=== PATIENT | male | born 1970 | race Caucasian/White ===

== ENCOUNTER 2019-02-13 09:30 | Outpatient (CLI) | payer BC ==
[~2019-02-13] VITALS: Ht 180.3 cm; Wt 115.7 kg
[~2019-02-13 09:30] MED LIST: BENZ200C25 PO; FLT05NA16 NSEACH; LOSA1TAB20 PO; METO100T5 PO; METR500T PO; ONDA-42 SL; OSLT75CRX PO
[2019-02-13] MEDS ORDERED: FENO134C PO (09:42)
[2019-02-13] MEDS ORDERED: LOSA100T57 PO (09:42)
[2019-02-13] MEDS ORDERED: OMEP40CA36 PO (09:42)
[2019-02-13] MEDS ORDERED: METO-395 PO (09:42)
== END 2019-02-13 09:43 | disposition home or self-care (01) ==
LOC: PREOP 09:30
PROVIDERS: ATTEND Surgery
DX: Z01.818 Encounter for other preprocedural examination (principal)

== ENCOUNTER 2019-02-17 09:09 | Day surgery (SDC) | payer BC ==
[~2019-02-17] VITALS: Ht 180.3 cm; Wt 115.7 kg
[~2019-02-17 09:09] MED LIST changes: +FENO134C PO; +LOSA100T57 PO; +METO-395 PO; +OMEP40CA36 PO
[2019-02-17 09:10] VITALS: BP 131/87
[2019-02-17] MEDS ORDERED: LACTATED RINGERS 1,000 ML IV PRN (09:30)
[2019-02-17] MEDS ORDERED: HURRICAINE EXT TUBE (BENZOCAINE) XX PRN (09:30)
[2019-02-17] MEDS ORDERED: PROPOFOL INJECTION 50 ML IV ONE (09:48)
[2019-02-17] MEDS ORDERED: MIDAZOLAM 2 MG/2 ML (VERSED) VIAL ONE (09:48)
[2019-02-17] MEDS ORDERED: LACTATED RINGERS 1,000 ML IV ONE (09:51)
[2019-02-17] MEDS ORDERED: HURRICAINE EXT TUBE (BENZOCAINE) ONE (09:59)
--- NOTE | 2019-02-17 10:07 | Progress Note-Pre Operative ---
Pre-Operative Progress Note H&P Reviewed The H&P was reviewed, patient examined and no changes noted. Date Seen by Provider: Feb 17, 2019 Time Seen by Provider: 10:06 Date H&P Reviewed: Feb 17, 2019 Time H&P Reviewed: 10:07 Pre-Operative Diagnosis: gerd, dysphagia, screening colonoscopy IRAJ BURCH DO Feb 17, 2019 10:07
[2019-02-17] MEDS ORDERED: SUCR1TAB36 PO (10:59)
[2019-02-17] MEDS ORDERED: PANT40TA2 PO (10:59)
[2019-02-17 11:00] VITALS: BP 114/74
--- NOTE | 2019-02-17 11:01 | Discharge Inst-Simple/Standard ---
Discharge Inst-Standard Discharge Medications New, Converted or Re-Newed RX: Transmitted to Pharmacy Patient Instructions/Follow Up Plan of Care/Instructions/FU: 2 weeks Carolynn Activity as Tolerated: Yes Discharge Diet: Regular Diet IRAJ BURCH DO Feb 17, 2019 11:01
[2019-02-17 11:35] VITALS: BP 123/86
[2019-02-17 11:45] VITALS: BP 123/86
--- NOTE | 2019-02-17 15:12 | Anesthesia-General Post-Op ---
MAC Patient Condition Mental Status/LOC: Same as Preop Cardiovascular: Satisfactory Nausea/Vomiting: Absent Respiratory: Satisfactory Pain: Controlled Complications: Absent Post Op Complications Complications None Follow Up Care/Instructions Patient Instructions None needed. Anesthesiology Discharge Order Discharge Order Patient is doing well, no complaints, stable vital signs, no apparent adverse anesthesia problems. No complications reported per nursing. LORENE BURGESS CRNA Feb 17, 2019 15:12
--- NOTE | 2019-02-17 15:35 | OPERATIVE REPORT ---
DATE OF SERVICE: 02/17/2019 PREOPERATIVE DIAGNOSES: Dysphagia, gastroesophageal reflux disease and screening colonoscopy. POSTOPERATIVE DIAGNOSES: Hiatal hernia, slight gastritis, sigmoid colon polyp. PROCEDURE: EGD with biopsies, colonoscopy with hot biopsy polypectomy. SURGEON: Iraj Pradhan DO ANESTHESIA: Per MDA. ESTIMATED BLOOD LOSS: None. COMPLICATIONS: None. INDICATIONS: The patient is a 48-year-old male with some dysphagia and reflux. He also had screening colonoscopy. He understands risks and benefits of procedure and wished to proceed with procedure. Consent was signed on the chart. DESCRIPTION OF PROCEDURE: The patient was taken to the endoscopy suite, placed in left lateral recumbent position. Timeout was performed. Scope was inserted into mouth, down the esophagus, stomach and the duodenum without difficulty. There were no polyps, masses or ulcerations within the duodenum. Scope was then slowly retracted back into the stomach, where it was further insufflated. Erythematous changes present consistent with slight gastritis. Biopsies were obtained of the antrum and body. Scope was retroflexed noting a hiatal hernia. No other pathology noted. Scope was returned to its normal position, slowly withdrawn until the distal esophagus. Biopsy of the GE junction was obtained. Scope was then slowly retracted back until completely removed. Digital rectal exam was performed. There were no palpable polyps, masses or ulcerations. Scope was inserted into the rectum and advanced all the way to the cecum with minimal difficulty. Prep was adequate. Scope was then slowly retracted back. There were no polyps, masses or ulcerations within the cecum, ascending, transverse and descending colon. Within the sigmoid colon, a small polyp was present to which hot biopsy polypectomy was performed. Scope was then slowly retracted back to the rectum, where it was also retroflexed noting no other pathology. Scope was returned to its normal position, slowly withdrawn until completely removed. The patient tolerated procedure well without any complications. He was taken to the recovery room in stable condition. RECOMMENDATIONS: The patient will be started on Protonix and Carafate. We will follow up in 2 weeks. We will need repeat colonoscopy in 5 years. Any issues before that be seen at that time. Job ID: [id number] DocumentID: [id number] Dictated Date: 02/17/2019 11:04:51 [employer] Research Scientist Date: 02/17/2019 15:35:11 Dictated By: IRAJ PRADHAN DO
== END 2019-02-17 11:45 | disposition home or self-care (01) ==
LOC: ENDO 09:09
PROVIDERS: ATTEND Surgery
DX: Z12.11 Encounter for screening for malignant neoplasm of colon (principal); D12.5 Benign neoplasm of sigmoid colon; K21.0 Gastro-esophageal reflux disease with esophagitis; K44.9 Diaphragmatic hernia without obstruction or gangrene; K29.50 Unspecified chronic gastritis without bleeding; B96.81 Helicobacter pylori [H. pylori] as the cause of diseases classified elsewhere; I10 Essential (primary) hypertension; Z79.899 Other long term (current) drug therapy
CPT/HCPCS: 88305; 88342

== ENCOUNTER 2021-02-12 05:57 | Inpatient (IN) | payer BC ==
[2021-02-12] VITALS (12 sets, daily range): BP systolic 124–169; BP diastolic 68–94
[~2021-02-12] VITALS: Ht 180.3 cm; Wt 115.7 kg
[~2021-02-12 05:57] MED LIST changes: -METO-395 PO; +MTP100TCR PO; +OMEP40CA27 PO; -OMEP40CA36 PO; +PANT40TA2 PO; +SUCR1TAB36 PO
[2021-02-12] MEDS ORDERED: NS IV 1000 ML 1,000 ML IV SCH (06:30)
[2021-02-12] MEDS ORDERED: ONDANSETRON 4 MG/2 ML (SDV) Z0FRAN IVP ONE (06:30)
--- NOTE | 2021-02-12 06:31 | ED Abdominal Pain ---
General Chief Complaint: Abdominal/GI Problems Stated Complaint: ABD PAIN;VOMITING Nursing Triage Note: TO ED VIA POV AND AMBULATORY TO ROOM 6 WITH C/O ABD PAIN AND CRAMPING SINCE SATURDAY NIGHT. PT STARTED VOMITING SATURDAY NIGHT THRU SATURDAY MORNING. THE PAIN ORIGINATED IN UPPER ABD WHEN STARTED ON SATURDAY AND NOT IS LOWER ABD. DENIES DIARRHEA, FEVER, CHILLS, COUGH, SOA. TOOK TYLENOL WITH NO RELIEF. Sepsis Screen: No Definite Risk Source of Information: Patient Exam Limitations: No Limitations History of Present Illness Date Seen by Provider: Feb 12, 2021 Time Seen by Provider: 06:15 Initial Comments Patient is a 50-year-old male who presents to the emergency department tonight with a chief complaint of abdominal cramping and pain onset 48 hours ago. Patient has had multiple episodes of vomiting since the onset of his pain. He denies diarrhea, black or bloody stools. He denies black or bloody vomitus as well. Patient states that the pain started in the epigastrium and has slowly migrated down to the inferior abdominal area. He has had contact with a sick granddaughter who had similar symptoms about a week ago that lives with him. He is taken Tylenol and Pepto-Bismol without any relief of symptoms. He presented this evening because he is not been able to sleep secondary to the cramping d iscomfort. He denies any problems with urinary output. No other recent illnesses such as fevers, chills cough or congestion. He has had no history of abdominal surgeries. All other review of systems reviewed and negative except as stated. Timing/Duration: 2-3 Days Severity/Quality: Cramping Location: Generalized Abdomen Radiation: Other (lower abdomen) Activities at Onset: None Associated Symptoms: Nausea/Vomiting (15+ times) Allergies and Home Medications Allergies Coded Allergies: No Known Drug Allergies (Verified , 02/17/19) Home Medications Dicyclomine HCl 20 Mg Tablet, 20 MG PO Q6H PRN for abdominal cramping Prescribed by: ROSY JOHN on 02/12/21 0713 Fenofibrate,Micronized 134 Mg Capsule, 134 MG PO DAILY, (Reported) Losartan Potassium Unknown Strength Tablet, 1 TAB PO DAILY, (Reported) Metoprolol Succinate Unknown Strength Tab.er.24h, 1 TAB PO DAILY, (Reported) Ondansetron 4 Mg Tab.rapdis, 4 MG PO Q8H PRN for nausea Prescribed by: ROSY JOHN on 02/12/21 0713 Pantoprazole Sodium 40 Mg Tablet.dr, 40 MG PO DAILY Prescribed by: IRAJ BURCH on 02/17/19 1059 Sucralfate 1 Gm Tablet, 1 GM PO QID Prescribed by: IRAJ BURCH on 02/17/19 1059 Patient Home Medication List Home Medication List Reviewed: Yes Review of Systems Review of Systems Constitutional: see HPI EENTM: No Symptoms Reported Respiratory: No Symptoms Reported Cardiovascular: No Symptoms Reported Gastrointestinal: Abdominal Pain, Nausea, Vomiting Genitourinary: No Symptoms Reported Musculoskeletal: no symptoms reported Skin: no symptoms reported All Other Systems Reviewed Negative Unless Noted: Yes Past Acsbclj-Vekpxc-Xggfgq Hx Patient Social History Alcohol Use: Denies Use Smoking Status: Never a Smoker 2nd Hand Smoke Exposure: No Recent Infectious Disease Expo: No Immunizations Up To Date Date of Influenza Vaccine: Aug 18, 2018 Seasonal Allergies Seasonal Allergies: No Past Medical History Surgeries: Yes (leg fx ) Orthopedic Respiratory: No Cardiac: Yes High Cholesterol, Hypertension Neurological: No Genitourinary: No Gastrointestinal: Yes Gastroesophageal Reflux Musculoskeletal: No Endocrine: No HEENT: No Cancer: No Psychosocial: No Integumentary: No Blood Disorders: No Physical Exam Vital Signs Vital Signs - First Documented 02/12/21 06:06 Temp 36.7 Pulse 72 Resp 16 B/P (MAP) 144/72 (96) O2 Delivery Room Air Capillary Refill : Less Than 3 Seconds Height/Weight/BMI Height: 5'11.00" Weight: 255lbs. 0.0oz. [id number]; 33.00 BMI Method:Stated General Appearance: WD/WN, no apparent distress HEENT: normal ENT inspection (dry oral mucosa) Respiratory: lungs clear, normal breath sounds, no respiratory distress, no accessory muscle use Cardiovascular: regular rate, rhythm Gastrointestinal: normal bowel sounds, soft, tenderness (mild diffuse tenderness, no rebound or guarding) Extremities: normal inspection, no pedal edema Neurologic/Psychiatric: alert, normal mood/affect, oriented x 3 Skin: normal color, warm/dry Progress/Results/Core Measures Results/Orders Lab Results Laboratory Tests Test 02/12/21 06:10 Range/Units White Blood Count 17.7 H 4.3-11.0 10^3/uL Red Blood Count 5.76 H 4.30-5.52 10^6/uL Hemoglobin 17.5 13.3-17.7 g/dL Hematocrit 51 40-54 % Mean Corpuscular Volume 89 80-99 fL Mean Corpuscular Hemoglobin 30 25-34 pg Mean Corpuscular Hemoglobin Concent 34 32-36 g/dL Red Cell Distribution Width 13.1 10.0-14.5 % Platelet Count 330 130-400 10^3/uL Mean Platelet Volume 10.8 9.0-12.2 fL Immature Granulocyte % (Auto) 0 % Neutrophils (%) (Auto) 78 H 42-75 % Lymphocytes (%) (Auto) 12 12-44 % Monocytes (%) (Auto) 9 0-12 % Eosinophils (%) (Auto) 0 0-10 % Basophils (%) (Auto) 0 0-10 % Neutrophils # (Auto) 13.8 H 1.8-7.8 10^3/uL Lymphocytes # (Auto) 2.1 1.0-4.0 10^3/uL Monocytes # (Auto) 1.6 H 0.0-1.0 10^3/uL Eosinophils # (Auto) 0.1 0.0-0.3 10^3/uL Basophils # (Auto) 0.1 0.0-0.1 10^3/uL Immature Granulocyte # (Auto) 0.1 0.0-0.1 10^3/uL Neutrophils % (Manual) 82 % Lymphocytes % (Manual) 7 % Monocytes % (Manual) 10 % Band Neutrophils 1 % Blood Morphology Comment NORMAL Sodium Level 135 135-145 MMOL/L Potassium Level 3.9 3.6-5.0 MMOL/L Chloride Level 101 98-107 MMOL/L Carbon Dioxide Level 22 21-32 MMOL/L Anion Gap 12 5-14 MMOL/L Blood Urea Nitrogen 20 H 7-18 MG/DL Creatinine 1.53 H 0.60-1.30 MG/DL Estimat Glomerular Filtration Rate 48 BUN/Creatinine Ratio 13 Glucose Level 131 H 70-105 MG/DL Calcium Level 9.6 8.5-10.1 MG/DL Total Bilirubin 1.3 H 0.1-1.0 MG/DL Direct Bilirubin 0.5 H 0.0-0.3 MG/DL Indirect Bilirubin 0.8 MG/DL Aspartate Amino Transf (AST/SGOT) 24 5-34 U/L Alanine Aminotransferase (ALT/SGPT) 40 0-55 U/L Alkaline Phosphatase 82 40-136 U/L Total Protein 8.4 H 6.4-8.2 GM/DL Albumin 4.4 3.2-4.5 GM/DL Lipase 22 8-78 U/L My Orders Orders - ROSY JOHN MD Ondansetron Injection (Zofran Injectio (02/12/21 06:30) Ns Iv 1000 Ml (Sodium Chloride 0.9%) (02/12/21 06:30) Cbc With Automated Diff (02/12/21 06:27) Basic Metabolic Panel (02/12/21 06:27) Manual Differential (02/12/21 06:10) Dicyclomine Injection (Bentyl Injection) (02/12/21 07:11) Ct Abdomen/Pelvis Wo (02/12/21 07:34) Liver Panel (02/12/21 08:27) Lipase (02/12/21 08:27) Ketorolac Injection (Toradol Injection) (02/12/21 08:45) Piperacillin/Tazobactam (Bulk) (Zosyn In (02/12/21 09:00) Medications Given in ED Vital Signs/I&O 02/12/21 06:06 Temp 36.7 Pulse 72 Resp 16 B/P (MAP) 144/72 (96) O2 Delivery Room Air Blood Pressure Mean: 96 Progress Progress Note : Time: 06:55 Progress Note Patient seen and evaluated in the emergency department, 50-year-old with abdominal cramping and nausea. Evaluation today includes a physical exam, CBC and BMP. Patient is noted to have a significant leukocytosis of 17,000. He also has mild increase in his serum BUN and creatinine. Patient is treated in the emergency department with 8 mg of Zofran IV and a liter of normal saline. He stated that he achieved significant relief with the Zofran. Patient is strongly encouraged to drink plenty of fluids to stay well-hydrated in order to resolve the elevated BUN and creatinine. We will have the patient follow-up in 1 week with his primary care doctor with repeat labs in order to recheck the creatinine. Patient is sent home with a prescription for Zofran. He is advised to again follow-up next week with his primary care. He verbalized understanding. All questions are sought and answered. Patient will be stable for discharge. Diagnostic Imaging Diagonstic Imaging: CT Plain Films/CT/US/NM/MRI: abdomen, pelvis Comments [facility]. [place], [place] NAME: LEI JUSTICE JR [facility] REC#: [id number] PT STATUS: REG ER : 1970 PHYSICIAN: ROSY JOHN MD ADMIT DATE: 02/12/21/ER Draft Date of Exam:02/12/21 CT ABDOMEN/PELVIS WO PROCEDURE: CT abdomen and pelvis without contrast. TECHNIQUE: Multiple contiguous axial images were obtained through the abdomen and pelvis without the use of intravenous contrast. Auto Exposure Controls were utilized during the CT exam to meet ALARA standards for radiation dose reduction. INDICATION: Diffuse abdominal pain with elevated white cell count. FINDINGS: Examination demonstrates gallbladder wall thickening with air in the gallbladder extending into the cystic duct and a little bit within the central intrahepatic ducts. Inflammation is also seen around the descending duodenum. No ascites or fluid collections are present. The pancreas appears normal. The lung bases are clear. The spleen and adrenal glands and kidneys appear normal. Urinary bladder and prostate gland are normal. There is no evidence of appendicitis. Some bowel loops in the upper abdomen are mildly distended with few air-fluid levels consistent with an associated ileus. Distal bowel loops are decompressed. A early bowel obstruction cannot be excluded. IMPRESSION: 1. 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 2. Proximal small bowel is distended with air-fluid levels. No definite transition level is identified. This is probably associated enteritis. Early small bowel obstruction cannot be excluded. Dictated on workstation # [id number] Dict: 02/12/21 0809 Trans: 02/12/21 08 [facility] [id number] Interpreted by: KALI HAQUE MD Electronically signed by: Departure Communication (Admissions) Time/Spoke to Admitting Phy: 08:[address] King Impression Primary Impression: Abdominal pain Qualified Codes: R10.84 - Generalized abdominal pain Additional Impressions: Acute kidney injury Dehydration Cholecystitis Disposition: ADMITTED INPATIENT Condition: Stable Admissions Decision to Admit Reason: Admit from ER (General) Decision to Admit/Date: Feb 12, 2021 Time/Decision to Admit Time: 08:46 Departure-Patient Inst. Decision time for Depature: 06:56 Referrals: JOANNE ALVAREZ DO (PCP/Family) Primary Care Physician Patient Instructions: Gastritis (DC) Add. Discharge Instructions: Please follow a clear liquid diet for the next 24 hours. You can slowly advance your diet as tolerated after this. Use the oral Zofran tablets every 6-8 hours as needed for nausea and vomiting. If you develop a fever over 100.4, worsening abdominal pain, persistent vomiting or any other emergent concerns please come back to the ER for reevaluation. Please follow-up with your primary care doctor next week for repeat laboratory studies to follow-up on your kidney function panel. Scripts Ondansetron (Ondansetron Odt) 4 Mg Tab.rapdis 4 MG PO Q8H PRN for nausea, #20 TAB Prov: ROSY JOHN MD 02/12/21 Dicyclomine HCl (Dicyclomine HCl) 20 Mg Tablet 20 MG PO Q6H PRN for abdominal cramping, #30 TAB Prov: ROSY JOHN MD 02/12/21 Copy Copies To 1: JOANNE ALVAREZ KATHRYN M MD Feb 12, 2021 06:31
[2021-02-12 06:35] LABS: POTASSIUM 3.9 MMOL/L (3.6-5.0)
[2021-02-12 06:36] LABS: CALCIUM 9.6 MG/DL (8.5-10.1)
[2021-02-12 06:40] LABS: BASOPHILS # (AUTO) 0.1 10^3/uL (0.0-0.1); BASOPHILS % (AUTO) 0 % (0-10); CREATININE SERUM 1.53 MG/DL (0.60-1.30); EOSINOPHILS # (AUTO) 0.1 10^3/uL (0.0-0.3); EOSINOPHILS % (AUTO) 0 % (0-10); HEMATOCRIT 51 % (40-54); HEMOGLOBIN 17.5 g/dL (13.3-17.7); LYMPHOCYTES # (AUTO) 2.1 10^3/uL (1.0-4.0); LYMPHOCYTES % (AUTO) 12 % (12-44); MEAN CORPUSCULAR HEMOGLOBIN 30 pg (25-34); MEAN CORPUSCULAR HGB CONC 34 g/dL (32-36); MEAN CORPUSCULAR VOLUME 89 fL (80-99); MEAN PLATELET VOLUME 10.8 fL (9.0-12.2); MONOCYTES # (AUTO) 1.6 10^3/uL (0.0-1.0); MONOCYTES % (AUTO) 9 % (0-12); NEUTROPHILS # (AUTO) 13.8 10^3/uL (1.8-7.8); NEUTROPHILS % (AUTO) 78 % (42-75); PLATELET COUNT 330 10^3/uL (130-400); WHITE BLOOD COUNT 17.7 10^3/uL (4.3-11.0)
[2021-02-12] MEDS ORDERED: DICYCLOMINE 10 MG/ML (BENTYL) 2 ML AMP IM STA (07:11)
[2021-02-12] MEDS ORDERED: DICY20TA10 PO (07:13)
[2021-02-12] MEDS ORDERED: ONDA4TAB11 PO (07:13)
[2021-02-12 07:15] LABS: BAND NEUTROPHILS 1 %; LYMPHOCYTES % (MANUAL) 7 %; MONOCYTES % (MANUAL) 10 %; NEUTROPHILS % (MANUAL) 82 %
[2021-02-12 07:16] LABS: RBC MORPH NORMAL
--- NOTE | 2021-02-12 08:23 | Diagnostic Imaging Report ---
PROCEDURE: CT abdomen and pelvis without contrast. TECHNIQUE: Multiple contiguous axial images were obtained through the abdomen and pelvis without the use of intravenous contrast. Auto Exposure Controls were utilized during the CT exam to meet ALARA standards for radiation dose reduction. INDICATION: Diffuse abdominal pain with elevated white cell count. FINDINGS: Examination demonstrates gallbladder wall thickening with air in the gallbladder extending into the cystic duct and a little bit within the central intrahepatic ducts. Inflammation is also seen around the descending duodenum. No ascites or fluid collections are present. The pancreas appears normal. The lung bases are clear. The spleen and adrenal glands and kidneys appear normal. Urinary bladder and prostate gland are normal. There is no evidence of appendicitis. Some bowel loops in the upper abdomen are mildly distended with few air-fluid levels consistent with an associated ileus. Distal bowel loops are decompressed. A early bowel obstruction cannot be excluded. IMPRESSION: 1. 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 2. Proximal small bowel is distended with air-fluid levels. No definite transition level is identified. This is probably associated enteritis. Early small bowel obstruction cannot be excluded. Dictated by: Dictated on workstation # [id number]
[2021-02-12 08:43] LABS: ALBUMIN 4.4 GM/DL (3.2-4.5)
[2021-02-12] MEDS ORDERED: KETOROLAC 30 MG/ML VIAL IVP ONE (08:45)
[2021-02-12 08:46] LABS: TOTAL PROTEIN 8.4 GM/DL (6.4-8.2)
[2021-02-12 08:47] LABS: BILIRUBIN,TOTAL 1.3 MG/DL (0.1-1.0)
[2021-02-12 08:51] LABS: BILIRUBIN,DIRECT 0.5 MG/DL (0.0-0.3); BILIRUBIN,INDIRECT 0.8 MG/DL
[2021-02-12] MEDS ORDERED: PIPERACILLIN/TAZOBACTAM (BULK) 4.5 GM in NS (IVPB) 100 ML IV ONE (09:00)
[2021-02-12] MEDS ORDERED: NS IV 1000 ML 1,000 ML ONE (09:48)
[2021-02-12] MEDS ORDERED: fentaNYL INJ 100 MCG/2 ML AMP IVP PRN (10:00)
[2021-02-12] MEDS: NS IV 1000 ML 1,000 ML IV SCH ×2 (10:03→18:03)
--- NOTE | 2021-02-12 13:42 | History & Physical-Surgical ---
DARIUS JOSEPH MED STUDENT 02/12/21 1342: History of Present Illness History of Present Illness Reason for visit/HPI Per ED "Patient is a 50-year-old male who presents to the emergency department tonight with a chief complaint of abdominal cramping and pain onset 48 hours ago. Patient has had multiple episodes of vomiting since the onset of his pain. He denies diarrhea, black or bloody stools. He denies black or bloody vomitus as well. Patient states that the pain started in the epigastrium and has slowly migrated down to the inferior abdominal area. He has had contact with a sick granddaughter who had similar symptoms about a week ago that lives with him. He is taken Tylenol and Pepto-Bismol without any relief of symptoms. He presented this evening because he is not been able to sleep secondary to the cramping discomfort. He denies any problems with urinary output. No other recent illnesses such as fevers, chills cough or congestion. He has had no history of abdominal surgeries." Patient is awake and laying in bed. Seems to only be in mild distress. States that saturday morning he began to notice a crampy feeling in his RUQ that began to get worse over the course of the day. States he threw up about 15 times since then. States last night the pain moved down into the midline lower abdomen area. He has had no relief or comfort since and that is why he decided to come to the ER. States nothing really makes the pain better, did receive pain meds in ER and states not the pain is like a 1. Feels like crampy or stomach on fire, radiates throughout the abdomen. States he has not had an episode like this before. Last meal was at about 7 last night. LBM was around the same time. States he had no blood or diarrhea. States he will need a work note and wants to know how long he will be in the hospital Date of Admission Feb 12, 2021 at 08:54 Date Seen by a Provider: Feb 12, 2021 Time Seen by a Provider: 09:30 I consulted on this patient on 02/12/21 13:37 Attending Physician Amy Serna DO Admitting Physician Malu Hernandez DO Consult Allergies and Home Medications Allergies Coded Allergies: No Known Drug Allergies (Verified , 02/17/19) Home Medications Dicyclomine HCl 20 Mg Tablet, 20 MG PO Q6H PRN for abdominal cramping Prescribed by: ROSY JOHN on 02/12/21712 Fenofibrate,Micronized 134 Mg Capsule, 134 MG PO DAILY, (Reported) Losartan Potassium Unknown Strength Tablet, 1 TAB PO DAILY, (Reported) Metoprolol Succinate Unknown Strength Tab.er.24h, 1 TAB PO DAILY, (Reported) Ondansetron 4 Mg Tab.rapdis, 4 MG PO Q8H PRN for nausea Prescribed by: ROSY JOHN on 02/12/21712 Pantoprazole Sodium 40 Mg Tablet.dr, 40 MG PO DAILY Prescribed by: IRAJ BURCH on 02/17/19 105 Sucralfate 1 Gm Tablet, 1 GM PO QID Prescribed by: IRAJ BURCH on 02/17/19 105 Patient Home Medication List Home Medication List Reviewed: Yes Past Rqotiue-Opdcox-Vdzmpf Hx Patient Social History Smoking Status: Never a Smoker 2nd Hand Smoke Exposure: No Alcohol Use?: No Have you traveled recently?: No Immunizations Up To Date Date of Influenza Vaccine: Sep 13, 2020 Seasonal Allergies Seasonal Allergies: No Surgeries History of Surgeries: Yes (leg fx ) Surgeries: Orthopedic (R Knee) Respiratory History of Respiratory Disorde: No Cardiovascular History of Cardiac Disorders: Yes Cardiac Disorders: High Cholesterol, Hypertension Neurological History of Neurological Disord: No Genitourinary History of Genitourinary Disor: No Gastrointestinal History of Gastrointestinal Di: Yes Gastrointestinal Disorders: Gastroesophageal Reflux Musculoskeletal History of Musculoskeletal Dis: No Endocrine History of Endocrine Disorders: No HEENT History of HEENT Disorders: No Cancer History of Cancer: No Psychosocial History of Psychiatric Problem: No Integumentary History of Skin or Integumenta: No Blood Transfusions History of Blood Disorders: No Family Medical History Significant Family History: Heart Disease (Father), Cancer (Has aunt with liver cancer, denies any other relatives), Diabetes (Mother) Review of Systems Constitutional: No chills EENTM: No blurred vision Respiratory: No cough, No short of breath Cardiovascular: No chest pain, No edema, No palpitations Gastrointestinal: abdominal pain (Midline lower Abdominal pain) Genitourinary: No dysuria, No hematuria Musculoskeletal: No joint pain Skin: No rash Psychiatric/Neurological: Denies Headache Physical Exam Vital Signs Vital Signs - First Documented 02/12/21 02/12/21 02/12/21 06:06 09:36 10:46 Temp 36.7 Pulse 72 Resp 16 B/P (MAP) 144/72 (96) Pulse Ox 97 O2 Delivery Room Air FiO2 21 Capillary Refill : Less Than 3 Seconds Height, Weight, BMI Height: 5'11.00" Weight: 255lbs. 0.0oz. 115.824660mi; 34.37 BMI Method:Stated General Appearance: No Apparent Distress Respiratory: Chest Non Tender, Lungs Clear, Normal Breath Sounds, No Accessory Muscle Use, No Respiratory Distress Cardiovascular: Regular Rate, Rhythm, No Edema, No Murmur Gastrointestinal: Normal Bowel Sounds, Soft; No Guarding; Tenderness (Very mild, Midline lower abdomen), Other (Nagative andrews's sign) Rectal: Deferred Extremity: No Calf Tenderness, No Pedal Edema Neurologic/Psychiatric: Alert, Oriented x3, Normal Mood/Affect Skin: Normal Color, Warm/Dry Data Review Labs Laboratory Tests 02/12/21 06:10: White Blood Count 17.7H, Red Blood Count 5.76H, Hemoglobin 17.5, Hematocrit 51, Mean Corpuscular Volume 89, Mean Corpuscular Hemoglobin 30, Mean Corpuscular Hemoglobin Concent 34, Red Cell Distribution Width 13.1, Platelet Count 330, Mean Platelet Volume 10.8, Immature Granulocyte % (Auto) 0, Neutrophils (%) (Auto) 78H, Lymphocytes (%) (Auto) 12, Monocytes (%) (Auto) 9, Eosinophils (%) (Auto) 0, Basophils (%) (Auto) 0, Neutrophils # (Auto) 13.8H, Lymphocytes # (Auto) 2.1, Monocytes # (Auto) 1.6H, Eosinophils # (Auto) 0.1, Basophils # (Auto) 0.1, Immature Granulocyte # (Auto) 0.1, Neutrophils % (Manual) 82, Lymphocytes % (Manual) 7, Monocytes % (Manual) 10, Band Neutrophils 1, Blood Morphology Comment NORMAL, Sodium Level 135, Potassium Level 3.9, Chloride Level 101, Carbon Dioxide Level 22, Anion Gap 12, Blood Urea Nitrogen 20H, Creatinine 1.53H, Estimat Glomerular Filtration Rate 48, BUN/Creatinine Ratio 13, Glucose Level 131H, Calcium Level 9.6, Total Bilirubin 1.3H, Direct Bilirubin 0.5H, Indirect Bilirubin 0.8, Aspartate Amino Transf (AST/SGOT) 24, Alanine Aminotransferase (ALT/SGPT) 40, Alkaline Phosphatase 82, Total Protein 8.4H, Albumin 4.4, Lipase [address] ABDOMEN/PELVIS WO PROCEDURE: CT abdomen and pelvis without contrast. TECHNIQUE: Multiple contiguous axial images were obtained through the abdomen and pelvis without the use of intravenous contrast. Auto Exposure Controls were utilized during the CT exam to meet ALARA standards for radiation dose reduction. INDICATION: Diffuse abdominal pain with elevated white cell count. FINDINGS: Examination demonstrates gallbladder wall thickening with air in the gallbladder extending into the cystic duct and a little bit within the central intrahepatic ducts. Inflammation is also seen around the descending duodenum. No ascites or fluid collections are present. The pancreas appears normal. The lung bases are clear. The spleen and adrenal glands and kidneys appear normal. Urinary bladder and prostate gland are normal. There is no evidence of appendicitis. Some bowel loops in the upper abdomen are mildly distended with few air-fluid levels consistent with an associated ileus. Distal bowel loops are decompressed. A early bowel obstruction cannot be excluded. IMPRESSION: 1. 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 2. Proximal small bowel is distended with air-fluid levels. No definite transition level is identified. This is probably associated enteritis. Early small bowel obstruction cannot be excluded. Assessment/Plan Assessment/Plan Admission Diagonsis Emphysematous Cholecystitis Admission Status: Inpatient Order (span 2 midnights) Reason for Inpatient Admission: Cholecystectomy Assessment/Plan Emphysematous Cholecystitis -Patient currently stable and waiting to go to surgery -Will discuss risks and benefits of surgery with pt and give informed consent, answer any questions -Continue Pain medication, pain controlled at this point -May need to stay overnight for observation -NPO until after surgery -Followup in 1 Week Leukocytosis -Likely due to cholecystitis -No need for abx at this time -Expect to go down tomorrow morning with CBC NANETTEAVIVAAMY Alejo DO 02/12/21 1064: History of Present Illness History of Present Illness Reason for visit/HPI Pt seen on the floor, this note is late entry because I could not log on. Pt states he has never had pain like this before and doesn't think he has had "gallbladder pain before". Pt's said she tried to get him to come to hospital last night. Time Seen by a Provider: 15:32 Allergies and Home Medications Allergies Coded Allergies: No Known Drug Allergies (Verified , 02/17/19) Home Medications Dicyclomine HCl 20 Mg Tablet, 20 MG PO Q6H PRN for abdominal cramping Prescribed by: ROSY JOHN on 02/12/21712 Fenofibrate,Micronized 134 Mg Capsule, 134 MG PO DAILY, (Reported) Losartan Potassium Unknown Strength Tablet, 1 TAB PO DAILY, (Reported) Metoprolol Succinate Unknown Strength Tab.er.24h, 1 TAB PO DAILY, (Reported) Ondansetron 4 Mg Tab.rapdis, 4 MG PO Q8H PRN for nausea Prescribed by: ROSY JOHN on 02/12/21712 Pantoprazole Sodium 40 Mg Tablet.dr, 40 MG PO DAILY Prescribed by: IRAJ BURCH on 02/17/19 105 Sucralfate 1 Gm Tablet, 1 GM PO QID Prescribed by: IRAJ BURCH on 02/17/19 1059 Patient Home Medication List Home Medication List Reviewed: Yes Past Qmjmpan-Wtwaop-Sdqeet Hx Patient Social History Smoking Status: Never a Smoker 2nd Hand Smoke Exposure: No Alcohol Use?: Yes Surgeries History of Surgeries: Yes Respiratory History of Respiratory Disorde: No Cardiovascular History of Cardiac Disorders: Yes Cardiac Disorders: High Cholesterol, Hypertension Neurological History of Neurological Disord: No Reproductive System Hx Reproductive Disorders: No Genitourinary History of Genitourinary Disor: No Gastrointestinal History of Gastrointestinal Di: Yes Gastrointestinal Disorders: Gastroesophageal Reflux Musculoskeletal History of Musculoskeletal Dis: No Endocrine History of Endocrine Disorders: No HEENT History of HEENT Disorders: No Loss of Vision: Denies Hearing Impairment: Denies Cancer History of Cancer: No Psychosocial History of Psychiatric Problem: No Integumentary History of Skin or Integumenta: No Family Medical History Significant Family History: Heart Disease (Father), Cancer (Has aunt with liver cancer, denies any other relatives), Diabetes (Mother) Review of Systems Constitutional: No chills, No diaphoresis, No weakness EENTM: No blurred vision, No mouth pain, No mouth swelling, No epistaxis, No throat swelling Respiratory: No cough, No dyspnea on exertion, No short of breath Cardiovascular: No chest pain, No edema, No palpitations Gastrointestinal: abdominal pain (Midline lower Abdominal pain); No nausea, No vomiting Genitourinary: No dysuria, No hematuria Musculoskeletal: No joint pain, No joint swelling, No muscle stiffness Skin: No change in color, No change in hair/nails Psychiatric/Neurological: Denies Anxiety, Denies Depressed, Denies Headache, Denies Tremors Pt denies any hx of abnormal bleeding or bruising Physical Exam General Appearance: No Apparent Distress, WD/WN Eyes: Bilateral Eye PERRL, Bilateral Eye EOMI HEENT: Moist Mucous Membranes; No Pale Conjunctivae (L), No Pale Conjunctivae (R), No Scleral Icterus (L), No Scleral Icterus (R) Neck: Full Range of Motion, Non Tender, Supple Respiratory: Chest Non Tender, Lungs Clear, Normal Breath Sounds, No Accessory Muscle Use, No Respiratory Distress Cardiovascular: Regular Rate, Rhythm, No Edema, No Murmur Gastrointestinal: Normal Bowel Sounds, Soft; No Guarding; Hernia (small umbilical), Tenderness (Very mild, Midline lower abdomen), Other (Nagative andrews's sign) Rectal: Deferred Extremity: No Calf Tenderness, No Pedal Edema Neurologic/Psychiatric: Alert, Oriented x3, No Motor/Sensory Deficits, Normal Mood/Affect, 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 TECHNIQUE: Multiple contiguous axial images were obtained through the abdomen and pelvis without the use of intravenous contrast. Auto Exposure Controls were utilized during the CT exam to meet ALARA standards for radiation dose reduction. INDICATION: Diffuse abdominal pain with elevated white cell count. FINDINGS: Examination demonstrates gallbladder wall thickening with air in the gallbladder extending into the cystic duct and a little bit within the central intrahepatic ducts. Inflammation is also seen around the descending duodenum. No ascites or fluid collections are present. The pancreas appears normal. The lung bases are clear. The spleen and adrenal glands and kidneys appear normal. Urinary bladder and prostate gland are normal. There is no evidence of appendicitis. Some bowel loops in the upper abdomen are mildly distended with few air-fluid levels consistent with an associated ileus. Distal bowel loops are decompressed. A early bowel obstruction cannot be excluded. IMPRESSION: 1. 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 2. Proximal small bowel is distended with air-fluid levels. No definite transition level is identified. This is probably associated enteritis. Early small bowel obstruction cannot be excluded. Dictated by: Dictated on workstation # [id number] Dict: 02/12/21 0809 Trans: 02/12/21 08 [facility] [id number] Interpreted by: KALI HAQUE MD Electronically signed by: KALI HAQUE MD 02/12/21832 Assessment/Plan Assessment/Plan Admission Diagonsis Emphysematous Cholecystitis Admission Status: Inpatient Order (span 2 midnights) Reason for Inpatient Admission: Pt had major open surgery and had hole in duodenum, will need NPO for 5 days. Assessment/Plan Emphysematous Cholecystitis -Patient currently stable and waiting to go to surgery -Will discuss risks and benefits of surgery with pt and give informed consent, answer any questions -Continue Pain medication, pain controlled at this point -May need to stay overnight for observation -NPO until after surgery -Followup in 1 Week Leukocytosis -Likely due to cholecystitis -No need for abx at this time -Expect to go down tomorrow morning with CBC Supervisory-Addendum Brief Verification & Attestation Participated in pt care: history, MDM, physical Personally performed: exam, history, MDM Care discussed with: Medical Student Procedures: n/a Verification and Attestation of Medical Student E/M Service A medical student performed and documented this service. I then reviewed and verified all information documented by the medical student and made modifications to such information, when appropriate. I personally performed a physical exam, medical decision making and then discussed any differences between the notes and made revisions as necessary to create one note. Amy Serna , 02/12/21 , 21:56 DARIUS JOSEPH MED STUDENT Feb 12, 2021 13:42 AMY SERNA DO Feb 12, 2021 21:54
[2021-02-12] MEDS ORDERED: SEVOFLURANE (ULTANE) 15 ML INHAL SOLN ONE (14:30)
[2021-02-12] MEDS ORDERED: fentaNYL INJ 100 MCG/2 ML AMP ONE ×2 (14:30→18:57)
[2021-02-12] MEDS ORDERED: ONDANSETRON 4 MG/2 ML (SDV) Z0FRAN IVP PRN (14:30)
[2021-02-12] MEDS ORDERED: ROCURONIUM 10 MG/ML 5 ML SYRINGE IV ONE (14:30)
[2021-02-12] MEDS ORDERED: ONDANSETRON 4 MG/2 ML (SDV) Z0FRAN ONE (14:30)
[2021-02-12] MEDS ORDERED: MIDAZOLAM 2 MG/2 ML (VERSED) VIAL ONE (14:30)
[2021-02-12] MEDS ORDERED: LIDOCAINE PF 2% 5 ML (XYLOCAINE) VIAL ONE (14:30)
[2021-02-12] MEDS ORDERED: proPOfol 200 MG/20 ML (DIPRIVAN) VIAL IV ONE (14:30)
[2021-02-12] MEDS ORDERED: GLYCOPYRROLATE 0.2 MG/ML (ROBINUL) 2 ML VIAL ONE (14:33)
[2021-02-12] MEDS ORDERED: NEOSTIGMINE 3 MG/3 ML VIAL ONE (14:33)
[2021-02-12] MEDS ORDERED: LIDOCAINE/EPI 1%-1:100,000 (XYLOCAINE) 20ML ONE (15:31)
[2021-02-12] MEDS ORDERED: IOPAMIDOL 61% 30 ML (ISOVUE 300) VIAL ONE (15:31)
[2021-02-12] MEDS: LACTATED RINGERS 1,000 ML IV PRN ×3 (15:51→18:00)
[2021-02-12] MEDS ORDERED: meTOprolol 5 MG/5 ML (LOPRESSOR) VIAL ONE (16:01)
[2021-02-12] MEDS ORDERED: HYDROmorphone 2 MG/ML VIAL (DILAUDID) ONE ×2 (16:07→18:01)
--- NOTE | 2021-02-12 17:52 | Diagnostic Imaging Report ---
EXAM: Fluoroscopic guidance. EXAM DATE: 02/12/2021. COMPARISON: None. HISTORY: Fluoroscopic guidance for cholecystectomy. TECHNIQUE: Digital subtraction fluoroscopy was utilized for intraoperative cholangiogram. FINDINGS: 13 seconds of fluoroscopy was utilized. Digital subtraction was utilized. The common bile duct is opacified. IMPRESSION: Intraoperative fluoroscopic guidance for cholecystectomy. Please see operative report for details. Dictated by: Dictated on workstation # [id number]
[2021-02-12] MEDS ORDERED: morphine INJ 10 MG/ML 1ML (SYR OR VIAL) ONE (18:01)
[2021-02-12] MEDS ORDERED: PIPERACILLIN/TAZOBACTAM (BULK) 4.5 GM in NS (IVPB) 100 ML IV SCH (19:00)
--- NOTE | 2021-02-12 19:00 | Progress Note-Post Operative ---
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
[2021-02-12] MEDS ORDERED: HYDROmorphone 2 MG/ML VIAL (DILAUDID) IV ONE (20:00)
[2021-02-12] MEDS ORDERED: NS (IVPB) 200 ML ONE (20:35)
[2021-02-12] MEDS ORDERED: PIPERACILLIN/TAZO 4.5 GM VIAL (ZOSYN) IV ONE (20:36)
[2021-02-12] MEDS ORDERED: metroNIDAZOLE 500MG/100ML IVPB 100 ML ONE (20:37)
[2021-02-12] MEDS: LACTATED RINGERS 1,000 ML IV SCH (20:51)
[2021-02-12] MEDS: metroNIDAZOLE 500MG/100ML IVPB 100 ML IV SCH (20:51)
[2021-02-12] MEDS ORDERED: PIPERACILLIN/TAZO 4.5 GM/NS 100 ML IV NR ×2 (21:00)
[2021-02-12] MEDS: FLUCONAZOLE 200 MG/100 ML 100 ML IV SCH (22:08)
[2021-02-12] MEDS: morphine INJ 4 MG/ML 1 ML (VIAL/SYRINGE) IVP PRN (22:12)
[2021-02-13] VITALS (7 sets, daily range): BP systolic 115–155; BP diastolic 69–90
--- NOTE | 2021-02-13 00:20 | OPERATIVE REPORT ---
DATE OF SERVICE: PREOPERATIVE DIAGNOSES: Emphysematous gallbladder and acute cholecystitis. 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 PROCEDURES: 1. Laparoscopic cholecystectomy, intraoperative cholangiogram. 2. Open repair of duodenal fistula with modified Alejo patch. SURGEON: Ish King DO MANAGER SALES TRAINING: Cristopher Pradhan DO. ANESTHESIA: General endotracheal tube. SPECIMEN: Gallbladder and contents. BLOOD LOSS: Approximately 500 mL. FLUIDS: Per anesthesia. INDICATION FOR PROCEDURE: The patient is a 50-year-old male, who came in with abdominal pain and elevated white count. CAT scan showed emphysematous gallbladder with thickening of the gallbladder needed a cholecystectomy for acute cholecystitis and emphysematous gallbladder. FINDINGS: The patient had, which turned out to be a Tila - duodenal fistula. He had a hole fistula between the mid portion of the gallbladder and the duodenum. Gallbladder was very thickened and firm. PROCEDURE NOTE: After informed consent was obtained, the patient was brought to the operating room, placed on the operating table in supine position. He was sterilely prepped and draped in normal fashion. Local lidocaine was used to infiltrate the skin above the umbilicus. I made an incision with 11 blade, carried down through the skin into subcutaneous tissue, deepened down to subcutaneous tissue with Bovie electrocautery down to the fascia. Fascia was incised with Bovie electrocautery, bluntly entered the abdomen, swept a finger around, placed 0 Vicryl [id number]-js-ikaup suture and placed limited trocar port under direct visualization. Created pneumoperitoneum and then placed 3 more ports in normal fashion using local lidocaine, 11 blade for stab incision and VersaStep system, all done under direct visualization, one subxiphoid and 2 in the right upper quadrant. The patient placed in reverse Trendelenburg and rotated left, had adhesions above the gallbladder. These were carefully moved away with blunt dissection as well as Bovie electrocautery. Once the omentum was moved out of the way, we were able to then grasp the gallbladder, it was very firm and hard to grasp. Started lifting this up. Continued taking down the omentum, got to about senior living down and encountered what looked like a little bit of a bump, this did not appear to be normal, carefully started looking around and traced the stomach and duodenum and the duodenum went right up to this area, so it looked like this was duodenum attached to the gallbladder. At this point then slowly and carefully started trying to push these to apart using hydrodissection as well as blunt dissection with the suction shank threader as well as using Kittners to try and carefully pushed this away as we continued to kind of separate these two. We were able to push away, then noted a hole in the gallbladder. Once this occurred, we realized this is most likely a fistula between the gallbladder and the duodenum. Continued to carefully take this down with blunt dissection, the hydrodissection and Kittners finally encountered a hole in the duodenum, continued taking this down, able to finally get the duodenum free from the gallbladder and then grasped down Mary's pouch and start pulling the inferolateral direction, started dissecting out cystic duct, able to get around the cystic duct, placed a clip proximally. Cut the cystic duct, unable to do a cholangiogram and saw dye go down the cystic duct into the common bile duct and down in small intestine as well as up into common hepatic duct. At this point, then removed the cholangiogram catheter. The duct was just too large too much inflammation, so elected to cut the duct and then got an Endoloop across the cystic duct, tightened this down. It was in good position cut this and then started dissecting back, found a small branch of the cystic artery cut this and then as we were dissecting the gallbladder off the bed of liver with L-hook cautery. Encountered the larger or possibly just the posterior cystic artery, got a lot of bleeding, able to finally control this with some clips and then continued taking the gallbladder from the bed of liver with L-hook cautery. It was very firm and hard to take off this gallbladder. Finally, able to get this completely off, placed a bag in the abdomen, placed the gallbladder in the bag and then removed this through the supraumbilical incision. At this point, we had suctioned and irrigated with approximately 3 liters of warm normal saline and at this point, we then elected to open the abdomen to close this hole in the duodenum, we used #10 blade, carried down through the skin and subcutaneous tissues from subxiphoid to just below the supraumbilical incision, carried down through the skin into subcutaneous tissue, deepened down to subcutaneous tissue with Bovie electrocautery down to the fascia. Fascia was incised with Bovie electrocautery, bluntly entered the abdomen, used my finger to protect the bowel and then opened superiorly and inferiorly. I then using a Scarlett, opened the abdomen and then started packing and suctioning out used a sweetheart retractor to lift the liver. There was no bleeding in the bed of liver. We had stopped this. Then, able to visualize the duodenum grasped the stomach with some Babcocks also used a malleable to kind of push things out of the way. Placed some sponges in the abdomen and then able to visualize this hole in the duodenum, elected to close this with 3-0 Vicryl sutures, used six 3-0 Vicryl sutures to close this hole simple sutures. This actually closed nicely, then used Bovie electrocautery to cut a tongue of the omentum and placed the omentum over this area and down into the bed of the liver and then tied the omentum down with the six 3-0 Vicryl sutures, thereby creating a modified Alejo patch on this duodenal fistula the hole that we had closed. At this point, suctioned everything out, placed two 19-Bengali Rio drain through the right upper quadrant ports were using for the gallbladder. These were sutured in place with 2-0 nylon, closed the midline incision with #1 double stranded PDS suture running from superior portion to inferior portion recreated pneumoperitoneum to look around and the drains looked like there was good position, the closure looked good and no leaking from the pneumoperitoneum and at this point, the patient had been reverse Trendelenburg and rotated left. He was placed supine, removed the 11 mm trocar port and allowed the pneumoperitoneum to escape, closed the supraumbilical incision with 0 Vicryl suture previously placed. Copiously irrigated all incisions with normal saline and then closed the midline incision in the supraumbilical incision with flaco as well as the small 5 mm subxiphoid, the other two 5 mm incisions were closed because it drains, closed with 2-0 nylon. Area was cleaned and dried, dressings placed. The patient tolerated the procedure. The sponge, instrument and needle count were correct at the end of the case. Dr. Pradhan assisted in this case helping to make incisions, close incisions, identify anatomy and hold anatomy out of the way. Job ID: [id number] DocumentID: [id number] Dictated Date: 02/12/2021 22:07:54 [place] Date: 02/13/2021 00:20:13 Dictated By: DO WALDO DELATORRE
[2021-02-13] MEDS: morphine INJ 4 MG/ML 1 ML (VIAL/SYRINGE) IVP PRN ×5 (00:22→18:26)
[2021-02-13] MEDS: PIPERACILLIN/TAZO 4.5 GM/NS 100 ML IV SCH ×6 (04:13→18:22)
[2021-02-13] MEDS: LACTATED RINGERS 1,000 ML IV SCH ×3 (04:14→18:26)
[2021-02-13] MEDS: metroNIDAZOLE 500MG/100ML IVPB 100 ML IV SCH ×2 (08:26→20:23)
[2021-02-13] MEDS: PANTOPRAZOLE 40 MG (PROTONIX) VIAL IVP SCH (08:27)
[2021-02-13 10:15] LABS: BASOPHILS % (AUTO) 0 % (0-10); EOSINOPHILS % (AUTO) 0 % (0-10); HEMATOCRIT 46 % (40-54); HEMOGLOBIN 15.2 g/dL (13.3-17.7); LYMPHOCYTES # (AUTO) 0.8 10^3/uL (1.0-4.0); LYMPHOCYTES % (AUTO) 5 % (12-44); MEAN CORPUSCULAR HEMOGLOBIN 31 pg (25-34); MEAN CORPUSCULAR HGB CONC 33 g/dL (32-36); MEAN CORPUSCULAR VOLUME 93 fL (80-99); MEAN PLATELET VOLUME 10.9 fL (9.0-12.2); MONOCYTES # (AUTO) 1.5 10^3/uL (0.0-1.0); MONOCYTES % (AUTO) 9 % (0-12); NEUTROPHILS # (AUTO) 13.6 10^3/uL (1.8-7.8); NEUTROPHILS % (AUTO) 85 % (42-75); PLATELET COUNT 241 10^3/uL (130-400)
[2021-02-13] MEDS ORDERED: FAMO40TA6 PO (10:23)
[2021-02-13] MEDS ORDERED: LORA10TA76 PO (10:23)
[2021-02-13] MEDS ORDERED: LOSA50TA63 PO (10:23)
[2021-02-13] MEDS ORDERED: HYDR12.56 PO (10:23)
[2021-02-13] MEDS ORDERED: MTP100TCR PO (10:23)
[2021-02-13] MEDS ORDERED: FENO134C PO (10:23)
[2021-02-13 10:34] LABS: BUN/CREATININE RATIO 13; CALCIUM 8.4 MG/DL (8.5-10.1); CARBON DIOXIDE 20 MMOL/L (21-32); CHLORIDE 105 MMOL/L (98-107); CREATININE SERUM 1.21 MG/DL (0.60-1.30); GFR ESTIMATED > 60; GLUCOSE 175 MG/DL (70-105); POTASSIUM 3.7 MMOL/L (3.6-5.0); SODIUM 135 MMOL/L (135-145)
--- NOTE | 2021-02-13 10:59 | Anesthesia-General Post-Op ---
General Patient Condition Mental Status/LOC: Same as Preop Cardiovascular: Satisfactory Nausea/Vomiting: Absent Respiratory: Satisfactory Pain: Controlled Complications: Absent Post Op Complications Complications None Follow Up Care/Instructions Patient Instructions None needed. Anesthesia/Patient Condition Patient Condition Patient is doing well, sitting up in chair with C/O abd pain (which is expected and currently controlled), stable vital signs, no apparent adverse anesthesia problems. RENATE GILBERT DO Feb 13, 2021 10:59
[2021-02-13] MEDS ORDERED: meTOprolol SUCCINATE 100 MG (TOPROL XL) TAB PO NR (13:15)
--- NOTE | 2021-02-13 14:57 | Progress Note - Surgery ---
Subjective Time Seen by a Provider: 14:12 Subjective/Events-last exam Pt seen and examined, states pain is well controlled. His main complaint is he is thirsty; "I could drink a gallon of water". Review of Systems Pulmonary: No Dyspnea, No Cough Cardiovascular: No: Chest Pain, Palpitations Gastrointestinal: Abdominal Pain (mild); No: Nausea, Vomiting Objective Exam Vital Signs Date Time Temp Pulse Resp B/P (MAP) Pulse Ox O2 Delivery O2 Flow Rate FiO2 02/13/21 14:43 92 Nasal Cannula 4.00 02/13/21 12:00 36.0 111 16 121/83 (96) 92 Room Air 02/13/21 10:17 91 Nasal Cannula 4.00 02/13/21 08:00 Nasal Cannula 4.00 02/13/21 08:00 36.0 113 16 119/77 (91) 90 Room Air 02/13/21 06:59 91 Nasal Cannula 4.00 02/13/21 04:00 36.4 110 22 155/76 (102) 92 Room Air 02/13/21 02:11 96 Nasal Cannula 5.00 02/13/21 01:00 36.6 111 20 139/90 (106) 97 Room Air 02/12/21 20:36 94 Nasal Cannula 5.00 02/12/21 20:24 36.8 62 20 124/79 (94) 96 Room Air 02/12/21 20:20 Nasal Cannula 5 02/12/21 20:20 36.1 20 160/91 (114) 98 Nasal Cannula 5 02/12/21 20:15 94 Nasal Cannula 5.00 02/12/21 20:10 21 151/91 (111) 98 Nasal Cannula 5 02/12/21 20:05 Nasal Cannula 5 02/12/21 20:00 24 159/92 (114) 99 Nasal Cannula 5 02/12/21 19:50 18 151/89 (109) 99 Nasal Cannula 5 02/12/21 19:50 Nasal Cannula 5 02/12/21 19:40 16 161/91 (114) 100 OxyMask 6 02/12/21 19:35 OxyMask 10 02/12/21 19:30 22 169/94 (119) 96 OxyMask 10 02/12/21 19:23 OxyMask 10 02/12/21 19:21 OxyMask 10 02/12/21 19:21 36.1 16 144/94 (111) 94 T Piece 10 02/12/21 15:30 37.0 62 18 129/71 (90) 94 Room Air I & O 02/13/21 07:00 Intake Total 4560 ml Output Total 1115 ml Balance 3445 ml Capillary Refill : Less Than 3 SecondsLess Than 3 Seconds General Appearance: No Apparent Distress, WD/WN HEENT: Moist Mucous Membranes, Other (NGT in place) Respiratory: Lungs Clear, Normal Breath Sounds, No Accessory Muscle Use, No Respiratory Distress Cardiovascular: Regular Rate, Rhythm, No Murmur Gastrointestinal: soft, tenderness (midline at incision) Extremity: No Calf Tenderness, No Pedal Edema Results Lab Laboratory Tests 02/13/21 10:05: White Blood Count 16.0H, Red Blood Count 4.93, Hemoglobin 15.2, Hematocrit 46, Mean Corpuscular Volume 93, Mean Corpuscular Hemoglobin 31, Mean Corpuscular Hemoglobin Concent 33, Red Cell Distribution Width 13.3, Platelet Count 241, Mean Platelet Volume 10.9, Immature Granulocyte % (Auto) 0, Neutrophils (%) (Auto) 85H, Lymphocytes (%) (Auto) 5L, Monocytes (%) (Auto) 9, Eosinophils (%) (Auto) 0, Basophils (%) (Auto) 0, Neutrophils # (Auto) 13.6H, Lymphocytes # (Auto) 0.8L, Monocytes # (Auto) 1.5H, Eosinophils # (Auto) 0.0, Basophils # (Auto) 0.0, Immature Granulocyte # (Auto) 0.1, Sodium Level 135, Potassium Level 3.7, Chloride Level 105, Carbon Dioxide Level 20L, Anion Gap 10, Blood Urea Nitrogen 16, Creatinine 1.21, Estimat Glomerular Filtration Rate > 60, BUN/Creatinine Ratio 13, Glucose Level 175H, Calcium Level 8.4L Assessment/Plan Assessment/Plan Assessment/Plan S/P Lap adia and Open repair of Adia-Duodenal fisutula Pt needs to be strict NPO for at least 4 days and then will do UGI to test repair of hole in duodenum, NGT to LIWS, Pt encouraged to ambulate and use IS. Will call Dr. Hernandez to let her know her pt is here. HTN - will restart home meds, but will call pharmacy to switch to IV equivalent AMY SERNA DO Feb 13, 2021 14:57
[2021-02-13] MEDS: ENOXAPARIN 40 MG/0.4 ML (LOVENOX) SYR SC SCH (18:22)
--- NOTE | 2021-02-13 19:58 | Consultation ---
History of Present Illness History of Present Illness Patient Consulted On(pedro luis/time) 02/13/21 19:49 Date Seen by Provider: Feb 13, 2021 Time Seen by Provider: 19:49 History of Present Illness This is 50 year old male who presented to the emergency room with sudden onset of abdominal pain with severe nausea and vomiting. He was found to have emphysematous cholecystitis and taken to OR for lap tila which was converted to open due to a tila-duodenal fistula. Patient is post-op with NG tube and drain in place and NPO. I am asked to consult for medical management. Allergies and Home Medications Allergies Coded Allergies: No Known Drug Allergies (Verified , 02/17/19) Home Medications Famotidine 40 Mg Tablet, 40 MG PO DAILY, (Reported) Fenofibrate,Micronized 134 Mg Capsule, 134 MG PO DAILY, (Reported) Hydrochlorothiazide 12.5 Mg Tablet, 12.5 MG PO DAILY, (Reported) Loratadine 10 Mg Tablet, 10 MG PO HS, (Reported) Losartan Potassium 50 Mg Tablet, 50 MG PO DAILY, (Reported) Metoprolol Succinate 100 Mg Tab.er.24h, 100 MG PO DAILY, (Reported) Patient Home Medication List Home Medication List Reviewed: Yes Past Ochmsiz-Pewhrp-Fkqcrf Hx Past Med/Social Hx: Reviewed Nursing Past Med/Soc Hx Patient Social History Alcohol Use: Denies Use Smoking Status: Never a Smoker 2nd Hand Smoke Exposure: No Recent Infectious Disease Expo: No Have you traveled recently?: No Alcohol Use?: Yes Immunizations Up To Date Date of Influenza Vaccine: Sep 13, 2020 Seasonal Allergies Seasonal Allergies: No Past Medical History Surgeries: Yes Orthopedic (R Knee) Respiratory: No Cardiac: Yes High Cholesterol, Hypertension Neurological: No Reproductive Disorders: No Genitourinary: No Gastrointestinal: Yes Gastroesophageal Reflux Musculoskeletal: No Endocrine: No HEENT: No Loss of Vision: Denies Hearing Impairment: Denies Cancer: No Psychosocial: No Integumentary: No Blood Disorders: No Family Medical History Heart Disease (Father), Cancer (Has aunt with liver cancer, denies any other relatives), Diabetes (Mother) Review of Systems Review of Systems General: Fatigue HEENT: No Head Aches, No Visual Changes, No Eye Pain, No Ear Pain, No Dysphasia, No Sinus Congestion, No Post Nasal Drip, No Sore Throat, No Other Pulmonary: No Dyspnea, No Cough Cardiovascular: No: Chest Pain, Palpitations Gastrointestinal: Abdominal Pain (mild); No: Nausea, Vomiting Genitourinary: No Dysuria, No Frequency, No Incontinence, No Hematuria, No Retention, No Other Musculoskeletal: No: other, neck pain, shoulder pain, arm pain, back pain, hand pain, leg pain, foot pain Neurological: No: Weakness, Numbness, Incoordination, Change in speech, Confusion, Seizures, Other All Other Systems Reviewed All Other Systems Reviewed: Yes Physical Exam Vital Signs Vital Signs - First Documented 02/12/21 02/12/21 02/12/21 02/12/21 06:06 09:36 10:46 19:21 Temp 36.7 Pulse 72 Resp 16 B/P (MAP) 144/72 (96) Pulse Ox 97 O2 Delivery Room Air O2 Flow Rate 10 FiO2 21 Capillary Refill : Less Than 3 SecondsLess Than 3 Seconds Height, Weight, BMI Height: 5'11.00" Weight: 255lbs. 0.0oz. 115.614924fn; 34.37 BMI Method:Stated General Appearance: No Apparent Distress HEENT: Other (NG tube in place) Neck: Supple Respiratory: Lungs Clear Cardiovascular: Regular Rate, Rhythm Gastrointestinal: Soft, Abnormal Bowel Sounds, Other (dry dressing in place with serosanguinous drainage in FELISHA drain) Rectal: Deferred Extremity: Non Tender, No Calf Tenderness, No Pedal Edema Neurologic/Psychiatric: Alert, Oriented x3 Skin: Warm/Dry Comments Laboratory Tests 02/13/21 10:05: White Blood Count 16.0H, Red Blood Count 4.93, Hemoglobin 15.2, Hematocrit 46, M norma Corpuscular Volume 93, Mean Corpuscular Hemoglobin 31, Mean Corpuscular Hemoglobin Concent 33, Red Cell Distribution Width 13.3, Platelet Count 241, Mean Platelet Volume 10.9, Immature Granulocyte % (Auto) 0, Neutrophils (%) (Auto) 85H, Lymphocytes (%) (Auto) 5L, Monocytes (%) (Auto) 9, Eosinophils (%) (Auto) 0, Basophils (%) (Auto) 0, Neutrophils # (Auto) 13.6H, Lymphocytes # (Auto) 0.8L, Monocytes # (Auto) 1.5H, Eosinophils # (Auto) 0.0, Basophils # (Auto) 0.0, Immature Granulocyte # (Auto) 0.1, Sodium Level 135, Potassium Level 3.7, Chloride Level 105, Carbon Dioxide Level 20L, Anion Gap 10, Blood Urea Nitrogen 16, Creatinine 1.21, Estimat Glomerular Filtration Rate > 60, BUN/Creatinine Ratio 13, Glucose Level 175H, Calcium Level 8.4L Assessment/Plan Assessment/Plan Admission Dx 1. Acute Emphysematous Cholecystitis with Tila-duodenal fistula--S/P Lap Tila with open repair of Tila-duodenal fistula--NG tube in place, NPO, IV a ntibiotics, pain control, lovenox for DVT prophylaxis 2. Hypertension--metoprolol IV began JOANNE ALVAREZ DO Feb 13, 2021 19:58
[2021-02-13] MEDS: FLUCONAZOLE 200 MG/100 ML 100 ML IV SCH (21:33)
[2021-02-14 04:20] VITALS: BP 124/76
[2021-02-14] MEDS: morphine INJ 4 MG/ML 1 ML (VIAL/SYRINGE) IVP PRN ×2 (05:56→22:02)
[2021-02-14 06:02] LABS: HEMOGLOBIN 13.6 g/dL (13.3-17.7); MEAN PLATELET VOLUME 11.2 fL (9.0-12.2); WHITE BLOOD COUNT 15.5 10^3/uL (4.3-11.0)
[2021-02-14 06:09] LABS: ALBUMIN 3.3 GM/DL (3.2-4.5); CHLORIDE 102 MMOL/L (98-107); POTASSIUM 3.6 MMOL/L (3.6-5.0); SODIUM 134 MMOL/L (135-145)
[2021-02-14 06:10] LABS: CALCIUM 8.8 MG/DL (8.5-10.1)
[2021-02-14 06:11] LABS: GLUCOSE 133 MG/DL (70-105); TOTAL PROTEIN 6.6 GM/DL (6.4-8.2)
[2021-02-14 06:12] LABS: CARBON DIOXIDE 22 MMOL/L (21-32)
[2021-02-14 06:13] LABS: BILIRUBIN,TOTAL 1.7 MG/DL (0.1-1.0)
[2021-02-14 06:15] LABS: ALKALINE PHOSPHATASE 65 U/L (40-136); CREATININE SERUM 1.16 MG/DL (0.60-1.30); GFR ESTIMATED > 60
[2021-02-14 06:16] LABS: BUN/CREATININE RATIO 14
[2021-02-14 06:18] LABS: ALANINE AMINOTRANSFERASE 54 U/L (0-55)
[2021-02-14] MEDS: PIPERACILLIN/TAZO 4.5 GM/NS 100 ML IV SCH ×6 (06:47→23:45)
[2021-02-14 08:00] VITALS: BP 116/69
--- NOTE | 2021-02-14 08:40 | Diagnostic Imaging Report ---
INDICATION: Increased shortness of breath, increased oxygen need. COMPARISON: 01/20/2014 TECHNIQUE: Single frontal radiograph of the chest dated 02/14/2021. FINDINGS: The cardiac silhouette is enlarged, appearing more prominent than the prior examination. Prominence of the central pulmonary vasculature. Severely low lung volumes with perihilar and bibasilar interstitial opacities. No large-volume pleural effusion. No pneumothorax. Vertically oriented linear density is seen overlying the midline neck and chest, though this is not well seen overlying the abdomen. No acute osseous abnormality. IMPRESSION: Severely low lung volumes with associated perihilar and bibasilar atelectasis and/or edema. Prominence of the cardiac silhouette and pulmonary vasculature, likely accentuated by the severely low lung volumes. Vertically oriented hyperdensity overlying the chest and neck likely relates to an enteric catheter. The distal tip is not well seen. Dictated by: Dictated on workstation # [id number]
--- NOTE | 2021-02-14 08:58 | Progress Note - Hospitalist ---
CARMELA ELLIOTT MED STUDENT 02/14/21 0858: Subjective HPI/CC On Admission Date Seen by Provider: Feb 14, 2021 Time Seen by Provider: 08:10 Fwup Acute Emphysematous Cholecystitis with Tila-duodenal fistula--S/P Lap Tila with open repair of Tila-duodenal fistula Subjective/Events-last exam Pt resting comfortably in bed and denies N/V, BM and flatus. Surgical pain well- controlled. Pt reports mild cough and chest pain with breathing. He was put on vapotherm and given breathing treatment; CXR showed severely low lung volumes. IV Metoprolol started and controlling bp well at 124/76. Two surgical drains in place with moderate serosanguinous fluid and NGT in place. Objective Exam Vital Signs Vital Signs Date Time Temp Pulse Resp B/P (MAP) Pulse Ox O2 Delivery O2 Flow Rate FiO2 02/14/21 07:32 93 Nasal Cannula 25.00 80 02/14/21 04:20 37.1 92 24 124/76 (92) Capillary Refill : Less Than 3 SecondsLess Than 3 Seconds General Appearance: No Apparent Distress, WD/WN Respiratory: Chest Non Tender, No Accessory Muscle Use, Decreased Breath Sounds Cardiovascular: No Edema, No JVD, No Murmur, Normal Peripheral Pulses, Tachycardia Gastrointestinal: Non Tender, Soft, Abnormal Bowel Sounds (hyperactive throughout), Other (NGT in place. [address] with serosanguinous drainage.) Extremity: Normal Capillary Refill, Non Tender, No Calf Tenderness, No Pedal Edema Neurologic/Psychiatric: Alert, Oriented x3, Normal Mood/Affect Results/Procedures Lab Laboratory Tests 02/13/21 10:05 02/14/21 05:29 Patient resulted labs reviewed. Assessment/Plan Assessment and Plan Assess & Plan/Chief Complaint 1. Acute Emphysematous Cholecystitis with Tila-duodenal fistula--S/P Lap Tila with open repair of Tila-duodenal fistula--NGT in place, NPO at least 4 days, IV antibiotics continued, pain control as needed, lovenox for DVT prophylaxis 2. Hypertension--Continue Metoprolol IV 3. Severely low lung volume -- Encouraged hourly use of I/S along with ambulation and sitting at bedside as much as tolerated, breathing treatments given, on Vapotherm JOANNE ALVAREZ DO 02/14/213: Supervisory-Addendum Brief Verification & Attestation Participated in pt care: history, physical Personally performed: exam, history, supervision of care Care discussed with: Medical Student Procedures: n/a Results interpretation: Verified all documentation Patient seen and evaluated. Agree with assessment and plan. CARMELA ELLIOTT MED STUDENT Feb 14, 2021 08:58 JOANNE ALVAREZ DO Feb 14, 2021 19:23
[2021-02-14] MEDS ORDERED: meTOprolol SUCCINATE 100 MG (TOPROL XL) TAB PO SCH (09:00)
[2021-02-14] MEDS: metroNIDAZOLE 500MG/100ML IVPB 100 ML IV SCH ×2 (09:19→20:52)
[2021-02-14] MEDS: meTOprolol 5 MG/5 ML (LOPRESSOR) VIAL IV SCH ×3 (09:22→20:52)
[2021-02-14] MEDS: PANTOPRAZOLE 40 MG (PROTONIX) VIAL IVP SCH (09:22)
[2021-02-14] MEDS: LACTATED RINGERS 1,000 ML IV SCH ×3 (09:22→18:10)
[2021-02-14] MEDS: RT-ALBUTEROL/IPRATROPIUM 3 ML (DUONEB) VIAL INH SCH ×4 (10:41→21:24)
[2021-02-14 12:00] VITALS: BP 131/80
--- NOTE | 2021-02-14 14:51 | Diagnostic Imaging Report ---
Clinical indication: Post gallbladder surgery on Saturday. Exam: Chest x-ray PA and lateral views. Comparisons: Chest x-ray dated 02/14/2021. Findings: There is low lung volumes noted bilaterally. There is curvilinear airspace opacities involving both lung bases suspected to represent atelectasis. There is consolidation left inferior perihilar region again seen with air bronchograms. There is no pleural effusion or pneumothorax. Pulmonary vasculature and cardiac silhouette is within normal limits. There is blunting of the costophrenic angles posteriorly which may be related to pleural effusion or lung consolidation. There is excessive kyphosis of the thoracic spine posture. There are degenerative spurs involving the thoracic spine. There are drains overlying the right upper and mid abdominal regions. Feeding tube seen tip overlying the expected region of the gastric antrum. IMPRESSION: 1: There is progression of bibasilar airspace opacities which may be related to atelectasis, but superimposed infiltrate cannot be completely excluded. 2: There is also consolidation in the left inferior perihilar region and posterior costophrenic angle regions. This may be related to infiltrate or atelectasis. Pleural effusions also cannot be completely excluded. Dictated by: Dictated on workstation # [id number]
--- NOTE | 2021-02-14 15:07 | Diagnostic Imaging Report ---
INDICATION: Post cholecystectomy. FINDINGS: Surgical clips vertically oriented are present. There is an OG catheter in the stomach. There is no suspicious retained opaque foreign body. Some clips project along the right flank as well as gallbladder fossa. There is medial consolidative changes in the left lung base. IMPRESSION: The OG catheter is in the stomach. No suspicious retained opaque postop foreign body with an unremarkable bowel gas pattern. Dictated by: Dictated on workstation # [id number]
[2021-02-14 16:00] VITALS: BP 118/74
--- NOTE | 2021-02-14 17:03 | Progress Note - Surgery ---
Subjective Time Seen by a Provider: 11:50 Subjective/Events-last exam Pt seen this afternoon and again just after 4pm. Pt denied N/V and had minimal abdominal pain, main complaint was thirsty and wanted NGT out. Review of Systems General: Fatigue, Malaise Pulmonary: Dyspnea (minimal, but on Vapotherm); No Cough Cardiovascular: No: Chest Pain, Palpitations Gastrointestinal: Abdominal Pain; No: Nausea, Vomiting Genitourinary: No Dysuria, No Frequency Objective Exam Vital Signs Date Time Temp Pulse Resp B/P (MAP) Pulse Ox O2 Delivery O2 Flow Rate FiO2 02/14/21 16:00 37.1 97 18 118/74 (89) 95 Vapotherm 25.00 75.00 02/14/21 14:16 95 Nasal Cannula 25.00 75 02/14/21 12:00 37.3 91 28 131/80 (97) 95 Vapotherm 25.00 75.00 02/14/21 10:41 95 Nasal Cannula 25.00 75 02/14/21 08:00 High Flow N/C 7.00 02/14/21 08:00 36.8 100 22 116/69 (85) 90 High Flow N/C 7.00 02/14/21 07:32 93 Nasal Cannula 25.00 80 02/14/21 04:20 37.1 92 24 124/76 (92) 93 Nasal Cannula 5.00 02/14/21 03:08 90 Nasal Cannula 5.00 02/13/21 23:54 37.2 109 24 115/69 (84) 91 Nasal Cannula 5.00 02/13/21 22:00 91 Nasal Cannula 4.00 02/13/21 20:20 Nasal Cannula 4.00 02/13/21 19:40 36.0 114 17 132/70 (90) 92 Nasal Cannula 4.00 02/13/21 18:26 107 95 Nasal Cannula 4.00 02/13/21 18:20 92 Nasal Cannula 4.00 I & O 02/14/21 06:59 Intake Total 1340 ml Output Total 1595 ml Balance -255 ml Capillary Refill : Less Than 3 SecondsLess Than 3 Seconds General Appearance: No Apparent Distress (When I saw pt around noon he didn't look great, a little clammy and lethargic. When I saw him around 4pm he looked much better, good color and didn't seem to be in any distress), WD/WN HEENT: Other (NG tube in place) Neck: Supple Respiratory: Chest Non Tender, No Accessory Muscle Use, Decreased Breath Sounds Cardiovascular: Regular Rate, Rhythm, No Murmur Gastrointestinal: soft, tenderness (midline at incision) Extremity: No Pedal Edema Results Lab Laboratory Tests 02/14/21 05:29: White Blood Count 15.5H, Red Blood Count 4.56, Hemoglobin 13.6, Hematocrit 41, Mean Corpuscular Volume 91, Mean Corpuscular Hemoglobin 30, Mean Corpuscular Hemoglobin Concent 33, Red Cell Distribution Width 13.2, Platelet Count 231, Mean Platelet Volume 11.2, Sodium Level 134L, Potassium Level 3.6, Chloride Level 102, Carbon Dioxide Level 22, Anion Gap 10, Blood Urea Nitrogen 16, Creatinine 1.16, Estimat Glomerular Filtration Rate > 60, BUN/Creatinine Ratio 14, Glucose Level 133H, Calcium Level 8.8, Corrected Calcium 9.4, Total Bilirubin 1.7H, Aspartate Amino Transf (AST/SGOT) 30, Alanine Aminotransferase (ALT/SGPT) 54, Alkaline Phosphatase 65, Total Protein 6.6, Albumin 3.3 Assessment/Plan Assessment/Plan Assessment/Plan S/P Lap adia and Open repair of Adia-Duodenal fisutula Pt needs to be strict NPO for at least 4 days and then will do UGI to test repair of hole in duodenum, NGT to LIWS, Pt encouraged to ambulate and use IS. HTN - will restart home meds, but will call pharmacy to switch to IV equivalent CXR indicates possible atelectasis vs pleural effusion, doubt pneumonia will fol low with PE and CXR AMY SERNA DO Feb 14, 2021 17:03
[2021-02-14] MEDS: ENOXAPARIN 40 MG/0.4 ML (LOVENOX) SYR SC SCH (18:10)
[2021-02-14 20:00] VITALS: BP 133/77
[2021-02-14] MEDS: FLUCONAZOLE 200 MG/100 ML 100 ML IV SCH (22:02)
[2021-02-14 23:42] VITALS: BP 123/80
[2021-02-15] VITALS (11 sets, daily range): BP systolic 131–166; BP diastolic 79–118
[2021-02-15] MEDS: RT-ALBUTEROL/IPRATROPIUM 3 ML (DUONEB) VIAL INH SCH ×6 (02:00→21:23)
[2021-02-15] MEDS: LACTATED RINGERS 1,000 ML IV SCH ×3 (03:00→18:16)
[2021-02-15] MEDS: meTOprolol 5 MG/5 ML (LOPRESSOR) VIAL IV SCH ×4 (03:34→21:34)
--- NOTE | 2021-02-15 05:51 | Pulmonary Consultation ---
History of Present Illness History of Present Illness Date Seen by Provider: Feb 15, 2021 Time Seen by Provider: 05:45 Date of Admission History of Present Illness 50yo presented to ED on 02/12 secondary to acute severe abdominal grimaldo, nausea, and vomiting. He was found to have emphysematous cholecystitis and taken to OR for lap adia which was converted to open due to a adia-duodenal fistula. Patient is post-op with NG tube and drain in place and NPO. Pt has progressive hypoxemia and is currently requiring 70% Vapotherm. CXR shows bilateral infiltrates and atelectasis. Allergies and Home Medications Allergies Coded Allergies: No Known Drug Allergies (Verified , 02/17/19) Home Medications Famotidine 40 Mg Tablet, 40 MG PO DAILY, (Reported) Fenofibrate,Micronized 134 Mg Capsule, 134 MG PO DAILY, (Reported) Hydrochlorothiazide 12.5 Mg Tablet, 12.5 MG PO DAILY, (Reported) Loratadine 10 Mg Tablet, 10 MG PO HS, (Reported) Losartan Potassium 50 Mg Tablet, 50 MG PO DAILY, (Reported) Metoprolol Succinate 100 Mg Tab.er.24h, 100 MG PO DAILY, (Reported) Past Opsdizq-Gzwuyi-Vvkyst Hx Past Med/Social Hx: Reviewed Nursing Past Med/Soc Hx Patient Social History Alcohol Use: Denies Use Smoking Status: Never a Smoker 2nd Hand Smoke Exposure: No Recent Infectious Disease Expo: No Have you traveled recently?: No Alcohol Use?: Yes Immunizations Up To Date Date of Influenza Vaccine: Sep 13, 2020 Seasonal Allergies Seasonal Allergies: No Past Medical History Surgeries: Yes Orthopedic (R Knee) Respiratory: No Cardiac: Yes High Cholesterol, Hypertension Neurological: No Reproductive Disorders: No Genitourinary: No Gastrointestinal: Yes Gastroesophageal Reflux Musculoskeletal: No Endocrine: No HEENT: No Loss of Vision: Denies Hearing Impairment: Denies Cancer: No Psychosocial: No Integumentary: No Blood Disorders: No Family Medical History Heart Disease (Father), Cancer (Has aunt with liver cancer, denies any other relatives), Diabetes (Mother) Review of Systems Time Seen by Provider: 05:49 Sepsis Event Evaluation Height, Weight, BMI Height: 5'11.00" Weight: 255lbs. 0.0oz. 115.920450zw; 34.37 BMI Method:Stated Exam Exam Vital Signs Date Time Temp Pulse Resp B/P (MAP) Pulse Ox O2 Delivery O2 Flow Rate FiO2 02/15/21 03:36 36.4 110 26 137/79 (98) 92 Vapotherm 25.00 70.00 02/15/21 02:01 93 Vapotherm 25.00 70 02/15/21 01:00 108 02/14/21 23:42 36.4 99 24 123/80 (94) 92 Vapotherm 25.00 75.00 02/14/21 21:24 94 Vapotherm 25.00 75 02/14/21 20:56 108 02/14/21 20:50 Vapotherm 25.00 75 02/14/21 20:00 36.9 107 18 133/77 (95) 93 Vapotherm 25.00 75.00 02/14/21 18:49 92 Vapotherm 25.00 75 02/14/21 16:00 37.1 97 18 118/74 (89) 95 Vapotherm 25.00 75.00 02/14/21 14:16 95 Nasal Cannula 25.00 75 02/14/21 12:00 37.3 91 28 131/80 (97) 95 Vapotherm 25.00 75.00 02/14/21 10:41 95 Nasal Cannula 25.00 75 02/14/21 08:00 High Flow N/C 7.00 02/14/21 08:00 36.8 100 22 116/69 (85) 90 High Flow N/C 7.00 02/14/21 07:32 93 Nasal Cannula 25.00 80 I & O 02/15/21 07:00 Intake Total 320 ml Output Total 1365 ml Balance -1045 ml Height & Weight Height: 5'11.00" Weight: 255lbs. 0.0oz. 115.655570pp; 34.37 BMI Method:Stated General Appearance: No Apparent Distress (When I saw pt around noon he didn't look great, a little clammy and lethargic. When I saw him around 4pm he looked much better, good color and didn't seem to be in any distress), WD/WN HEENT: Other (NG tube in place) Neck: Supple Respiratory: Chest Non Tender, No Accessory Muscle Use, Decreased Breath Sounds Cardiovascular: Regular Rate, Rhythm, No Murmur Capillary Refill: Less Than 3 Seconds Gastrointestinal: soft, tenderness (midline at incision) Extremity: No Pedal Edema Results Lab Laboratory Tests 02/13/21 10:05 02/14/21 05:29 Assessment/Plan Assessment/Plan Acute hypoxic respiratory failure - -Pt is currently on 70% Vapotherm -Sp02 88% when I entered room. Pt is on cont pulse OX. -Increase Vapotherm to 80% and 30 liters -DuoNeb Q4 -IS -Check ABG -repeat CXR - No significant change. Check CTA of chest r/o PE secondary to worsening hypoxia. -Repeat cbc, cmp, -check mg, phos, PCT and BNP -Transfer to step down for close monitoring leukocytosis- with probable post op PNA -IVF currently at 125 -Check BNP and PCT -Continue Zosyn -Check grimaldo cultures S/P Lap adia and Open repair of Adia-Duodenal fisutula 02/12 -Pt is strict NPO per surgery HTN -Monitor VAL MELO DO Feb 15, 2021 05:51
[2021-02-15 05:58] LABS: BASOPHILS % (AUTO) 0 % (0-10); EOSINOPHILS # (AUTO) 0.1 10^3/uL (0.0-0.3); EOSINOPHILS % (AUTO) 0 % (0-10); HEMATOCRIT 39 % (40-54); HEMOGLOBIN 12.5 g/dL (13.3-17.7); LYMPHOCYTES # (AUTO) 0.9 10^3/uL (1.0-4.0); LYMPHOCYTES % (AUTO) 6 % (12-44); MEAN CORPUSCULAR HEMOGLOBIN 30 pg (25-34); MEAN CORPUSCULAR HGB CONC 33 g/dL (32-36); MEAN CORPUSCULAR VOLUME 94 fL (80-99); MEAN PLATELET VOLUME 11.4 fL (9.0-12.2); MONOCYTES # (AUTO) 1.2 10^3/uL (0.0-1.0); MONOCYTES % (AUTO) 9 % (0-12); NEUTROPHILS # (AUTO) 11.9 10^3/uL (1.8-7.8); NEUTROPHILS % (AUTO) 84 % (42-75); PLATELET COUNT 225 10^3/uL (130-400); WHITE BLOOD COUNT 14.2 10^3/uL (4.3-11.0)
--- NOTE | 2021-02-15 06:28 | Diagnostic Imaging Report ---
INDICATION: Persistent shortness of breath. Comparison with 02/14/2021. FINDINGS: NG tube remains in good position with decompression of stomach. There is persistent bibasilar atelectasis with possible infiltrate noted especially in the right lower lung. The upper lungs are clear. The heart is not enlarged. IMPRESSION: Persistent atelectasis with probable right basilar infiltrate. Overall appearance has changed very little since previous exam. Dictated by: Dictated on workstation # [id number]
[2021-02-15 06:33] LABS: ALANINE AMINOTRANSFERASE 39 U/L (0-55); ALKALINE PHOSPHATASE 54 U/L (40-136); BILIRUBIN,TOTAL 1.1 MG/DL (0.1-1.0); BUN/CREATININE RATIO 15; CALCIUM 8.4 MG/DL (8.5-10.1); CARBON DIOXIDE 18 MMOL/L (21-32); CHLORIDE 105 MMOL/L (98-107); CREATININE SERUM 1.02 MG/DL (0.60-1.30); GFR ESTIMATED > 60; GLUCOSE 144 MG/DL (70-105); POTASSIUM 3.5 MMOL/L (3.6-5.0); SODIUM 136 MMOL/L (135-145); TOTAL PROTEIN 6.4 GM/DL (6.4-8.2)
[2021-02-15 07:00] LABS: MAGNESIUM 2.1 MG/DL (1.6-2.4); PHOSPHORUS 1.6 MG/DL (2.3-4.7)
[2021-02-15] MEDS: PIPERACILLIN/TAZO 4.5 GM/NS 100 ML IV SCH ×6 (07:05→23:00)
[2021-02-15] MEDS ORDERED: NS 100 ML (IVPB) BAG IV ONE (07:30)
[2021-02-15] MEDS ORDERED: CATHETER FLUSH 10 ML SYR IV PRN (07:30)
[2021-02-15] MEDS ORDERED: IOHEXOL 350 MG/ML 100 ML (OMNIPAQUE 350) VIAL IV ONE (07:30)
[2021-02-15] MEDS ORDERED: HOLD METFORMIN - RECEIVED CONTRAST 20 ML VIAL IV SCH (07:30)
--- NOTE | 2021-02-15 08:20 | Progress Note - Hospitalist ---
CARMELA ELLIOTT MED STUDENT 02/15/21 0820: Subjective HPI/CC On Admission Date Seen by Provider: Feb 15, 2021 Time Seen by Provider: 08:00 Fwup Acute Emphysematous Cholecystitis with Tila-duodenal fistula--S/P Lap Tila with open repair of Tila-duodenal fistula Subjective/Events-last exam Pt has moved up to cardiac stepdown for closer monitoring due to progressive hypoxemia and CXR showing bilateral infiltrates. Pulmonology consulted - suspected post-surgical PNA. Pt is resting comfortably in bed and denies shortness of breath but notes some chest pain with deep inspiration. Surgical pain well-controlled, denies BM, flatus, N/V. Focused Exam Lactate Level 02/15/21 06:32: Lactic Acid Level 1.38 Lactic Acid Level Laboratory Tests Test 02/15/21 06:32 Lactic Acid Level 1.38 MMOL/L (0.50-2.00) Objective Exam Vital Signs Vital Signs Date Time Temp Pulse Resp B/P (MAP) Pulse Ox O2 Delivery O2 Flow Rate FiO2 02/15/21 07:34 36.6 107 28 131/87 (102) 92 Vapotherm 30.00 80.00 02/15/21 02:01 70 Capillary Refill : Less Than 3 SecondsLess Than 3 Seconds General Appearance: No Apparent Distress, WD/WN Neck: Normal Inspection, Non Tender Respiratory: No Accessory Muscle Use, Crackles, Decreased Breath Sounds Cardiovascular: No Edema, No Gallop, Normal Peripheral Pulses, Tachycardia Gastrointestinal: Non Tender, Soft, Abnormal Bowel Sounds (decreased throughout), Other (NGT in place; currently clamped. Two drains placed in surgical sites with minimal serosanguinous drainage.) Extremity: Normal Capillary Refill, Non Tender, No Calf Tenderness, No Pedal Edema Neurologic/Psychiatric: Alert, Oriented x3, Normal Mood/Affect Results/Procedures Lab Laboratory Tests 02/15/21 05:15 Patient resulted labs reviewed. Assessment/Plan Assessment and Plan Assess & Plan/Chief Complaint 1. Acute Emphysematous Cholecystitis with Tila-duodenal fistula--S/P Lap Tila with open repair of Tila-duodenal fistula--NGT in place, NPO at least 4 days, IV antibiotics continued, pain control as needed, lovenox for DVT prophylaxis 2. Hypertension--Continue Metoprolol IV 3. Hypoxemia -- Increased Vapotherm 80% 30L and moved to cardiac stepdown for closer monitoring. Pulmonology consulted - check ABG, repeat CXR, continue JOANNE Aguirre DO 02/15/21 0852: Supervisory-Addendum Brief Verification & Attestation Participated in pt care: history, physical Personally performed: exam, history, supervision of care Care discussed with: Medical Student Procedures: n/a Results interpretation: Verified all documentation Patient seen and evaluated. Had CTA and shows bilataral volume loss in bases. His aeration in bases are better today but bowel sounds less today. Discussed importance of IS and up to chair today. CARMELA ELLIOTT MED STUDENT Feb 15, 2021 08:20 JOANNE ALVAREZ DO Feb 15, 2021 08:52
--- NOTE | 2021-02-15 08:30 | Diagnostic Imaging Report ---
PROCEDURE: CT angiography of the chest with contrast. TECHNIQUE: Multiple contiguous axial images were obtained through the chest after uneventful bolus administration of intravenous contrast. 3D reconstructed CTA MIP acquisitions were also performed. Auto Exposure Controls were utilized during the CT exam to meet ALARA standards for radiation dose reduction. INDICATION: Shortness of breath, postop hypoxia. COMPARISON: None. FINDINGS: The heart is slightly enlarged with trace atherosclerotic coronary artery disease. There is no pericardial effusion. The pulmonary arteries and aorta grossly unremarkable. There is no embolism. There is a significant pulmonary volume loss with consolidation and atelectasis in both bases. No obvious mucous plugging is identified. There are trace bilateral pleural effusions. There is no pneumothorax. There is no pericardial effusion. Postoperative changes are seen in the right upper quadrant compatible with cholecystectomy. There is fatty infiltration liver. There is trace ascites posterior to the spleen. No obvious abscess formation is seen. Osseous structures are age-appropriate. IMPRESSION: 1. Significant pulmonary volume loss with consolidation and atelectasis in both lung bases. 2. No pulmonary embolism identified. 3. Trace bilateral pleural effusions. 4. Trace abdominal ascites left upper upper quadrant. 5. Status post cholecystectomy without obvious abscess. Dictated by: Dictated on workstation # [id number]
[2021-02-15] MEDS ORDERED: SALIVA STIMULANT MOUTH SPRAY (BIOTENE) 1.5 OZ MM PRN (09:00)
[2021-02-15] MEDS: metroNIDAZOLE 500MG/100ML IVPB 100 ML IV SCH ×2 (09:08→21:35)
[2021-02-15] MEDS: PANTOPRAZOLE 40 MG (PROTONIX) VIAL IVP SCH (09:08)
[2021-02-15] MEDS ORDERED: POTASSIUM PHOSPHATE INJ 30 MM in NS (IVPB) 250 ML IV ONE (09:30)
[2021-02-15] MEDS: morphine INJ 4 MG/ML 1 ML (VIAL/SYRINGE) IVP PRN ×2 (10:26→19:15)
--- NOTE | 2021-02-15 14:04 | Progress Note - Surgery ---
Subjective Time Seen by a Provider: 13:58 Subjective/Events-last exam Pt seen and examined, got moved upstairs for increasing O2 requirements. Denies increased abd pain. Nurse states they are already going down on O2. Review of Systems General: Fatigue, Malaise Pulmonary: Dyspnea; No Cough Cardiovascular: No: Chest Pain, Palpitations Gastrointestinal: Abdominal Pain; No: Nausea, Vomiting Focused Exam Lactate Level 02/15/21 06:32: Lactic Acid Level 1.38 Objective Exam Vital Signs Date Time Temp Pulse Resp B/P (MAP) Pulse Ox O2 Delivery O2 Flow Rate FiO2 02/15/21 12:54 94 02/15/21 12:00 36.7 103 38 166/100 (118) 97 Vapotherm 15.00 30.00 02/15/21 11:30 109 43 164/118 (138) 93 Vapotherm 15.00 30.00 02/15/21 11:00 100 28 155/99 (114) 95 Vapotherm 15.00 30.00 02/15/21 10:51 95 Vapotherm 15.00 25 02/15/21 10:30 96 36 143/88 (105) 97 Vapotherm 20.00 30.00 02/15/21 10:00 92 31 146/92 (109) 97 Vapotherm 20.00 30.00 02/15/21 09:00 101 33 158/90 (112) 95 Vapotherm 20.00 50.00 02/15/21 08:30 101 28 156/91 (109) 95 Vapotherm 20.00 50.00 02/15/21 08:17 95 Vapotherm 20.00 50 02/15/21 08:00 Vapotherm 20.00 50 02/15/21 07:34 36.6 107 28 131/87 (102) 92 Vapotherm 30.00 80.00 02/15/21 06:43 104 02/15/21 03:36 36.4 110 26 137/79 (98) 92 Vapotherm 25.00 70.00 02/15/21 02:01 93 Vapotherm 25.00 70 02/15/21 01:00 108 02/14/21 23:42 36.4 99 24 123/80 (94) 92 Vapotherm 25.00 75.00 02/14/21 21:24 94 Vapotherm 25.00 75 02/14/21 20:56 108 02/14/21 20:50 Vapotherm 25.00 75 02/14/21 20:00 36.9 107 18 133/77 (95) 93 Vapotherm 25.00 75.00 02/14/21 18:49 92 Vapotherm 25.00 75 02/14/21 16:00 37.1 97 18 118/74 (89) 95 Vapotherm 25.00 75.00 02/14/21 14:16 95 Nasal Cannula 25.00 75 I & O 02/15/21 07:00 Intake Total 320 ml Output Total 1625 ml Balance -1305 ml Capillary Refill : Less Than 3 SecondsLess Than 3 Seconds General Appearance: No Apparent Distress, WD/WN HEENT: Other (NG tube in place) Respiratory: No Accessory Muscle Use, Crackles, Decreased Breath Sounds Cardiovascular: No Murmur, Tachycardia Gastrointestinal: soft, tenderness (midline at incision), other (incision is c/d/i, FELISHA with serosanguinous fluid) Neurologic/Psychiatric: Alert, Oriented x3, Normal Mood/Affect Results Lab Laboratory Tests 02/15/21 05:15: White Blood Count 14.2H, Red Blood Count 4.11L, Hemoglobin 12.5L, Hematocrit 39L , Mean Corpuscular Volume 94, Mean Corpuscular Hemoglobin 30, Mean Corpuscular Hemoglobin Concent 33, Red Cell Distribution Width 13.4, Platelet Count 225, Mean Platelet Volume 11.4, Immature Granulocyte % (Auto) 1, Neutrophils (%) (Auto) 84H, Lymphocytes (%) (Auto) 6L, Monocytes (%) (Auto) 9, Eosinophils (%) (Auto) 0, Basophils (%) (Auto) 0, Neutrophils # (Auto) 11.9H, Lymphocytes # (Auto) 0.9L, Monocytes # (Auto) 1.2H, Eosinophils # (Auto) 0.1, Basophils # (Auto) 0.0, Immature Granulocyte # (Auto) 0.1, Sodium Level 136, Potassium Level 3.5L, Chloride Level 105, Carbon Dioxide Level 18L, Anion Gap 13, Blood Urea Nitrogen 15, Creatinine 1.02, Estimat Glomerular Filtration Rate > 60, BUN/Creatinine Ratio 15, Glucose Level 144H, Calcium Level 8.4L, Corrected Calcium 9.2, Phosphorus Level 1.6L, Magnesium Level 2.1, Total Bilirubin 1.1H, Aspartate Amino Transf (AST/SGOT) 22, Alanine Aminotransferase (ALT/SGPT) 39, Alkaline Phosphatase 54, B-Type Natriuretic Peptide 19.0, Total Protein 6.4, Albumin 3.0L, Procalcitonin 2.51H 02/15/21 06:32: Lactic Acid Level 1.38 Assessment/Plan Assessment/Plan Assessment/Plan S/P Lap adia and Open repair of Adia-Duodenal fisutula Pt needs to be strict NPO for at least 4 days and then will do UGI to test repair of hole in duodenum, NGT to LIWS, Pt encouraged to ambulate and use IS. HTN - will restart home meds, but will call pharmacy to switch to IV equivalent CXR indicates possible atelectasis vs pleural effusion, doubt pneumonia will follow with PE and CXR Plan to do UGI and check for leak in am. AMY SERNA DO Feb 15, 2021 14:04
[2021-02-15] MEDS: ENOXAPARIN 40 MG/0.4 ML (LOVENOX) SYR SC SCH (18:16)
[2021-02-15] MEDS: FLUCONAZOLE 200 MG/100 ML 100 ML IV SCH (21:34)
[2021-02-16] VITALS (10 sets, daily range): BP systolic 123–162; BP diastolic 77–96
[2021-02-16] MEDS: RT-ALBUTEROL/IPRATROPIUM 3 ML (DUONEB) VIAL INH SCH ×6 (01:23→21:30)
[2021-02-16 01:51] LABS: BILIRUBIN,URINE NEGATIVE (NEGATIVE); CLARITY,URINE CLEAR; COLOR,URINE YELLOW; GLUCOSE, URINE (UA) NEGATIVE (NEGATIVE); KETONES,URINE TRACE (NEGATIVE); LEUKOCYTE ESTERASE ,URINE NEGATIVE (NEGATIVE); NITRITE,URINE NEGATIVE (NEGATIVE); PROTEIN,URINE 1+ (NEGATIVE)
[2021-02-16 02:00] LABS: BACTERIA,URINE NEGATIVE /HPF; RBC,URINE RARE /HPF; WBC,URINE RARE /HPF
[2021-02-16 02:01] LABS: HYALINE CASTS, URINE RARE /LPF
[2021-02-16] MEDS: meTOprolol 5 MG/5 ML (LOPRESSOR) VIAL IV SCH ×4 (03:00→19:57)
[2021-02-16] MEDS: LACTATED RINGERS 1,000 ML IV SCH ×3 (03:00→17:10)
[2021-02-16 05:14] LABS: BUN/CREATININE RATIO 16; CALCIUM 8.4 MG/DL (8.5-10.1); CARBON DIOXIDE 20 MMOL/L (21-32); CHLORIDE 107 MMOL/L (98-107); CREATININE SERUM 0.91 MG/DL (0.60-1.30); GFR ESTIMATED > 60; GLUCOSE 123 MG/DL (70-105); MAGNESIUM 2.1 MG/DL (1.6-2.4); PHOSPHORUS 2.4 MG/DL (2.3-4.7); POTASSIUM 3.9 MMOL/L (3.6-5.0); SODIUM 138 MMOL/L (135-145)
--- NOTE | 2021-02-16 05:15 | Pulmonary Progress Note ---
Subjective Time Seen by a Provider: 05:10 Subjective/Events-last exam Pt is doing better. Sepsis Event Evaluation Height, Weight, BMI Height: 5'11.00" Weight: 255lbs. 0.0oz. 115.028990kc; 34.37 BMI Method:Stated Focused Exam Lactate Level 02/15/21 06:32: Lactic Acid Level 1.38 Exam Exam Vital Signs Date Time Temp Pulse Resp B/P (MAP) Pulse Ox O2 Delivery O2 Flow Rate FiO2 02/16/21 01:24 94 High Flow N/C 3.00 02/16/21 01:00 90 02/16/21 00:00 36.9 99 20 144/84 (104) 94 High Flow N/C 2.00 02/15/21 21:24 94 High Flow N/C 3.00 02/15/21 20:00 95 High Flow N/C 4.00 02/15/21 19:56 36.9 106 38 143/89 (107) 92 Vapotherm 20.00 02/15/21 19:00 110 02/15/21 18:09 98 Vapotherm 15.00 30 02/15/21 16:13 36.6 105 26 137/86 (103) 95 Vapotherm 20.00 02/15/21 14:31 92 Vapotherm 20.00 30 02/15/21 12:54 94 02/15/21 12:00 36.7 103 38 166/100 (118) 97 Vapotherm 15.00 30.00 02/15/21 11:30 109 43 164/118 (138) 93 Vapotherm 15.00 30.00 02/15/21 11:00 100 28 155/99 (114) 95 Vapotherm 15.00 30.00 02/15/21 10:51 95 Vapotherm 15.00 25 02/15/21 10:30 96 36 143/88 (105) 97 Vapotherm 20.00 30.00 02/15/21 10:00 92 31 146/92 (109) 97 Vapotherm 20.00 30.00 02/15/21 09:00 101 33 158/90 (112) 95 Vapotherm 20.00 50.00 02/15/21 08:30 101 28 156/91 (109) 95 Vapotherm 20.00 50.00 02/15/21 08:17 95 Vapotherm 20.00 50 02/15/21 08:00 Vapotherm 20.00 50 02/15/21 07:34 36.6 107 28 131/87 (102) 92 Vapotherm 30.00 80.00 02/15/21 06:43 104 I & O 02/16/21 07:00 Output Total 935 ml Balance -935 ml Height & Weight Height: 5'11.00" Weight: 255lbs. 0.0oz. 115.547082md; 34.37 BMI Method:Stated General Appearance: No Apparent Distress, WD/WN HEENT: Other (NG tube in place) Respiratory: No Accessory Muscle Use, Crackles, Decreased Breath Sounds Cardiovascular: No Murmur, Tachycardia Capillary Refill: Less Than 3 Seconds Gastrointestinal: soft, tenderness (midline at incision), other (incision is c/d/i, FELISHA with serosanguinous fluid) Neurologic/Psychiatric: Alert, Oriented x3, Normal Mood/Affect Results Lab Laboratory Tests 02/14/21 05:29 02/15/21 05:15 Assessment/Plan Assessment/Plan Acute hypoxic respiratory failure - -Pt is currently on 70% Vapotherm -Sp02 88% when I entered room. Pt is on cont pulse OX. -Pt is now on NC at 4liters. Pt was requiring 80% via Vapotherm yesterday. RN changed sat prob and oxygenation was better. -DuoNeb Q4 -IS -Pt is doing much better will transfer back to 4th floor. PNA -PCT is 2.51 -CT scan shows atelectasis and infiltration -IVF currently at 125 -Check BNP and PCT -Continue Zosyn -Check grimaldo cultures S/P Lap adia and Open repair of Adia-Duodenal fisutula 02/12 -Pt is strict NPO per surgery HTN -Monitor VAL MELO DO Feb 16, 2021 05:15
[2021-02-16] MEDS: PANTOPRAZOLE 40 MG (PROTONIX) VIAL IVP SCH (08:54)
[2021-02-16] MEDS: metroNIDAZOLE 500MG/100ML IVPB 100 ML IV SCH ×2 (08:54→21:42)
[2021-02-16] MEDS: PIPERACILLIN/TAZO 4.5 GM/NS 100 ML IV SCH ×6 (08:54→23:41)
[2021-02-16] MEDS ORDERED: DIATRIZOATE MEGLUM/SODIUM 37% 120 ML (GASTROGRAFIN) PO ONE (09:45)
--- NOTE | 2021-02-16 11:27 | Progress Note - Surgery ---
Subjective Time Seen by a Provider: 11:20 Subjective/Events-last exam Pt seen and examined, no changes and just got back from UGI. Wants some liquids. Review of Systems General: No Chills; Fatigue Pulmonary: Dyspnea; No Cough Cardiovascular: No: Chest Pain, Palpitations Gastrointestinal: Abdominal Pain (minimal at incision); No: Nausea, Vomiting Focused Exam Lactate Level 02/15/21 06:32: Lactic Acid Level 1.38 Objective Exam Vital Signs Date Time Temp Pulse Resp B/P (MAP) Pulse Ox O2 Delivery O2 Flow Rate FiO2 02/16/21 08:45 90 24 02/16/21 08:30 88 24 151/85 (107) 02/16/21 08:15 88 23 02/16/21 08:00 36.7 91 24 154/92 (111) 02/16/21 08:00 94 High Flow N/C 4.00 02/16/21 07:45 89 24 02/16/21 07:30 88 25 146/94 (112) 02/16/21 07:15 100 17 02/16/21 07:00 102 33 146/82 (104) 02/16/21 06:36 91 High Flow N/C 5.00 02/16/21 06:30 92 02/16/21 04:00 100 21 130/90 (103) 97 High Flow N/C 2.00 02/16/21 01:24 94 High Flow N/C 3.00 02/16/21 01:00 90 02/16/21 00:00 36.9 99 20 144/84 (104) 94 High Flow N/C 2.00 02/15/21 21:24 94 High Flow N/C 3.00 02/15/21 20:00 95 High Flow N/C 4.00 02/15/21 19:56 36.9 106 38 143/89 (107) 92 Vapotherm 20.00 02/15/21 19:00 110 02/15/21 18:09 98 Vapotherm 15.00 30 02/15/21 16:13 36.6 105 26 137/86 (103) 95 Vapotherm 20.00 02/15/21 14:31 92 Vapotherm 20.00 30 02/15/21 12:54 94 02/15/21 12:00 36.7 103 38 166/100 (118) 97 Vapotherm 15.00 30.00 02/15/21 11:30 109 43 164/118 (138) 93 Vapotherm 15.00 30.00 I & O 02/16/21 06:59 Output Total 1330 ml Balance -1330 ml Capillary Refill : Less Than 3 SecondsLess Than 3 Seconds General Appearance: No Apparent Distress, WD/WN Respiratory: No Accessory Muscle Use, Crackles, Decreased Breath Sounds Cardiovascular: Regular Rate, Rhythm, No Murmur Gastrointestinal: soft, tenderness (midline at incision), other (incision is c/d/i, FELISHA with serosanguinous fluid) Results Lab Laboratory Tests 02/16/21 00:23: Urine Color YELLOW, Urine Clarity CLEAR, Urine pH 7.0, Urine Specific [place] 1.020, Urine Protein 1+H, Urine Glucose (UA) NEGATIVE, Urine Ketones TRACEH, Urine Nitrite NEGATIVE, Urine Bilirubin NEGATIVE, Urine Urobilinogen 1.0, Urine Leukocyte Esterase NEGATIVE, Urine RBC (Auto) NEGATIVE, Urine RBC RARE, Urine WBC RARE, Urine Squamous Epithelial Cells NONE, Urine Crystals NONE, Urine Bacteria NEGATIVE, Urine Casts PRESENT, Urine Hyaline Casts RARE, Urine Mucus NEGATIVE, Urine Culture Indicated NO 02/16/21 04:23: Sodium Level 138, Potassium Level 3.9, Chloride Level 107, Carbon Dioxide Level 20L, Anion Gap 11, Blood Urea Nitrogen 15, Creatinine 0.91, Estimat Glomerular Filtration Rate > 60, BUN/Creatinine Ratio 16, Glucose Level 123H, Calcium Level 8.4L, Phosphorus Level 2.4, Magnesium Level 2.1 Assessment/Plan Assessment/Plan Assessment/Plan S/P Lap adia and Open repair of Adia-Duodenal fisutula UGI today shows no leak, will D/C NGT and start clears HTN - will start PO home meds CXR indicates possible atelectasis vs pleural effusion - pt must get up and walk around, use IS 10 X Q1hour AMY SERNA DO Feb 16, 2021 11:27
--- NOTE | 2021-02-16 12:49 | Progress Note ---
Subjective Date Seen by a Provider: Feb 16, 2021 Time Seen by a Provider: 12:45 Subjective/Events-last exam Fwup Acute Emphysematous Cholecystitis with Tila-duodenal fistula--S/P Lap Tila with open repair of Tila-duodenal fistula, HTN, atelectesis with respiratory distress. Back down to medical floor. Back to nasal cannula. NG tube out and on clears. No flatus or BM. Focused Exam Lactate Level 02/15/21 06:32: Lactic Acid Level 1.38 Objective Exam Vital Signs Date Time Temp Pulse Resp B/P (MAP) Pulse Ox O2 Delivery O2 Flow Rate FiO2 02/16/21 08:45 90 24 02/16/21 08:30 88 24 151/85 (107) 02/16/21 08:15 88 23 02/16/21 08:00 36.7 91 24 154/92 (111) 02/16/21 08:00 94 High Flow N/C 4.00 02/16/21 07:45 89 24 02/16/21 07:30 88 25 146/94 (112) 02/16/21 07:15 100 17 02/16/21 07:00 102 33 146/82 (104) 02/16/21 06:36 91 High Flow N/C 5.00 02/16/21 06:30 92 02/16/21 04:00 100 21 130/90 (103) 97 High Flow N/C 2.00 02/16/21 01:24 94 High Flow N/C 3.00 02/16/21 01:00 90 02/16/21 00:00 36.9 99 20 144/84 (104) 94 High Flow N/C 2.00 02/15/21 21:24 94 High Flow N/C 3.00 02/15/21 20:00 95 High Flow N/C 4.00 02/15/21 19:56 36.9 106 38 143/89 (107) 92 Vapotherm 20.00 02/15/21 19:00 110 02/15/21 18:09 98 Vapotherm 15.00 30 02/15/21 16:13 36.6 105 26 137/86 (103) 95 Vapotherm 20.00 02/15/21 14:31 92 Vapotherm 20.00 30 02/15/21 12:54 94 I & O 02/16/21 07:00 Output Total 1330 ml Balance -1330 ml Capillary Refill : Less Than 3 SecondsLess Than 3 Seconds General Appearance: No Apparent Distress Neck: Supple Respiratory: Decreased Breath Sounds Cardiovascular: Regular Rate, Rhythm Gastrointestinal: non tender, soft, abnormal bowel sounds, other (FELISHA drains with minimal serosanguinous drainage) Extremity: Non Tender, No Calf Tenderness, No Pedal Edema Neurologic/Psychiatric: Alert, Oriented x3 Skin: Warm/Dry Results Lab Laboratory Tests 02/16/21 00:23: Urine Color YELLOW, Urine Clarity CLEAR, Urine pH 7.0, Urine Specific [place] 1.020, Urine Protein 1+H, Urine Glucose (UA) NEGATIVE, Urine Ketones TRACEH, Urine Nitrite NEGATIVE, Urine Bilirubin NEGATIVE, Urine Urobilinogen 1.0, Urine Leukocyte Esterase NEGATIVE, Urine RBC (Auto) NEGATIVE, Urine RBC RARE, Urine WBC RARE, Urine Squamous Epithelial Cells NONE, Urine Crystals NONE, Urine Bacteria NEGATIVE, Urine Casts PRESENT, Urine Hyaline Casts RARE, Urine Mucus NEGATIVE, Urine Culture Indicated NO 02/16/21 04:23: Sodium Level 138, Potassium Level 3.9, Chloride Level 107, Carbon Dioxide Level 20L, Anion Gap 11, Blood Urea Nitrogen 15, Creatinine 0.91, Estimat Glomerular Filtration Rate > 60, BUN/Creatinine Ratio 16, Glucose Level 123H, Calcium Level 8.4L, Phosphorus Level 2.4, Magnesium Level 2.1 Assessment/Plan Assessment/Plan Assess & Plan/Chief Complaint 1. Acute Emphysematous Cholecystitis with Tila-duodenal fistula--S/P Lap Tila with open repair of Tila-duodenal fistula--NGT out, on clear liquids, IV antibiotics continued, pain control as needed, lovenox for DVT prophylaxis 2. Hypertension--Increase Metoprolol IV 3. Hypoxemia with Atelectesis and Acute Respiratory Failure--down to NV, continue IS, repeat CXR in AM Clinical Quality Measures Admission Status Admission Dx 1. Acute Emphysematous Cholecystitis with Tila-duodenal fistula--S/P Lap Tila with open repair of Tila-duodenal fistula--NG tube in place, NPO, IV antibiotics, pain control, lovenox for DVT prophylaxis 2. Hypertension--metoprolol IV began JOANNE ALVAREZ DO Feb 16, 2021 12:49
--- NOTE | 2021-02-16 15:41 | Diagnostic Imaging Report ---
INDICATION: Choleduodenal fistula, status post surgery. The study is performed evaluate for duodenal leak. Patient brought to fluoroscopy suite placed on table in supine position. 180 mL of Gastrografin contrast was injected through the patient's indwelling NG tube. Spot films of the abdomen were then obtained. There is contrast within the stomach. There is prompt emptying of contrast from the stomach into the proximal small bowel. Contrast moves freely through the proximal small bowel loops. There appear to be postsurgical changes in the 1st portion of the duodenum. No extravasation of contrast is seen to suggest leak. Midline skin flaco are noted. IMPRESSION: No evidence of duodenal leak. Dictated by: Dictated on workstation # [id number]
[2021-02-16] MEDS: ENOXAPARIN 40 MG/0.4 ML (LOVENOX) SYR SC SCH (19:57)
[2021-02-16] MEDS: FLUCONAZOLE 200 MG/100 ML 100 ML IV SCH (20:06)
[2021-02-17] MEDS: RT-ALBUTEROL/IPRATROPIUM 3 ML (DUONEB) VIAL INH SCH ×6 (02:10→22:11)
[2021-02-17] MEDS: meTOprolol 5 MG/5 ML (LOPRESSOR) VIAL IV SCH ×2 (02:55→09:12)
[2021-02-17] MEDS: LACTATED RINGERS 1,000 ML IV SCH ×3 (03:03→19:08)
[2021-02-17 03:08] VITALS: BP 147/94
[2021-02-17 05:42] LABS: MEAN PLATELET VOLUME 11.1 fL (9.0-12.2); WHITE BLOOD COUNT 12.6 10^3/uL (4.3-11.0)
[2021-02-17 05:56] LABS: ALBUMIN 2.9 GM/DL (3.2-4.5)
[2021-02-17 05:57] LABS: CHLORIDE 104 MMOL/L (98-107); POTASSIUM 3.8 MMOL/L (3.6-5.0); SODIUM 134 MMOL/L (135-145)
[2021-02-17 05:58] LABS: CALCIUM 8.5 MG/DL (8.5-10.1)
[2021-02-17 05:59] LABS: GLUCOSE 106 MG/DL (70-105); TOTAL PROTEIN 6.3 GM/DL (6.4-8.2)
[2021-02-17 06:00] LABS: CARBON DIOXIDE 18 MMOL/L (21-32)
[2021-02-17 06:01] LABS: BILIRUBIN,TOTAL 0.9 MG/DL (0.1-1.0)
[2021-02-17 06:02] LABS: ALKALINE PHOSPHATASE 64 U/L (40-136)
[2021-02-17 06:03] LABS: CREATININE SERUM 0.87 MG/DL (0.60-1.30); GFR ESTIMATED > 60
[2021-02-17] MEDS: PIPERACILLIN/TAZO 4.5 GM/NS 100 ML IV SCH ×6 (06:03→22:55)
[2021-02-17 06:04] LABS: BUN/CREATININE RATIO 17
[2021-02-17 06:05] LABS: MAGNESIUM 2.2 MG/DL (1.6-2.4)
[2021-02-17 06:06] LABS: ALANINE AMINOTRANSFERASE 33 U/L (0-55)
[2021-02-17 08:00] VITALS: BP 157/96
[2021-02-17] MEDS: metroNIDAZOLE 500MG/100ML IVPB 100 ML IV SCH (09:11)
[2021-02-17] MEDS: PANTOPRAZOLE 40 MG (PROTONIX) VIAL IVP SCH (09:12)
--- NOTE | 2021-02-17 09:18 | Progress Note ---
Subjective Date Seen by a Provider: Feb 17, 2021 Time Seen by a Provider: 09:13 Subjective/Events-last exam Fwup Acute Emphysematous Cholecystitis with Tila-duodenal fistula--S/P Lap Tila with open repair of Tila-duodenal fistula, HTN, atelectesis with respiratory distress. Is passing stools--2 last night-- but still diminished aeration in bases and on oxygen. Focused Exam Lactate Level 02/15/21 06:32: Lactic Acid Level 1.38 Objective Exam Vital Signs Date Time Temp Pulse Resp B/P (MAP) Pulse Ox O2 Delivery O2 Flow Rate FiO2 02/17/21 08:00 High Flow N/C 4.00 02/17/21 07:00 79 02/17/21 06:45 91 High Flow N/C 4.00 02/17/21 03:08 36.8 87 16 147/94 (111) 93 High Flow N/C 3.50 02/17/21 02:10 90 High Flow N/C 4.00 02/17/21 01:00 80 02/16/21 23:39 37.0 85 18 124/85 (98) 92 High Flow N/C 3.00 02/16/21 21:31 90 High Flow N/C 4.00 02/16/21 20:00 94 High Flow N/C 3.50 02/16/21 19:50 37.0 99 18 144/85 (104) 91 Nasal Cannula 3.50 02/16/21 19:00 94 02/16/21 18:57 91 High Flow N/C 4.00 02/16/21 16:15 36.6 88 24 162/96 (118) 91 Nasal Cannula 3.50 02/16/21 14:30 91 High Flow N/C 4.00 02/16/21 11:23 36.6 88 24 123/77 (92) 91 Nasal Cannula 3.50 I & O 02/17/21 07:00 Intake Total 1800 ml Output Total 1705 ml Balance 95 ml Capillary Refill : Less Than 3 SecondsLess Than 3 Seconds General Appearance: No Apparent Distress Respiratory: Crackles (faint in bases), Decreased Breath Sounds (bases) Cardiovascular: Regular Rate, Rhythm Gastrointestinal: non tender, soft, abnormal bowel sounds, other (dressing dry with FELISHA drains in place with minimal output--drain 1 serous and drain 2 serosanguinous) Extremity: Non Tender, No Calf Tenderness, No Pedal Edema Neurologic/Psychiatric: Alert, Oriented x3 Results Lab Laboratory Tests 02/17/21 05:25: White Blood Count 12.6H, Red Blood Count 4.02L, Hemoglobin 12.0L, Hematocrit 36L , Mean Corpuscular Volume 91, Mean Corpuscular Hemoglobin 30, Mean Corpuscular Hemoglobin Concent 33, Red Cell Distribution Width 13.3, Platelet Count 268, Mean Platelet Volume 11.1, Sodium Level 134L, Potassium Level 3.8, Chloride Level 104, Carbon Dioxide Level 18L, Anion Gap 12, Blood Urea Nitrogen 15, Cre atinine 0.87, Estimat Glomerular Filtration Rate > 60, BUN/Creatinine Ratio 17, Glucose Level 106H, Calcium Level 8.5, Corrected Calcium 9.4, Magnesium Level 2.2, Total Bilirubin 0.9, Aspartate Amino Transf (AST/SGOT) 30, Alanine Amino transferase (ALT/SGPT) 33, Alkaline Phosphatase 64, Total Protein 6.3L, Albumin 2.9L Microbiology 02/15/21 Blood Culture - Preliminary, Resulted No growth Assessment/Plan Assessment/Plan Assess & Plan/Chief Complaint 1. Acute Emphysematous Cholecystitis with Tila-duodenal fistula--S/P Lap Tila with open repair of Tila-duodenal fistula--NGT out, passing flatus and stools, on clear liquids, IV antibiotics continued, pain control as needed, lovenox for DVT prophylaxis 2. Hypertension--change to oral metoprolol 3. Hypoxemia with Atelectesis and Acute Respiratory Failure--down to NC, continue IS, repeat CXR just done but still with poor aeration in bases Clinical Quality Measures Admission Status Admission Dx 1. Acute Emphysematous Cholecystitis with Tila-duodenal fistula--S/P Lap Tila with open repair of Tila-duodenal fistula--NG tube in place, NPO, IV antibiotics, pain control, lovenox for DVT prophylaxis 2. Hypertension--metoprolol IV began JOANNE ALVAREZ DO Feb 17, 2021 09:18
--- NOTE | 2021-02-17 09:19 | Progress Note - Surgery ---
JORGE EDWARD MED STUDENT 02/17/21 0919: Subjective Date Seen by a Provider: Feb 17, 2021 Time Seen by a Provider: 08:30 Subjective/Events-last exam The patient states his breathing is about the same as yesterday. Reports he has tolerated clears so far, no nausea, but he does not have a great appetite. States he has been using IS, has not walked much. Had 2 bowel movements at 5pm and 9pm yesterday, first was "diarrhea-like" after his UGI study, second was a smaller more solid bm. The patient denies abominal pain, fevers. Focused Exam Lactate Level 02/15/21 06:32: Lactic Acid Level 1.38 Objective Exam Vital Signs Date Time Temp Pulse Resp B/P (MAP) Pulse Ox O2 Delivery O2 Flow Rate FiO2 02/17/21 08:00 High Flow N/C 4.00 02/17/21 07:00 79 02/17/21 06:45 91 High Flow N/C 4.00 02/17/21 03:08 36.8 87 16 147/94 (111) 93 High Flow N/C 3.50 02/17/21 02:10 90 High Flow N/C 4.00 02/17/21 01:00 80 02/16/21 23:39 37.0 85 18 124/85 (98) 92 High Flow N/C 3.00 02/16/21 21:31 90 High Flow N/C 4.00 02/16/21 20:00 94 High Flow N/C 3.50 02/16/21 19:50 37.0 99 18 144/85 (104) 91 Nasal Cannula 3.50 02/16/21 19:00 94 02/16/21 18:57 91 High Flow N/C 4.00 02/16/21 16:15 36.6 88 24 162/96 (118) 91 Nasal Cannula 3.50 02/16/21 14:30 91 High Flow N/C 4.00 02/16/21 11:23 36.6 88 24 123/77 (92) 91 Nasal Cannula 3.50 I & O 02/17/21 07:00 Intake Total 1800 ml Output Total 1705 ml Balance 95 ml Capillary Refill : Less Than 3 SecondsLess Than 3 Seconds General Appearance: No Apparent Distress Neck: Supple Respiratory: No Respiratory Distress, Decreased Breath Sounds (very diminished in bilateral lower lobes. Breath sounds clear in upper lobes bilaterally.), Other (tachypneic, mildly shallow breathing) Cardiovascular: Regular Rate, Rhythm, No Edema Gastrointestinal: non tender (except mild tenderness when palpating near surgical incisions), soft, abnormal bowel sounds, other (FELISHA drain #1 with minimal serosanguinous drainage. Drain #2 with 80ml serosanguinous fluid, more sanguine colored. Bandages covering drains and vertical incision intact, trace dried serosanguinous fluid apparent on vertical incision dressing. all dressings dry to touch.) Extremity: Non Tender, No Calf Tenderness, No Pedal Edema Neurologic/Psychiatric: Alert, Oriented x3 Skin: Warm/Dry; No Diaphoresis, No Pallor Results Lab Laboratory Tests 02/17/21 05:25: White Blood Count 12.6H, Red Blood Count 4.02L, Hemoglobin 12.0L, Hematocrit 36L , Mean Corpuscular Volume 91, Mean Corpuscular Hemoglobin 30, Mean Corpuscular Hemoglobin Concent 33, Red Cell Distribution Width 13.3, Platelet Count 268, Mean Platelet Volume 11.1, Sodium Level 134L, Potassium Level 3.8, Chloride Level 104, Carbon Dioxide Level 18L, Anion Gap 12, Blood Urea Nitrogen 15, Creatinine 0.87, Estimat Glomerular Filtration Rate > 60, BUN/Creatinine Ratio 17, Glucose Level 106H, Calcium Level 8.5, Corrected Calcium 9.4, Magnesium Level 2.2, Total Bilirubin 0.9, Aspartate Amino Transf (AST/SGOT) 30, Alanine Am inotransferase (ALT/SGPT) 33, Alkaline Phosphatase 64, Total Protein 6.3L, Albumin 2.9L Microbiology 02/15/21 Blood Culture - Preliminary, Resulted No growth Assessment/Plan Assessment/Plan Assessment/Plan 1. Acute Emphysematous Cholecystitis with Tila-duodenal fistula--S/P Lap Tila with open repair of Tila-duodenal fistula--NGT out, on clear liquids, encourage ambulation as tolerated by respiratory status. pain control as needed, lovenox for DVT prophylaxis. 2. Hypoxemia with Acute Respiratory Failure--down to NC, continue IS. CXR this morning does not appear improved compared to 02/15, radiology read is pending. I do not see atalectasis, see bibasilar pleural effusion vs infiltrate Saturations 91% at 4L NC. Pending radiology read, may need thoracentesis 3. Hypertension-- managed by PCP AMY Brewster DO 02/17/21 1118: Subjective Time Seen by a Provider: 10:44 Subjective/Events-last exam Pt seen and examined, no changes in breathing. Had 2 BM's yesterday and denied abd pain. Review of Systems General: Fatigue Pulmonary: Dyspnea; No Cough Cardiovascular: No: Chest Pain, Palpitations Gastrointestinal: No: Nausea, Vomiting, Abdominal Pain Objective Exam General Appearance: No Apparent Distress Respiratory: No Accessory Muscle Use, No Respiratory Distress, Decreased Breath Sounds (very diminished in bilateral lower lobes. Breath sounds clear in upper lobes bilaterally.), Other (tachypneic, mildly shallow breathing) Cardiovascular: Regular Rate, Rhythm, No Murmur Gastrointestinal: non tender (except mild tenderness when palpating near surgical incisions), soft, abnormal bowel sounds, other (FELISHA drain #1 with m inimal serosanguinous drainage. Drain #2 with 80ml serosanguinous fluid, more sanguine colored. Bandages covering drains and vertical incision intact, trace dried serosanguinous fluid apparent on vertical incision dressing. all dressings dry to touch.) Assessment/Plan Assessment/Plan Assessment/Plan 1. Acute Emphysematous Cholecystitis with Tila-duodenal fistula--S/P Lap Tila with open repair of Tila-duodenal fistula--NGT out, on clear liquids, encourage ambulation and increase IS use, lovenox for DVT prophylaxis. 2. Hypoxemia with Acute Respiratory Failure--down to NC, spoke with RT will add EZ pap and some Lasix CXR this morning does not appear improved compared to 02/15, radiology read shows atelectasis and some pleural effusions. I think comparatively his lung volumes are half of what would be expected for a normal adult, looking back...they may even have already been less than normal adult; but probably more than they are now. Saturations 91% at 4L NC. 3. Hypertension--on Metoprolol and mostly controlled Supervisory-Addendum Brief Verification & Attestation Participated in pt care: history, MDM, physical Personally performed: exam, history, MDM Care discussed with: Medical Student Procedures: n/a Verification and Attestation of Medical Student E/M Service A medical student performed and documented this service. I then reviewed and verified all information documented by the medical student and made modifications to such information, when appropriate. I personally performed a physical exam, medical decision making and then discussed any differences between the notes and made revisions as necessary to create one note. Amy King , 02/17/21 , 11:18 JORGE EDWARD MED STUDENT Feb 17, 2021 09:19 AMY KING DO Feb 17, 2021 11:18
[2021-02-17] MEDS ORDERED: meTOprolol SUCCINATE 100 MG (TOPROL XL) TAB PO NR (09:25)
--- NOTE | 2021-02-17 09:31 | Diagnostic Imaging Report ---
INDICATION: Respiratory failure. COMPARISON: 02/15/2021 FINDINGS: Single frontal radiographic view of the chest was obtained and demonstrates interval removal of gastric tube. Multiple distended loops of small bowel are noted within the left upper abdominal quadrant. Multiple air-fluid levels are also present. Lung aguiar show low inspiratory volumes with bibasilar effusions and bibasilar consolidative airspace disease. Overall, appearance is stable compared to prior exam. There is no pneumothorax. Cardiac silhouette and pulmonary vasculature are within normal limits. IMPRESSION: 1. Low lung volumes with bibasilar effusions and associated bibasilar atelectasis and/or infiltrate. 2. Several loops of mildly distended bowel in the left upper abdominal quadrant with multiple air-fluid levels. Correlation for obstruction or ileus is advised. Dictated by: Dictated on workstation # [id number]
[2021-02-17] MEDS ORDERED: FUROSEMIDE 40 MG/4 ML INJ (LASIX) IVP ONE (11:15)
[2021-02-17 12:00] VITALS: BP 148/67
[2021-02-17] MEDS: morphine INJ 4 MG/ML 1 ML (VIAL/SYRINGE) IVP PRN ×2 (15:55→22:33)
[2021-02-17 16:00] VITALS: BP 144/79
[2021-02-17] MEDS: ONDANSETRON 4 MG/2 ML (SDV) Z0FRAN IVP PRN (19:29)
[2021-02-17] MEDS: ENOXAPARIN 40 MG/0.4 ML (LOVENOX) SYR SC SCH (19:32)
[2021-02-17 20:03] VITALS: BP 139/89
[2021-02-17 23:35] VITALS: BP 133/87
[2021-02-18] MEDS: morphine INJ 4 MG/ML 1 ML (VIAL/SYRINGE) IVP PRN ×4 (00:56→21:13)
[2021-02-18] MEDS: LACTATED RINGERS 1,000 ML IV SCH ×3 (02:04→19:28)
[2021-02-18] MEDS: RT-ALBUTEROL/IPRATROPIUM 3 ML (DUONEB) VIAL INH SCH ×6 (02:05→22:25)
[2021-02-18 03:03] VITALS: BP 143/89
[2021-02-18] MEDS: ONDANSETRON 4 MG/2 ML (SDV) Z0FRAN IVP PRN ×2 (03:08→13:51)
[2021-02-18 05:46] LABS: HEMOGLOBIN 13.6 g/dL (13.3-17.7); MEAN PLATELET VOLUME 10.8 fL (9.0-12.2); WHITE BLOOD COUNT 15.9 10^3/uL (4.3-11.0)
[2021-02-18] MEDS: PIPERACILLIN/TAZO 4.5 GM/NS 100 ML IV SCH ×6 (05:59→22:34)
[2021-02-18 08:00] VITALS: BP 136/86
[2021-02-18] MEDS: PANTOPRAZOLE 40 MG (PROTONIX) VIAL IVP SCH (08:44)
[2021-02-18] MEDS: meTOprolol SUCCINATE 100 MG (TOPROL XL) TAB PO SCH (08:44)
--- NOTE | 2021-02-18 10:18 | Progress Note ---
Subjective Subjective Date Seen by Provider: Feb 18, 2021 Time Seen by Provider: 10:30 50 yo M Afebrile. WBCs elevated today. Na down to 134 from 138. Looking at the trend this did this a few days ago- will recheck bmp in AM. -patient feels like he is doing a little better compared to yesterday. He is going to try and get and walk more. Review of Systems General: Fatigue HEENT: No Head Aches, No Visual Changes, No Eye Pain, No Ear Pain, No Dysphasia, No Sinus Congestion, No Post Nasal Drip, No Sore Throat, No Other Pulmonary: Dyspnea; No Cough Cardiovascular: No: Chest Pain, Palpitations Gastrointestinal: No: Nausea, Vomiting, Abdominal Pain Genitourinary: No Dysuria, No Frequency Musculoskeletal: No: other, neck pain, shoulder pain, arm pain, back pain, hand pain, leg pain, foot pain Neurological: No: Weakness, Numbness, Incoordination, Change in speech, Con fusion, Seizures, Other All Other Systems Reviewed All Other Systems Reviewed: Yes Objective Exam Vital Signs Vital Signs Date Time Temp Pulse Resp B/P (MAP) Pulse Ox O2 Delivery O2 Flow Rate FiO2 02/18/21 08:00 High Flow N/C 4.00 02/18/21 08:00 36.1 83 20 136/86 (103) 92 Nasal Cannula 3.50 02/18/21 07:00 80 02/18/21 06:44 91 4.00 02/18/21 03:03 36.6 83 18 143/89 (107) 92 Nasal Cannula 3.50 02/18/21 02:06 92 4.00 02/18/21 01:00 93 02/17/21 23:35 36.9 88 17 133/87 (102) 91 Nasal Cannula 3.50 02/17/21 22:12 92 4.00 02/17/21 20:03 36.7 95 17 139/89 (106) 93 Nasal Cannula 3.50 02/17/21 19:30 High Flow N/C 4.00 02/17/21 19:00 84 02/17/21 18:34 94 4.00 02/17/21 16:00 37.0 73 24 144/79 (100) 92 Nasal Cannula 3.50 02/17/21 14:40 91 4.00 02/17/21 12:44 78 4/2/21 12:00 36.3 80 18 148/67 (94) 93 Nasal Cannula 3.50 I & O 02/18/21 07:00 Intake Total 2240 ml Output Total 3390 ml Balance -1150 ml General Appearance: No Apparent Distress Eyes: Bilateral Eye PERRL, Bilateral Eye EOMI Neck: Supple Respiratory: No Accessory Muscle Use, No Respiratory Distress, Decreased Breath Sounds (very diminished in bilateral lower lobes. Breath sounds clear in upper lobes bilaterally.); No Other Cardiovascular: Regular Rate, Rhythm, No Murmur Gastrointestinal: Non Tender, Soft, Abnormal Bowel Sounds (decreased throughout), Other Rectal: Deferred Extremity: Non Tender, No Calf Tenderness, No Pedal Edema Neurologic/Psychiatric: Alert, Oriented x3 Skin: Warm/Dry; No Diaphoresis, No Pallor Results Lab Laboratory Tests 02/18/21 05:37: White Blood Count 15.9H, Red Blood Count 4.53, Hemoglobin 13.6, Hematocrit 41, Mean Corpuscular Volume 91, Mean Corpuscular Hemoglobin 30, Mean Corpuscular Hemoglobin Concent 33, Red Cell Distribution Width 13.5, Platelet Count 311, Mean Platelet Volume 10.8 Microbiology 02/15/21 Blood Culture - Preliminary, Resulted No growth Assessment/Plan Assessment/Plan Assessment and Plan 02/18/21- Afebrile. WBCs elevated today. Na down to 134 from 138. Looking at the trend this did this a few days ago- will recheck bmp in AM. Continue respiratory support. Monitor oxygen requirements. General surgery is still on the case. DVT ppx: lovenox Dispo: slowly improving. Problems: (1) Hyponatremia (2) Acute emphysematous cholecystitis Assessment & Plan: with fistula. s/p surgery 02/12/21 (3) HTN (hypertension) Qualifiers: Qualified Codes: I10 - Essential (primary) hypertension (4) Acute respiratory failure with hypoxia SRIKANTH OCONNOR MD Feb 18, 2021 10:18
[2021-02-18] MEDS ORDERED: LACTATED RINGERS 1,000 ML BAG IV SCH (10:45)
[2021-02-18] MEDS: metroNIDAZOLE 500MG/100ML IVPB 100 ML IV SCH ×2 (11:21→19:27)
--- NOTE | 2021-02-18 11:52 | Progress Note - Surgery ---
Subjective Date Seen by a Provider: Feb 18, 2021 Time Seen by a Provider: 11:52 Subjective/Events-last exam Sitting up in chair. Feeling little bit better. Breathing a little bit easier he states. Drains are serous drainage no evidence of bile. Patient states cannot stand to be drinking as much. Abdomen feels a bit more distended. Chest x-ray shows some slightly dilated loops of small bowel in the left upper quadrant with air-fluid levels. White blood cell count went up today. No flatus or bowel movement but bowel movement yesterday. Objective Exam Vital Signs Date Time Temp Pulse Resp B/P (MAP) Pulse Ox O2 Delivery O2 Flow Rate FiO2 02/18/21 10:38 90 4.00 02/18/21 08:00 High Flow N/C 4.00 02/18/21 08:00 36.1 83 20 136/86 (103) 92 Nasal Cannula 3.50 02/18/21 07:00 80 02/18/21 06:44 91 4.00 02/18/21 03:03 36.6 83 18 143/89 (107) 92 Nasal Cannula 3.50 02/18/21 02:06 92 4.00 02/18/21 01:00 93 02/17/21 23:35 36.9 88 17 133/87 (102) 91 Nasal Cannula 3.50 02/17/21 22:12 92 4.00 02/17/21 20:03 36.7 95 17 139/89 (106) 93 Nasal Cannula 3.50 02/17/21 19:30 High Flow N/C 4.00 02/17/21 19:00 84 02/17/21 18:34 94 4.00 02/17/21 16:00 37.0 73 24 144/79 (100) 92 Nasal Cannula 3.50 02/17/21 14:40 91 4.00 02/17/21 12:44 78 02/17/21 12:00 36.3 80 18 148/67 (94) 93 Nasal Cannula 3.50 I & O 02/18/21 07:00 Intake Total 2340 ml Output Total 3390 ml Balance -1050 ml Capillary Refill : Less Than 3 SecondsLess Than 3 Seconds General Appearance: No Apparent Distress, WD/WN HEENT: PERRL/EOMI, Normal ENT Inspection Neck: Normal Inspection, Supple Respiratory: Chest Non Tender, No Accessory Muscle Use, No Respiratory Distress Cardiovascular: Regular Rate, Rhythm, No JVD Gastrointestinal: non tender (except mild tenderness when palpating near surgical incisions), soft, abnormal bowel sounds, other (FELISHA drain serous fluid, trace dried serosanguinous fluid apparent on vertical incision dressing. all dressings dry to touch.) Extremity: Non Tender, No Calf Tenderness, No Pedal Edema Neurologic/Psychiatric: Alert, Oriented x3 Skin: Normal Color, Warm/Dry; No Diaphoresis, No Pallor Lymphatic: No Adenopathy Results Lab Laboratory Tests 02/18/21 05:37: White Blood Count 15.9H, Red Blood Count 4.53, Hemoglobin 13.6, Hematocrit 41, Mean Corpuscular Volume 91, Mean Corpuscular Hemoglobin 30, Mean Corpuscular Hemoglobin Concent 33, Red Cell Distribution Width 13.5, Platelet Count 311, Mean Platelet Volume 10.8 Microbiology 02/15/21 Blood Culture - Preliminary, Resulted No growth Assessment/Plan Assessment/Plan Assessment/Plan Status post laparoscopic cholecystectomy with intraoperative cholangiogram repair of duodenum for choleduodenal fistula start fluids restart flagyl repeat labs in am small bowel follow through no leak from other day no evidence of bile leak in drains discussed need for IS and increase ambulation. IRAJ BURCH DO Feb 18, 2021 11:52
[2021-02-18 12:00] VITALS: BP 136/88
[2021-02-18 16:34] VITALS: BP 119/76
[2021-02-18] MEDS: ENOXAPARIN 40 MG/0.4 ML (LOVENOX) SYR SC SCH (19:27)
[2021-02-18 19:47] VITALS: BP 130/86
[2021-02-19] VITALS (7 sets, daily range): BP systolic 126–147; BP diastolic 78–89
[2021-02-19] MEDS: morphine INJ 4 MG/ML 1 ML (VIAL/SYRINGE) IVP PRN ×5 (00:13→23:27)
[2021-02-19] MEDS: RT-ALBUTEROL/IPRATROPIUM 3 ML (DUONEB) VIAL INH SCH ×5 (02:53→21:24)
[2021-02-19] MEDS: metroNIDAZOLE 500MG/100ML IVPB 100 ML IV SCH ×3 (03:05→19:34)
[2021-02-19] MEDS: LACTATED RINGERS 1,000 ML IV SCH ×3 (03:05→19:15)
[2021-02-19 04:50] LABS: BASOPHILS # (AUTO) 0.1 10^3/uL (0.0-0.1); BASOPHILS % (AUTO) 0 % (0-10); EOSINOPHILS # (AUTO) 0.2 10^3/uL (0.0-0.3); EOSINOPHILS % (AUTO) 1 % (0-10); HEMATOCRIT 41 % (40-54); HEMOGLOBIN 13.4 g/dL (13.3-17.7); LYMPHOCYTES # (AUTO) 1.1 10^3/uL (1.0-4.0); LYMPHOCYTES % (AUTO) 7 % (12-44); MEAN CORPUSCULAR HEMOGLOBIN 30 pg (25-34); MEAN CORPUSCULAR HGB CONC 33 g/dL (32-36); MEAN CORPUSCULAR VOLUME 92 fL (80-99); MEAN PLATELET VOLUME 11.3 fL (9.0-12.2); MONOCYTES # (AUTO) 1.5 10^3/uL (0.0-1.0); MONOCYTES % (AUTO) 9 % (0-12); NEUTROPHILS # (AUTO) 12.9 10^3/uL (1.8-7.8); NEUTROPHILS % (AUTO) 81 % (42-75); PLATELET COUNT 429 10^3/uL (130-400); WHITE BLOOD COUNT 15.9 10^3/uL (4.3-11.0)
[2021-02-19 05:01] LABS: BUN/CREATININE RATIO 20; CALCIUM 8.4 MG/DL (8.5-10.1); CARBON DIOXIDE 20 MMOL/L (21-32); CHLORIDE 101 MMOL/L (98-107); CREATININE SERUM 0.86 MG/DL (0.60-1.30); GFR ESTIMATED > 60; GLUCOSE 116 MG/DL (70-105); POTASSIUM 4.2 MMOL/L (3.6-5.0); SODIUM 135 MMOL/L (135-145)
[2021-02-19] MEDS: PANTOPRAZOLE 40 MG (PROTONIX) VIAL IVP SCH (08:28)
[2021-02-19] MEDS: meTOprolol SUCCINATE 100 MG (TOPROL XL) TAB PO SCH (08:28)
--- NOTE | 2021-02-19 09:48 | Progress Note ---
Subjective Subjective Date Seen by Provider: Feb 19, 2021 Time Seen by Provider: 09:50 50 yo M reports he is a smidge better but not by much. He walked 4x yesterday. Patient has not had a bowel movement or passed gas since 02/17/21. He is belching a little more. He does feel like his abdomen is distended. Review of Systems General: Fatigue HEENT: No Head Aches, No Visual Changes, No Eye Pain, No Ear Pain, No Dysphasia, No Sinus Congestion, No Post Nasal Drip, No Sore Throat, No Other Pulmonary: Dyspnea; No Cough Cardiovascular: No: Chest Pain, Palpitations Gastrointestinal: No: Nausea, Vomiting, Abdominal Pain Genitourinary: No Dysuria, No Frequency Musculoskeletal: No: other, neck pain, shoulder pain, arm pain, back pain, hand pain, leg pain, foot pain Neurological: No: Weakness, Numbness, Incoordination, Change in speech, Confusion, Seizures, Other All Other Systems Reviewed All Other Systems Reviewed: Yes Objective Exam Vital Signs Vital Signs Date Time Temp Pulse Resp B/P (MAP) Pulse Ox O2 Delivery O2 Flow Rate FiO2 02/19/21 08:00 36.2 86 20 136/86 (103) 90 Nasal Cannula 4.00 02/19/21 08:00 High Flow N/C 4.00 02/19/21 07:10 89 4.00 02/19/21 07:00 88 02/19/21 03:24 36.3 88 18 140/78 (98) 90 Nasal Cannula 3.00 02/19/21 02:53 90 4.00 02/19/21 01:00 84 02/19/21 00:42 36.7 87 18 133/89 (104) 91 Nasal Cannula 3.00 02/18/21 22:25 91 4.00 02/18/21 19:47 36.6 89 20 130/86 (101) 91 Nasal Cannula 3.00 02/18/21 19:39 High Flow N/C 4.00 02/18/21 19:00 94 02/18/21 18:45 90 4.00 02/18/21 16:34 36.4 85 18 119/76 (90) 93 Nasal Cannula 3.00 02/18/21 14:57 90 4.00 02/18/21 12:38 76 02/18/21 12:00 35.7 84 20 136/88 (104) 94 Nasal Cannula 3.50 02/18/21 10:38 90 4.00 I & O0 02/19/21 07:00 Intake Total 1440 ml Output Total 880 ml Balance 560 ml General Appearance: No Apparent Distress, WD/WN Eyes: Bilateral Eye PERRL, Bilateral Eye EOMI HEENT: PERRL/EOMI, Normal ENT Inspection Neck: Normal Inspection, Supple Respiratory: Chest Non Tender, No Accessory Muscle Use, No Respiratory Distress Cardiovascular: Regular Rate, Rhythm, No JVD Gastrointestinal: Non Tender, Soft, Abnormal Bowel Sounds (decreased throughout) Rectal: Deferred Extremity: Non Tender, No Calf Tenderness, Pedal Edema (trace legs) Neurologic/Psychiatric: Alert, Oriented x3 Skin: Normal Color, Warm/Dry; No Diaphoresis, No Pallor Lymphatic: No Adenopathy Results Lab Laboratory Tests 02/19/21 04:00: White Blood Count 15.9H, Red Blood Count 4.43, Hemoglobin 13.4, Hematocrit 41, Mean Corpuscular Volume 92, Mean Corpuscular Hemoglobin 30, Mean Corpuscular Hemoglobin Concent 33, Red Cell Distribution Width 13.4, Platelet Count 429H, Mean Platelet Volume 11.3, Immature Granulocyte % (Auto) 2, Neutrophils (%) (Auto) 81H, Lymphocytes (%) (Auto) 7L, Monocytes (%) (Auto) 9, Eosinophils (%) (Auto) 1, Basophils (%) (Auto) 0, Neutrophils # (Auto) 12.9H, Lymphocytes # (Auto) 1.1, Monocytes # (Auto) 1.5H, Eosinophils # (Auto) 0.2, Basophils # ( Auto) 0.1, Immature Granulocyte # (Auto) 0.3H, Sodium Level 135, Potassium Level 4.2, Chloride Level 101, Carbon Dioxide Level 20L, Anion Gap 14, Blood Urea Nitrogen 17, Creatinine 0.86, Estimat Glomerular Filtration Rate > 60, BUN/Creatinine Ratio 20, Glucose Level 116H, Calcium Level 8.4L Microbiology 02/15/21 Blood Culture - Preliminary, Resulted No growth Assessment/Plan Assessment/Plan Assessment and Plan 02/18/21- Afebrile. WBCs elevated today. Na down to 134 from 138. Looking at the trend this did this a few days ago- will recheck bmp in AM. Continue respiratory support. Monitor oxygen requirements. General surgery is still on the case. 02/19/21- continue IVF. Gave patient some gum to chew. Continue getting up and walking the halls to help his bowels wake up and help with his breathing. Na improved back to 135. DVT ppx: lovenox Dispo: slowly improving. Problems: (1) Hyponatremia (2) Acute emphysematous cholecystitis Assessment & Plan: with fistula. s/p surgery 02/12/21 (3) HTN (hypertension) Qualifiers: Qualified Codes: I10 - Essential (primary) hypertension (4) Acute respiratory failure with hypoxia SRIKANTH OCONNOR MD Feb 19, 2021 09:48
[2021-02-19] MEDS ORDERED: HYDROcodone/APAP 5 MG/325 MG (LORTAB) TAB PO PRN (12:30)
[2021-02-19] MEDS ORDERED: PIPERACILLIN/TAZOBACTAM (BULK) 4.5 GM in NS (IVPB) 100 ML IV NR (13:00)
--- NOTE | 2021-02-19 13:33 | Progress Note - Surgery ---
Subjective Date Seen by a Provider: Feb 19, 2021 Time Seen by a Provider: 13:29 Subjective/Events-last exam Patient feeling maybe a little better today. No flatus or bm. Not wanting to take much oral intake. Walked 4 times yesterday. Using incentive spirometer better. Having some belching and abdomen slightly distended. Denies n/v fever sweats chills shortness of breath or chest pain. Objective Exam Vital Signs Date Time Temp Pulse Resp B/P (MAP) Pulse Ox O2 Delivery O2 Flow Rate FiO2 02/19/21 13:00 84 02/19/21 12:00 36.3 82 20 136/84 (101) 92 Nasal Cannula 3.50 02/19/21 10:53 92 4.00 02/19/21 08:00 36.2 86 20 136/86 (103) 90 Nasal Cannula 4.00 02/19/21 08:00 High Flow N/C 4.00 02/19/21 07:10 89 4.00 02/19/21 07:00 88 02/19/21 03:24 36.3 88 18 140/78 (98) 90 Nasal Cannula 3.00 02/19/21 02:53 90 4.00 02/19/21 01:00 84 02/19/21 00:42 36.7 87 18 133/89 (104) 91 Nasal Cannula 3.00 02/18/21 22:25 91 4.00 02/18/21 19:47 36.6 89 20 130/86 (101) 91 Nasal Cannula 3.00 02/18/21 19:39 High Flow N/C 4.00 02/18/21 19:00 94 02/18/21 18:45 90 4.00 02/18/21 16:34 36.4 85 18 119/76 (90) 93 Nasal Cannula 3.00 02/18/21 14:57 90 4.00 I & O 02/19/21 07:00 Intake Total 1440 ml Output Total 880 ml Balance 560 ml Capillary Refill : Less Than 3 SecondsLess Than 3 Seconds General Appearance: No Apparent Distress, WD/WN HEENT: PERRL/EOMI, Normal ENT Inspection Neck: Normal Inspection, Supple Respiratory: Chest Non Tender, No Accessory Muscle Use, No Respiratory Distress Cardiovascular: Regular Rate, Rhythm, No JVD Gastrointestinal: non tender (except mild tenderness when palpating near surgical incisions), soft, distended, other (FELISHA drains serous fluid, very small amount of serous fluid from midline.) Extremity: Non Tender, No Calf Tenderness, Pedal Edema (trace legs) Neurologic/Psychiatric: Alert, Oriented x3 Skin: Normal Color, Warm/Dry; No Diaphoresis, No Pallor Lymphatic: No Adenopathy Results Lab Laboratory Tests 02/19/21 04:00: White Blood Count 15.9H, Red Blood Count 4.43, Hemoglobin 13.4, Hematocrit 41, Mean Corpuscular Volume 92, Mean Corpuscular Hemoglobin 30, Mean Corpuscular Hemoglobin Concent 33, Red Cell Distribution Width 13.4, Platelet Count 429H, Mean Platelet Volume 11.3, Immature Granulocyte % (Auto) 2, Neutrophils (%) (Aut o) 81H, Lymphocytes (%) (Auto) 7L, Monocytes (%) (Auto) 9, Eosinophils (%) (Auto) 1, Basophils (%) (Auto) 0, Neutrophils # (Auto) 12.9H, Lymphocytes # (Auto) 1.1, Monocytes # (Auto) 1.5H, Eosinophils # (Auto) 0.2, Basophils # (Auto) 0.1, Immature Granulocyte # (Auto) 0.3H, Sodium Level 135, Potassium Level 4.2, Chloride Level 101, Carbon Dioxide Level 20L, Anion Gap 14, Blood Urea Nitrogen 17, Creatinine 0.86, Estimat Glomerular Filtration Rate > 60, BUN/Creatinine Ratio 20, Glucose Level 116H, Calcium Level 8.4L Microbiology 02/15/21 Blood Culture - Preliminary, Resulted No growth Assessment/Plan Assessment/Plan Assessment/Plan Status post laparoscopic cholecystectomy with intraoperative cholangiogram repair of duodenum for choleduodenal fistula postoperative ileus start fluids flagyl/zosyn repeat labs in am small bowel follow through no leak clear liquids no evidence of bile leak in drains discussed need for IS and increase ambulation again. at bedside discussed with her for 45 minutes as well everything going on a nd answered her questions. IRAJ BURCH DO Feb 19, 2021 13:33
[2021-02-19] MEDS: ONDANSETRON 4 MG/2 ML (SDV) Z0FRAN IVP PRN (19:03)
[2021-02-19] MEDS: ENOXAPARIN 40 MG/0.4 ML (LOVENOX) SYR SC SCH (19:34)
[2021-02-19] MEDS: PIPERACILLIN/TAZOBACTAM (BULK) 4.5 GM in NS (IVPB) 100 ML IV SCH (20:39)
[2021-02-19] MEDS ORDERED: SIMETHICONE 80 MG (MYLICON) CHEW ONE (21:44)
[2021-02-19] MEDS: SIMETHICONE 80 MG (MYLICON) CHEW PO PRN (21:52)
[2021-02-20] MEDS: RT-ALBUTEROL/IPRATROPIUM 3 ML (DUONEB) VIAL INH SCH ×5 (02:44→20:13)
[2021-02-20] MEDS: metroNIDAZOLE 500MG/100ML IVPB 100 ML IV SCH ×3 (03:04→19:28)
[2021-02-20] MEDS: SIMETHICONE 80 MG (MYLICON) CHEW PO PRN (03:05)
[2021-02-20] MEDS: LACTATED RINGERS 1,000 ML IV SCH ×3 (03:05→19:28)
[2021-02-20 03:29] VITALS: BP 134/84
[2021-02-20] MEDS: PIPERACILLIN/TAZOBACTAM (BULK) 4.5 GM in NS (IVPB) 100 ML IV SCH ×3 (05:09→20:52)
--- NOTE | 2021-02-20 07:07 | Progress Note - Surgery ---
JORGE EDWARD MED STUDENT 02/20/21 0707: Subjective Date Seen by a Provider: Feb 20, 2021 Time Seen by a Provider: 06:30 Subjective/Events-last exam Amaury complains of intermittent nausea with 6 episodes of green bilious vomiting since taking Lortab at 5 pm yesterday, most recent at 5 am today. RN states was oily dark green. The patient states he is having episodes of cramping abdominal pain lasting about 10 seconds every few minutes, severity 5/10. He also reports recurrent hiccups since yesterday. The patient received Simethicone at 9pm last night and 3am today. The patient states he has not passed gas or bowels since his BMs Saturday. He reports abdominal bloating. States he is not nauseous aside from immediately preceding emesis. Has been walking 3-4 times a day, 3 laps each time. RN notes dressing was changed twice overnight, lower part of dressing more saturated. Patient denies increased SOB, denies cough. Notes occasional tingling sensation in right hand, states he has not had this before. Review of Systems General: No Chills, No Night Sweats HEENT: No Head Aches, No Visual Changes Pulmonary: No Dyspnea (not increased), No Cough Cardiovascular: No: Chest Pain, Edema Gastrointestinal: Nausea (intermittent, none currently), Vomiting (intermittent), Abdominal Pain (intermittent ), Other (abdominal bloating, intermittent hiccups) Genitourinary: No Dysuria, No Frequency Musculoskeletal: No: arm pain, leg pain Neurological: Numbness (intermittent right hand); No: Weakness, Confusion Objective Exam Vital Signs Date Time Temp Pulse Resp B/P (MAP) Pulse Ox O2 Delivery O2 Flow Rate FiO2 02/20/21 03:29 36.2 79 18 134/84 (101) 93 High Flow N/C 3.50 02/20/21 01:00 88 02/19/21 23:31 36.2 81 18 147/88 (107) 93 High Flow N/C 3.50 02/19/21 21:19 91 High Flow N/C 4.00 02/19/21 20:00 High Flow N/C 4.00 02/19/21 19:18 36.7 86 18 126/78 (94) 93 High Flow N/C 4.00 02/19/21 19:00 95 02/19/21 16:00 36.4 80 20 132/88 (103) 92 Nasal Cannula 4.00 02/19/21 15:36 92 4.00 02/19/21 13:00 84 02/19/21 12:00 36.3 82 20 136/84 (101) 92 Nasal Cannula 3.50 02/19/21 10:53 92 4.00 02/19/21 08:00 36.2 86 20 136/86 (103) 90 Nasal Cannula 4.00 02/19/21 08:00 High Flow N/C 4.00 02/19/21 07:10 89 4.00 I & O 02/20/21 07:00 Intake Total 1120 ml Output Total 1385 ml Balance -265 ml Capillary Refill : Less Than 3 SecondsLess Than 3 Seconds General Appearance: No Apparent Distress, WD/WN HEENT: PERRL/EOMI, Normal ENT Inspection Neck: Normal Inspection, Supple Respiratory: Chest Non Tender, No Accessory Muscle Use, No Respiratory Distress Cardiovascular: Regular Rate, Rhythm, No JVD Gastrointestinal: non tender (except mild tenderness when palpating near surgical incisions), soft, distended, other (FELISHA drains with minimal serosanguinous fluid. Surgical dressings are clean, dry, and intact.) Extremity: Non Tender, No Calf Tenderness, No Pedal Edema, Other (reports intermittent right hand tingling. 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 -currently on flagyl/zosyn small bowel follow through no leak -on clear liquid diet WBC elevated over weekend -repeat labs: CBC, CMP Bilious vomiting -suspect ileus, possible obstruction -place NG tube to decompress -abdominal Xray -encouraged ambulation -discourage opiate use -stop Simethicone RN states increase wound seepage through lower part of midline surgical incision -dressing changed 2x overnight, currently clean/dry/intact -monitor incision site for signs of infection dyspnea -patient appears improved compared to saturday -continue IS and work with AMY CHACON DO 02/20/21 1324: Subjective Time Seen by a Provider: 13:11 Subjective/Events-last exam Pt seen and examined, states pain is usually 3 out of 10 but "gets to a 5 when the cramps hit". Pt has not vomited since appx 5am, still mildly nauseous. No BM or flatus. Review of Systems General: No Chills, No Night Sweats HEENT: No Head Aches, No Visual Changes Pulmonary: No Dyspnea (not increased), No Cough Cardiovascular: No: Chest Pain Gastrointestinal: Nausea (intermittent, none currently), Vomiting (intermittent), Abdominal Pain (intermittent ), Other (abdominal bloating, intermittent hiccups) Genitourinary: No Dysuria, No Frequency Objective Exam General Appearance: No Apparent Distress, Obese HEENT: PERRL/EOMI Respiratory: Chest Non Tender, No Accessory Muscle Use, No Respiratory Distress, Decreased Breath Sounds (at bases) Cardiovascular: Regular Rate, Rhythm, No Murmur Gastrointestinal: non tender (except mild tenderness when palpating near surgical incisions), soft, distended, other (FELISHA drains with minimal serosanguinous fluid. Midline incision is clean, dry, and intact; scant drainage on dressing) Extremity: Non Tender, No Calf Tenderness, Other (reports intermittent right hand tingling. Negative Phalen test, negative tinel test at the elbow.) Neurologic/Psychiatric: Alert, Oriented x3 Assessment/Plan Assessment/Plan Assessment/Plan Ileus vs. PSBO -encourage ambulation and IS use, will try to switch to non-narcotics for pain. I went over CT with Radiologist, first reading thought there could be a gallstone ileus; this is a possibility, but not definite. He does appear to have a transition point and very distended stomach and upper small bowel. In addtion, there is now some air bubbles near duodenal repair. Plan to place NGT and make NPO, will give it a few days and then will probably have to redo UGI to check repair and possible SBFT. However, there is contrast in the colon from UGI last , so definitely not a complete obstruction. Atelectasis -RT to continue working with Supervisory-Addendum Brief Verification & Attestation Participated in pt care: history, MDM, physical Personally performed: exam, history, MDM Care discussed with: Medical Student Procedures: n/a Verification and Attestation of Medical Student E/M Service A medical student performed and documented this service. I then reviewed and verified all information documented by the medical student and made modifications to such information, when appropriate. I personally performed a physical exam, medical decision making and then discussed any differences between the notes and made revisions as necessary to create one note. Amy King , 02/20/21 , 13:24 JORGE EDWARD MED STUDENT Feb 20, 2021 07:07 AMY KING DO Feb 20, 2021 13:24
[2021-02-20 07:21] VITALS: BP 156/93
[2021-02-20] MEDS: PANTOPRAZOLE 40 MG (PROTONIX) VIAL IVP SCH (08:41)
[2021-02-20] MEDS: ONDANSETRON 4 MG/2 ML (SDV) Z0FRAN IVP PRN (08:41)
[2021-02-20] MEDS: meTOprolol SUCCINATE 100 MG (TOPROL XL) TAB PO SCH (08:41)
[2021-02-20] MEDS ORDERED: IOHEXOL 350 MG/ML 100 ML (OMNIPAQUE 350) VIAL IV ONE (10:15)
[2021-02-20] MEDS ORDERED: NS 100 ML (IVPB) BAG IV ONE (10:15)
[2021-02-20] MEDS ORDERED: HOLD METFORMIN - RECEIVED CONTRAST 20 ML VIAL IV SCH (10:15)
[2021-02-20] MEDS ORDERED: CATHETER FLUSH 10 ML SYR IV PRN (10:15)
--- NOTE | 2021-02-20 11:35 | Diagnostic Imaging Report ---
PROCEDURE: CT abdomen and pelvis with contrast. TECHNIQUE: Multiple contiguous axial images were obtained through the abdomen and pelvis after administration of intravenous contrast. Auto Exposure Controls were utilized during the CT exam to meet ALARA standards for radiation dose reduction. All CT scans use one or more of the following dose optimizing techniques: automated exposure control, MA and/or KvP adjustment based on patient size and exam type or iterative reconstruction. INDICATION: Abdominal pain, distention and emesis. There is continued atelectasis in the lower lobes bilaterally with mild bilateral pleural fluid. Below the diaphragm, there is continued extensive hepatic steatosis. There is fluid and gas adjacent to surgical clips in the gallbladder fossa. Possibility of bile leak or developing abscess at the site is not excluded. In addition, there is mild mural thickening involving the right colon and hepatic flexure. Surgical drains are in place in the right abdomen. There is significant distention of the stomach with gas and fluid. There is extensive dilation of small bowel to the level of transition point in the mid to lower abdomen to the right of midline underlying site of surgical site and drains. There is a rounded region of increased density within the lumen of the ileum adjacent to the transition point measuring 2.5 cm in diameter. Differential considerations include focal hematoma or gallstone. Possibility of intestinal mass is not fully excluded. There is a small amount of gas within the omentum which may be postoperative. There is mild pelvic free fluid. Partially opacified urinary bladder is unremarkable without evidence of perivesicular contrast extravasation. IMPRESSION: Findings are compatible with distal small bowel obstruction. This could be related to adhesions and possible 2.5 cm gallstone ileus/obstruction. In addition there is increasing fluid and gas in the gallbladder fossa with extension along the right colon. This may represent persistent bile leak or possible developing abscess. Basilar atelectasis and mild bilateral pleural fluid are also noted. Dictated by: Dictated on workstation # [id number]
[2021-02-20 12:06] VITALS: BP 148/80
--- NOTE | 2021-02-20 12:10 | Progress Note ---
Subjective Date Seen by a Provider: Feb 20, 2021 Time Seen by a Provider: 08:30 Subjective/Events-last exam Fwup Acute Emphysematous Cholecystitis with Tila-duodenal fistula--S/P Lap Tila with open repair of Tila-duodenal fistula, HTN, atelectesis with respiratory distress. More abdominal distention through the weekend with bilious vomiting several times since last night. No BM since Saturday after the Upper GI. Objective Exam Vital Signs Date Time Temp Pulse Resp B/P (MAP) Pulse Ox O2 Delivery O2 Flow Rate FiO2 02/20/21 08:00 High Flow N/C 4.00 02/20/21 07:21 36.0 79 20 156/93 (114) 93 Nasal Cannula 3.50 02/20/21 07:03 91 High Flow N/C 4.00 02/20/21 06:31 81 02/20/21 03:29 36.2 79 18 134/84 (101) 93 High Flow N/C 3.50 02/20/21 01:00 88 02/19/21 23:31 36.2 81 18 147/88 (107) 93 High Flow N/C 3.50 02/19/21 21:19 91 High Flow N/C 4.00 02/19/21 20:00 High Flow N/C 4.00 02/19/21 19:18 36.7 86 18 126/78 (94) 93 High Flow N/C 4.00 02/19/21 19:00 95 02/19/21 16:00 36.4 80 20 132/88 (103) 92 Nasal Cannula 4.00 02/19/21 15:36 92 4.00 02/19/21 13:00 84 I & O 02/20/21 07:00 Intake Total 1780 ml Output Total 1385 ml Balance 395 ml Capillary Refill : Less Than 3 SecondsLess Than 3 Seconds General Appearance: Mild Distress Respiratory: Lungs Clear, Decreased Breath Sounds Cardiovascular: Tachycardia Gastrointestinal: non tender, abnormal bowel sounds, distended, other (dressing dry and FELISHA drains with minimal serous drainage) Extremity: Non Tender, No Calf Tenderness, No Pedal Edema Neurologic/Psychiatric: Alert Results Lab Microbiology 02/15/21 Blood Culture - Final, Complete No growth Assessment/Plan Assessment/Plan Assess & Plan/Chief Complaint 1. Acute Emphysematous Cholecystitis with Tila-duodenal fistula--S/P Lap Tila with open repair of Tila-duodenal fistula--NGT out, more distended with bilious vomiting so will discussed with surgery and will assess CT scan of abdomen/pelvis with IV and oral contrast, on clear liquids, IV antibiotics continued, pain control as needed, lovenox for DVT prophylaxis 2. Hypertension--on oral metoprolol 3. Hypoxemia with Atelectesis and Acute Respiratory Failure--down to [facility], continue IS Clinical Quality Measures Admission Status Admission Dx 1. Acute Emphysematous Cholecystitis with Tila-duodenal fistula--S/P Lap Tila with open repair of Tila-duodenal fistula--NG tube in place, NPO, IV antibiotics, pain control, lovenox for DVT prophylaxis 2. Hypertension--metoprolol IV began JOANNE ALVAREZ DO Feb 20, 2021 12:10
[2021-02-20] MEDS: ACETAMINOPHEN 500 MG TAB (TYLENOL) PO SCH ×3 (13:42→20:54)
[2021-02-20 16:00] VITALS: BP 134/77
[2021-02-20] MEDS: KETOROLAC 30 MG/ML VIAL IVP SCH ×2 (16:12→19:29)
[2021-02-20] MEDS: ENOXAPARIN 40 MG/0.4 ML (LOVENOX) SYR SC SCH (19:28)
[2021-02-20 19:55] VITALS: BP 117/70
[2021-02-20 23:19] VITALS: BP 123/69
[2021-02-21] MEDS: RT-ALBUTEROL/IPRATROPIUM 3 ML (DUONEB) VIAL INH SCH ×7 (00:10→22:20)
[2021-02-21] MEDS: KETOROLAC 30 MG/ML VIAL IVP SCH ×4 (01:59→20:20)
[2021-02-21] MEDS: metroNIDAZOLE 500MG/100ML IVPB 100 ML IV SCH ×3 (03:15→20:20)
[2021-02-21] MEDS: LACTATED RINGERS 1,000 ML IV SCH ×4 (03:15→18:46)
[2021-02-21 03:18] VITALS: BP 130/78
[2021-02-21] MEDS: PIPERACILLIN/TAZOBACTAM (BULK) 4.5 GM in NS (IVPB) 100 ML IV SCH ×3 (04:20→21:39)
[2021-02-21] MEDS: ACETAMINOPHEN 500 MG TAB (TYLENOL) PO SCH ×3 (04:20→20:21)
[2021-02-21 06:16] LABS: BASOPHILS # (AUTO) 0.1 10^3/uL (0.0-0.1); BASOPHILS % (AUTO) 0 % (0-10); EOSINOPHILS # (AUTO) 0.3 10^3/uL (0.0-0.3); EOSINOPHILS % (AUTO) 3 % (0-10); HEMATOCRIT 38 % (40-54); HEMOGLOBIN 12.4 g/dL (13.3-17.7); LYMPHOCYTES # (AUTO) 1.3 10^3/uL (1.0-4.0); LYMPHOCYTES % (AUTO) 11 % (12-44); MEAN CORPUSCULAR HEMOGLOBIN 30 pg (25-34); MEAN CORPUSCULAR HGB CONC 32 g/dL (32-36); MEAN CORPUSCULAR VOLUME 93 fL (80-99); MEAN PLATELET VOLUME 10.8 fL (9.0-12.2); MONOCYTES # (AUTO) 1.1 10^3/uL (0.0-1.0); MONOCYTES % (AUTO) 9 % (0-12); NEUTROPHILS % (AUTO) 76 % (42-75); PLATELET COUNT 351 10^3/uL (130-400); WHITE BLOOD COUNT 11.9 10^3/uL (4.3-11.0)
[2021-02-21 06:31] LABS: ALBUMIN 2.7 GM/DL (3.2-4.5); CHLORIDE 103 MMOL/L (98-107); POTASSIUM 3.6 MMOL/L (3.6-5.0); SODIUM 138 MMOL/L (135-145)
[2021-02-21 06:34] LABS: GLUCOSE 98 MG/DL (70-105)
[2021-02-21 06:35] LABS: CARBON DIOXIDE 22 MMOL/L (21-32)
[2021-02-21 06:36] LABS: BILIRUBIN,TOTAL 0.6 MG/DL (0.1-1.0)
[2021-02-21 06:37] LABS: ALKALINE PHOSPHATASE 57 U/L (40-136); GFR ESTIMATED > 60
[2021-02-21 06:39] LABS: BUN/CREATININE RATIO 20
[2021-02-21 06:40] LABS: ALANINE AMINOTRANSFERASE 33 U/L (0-55)
--- NOTE | 2021-02-21 06:58 | Progress Note - Surgery ---
JORGE EDWARD MED STUDENT 02/21/21 0658: Subjective Date Seen by a Provider: Feb 21, 2021 Time Seen by a Provider: 06:40 Subjective/Events-last exam Amaury's NG tube drained 3.7 liters yesterday after being placed per RN. Amaury states he feels much better since placement. No abdominal pain, nausea, or distention. Still has not passed a bowel movement, last BM was after his UGI on 02/16. States he did not walk much after NG tube was placed yesterday. States he feels less short of air. Review of Systems General: No Chills, No Fatigue HEENT: No Head Aches, No Visual Changes Pulmonary: Dyspnea (feels improved compared to yesterday); No Cough Cardiovascular: No: Chest Pain, Palpitations Gastrointestinal: No: Nausea, Abdominal Pain Musculoskeletal: No: arm pain, leg pain Neurological: No: Numbness, Confusion Objective Exam Vital Signs Date Time Temp Pulse Resp B/P (MAP) Pulse Ox O2 Delivery O2 Flow Rate FiO2 02/21/21 06:25 94 High Flow N/C 4.00 02/21/21 04:03 94 High Flow N/C 4.00 02/21/21 03:18 36.4 73 20 130/78 (95) 93 High Flow N/C 3.00 02/21/21 01:00 66 02/20/21 23:19 36.2 69 20 123/69 (87) 92 High Flow N/C 3.00 02/20/21 20:00 High Flow N/C 3.00 02/20/21 19:55 35.9 66 22 117/70 (86) 91 High Flow N/C 3.00 02/20/21 19:00 61 02/20/21 16:00 36.5 68 16 134/77 (96) 92 Nasal Cannula 3.50 02/20/21 15:28 93 High Flow N/C 4.00 02/20/21 12:19 86 02/20/21 12:06 35.9 80 24 148/80 (102) 93 Nasal Cannula 3.50 02/20/21 08:00 High Flow N/C 4.00 02/20/21 07:21 36.0 79 20 156/93 (114) 93 Nasal Cannula 3.50 02/20/21 07:03 91 High Flow N/C 4.00 l I & O 02/21/21 07:00 Intake Total 1620 ml Output Total 3395 ml Balance -1775 ml Capillary Refill : Less Than 3 SecondsLess Than 3 Seconds General Appearance: No Apparent Distress, Obese HEENT: PERRL/EOMI Neck: Normal Inspection Respiratory: Chest Non Tender, No Accessory Muscle Use, No Respiratory Distress, Decreased Breath Sounds (at bases) Cardiovascular: Regular Rate, Rhythm, No Murmur Gastrointestinal: non tender (minimal tenderness when palpating near midline surgical incision), soft; No distended, No guarding, No rebound; other (FELISHA drains with minimal serosanguinous fluid. Midline incision well approximated, all flaco in place, appears to be healing well, no signs of surrounding skin infection. Midline dressing has moderate serosanguinous drainage, has not seeped through to exterior tape. ) Extremity: Non Tender, No Calf Tenderness, No Pedal Edema Neurologic/Psychiatric: Alert, Oriented x3 Skin: Normal Color, Warm/Dry; No Diaphoresis, No Pallor Lymphatic: No Adenopathy Results Lab Laboratory Tests 02/21/21 06:07: White Blood Count 11.9H, Red Blood Count 4.13L, Hemoglobin 12.4L, Hematocrit 38L , Mean Corpuscular Volume 93, Mean Corpuscular Hemoglobin 30, Mean Corpuscular Hemoglobin Concent 32, Red Cell Distribution Width 13.2, Platelet Count 351, Mean Platelet Volume 10.8, Immature Granulocyte % (Auto) 1, Neutrophils (%) (Auto) 76H, Lymphocytes (%) (Auto) 11L, Monocytes (%) (Auto) 9, Eosinophils (%) (Auto) 3, Basophils (%) (Auto) 0, Neutrophils # (Auto) 9.0H, Lymphocytes # (Auto) 1.3, Monocytes # (Auto) 1.1H, Eosinophils # (Auto) 0.3, Basophils # (Auto) 0.1, Immature Granulocyte # (Auto) 0.2H, Sodium Level 138, Potassium Level 3.6, Chloride Level 103, Carbon Dioxide Level 22, Anion Gap 13, Blood Urea Nitrogen 18, Creatinine 0.90, Estimat Glomerular Filtration Rate > 60, BUN/Creatinine Ratio 20, Glucose Level 98, Calcium Level 8.0L, Corrected Calcium 9.0, Total Bilirubin 0.6, Aspartate Amino Transf (AST/SGOT) 22, Alanine Aminotransferase (ALT/SGPT) 33, Alkaline Phosphatase 57, Total Protein 6.0L, Al bumin 2.7L Microbiology 02/15/21 Blood Culture - Final, Complete No growth Assessment/Plan Assessment/Plan Assessment/Plan Ileus vs. PSBO -emphasized importance of ambulation -radiologist read possible GS ileus yesterday. Reviewed image and discussed with in-house radiologist Dr. Chilel. We think CT yesterday did not confirm or exclude this, but functional ileus is more likely. -plan to do UGI study with small bowel follow through -contrast from prior UGI study on 02/16 did extend into colon, visible on last CT. Air bubbles near duodenal repair -continue to monitor patient for signs of deterioration. -patient's vitals and WBC trend today are reassuring. -grossly nontender abdomen -patient is currently on both Flagyl and Zosyn -continue acetaminophen q8H -change toradol to q6H PRN; patient is not having any pain Atelectasis -RT to continue working with incision site: moderate serosanguinous drainage -dressing last changed 5p yesterday per RN -incision appears to be healing well AMY SERNA DO 02/21/21 1144: Subjective Time Seen by a Provider: 11:32 Subjective/Events-last exam Pt seen and examined, states his abdomen is less distended, no pain and breathing better. Nurse states they got "5 canisters" of drainage from NGT. Pt states still no BM or flatus. Review of Systems General: No Chills; Fatigue HEENT: No Head Aches, No Visual Changes Pulmonary: Dyspnea (feels improved compared to yesterday); No Cough Cardiovascular: No: Chest Pain, Palpitations Gastrointestinal: No: Nausea, Vomiting, Abdominal Pain Musculoskeletal: No: leg pain Objective Exam General Appearance: No Apparent Distress, Obese HEENT: PERRL/EOMI Respiratory: Chest Non Tender, No Accessory Muscle Use, No Respiratory Distress, Decreased Breath Sounds (at bases) Cardiovascular: Regular Rate, Rhythm, No Murmur Gastrointestinal: non tender (minimal tenderness when palpating near midline surgical incision), soft; No distended (looks much better than yesterday, "back to normal"), No guarding, No rebound; other (FELISHA drains with minimal serosanguinous fluid. Midline incision well approximated, all flaco in place, appears to be healing well, no signs of surrounding skin infection. Midline dressing has moderate serosanguinous drainage, has not seeped through to exterior tape. ) Extremity: Non Tender, No Calf Tenderness Assessment/Plan Assessment/Plan Assessment/Plan Ileus vs. PSBO -emphasized importance of ambulation, I told him he has to walk every hour. Will try some Dulcolax suppositories. WBC now almost normal and other labs WNL -radiologist read possible GS ileus yesterday. Reviewed image and discussed with in-house radiologist Dr. Chilel. We think CT yesterday did not confirm or exclude this, but functional ileus is more likely. -probable plan to do UGI study with small bowel follow through -contrast from prior UGI study on 02/16 did extend into colon, visible on last CT. Air bubbles near duodenal repair -continue to monitor patient for signs of deterioration. -patient's vitals and WBC trend today are reassuring. -grossly nontender abdomen -patient is currently on both Flagyl and Zosyn -continue acetaminophen q8H -change toradol to q6H PRN; patient is not having any pain Atelectasis -RT to continue working with Supervisory-Addendum Brief Verification & Attestation Participated in pt care: history, MDM, physical Personally performed: exam, history, MDM Care discussed with: Medical Student Procedures: n/a Verification and Attestation of Medical Student E/M Service A medical student performed and documented this service. I then reviewed and verified all information documented by the medical student and made modifications to such information, when appropriate. I personally performed a physical exam, medical decision making and then discussed any differences between the notes and made revisions as necessary to create one note. Amy Serna , 02/21/21 , 11:44 JORGE EDWARD MED STUDENT Feb 21, 2021 06:58 AMY SERNA DO Feb 21, 2021 11:44
[2021-02-21 07:45] VITALS: BP 124/68
[2021-02-21] MEDS: meTOprolol SUCCINATE 100 MG (TOPROL XL) TAB PO SCH (08:22)
[2021-02-21] MEDS: PANTOPRAZOLE 40 MG (PROTONIX) VIAL IVP SCH (08:22)
[2021-02-21 11:00] VITALS: BP 135/74
[2021-02-21] MEDS ORDERED: BISACODYL 10 MG SUPP (DULCOLAX) PR ONE (11:45)
--- NOTE | 2021-02-21 13:10 | Progress Note ---
Subjective Date Seen by a Provider: Feb 21, 2021 Time Seen by a Provider: 08:30 Subjective/Events-last exam Fwup Acute Emphysematous Cholecystitis with Tila-duodenal fistula--S/P Lap Tila with open repair of Tila-duodenal fistula, HTN, atelectesis with respiratory distress. Feeling better. NG tube back in place. Hears bowels gurgling but no flatus or BM. Objective Exam Vital Signs Date Time Temp Pulse Resp B/P (MAP) Pulse Ox O2 Delivery O2 Flow Rate FiO2 02/21/21 12:21 68 02/21/21 11:00 35.6 68 17 135/74 (94) 96 High Flow N/C 3.00 02/21/21 10:29 94 High Flow N/C 3.00 02/21/21 08:00 High Flow N/C 3.00 02/21/21 07:45 35.6 73 16 124/68 (86) 96 High Flow N/C 3.00 02/21/21 06:28 78 02/21/21 06:25 94 High Flow N/C 4.00 02/21/21 04:03 94 High Flow N/C 4.00 02/21/21 03:18 36.4 73 20 130/78 (95) 93 High Flow N/C 3.00 02/21/21 01:00 66 02/20/21 23:19 36.2 69 20 123/69 (87) 92 High Flow N/C 3.00 02/20/21 20:00 High Flow N/C 3.00 02/20/21 19:55 35.9 66 22 117/70 (86) 91 High Flow N/C 3.00 02/20/21 19:00 61 02/20/21 16:00 36.5 68 16 134/77 (96) 92 Nasal Cannula 3.50 02/20/21 15:28 93 High Flow N/C 4.00 I & O 02/21/21 07:00 Intake Total 1620 ml Output Total 3395 ml Balance -1775 ml Capillary Refill : Less Than 3 SecondsLess Than 3 Seconds General Appearance: No Apparent Distress Neck: Supple Respiratory: Lungs Clear Cardiovascular: Regular Rate, Rhythm Gastrointestinal: non tender, soft, abnormal bowel sounds (hypoactive), other (dressings dry and minimal serous drainage in drains) Extremity: Non Tender, No Calf Tenderness, No Pedal Edema Neurologic/Psychiatric: Alert, Oriented x3 Skin: Warm/Dry Results Lab Laboratory Tests 02/21/21 06:07: White Blood Count 11.9H, Red Blood Count 4.13L, Hemoglobin 12.4L, Hematocrit 38L , Mean Corpuscular Volume 93, Mean Corpuscular Hemoglobin 30, Mean Corpuscular Hemoglobin Concent 32, Red Cell Distribution Width 13.2, Platelet Count 351, Mean Platelet Volume 10.8, Immature Granulocyte % (Auto) 1, Neutrophils (%) (Auto) 76H, Lymphocytes (%) (Auto) 11L, Monocytes (%) (Auto) 9, Eosinophils (%) (Auto) 3, Basophils (%) (Auto) 0, Neutrophils # (Auto) 9.0H, Lymphocytes # (Auto) 1.3, Monocytes # (Auto) 1.1H, Eosinophils # (Auto) 0.3, Basophils # (Aut o) 0.1, Immature Granulocyte # (Auto) 0.2H, Sodium Level 138, Potassium Level 3.6, Chloride Level 103, Carbon Dioxide Level 22, Anion Gap 13, Blood Urea Nitrogen 18, Creatinine 0.90, Estimat Glomerular Filtration Rate > 60, BUN/Creatinine Ratio 20, Glucose Level 98, Calcium Level 8.0L, Corrected Calcium 9.0, Total Bilirubin 0.6, Aspartate Amino Transf (AST/SGOT) 22, Alanine Aminotransferase (ALT/SGPT) 33, Alkaline Phosphatase 57, Total Protein 6.0L, Albumin 2.7L Microbiology 02/15/21 Blood Culture - Final, Complete No growth Assessment/Plan Assessment/Plan Assess & Plan/Chief Complaint 1. Acute Emphysematous Cholecystitis with Tila-duodenal fistula--S/P Lap Tila with open repair of Tila-duodenal fistula--NGT out, now Ileus so NG tube back in place, IV antibiotics continued, pain control as needed, lovenox for DVT prophylaxis 2. Hypertension--on oral metoprolol 3. Hypoxemia with Atelectesis and Acute Respiratory Failure--down to [place], continue IS Clinical Quality Measures Admission Status Admission Dx 1. Acute Emphysematous Cholecystitis with Tila-duodenal fistula--S/P Lap Tila with open repair of Tila-duodenal fistula--NG tube in place, NPO, IV antibiotics, pain control, lovenox for DVT prophylaxis 2. Hypertension--metoprolol IV began JOANNE ALVAREZ DO Feb 21, 2021 13:10
[2021-02-21 16:01] VITALS: BP 134/69
[2021-02-21 19:47] VITALS: BP 141/71
[2021-02-21] MEDS: ENOXAPARIN 40 MG/0.4 ML (LOVENOX) SYR SC SCH (20:22)
[2021-02-21 23:37] VITALS: BP 139/79
[2021-02-22] MEDS: RT-ALBUTEROL/IPRATROPIUM 3 ML (DUONEB) VIAL INH SCH ×6 (02:09→21:09)
[2021-02-22] MEDS: metroNIDAZOLE 500MG/100ML IVPB 100 ML IV SCH ×3 (02:21→18:43)
[2021-02-22] MEDS: KETOROLAC 30 MG/ML VIAL IVP SCH ×4 (02:21→18:43)
[2021-02-22 04:00] VITALS: BP 138/79
[2021-02-22] MEDS: PIPERACILLIN/TAZOBACTAM (BULK) 4.5 GM in NS (IVPB) 100 ML IV SCH ×3 (05:05→19:59)
[2021-02-22] MEDS: ACETAMINOPHEN 500 MG TAB (TYLENOL) PO SCH ×3 (05:05→21:16)
[2021-02-22 05:24] LABS: HEMOGLOBIN 12.2 g/dL (13.3-17.7); MEAN PLATELET VOLUME 10.9 fL (9.0-12.2); WHITE BLOOD COUNT 11.1 10^3/uL (4.3-11.0)
--- NOTE | 2021-02-22 07:28 | Progress Note - Surgery ---
JORGE EDWARD MED STUDENT 02/22/21 0728: Subjective Date Seen by a Provider: Feb 22, 2021 Time Seen by a Provider: 07:05 Subjective/Events-last exam Amaury had a bm at about 5pm yesterday. States it was moderately sized, soft but not liquid. Feels less short of breath. States he is walking frequently. Denies pain, nausea, fever, chills. NG tube suctioned multiple liters yesterday. Review of Systems General: No Chills, No Night Sweats HEENT: No Head Aches, No Eye Pain Pulmonary: Dyspnea ("feels much better now"); No Cough Cardiovascular: No: Chest Pain, Palpitations Gastrointestinal: Other (NG tube in place); No: Abdominal Pain Genitourinary: No Dysuria Musculoskeletal: No: arm pain, leg pain Neurological: No: Weakness, Numbness Objective Exam Vital Signs Date Time Temp Pulse Resp B/P (MAP) Pulse Ox O2 Delivery O2 Flow Rate FiO2 02/22/21 04:00 37.2 76 20 138/79 (98) 93 High Flow N/C 1.00 02/22/21 01:00 32 02/21/21 23:37 36.7 73 20 139/79 (99) 94 High Flow N/C 3.00 02/21/21 22:20 97 High Flow N/C 2.00 02/21/21 20:20 High Flow N/C 3.00 02/21/21 19:47 36.7 72 20 141/71 (94) 95 High Flow N/C 3.00 02/21/21 19:00 68 02/21/21 18:25 96 High Flow N/C 3.00 02/21/21 16:01 36.7 64 17 134/69 (90) 94 High Flow N/C 3.00 02/21/21 14:54 93 High Flow N/C 3.00 02/21/21 12:21 68 02/21/21 11:00 35.6 68 17 135/74 (94) 96 High Flow N/C 3.00 02/21/21 10:29 94 High Flow N/C 3.00 02/21/21 08:00 High Flow N/C 3.00 02/21/21 07:45 35.6 73 16 124/68 (86) 96 High Flow N/C 3.00 I & O 02/22/21 07:00 Intake Total 100 ml Output Total 3610 ml Balance -3510 ml Capillary Refill : Less Than 3 SecondsLess Than 3 Seconds General Appearance: No Apparent Distress, Obese HEENT: PERRL/EOMI Neck: Normal Inspection Respiratory: Lungs Clear, Decreased Breath Sounds (below 7th ICS mid-axilla on L and 5th ICS mid-axilla on right. This is increased lung volume on the left compared to previous exams) Cardiovascular: Regular Rate, Rhythm, No Murmur Gastrointestinal: normal bowel sounds, non tender, soft, other (midline surgical incision clean/dry/intact. some serosanguinous fluid on dressing. minimal serous drainage in drains) Extremity: Non Tender, No Calf Tenderness, No Pedal Edema Neurologic/Psychiatric: Alert, Oriented x3 Skin: Warm/Dry Lymphatic: No Adenopathy Results Lab Laboratory Tests 02/22/21 04:55: White Blood Count 11.1H, Red Blood Count 4.16L, Hemoglobin 12.2L, Hematocrit 38L , Mean Corpuscular Volume 92, Mean Corpuscular Hemoglobin 29, Mean Corpuscular Hemoglobin Concent 32, Red Cell Distribution Width 13.2, Platelet Count 353, Mean Platelet Volume 10.9 Microbiology 02/15/21 Blood Culture - Final, Complete No growth Assessment/Plan Assessment/Plan Assessment/Plan 1. Acute Emphysematous Cholecystitis with Tila-duodenal fistula--S/P Lap Tila with open repair of Tila-duodenal fistula -NG tube back in place after ileus -passed bowel movement yesterday after his suppository. Would like patient to have another bm to exclude possibility that this stool moved to the colon preceding formation of an anatomic ileus as his CT on 02/20 did have gastrografin in the colon from UGI 02/16. However anatomic ileus seems less likely than functional ileus. -encouraged ambulation. May give another suppository today -IV antibiotics continued, pain control as needed, -lovenox for DVT prophylaxis -Hypertension--on oral metoprolol Hypoxemia with Atelectesis and Acute Respiratory Failure -down to 93% on 1L NC, previously on 3.5 to 4L NC -continue to work with RT -exam reassuring; atelectasis may be improved on left based on physical exam -encouraged ambulation for both lungs and colon AMY KING DO 02/22/21 1041: Subjective Time Seen by a Provider: 10:28 Subjective/Events-last exam Pt seen and examined, states he feels ok. Had BM yesterday and is breathing better; but no flatus today. Review of Systems General: No Chills, No Night Sweats HEENT: No Head Aches Pulmonary: Dyspnea ("feels much better now"); No Cough Cardiovascular: No: Chest Pain, Palpitations Gastrointestinal: No: Abdominal Pain Objective Exam General Appearance: No Apparent Distress, Obese Respiratory: No Accessory Muscle Use, No Respiratory Distress, Decreased Breath Sounds (below 7th ICS mid-axilla on L and 5th ICS mid-axilla on right. This is increased lung volume on the left compared to previous exams) Cardiovascular: No Edema Gastrointestinal: non tender, soft, distended (??mildly compared to yesterday), other (midline surgical incision clean/dry/intact. some serosanguinous fluid on dressing. minimal serous drainage in drains) Assessment/Plan Assessment/Plan Assessment/Plan 1. Acute Emphysematous Cholecystitis with Tila-duodenal fistula--S/P Lap Tila with open repair of Tila-duodenal fistula -NG tube back in place after ileus. Plan to do UGI and then SBFT tomorrow -passed bowel movement yesterday after his suppository. -encouraged ambulation. May give another suppository today -IV antibiotics continued, pain control as needed, -lovenox for DVT prophylaxis -Hypertension--on oral metoprolol Hypoxemia with Atelectesis and Acute Respiratory Failure -down to 93% on 1L NC, previously on 3.5 to 4L NC -continue to work with RT -exam reassuring; atelectasis may be improved on left based on physical exam -encouraged ambulation for both lungs and colon Supervisory-Addendum Brief Verification & Attestation Participated in pt care: history, MDM, physical Personally performed: exam, history, MDM Care discussed with: Medical Student Procedures: n/a Verification and Attestation of Medical Student E/M Service A medical student performed and documented this service. I then reviewed and valerie ified all information documented by the medical student and made modifications to such information, when appropriate. I personally performed a physical exam, medical decision making and then discussed any differences between the notes and made revisions as necessary to create one note. Amy King , 02/22/21 , 10:40 JORGE EDWARD MED STUDENT Feb 22, 2021 07:28 AMY KING DO Feb 22, 2021 10:41
[2021-02-22 08:00] VITALS: BP 141/75
[2021-02-22] MEDS: LACTATED RINGERS 1,000 ML IV SCH ×3 (08:41→19:59)
[2021-02-22] MEDS: meTOprolol SUCCINATE 100 MG (TOPROL XL) TAB PO SCH (08:41)
[2021-02-22] MEDS: PANTOPRAZOLE 40 MG (PROTONIX) VIAL IVP SCH (08:41)
[2021-02-22 12:14] VITALS: BP 132/76
[2021-02-22 15:55] VITALS: BP 133/74
--- NOTE | 2021-02-22 17:50 | Progress Note ---
Subjective Date Seen by a Provider: Feb 22, 2021 Time Seen by a Provider: 08:30 Subjective/Events-last exam Fwup Acute Emphysematous Cholecystitis with Tila-duodenal fistula--S/P Lap Tila with open repair of Tila-duodenal fistula, HTN, atelectesis with respiratory distress. Had BM this morning. Objective Exam Vital Signs Date Time Temp Pulse Resp B/P (MAP) Pulse Ox O2 Delivery O2 Flow Rate FiO2 02/22/21 15:55 35.8 72 18 133/74 (93) 95 Room Air 02/22/21 14:35 96 Room Air 02/22/21 12:51 80 02/22/21 12:14 36.6 70 20 132/76 (94) 94 Room Air 02/22/21 09:00 High Flow N/C 0.50 02/22/21 08:50 Room Air 02/22/21 08:00 36.8 68 18 141/75 (97) 94 High Flow N/C 0.50 02/22/21 06:51 93 High Flow N/C 0.50 02/22/21 06:30 69 02/22/21 04:00 37.2 76 20 138/79 (98) 93 High Flow N/C 1.00 02/22/21 01:00 32 02/21/21 23:37 36.7 73 20 139/79 (99) 94 High Flow N/C 3.00 02/21/21 22:20 97 High Flow N/C 2.00 02/21/21 20:20 High Flow N/C 3.00 02/21/21 19:47 36.7 72 20 141/71 (94) 95 High Flow N/C 3.00 02/21/21 19:00 68 02/21/21 18:25 96 High Flow N/C 3.00 I & O0 02/22/21 07:00 Intake Total 100 ml Output Total 3610 ml Balance -3510 ml Capillary Refill : Less Than 3 SecondsLess Than 3 Seconds General Appearance: No Apparent Distress Neck: Supple Respiratory: Lungs Clear, Decreased Breath Sounds (but improving in bases) Cardiovascular: Regular Rate, Rhythm Gastrointestinal: non tender, soft, abnormal bowel sounds (more active bowel sounds today), other (dressing dry with drains with minimal serous drainage) Extremity: Non Tender, No Calf Tenderness, No Pedal Edema Neurologic/Psychiatric: Alert, Oriented x3 Results Lab Laboratory Tests 02/22/21 04:55: White Blood Count 11.1H, Red Blood Count 4.16L, Hemoglobin 12.2L, Hematocrit 38L , Mean Corpuscular Volume 92, Mean Corpuscular Hemoglobin 29, Mean Corpuscular Hemoglobin Concent 32, Red Cell Distribution Width 13.2, Platelet Count 353, Mean Platelet Volume 10.9 Microbiology 02/15/21 Blood Culture - Final, Complete No growth Assessment/Plan Assessment/Plan Assess & Plan/Chief Complaint 1. Acute Emphysematous Cholecystitis with Tila-duodenal fistula--S/P Lap Tila with open repair of Tila-duodenal fistula-now Ileus so NG tube back in place but did have BM today, IV antibiotics continued, pain control as needed, lovenox for DVT prophylaxis, plan for repeat upper GI tomorrow 2. Hypertension--on oral metoprolol 3. Hypoxemia with Atelectesis and Acute Respiratory Failure--down to TN, continue IS Clinical Quality Measures Admission Status Admission Dx 1. Acute Emphysematous Cholecystitis with Tila-duodenal fistula--S/P Lap Tila with open repair of Tila-duodenal fistula--NG tube in place, NPO, IV antibiotics, pain control, lovenox for DVT prophylaxis 2. Hypertension--metoprolol IV began JOANNE ALVAREZ DO Feb 22, 2021 17:50
[2021-02-22] MEDS: ENOXAPARIN 40 MG/0.4 ML (LOVENOX) SYR SC SCH (18:43)
[2021-02-22 19:46] VITALS: BP 140/74
[2021-02-22 23:06] VITALS: BP 136/68
[2021-02-23] VITALS (14 sets, daily range): BP systolic 117–152; BP diastolic 63–82
[2021-02-23] MEDS: KETOROLAC 30 MG/ML VIAL IVP SCH ×4 (01:01→19:38)
[2021-02-23] MEDS: RT-ALBUTEROL/IPRATROPIUM 3 ML (DUONEB) VIAL INH SCH ×6 (02:02→21:49)
[2021-02-23] MEDS: metroNIDAZOLE 500MG/100ML IVPB 100 ML IV SCH ×3 (03:53→21:04)
[2021-02-23] MEDS: LACTATED RINGERS 1,000 ML IV SCH ×3 (03:53→15:56)
[2021-02-23] MEDS: PIPERACILLIN/TAZOBACTAM (BULK) 4.5 GM in NS (IVPB) 100 ML IV SCH ×3 (04:58→22:35)
[2021-02-23] MEDS: ACETAMINOPHEN 500 MG TAB (TYLENOL) PO SCH ×3 (04:58→21:04)
--- NOTE | 2021-02-23 07:39 | Progress Note - Surgery ---
JORGE EDWARD MED STUDENT 02/23/21 0739: Subjective Date Seen by a Provider: Feb 23, 2021 Time Seen by a Provider: 06:55 Subjective/Events-last exam Amaury has not passed another bm. RN stated he did walk 6x, 6 laps each time yesterday. Patient denies abdominal pain, fever, chills, cough. States his breathing feels better. Objective Exam Vital Signs Date Time Temp Pulse Resp B/P (MAP) Pulse Ox O2 Delivery O2 Flow Rate FiO2 02/23/21 07:03 92 Room Air 02/23/21 03:58 36.2 75 20 142/69 (93) 94 Room Air 02/23/21 01:00 60 02/22/21 23:06 36.2 69 20 136/68 (90) 94 Room Air 02/22/21 21:09 92 Room Air 02/22/21 19:46 36.2 61 18 140/74 (96) 94 Room Air 02/22/21 19:30 Room Air 02/22/21 19:00 70 02/22/21 18:36 93 Room Air 02/22/21 15:55 35.8 72 18 133/74 (93) 95 Room Air 02/22/21 14:35 96 Room Air 02/22/21 12:51 80 02/22/21 12:14 36.6 70 20 132/76 (94) 94 Room Air 02/22/21 09:00 High Flow N/C 0.50 02/22/21 08:50 Room Air 02/22/21 08:00 36.8 68 18 141/75 (97) 94 High Flow N/C 0.50 I & O 02/23/21 07:00 Intake Total 2440 ml Output Total 3295 ml Balance -855 ml Capillary Refill : Less Than 3 SecondsLess Than 3 Seconds General Appearance: No Apparent Distress, Obese HEENT: PERRL/EOMI Neck: Supple Respiratory: Lungs Clear, Decreased Breath Sounds (decreased in bases. ) Cardiovascular: Regular Rate, Rhythm, No Murmur Gastrointestinal: non tender, soft, abnormal bowel sounds (more active bowel sounds today), other (dressing dry with scant serosanguinous drainage. drains with minimal serous drainage) Extremity: Non Tender, No Calf Tenderness, No Pedal Edema Neurologic/Psychiatric: Alert, Oriented x3 Skin: Warm/Dry Lymphatic: No Adenopathy Results Lab Microbiology 02/15/21 Blood Culture - Final, Complete No growth Assessment/Plan Assessment/Plan Assessment/Plan 1. Acute Emphysematous Cholecystitis with Tila-duodenal fistula--S/P Lap Tila with open repair of Tila-duodenal fistula-now Ileus so NG tube back in place had BM at about 6pm on 02/21, none since. Walking frequently per RN repeat upper GI follow through study planned today NG tube continues to have significant output. 1700 all of yesterday per chart. On Zosyn and Flagyl. 2. Hypertension--on oral metoprolol 3. Hypoxemia with Atelectesis and Acute Respiratory Failure -on room air, working with RT. AMY KING DO 02/23/21 1057: Subjective Time Seen by a Provider: 08:45 Subjective/Events-last exam Pt seen initially at 845, while he was getting UGI and then went back from 9:15 until now speaking with Radiology. We ordered CT abd/pelvis to rule out leak and check for gallstone in the small bowel. Pt has not had BM or flatus, but states he doesn't feel that bad. Review of Systems General: Fatigue, Malaise HEENT: No Head Aches, No Visual Changes Pulmonary: No Dyspnea, No Cough Cardiovascular: No: Chest Pain, Palpitations Gastrointestinal: Constipation; No: Nausea, Vomiting, Abdominal Pain Genitourinary: No Dysuria, No Frequency Objective Exam General Appearance: No Apparent Distress, Obese HEENT: PERRL/EOMI, Moist Mucous Membranes Respiratory: Lungs Clear, No Accessory Muscle Use, No Respiratory Distress, Decreased Breath Sounds (decreased in bases. ) Cardiovascular: Regular Rate, Rhythm, No Murmur Gastrointestinal: non tender, soft, abnormal bowel sounds (more active bowel sounds today, but still decreased), other (dressing dry with scant serosanguinous drainage. drains with minimal serous drainage) Neurologic/Psychiatric: Alert, Oriented x3 Assessment/Plan Assessment/Plan Assessment/Plan S/P Choleduodenal fistula repair - now has confirmed small leak Gallstone ileus - pt has very large gallstone in small nayan (appx 5.4 cm x 3cm), this will not pass on its own and even though it is not a complete obstruction it will become one once it gets to the Ileal/Cecal valve. I spoke with pt and his ; explaining the findings on the CT. I gave them a couple of options; TPN, J-tube, dobhoff or nothing. He has to go to surgery to remove the stone and at the same time we will try to reinforce the Alejo Patch repair. It has been a while since he has eaten and I am worried about his nutrition. He does not want a J-tube, I'd like to try and avoid TPN; therefore, we will try a dobhoff or just waiting another 4 days to repeat UGI. He will go to surgery now. Discussed risks and complications; not limited to pain, bleeding, infection, scar, damage to bowel and need for further procedure. All questions answered to pt and his 's satisfaction. Supervisory-Addendum Brief Verification & Attestation Participated in pt care: history, MDM, physical Personally performed: exam, history, MDM Care discussed with: Medical Student Procedures: n/a Verification and Attestation of Medical Student E/M Service A medical student performed and documented this service. I then reviewed and verified all information documented by the medical student and made modifi cations to such information, when appropriate. I personally performed a physical exam, medical decision making and then discussed any differences between the notes and made revisions as necessary to create one note. Amy Knig , 02/23/21 , 10:58 JORGE EDWARD MED STUDENT Feb 23, 2021 07:39 AMY KING DO Feb 23, 2021 10:57
[2021-02-23] MEDS ORDERED: DIATRIZOATE MEGLUM/SODIUM 37% 120 ML (GASTROGRAFIN) NG NR (08:09)
[2021-02-23] MEDS: meTOprolol SUCCINATE 100 MG (TOPROL XL) TAB PO SCH (10:50)
[2021-02-23] MEDS ORDERED: ROCURONIUM 10 MG/ML 5 ML SYRINGE IV ONE (10:55)
[2021-02-23] MEDS ORDERED: proPOfol 200 MG/20 ML (DIPRIVAN) VIAL IV ONE (10:55)
[2021-02-23] MEDS ORDERED: MIDAZOLAM 2 MG/2 ML (VERSED) VIAL ONE (10:55)
[2021-02-23] MEDS ORDERED: ONDANSETRON 4 MG/2 ML (SDV) Z0FRAN ONE (10:55)
[2021-02-23] MEDS ORDERED: LIDOCAINE PF 2% 5 ML (XYLOCAINE) VIAL ONE (10:55)
[2021-02-23] MEDS ORDERED: fentaNYL INJ 100 MCG/2 ML AMP ONE (10:56)
[2021-02-23] MEDS: PANTOPRAZOLE 40 MG (PROTONIX) VIAL IVP SCH (10:59)
[2021-02-23] MEDS ORDERED: SEVOFLURANE (ULTANE) 15 ML INHAL SOLN ONE ×3 (11:03→12:10)
[2021-02-23] MEDS ORDERED: NEOSTIGMINE 3 MG/3 ML VIAL ONE (11:03)
[2021-02-23] MEDS ORDERED: GLYCOPYRROLATE 0.2 MG/ML (ROBINUL) 2 ML VIAL ONE (11:03)
[2021-02-23] MEDS ORDERED: HYDROmorphone 2 MG/ML VIAL (DILAUDID) ONE (11:43)
[2021-02-23] MEDS ORDERED: LACTATED RINGERS 1,000 ML IV PRN (11:45)
--- NOTE | 2021-02-23 12:12 | Diagnostic Imaging Report ---
PROCEDURE: CT abdomen and pelvis without contrast. TECHNIQUE: Multiple contiguous axial images were obtained through the abdomen and pelvis without the use of intravenous contrast. Auto Exposure Controls were utilized during the CT exam to meet ALARA standards for radiation dose reduction. INDICATION: Duodenal leak, status post repair. Patient is status post upper gastrointestinal procedure. COMPARISON: Correlation is made with prior CT from 02/20/2021. FINDINGS: Lung bases demonstrate subsegmental atelectasis as well as trace right and small left pleural effusion. There is contrast within the stomach. There does appear to be some extravasation of contrast just lateral into the right of the first portion of the duodenum. A small amount of fluid and gas bubbles at this location. Contrast is also seen throughout the small bowel. Small bowel is dilated. There is a large filling defect within a small bowel loop in the right paramidline measuring 5.5 x 3.1 cm, likely a large gallstone. There is focal transition distal to this stone. Distal small bowel loops are normal caliber. Right colon is unremarkable. IMPRESSION: 1. Bilateral pleural effusions, left greater with bilateral subsegmental atelectasis. 2. Findings consistent with gallstone ileus with large gallstone within a mid small bowel loop with focal transition just beyond this point. Patient does have a persistent leak at the level of the first portion of the duodenum status post repair with small amount of extravasated contrast and gas located adjacent to the first portion of the duodenum. Results were discussed with Dr. King prior to this dictation. Dictated by: Dictated on workstation # [id number]
--- NOTE | 2021-02-23 12:14 | Diagnostic Imaging Report ---
INDICATION: Status post duodenal repair. Studies is performed to evaluate for leak of contrast. Patient brought to fluoroscopy suite placed on table in the supine position. Approximately 120 mL mixture gastric contrast and water was injected through the patient's indwelling NG tube. Spot films of the upper abdomen in multiple obliquities were obtained. Total of 1 minute 35 seconds of fluoroscopic time was utilized. 8 images were obtained. Contrast is seen within the distal esophagus as well as stomach. There is free passage of contrast into the proximal small bowel loops. There is an amorphous collection of contrast at the level of the 1st portion of the duodenum, which could represent an area of contained extravasation. No maged extravasation is identified. There are small gas bubbles adjacent to the 1st portion of the duodenum which may correlate with gas bubbles noted on recent CT. IMPRESSION: There are findings concerning for a contained leak at the level of the 1st portion of the duodenum. Further evaluation with CT is recommended. Dictated by: Dictated on workstation # [id number]
--- NOTE | 2021-02-23 12:24 | Diagnostic Imaging Report ---
INDICATION: Small bowel obstruction. 120 mL mixture of Gastrografin contrast and water was injected through patient's NG tube and serial radiographs of the abdomen were obtained. Contrast is seen within the stomach and passing into the small bowel. There is progression of contrast through the small bowel loops. There is moderate dilatation of small bowel at the mid abdomen. There does appear to be focal transition to normal caliber small bowel loops distally. Contrast is seen within the right colon. IMPRESSION: No evidence of complete small bowel obstruction. There does appear to be transition from dilated to normal caliber small bowel loops at the level of the mid small bowel. Patient is scheduled to undergo CT following this procedure. Dictated by: Dictated on workstation # [id number]
--- NOTE | 2021-02-23 12:29 | Progress Note-Post Operative ---
Post-Operative Progess Note Surgeon (s)/Sail Cutter (s) Surgeon AMY SERNA DO Sail Cutter: Carolynn Pre-Operative Diagnosis Gallstone Ileus, Small Duodenal leak Post-Operative Diagnosis same Procedure & Operative Findings Date of Procedure 02/23/21 Procedure Performed/Findings Ex Lap with enterotomy for removal of gallstone and repair of enterotomy Drainage of Abscess Placement of Nasogastric feeding tube with Dobhoff tip Anesthesia Type GET Estimated Blood Loss Estimated blood loss (mL): minimal Specimens/Packing Specimens Removed gallstone AMY SERNA DO Feb 23, 2021 12:28
[2021-02-23] MEDS ORDERED: HYDROmorphone 2 MG/ML VIAL (DILAUDID) IV ONE (13:00)
[2021-02-23] MEDS ORDERED: morphine INJ 10 MG/ML 1ML (SYR OR VIAL) IVP ONE (13:00)
[2021-02-23] MEDS ORDERED: ONDANSETRON 4 MG/2 ML (SDV) Z0FRAN IVP PRN (13:00)
--- NOTE | 2021-02-23 14:42 | Diagnostic Imaging Report ---
INDICATION: Abdominal place. Time of exam 12:12 PM There was placement of a Dobbhoff catheter which appears have the tip beyond the ligament of Treitz in the left upper quadrant. There are some surgical drains overlying the mid abdomen. IMPRESSION: Dobbhoff placement, as described utilizing 7 seconds of fluoroscopic time. Dictated by: Dictated on workstation # [id number]
[2021-02-23] MEDS: ENOXAPARIN 40 MG/0.4 ML (LOVENOX) SYR SC SCH (18:48)
--- NOTE | 2021-02-24 00:43 | OPERATIVE REPORT ---
DATE OF SERVICE: PREOPERATIVE DIAGNOSES: Small leak from the duodenal repair as well as gallstone ileus. POSTOPERATIVE DIAGNOSES: Small leak from the duodenal repair as well as gallstone ileus. PROCEDURES: 1. Exploratory laparotomy with enterotomy to remove the gallstone and primary repair. 2. Drainage of abscess. 3. Placement of Dobhoff NG feeding tube. 4. Wound VAC placement 19 x 3 x 1.5 cm. SURGEON: Ish King DO TOBACCO CUTTER: Cristopher Pradhan DO ANESTHESIA: General endotracheal tube. SPECIMEN: Gallstone. BLOOD LOSS: Minimal. FLUIDS: Per anesthesia. POSTOPERATIVE CONDITION: Stable. INDICATION FOR PROCEDURE: The patient is a 50-year-old male who has been having trouble with his return of bowel function and he had an ileus and have an NG tube replaced. Repeat CAT scan showed what may have been a gallstone in the small bowel and as well noted to have a little bit of air around the anastomosis. FINDINGS: The patient had an abscess near where the anastomosis was, but the anastomosis still looked good and we were able to find the gallstone and remove it. PROCEDURE NOTE: After informed consent was obtained, the patient was brought to the operating room, placed on the operating table in supine position, sterilely prepped and draped in normal fashion. A midline incision was opened, removing the flaco and then cutting out the previous PDS suture opening, able to then carefully remove some of the adhesions to the abdominal wall. This was just omentum, grasped into the small intestine and found this large stone. The stone measured at least 6 cm x about 3 cm, made an enterotomy in the small intestine just above the stone with Bovie electrocautery and removed the stone and then used a 3-0 Vicryl running suture to close this enterotomy. At this point, then felt up in the upper abdomen, used some Loomis retractors to hold the incision open, could feel up right around the duodenum and felt over and down and then able to get into the pus pocket, suctioned all this out and then copiously irrigated with 2 liters warm normal saline, still felt like it was intact. At this point, I palpated the NG tube in the stomach and had anesthesia place Dobbhoff tube down and then directed this down to stomach into the duodenum and then had fluoroscopy come in and watched as the Dobhoff tube continued down into the small intestine into the third and fourth portion of the duodenum. At this point, copiously irrigated again with some more warm normal saline and then elected to close the incision, the fascia was very weak from the previous surgery, closed with #1 double stranded PDS suture running from superior portion to inferior portion tying to itself and then elected to place a wound VAC to hopefully give some strength. The opening was 19 cm long x 3 cm wide x 1.5 cm deep, placed a wound VAC drain. Area was then cleaned and dried and the patient transferred to recovery room in stable condition. Sponge, instrument and needle count correct at the end of the case. Job ID: [id number] DocumentID: [id number] Dictated Date: 02/23/2021 16:47:27 Bean Snipper Date: 02/24/2021 00:43:30 Dictated By: ISH KING DO
[2021-02-24] MEDS: KETOROLAC 30 MG/ML VIAL IVP SCH ×4 (02:07→20:02)
[2021-02-24] MEDS: LACTATED RINGERS 1,000 ML IV SCH ×4 (02:07→20:05)
[2021-02-24] MEDS: RT-ALBUTEROL/IPRATROPIUM 3 ML (DUONEB) VIAL INH SCH ×6 (02:22→22:26)
[2021-02-24 04:45] VITALS: BP 126/65
[2021-02-24] MEDS: metroNIDAZOLE 500MG/100ML IVPB 100 ML IV SCH ×3 (04:45→21:12)
[2021-02-24] MEDS: ACETAMINOPHEN 500 MG TAB (TYLENOL) PO SCH ×3 (04:45→21:12)
[2021-02-24] MEDS: PIPERACILLIN/TAZOBACTAM (BULK) 4.5 GM in NS (IVPB) 100 ML IV SCH ×3 (06:21→22:44)
--- NOTE | 2021-02-24 07:37 | Progress Note - Surgery ---
JORGE EDWARD MED STUDENT 02/24/21 0737: Subjective Date Seen by a Provider: Feb 24, 2021 Time Seen by a Provider: 07:20 Subjective/Events-last exam Amaury states his postoperative abdominal pain is 3/10 when moving, 1/10 at rest. Says his SOB is increased compared to preoperatively, is exhaling to 1250 on IS now whereas he had been progressing up past the 2500 range prior to surgery yesterday. Reports passing bowel movement yesterday which per RN was primarily liquid mixed with small amount of sold fecal matter; no blood in the stool or dark tarry stool. The patient states he walked 2x last night, 4 laps of the floor total. Denies fever, chills, cough. The patient states his mouth is perpetually dry, is eager to progress to oral liquids. Objective Exam Vital Signs Date Time Temp Pulse Resp B/P (MAP) Pulse Ox O2 Delivery O2 Flow Rate FiO2 02/24/21 06:28 91 Nasal Cannula 4.50 02/24/21 04:45 36.0 103 20 126/65 (85) 93 Nasal Cannula 4.50 02/24/21 02:22 92 High Flow N/C 4.00 02/24/21 01:00 113 02/23/21 23:04 36.6 110 20 131/63 (85) 92 Nasal Cannula 4.00 02/23/21 21:50 93 High Flow N/C 4.00 02/23/21 20:11 High Flow N/C 4.00 02/23/21 19:27 37.0 108 18 130/80 (97) 92 Nasal Cannula 4.00 02/23/21 19:00 107 02/23/21 18:09 92 High Flow N/C 4.00 02/23/21 16:00 36.9 97 16 125/79 (94) 95 Nasal Cannula 6.00 02/23/21 14:30 92 OxyMask 6.00 02/23/21 14:11 35.5 92 16 134/79 (97) 90 Room Air 02/23/21 13:45 OxyMask 6 02/23/21 13:45 36.4 20 128/78 (95) 93 OxyMask 6 02/23/21 13:40 20 123/74 (90) 92 OxyMask 6 02/23/21 13:36 OxyMask 6 02/23/21 13:30 18 118/77 (91) 93 OxyMask 6 02/23/21 13:29 OxyMask 6 02/23/21 13:23 OxyMask 8 02/23/21 13:20 18 128/82 (97) 93 OxyMask 6 02/23/21 13:15 OxyMask 8 02/23/21 13:00 18 117/74 (88) 93 OxyMask 8 02/23/21 13:00 OxyMask 8 02/23/21 12:50 18 119/76 (90) 92 OxyMask 8 02/23/21 12:45 OxyMask 8 02/23/21 12:45 36.2 18 120/75 (90) 92 OxyMask 8 02/23/21 11:00 35.8 77 18 137/75 (95) 94 Room Air 02/23/21 08:00 Room Air 02/23/21 07:44 36.2 66 18 134/68 (90) 94 Room Air I & O 02/24/21 07:00 Intake Total 3560 ml Output Total 3690 ml Balance -130 ml Capillary Refill : Less Than 3 SecondsLess Than 3 Seconds General Appearance: No Apparent Distress, Obese HEENT: PERRL/EOMI, Other (Dobhoff NG feeding tube and NG suction tube both in right nare. Dry oropharynx. NC in place at 4.5 L. ) Neck: Supple Respiratory: Lungs Clear, No Accessory Muscle Use, No Respiratory Distress, Decreased Breath Sounds (decreased in bases. ) Cardiovascular: Regular Rate, Rhythm, No Murmur Gastrointestinal: soft, abnormal bowel sounds (decreased all quadrants), distended (mildly); No guarding, No rebound; tenderness (mild right abdominal tenderness, worst RUQ. No left sided abdominal tenderness. Vacuum drain overlying midline incision with some sanguinous fluid visible in drain container. No abdominal erythema.), other (FELISHA drains with minimal serosanguinous drainage. ) Extremity: Non Tender, No Calf Tenderness, No Pedal Edema Neurologic/Psychiatric: Alert, Oriented x3 Skin: Normal Color, Warm/Dry; No Pallor Lymphatic: No Adenopathy Results Lab Microbiology 02/15/21 Blood Culture - Final, Complete No growth Assessment/Plan Assessment/Plan Assessment/Plan S/P cholecystecomy with Choleduodenal fistula repair 02/12 S/P ex lap with enterotomy to remove Gallstone ileus, Dobhoff NG feeding tube placement, and drainage of abscess 02/23 had 1x bm last night but hypoactive bowel sounds this morning. mildly distended abdomen. patient is walking. Encouraged walking more frequently. Acute respiratory failure: -pt with decreased anatomic lung volumes, basilar atelectasis -had progressed to room air prior to surgery, is now on 4.5L NC again -will continue to work with RT and do IS regularly -is eager to get home, has already started walking 4 laps post-operative abdomen: -skin surrounding midline incision without signs of infection. -reports 1/ baseline pain, 3/10 pain with movement -receiving toradol and tylenol -further analgesia not required at this time AMY KING DO 02/24/21 1317: Subjective Time Seen by a Provider: 13:06 Subjective/Events-last exam Pt seen and examined, his main complaint is he wants to drink fluids; "my mouth is so dry". Pt had 2 BM's and states he is walking. Pain is controlled. Review of Systems General: No Chills, No Night Sweats; Fatigue Pulmonary: Dyspnea; No Cough Cardiovascular: No: Chest Pain, Palpitations Gastrointestinal: Nausea, Abdominal Pain; No: Vomiting Objective Exam General Appearance: No Apparent Distress, Obese Respiratory: Lungs Clear, No Accessory Muscle Use, No Respiratory Distress, Decreased Breath Sounds (decreased in bases. ) Cardiovascular: Regular Rate, Rhythm, No Murmur Gastrointestinal: abnormal bowel sounds (decreased all quadrants), distended (mildly); No guarding, No rebound; tenderness (mild right abdominal tenderness, worst RUQ. No left sided abdominal tenderness. Vacuum drain overlying midline incision with some sanguinous fluid visible in drain container. No abdominal erythema.), other (FELISHA drains with minimal serosanguinous drainage. ) Assessment/Plan Assessment/Plan Assessment/Plan S/P cholecystecomy with Choleduodenal fistula repair 02/12 S/P ex lap with enterotomy to remove Gallstone ileus, Dobhoff NG feeding tube placement, and drainage of abscess 02/23 -will start trickling Ensure down dobhoff tube for nutrition, pt encouraged to ambulate and use IS, will allow him to swish fluids around mouth; but again warned him of danger of swallowing anything Acute respiratory failure: -pt with decreased anatomic lung volumes, basilar atelectasis -had progressed to room air prior to surgery, is now on 4.5L NC again -will continue to work with RT and do IS regularly -is eager to get home, has already started walking 4 laps Supervisory-Addendum Brief Verification & Attestation Participated in pt care: history, MDM, physical Personally performed: exam, history, MDM Care discussed with: Medical Student Procedures: n/a Verification and Attestation of Medical Student E/M Service A medical student performed and documented this service. I then reviewed and verified all information documented by the medical student and made modifications to such information, when appropriate. I personally performed a physical exam, medical decision making and then discussed any differences between the notes and made revisions as necessary to create one note. Amy King , 02/24/21 , 13:17 JORGE EDWARD MED STUDENT Feb 24, 2021 07:37 AMY KING DO Feb 24, 2021 13:17
[2021-02-24 08:00] VITALS: BP 112/73
--- NOTE | 2021-02-24 08:37 | Consultation - Surgery ---
History of Present Illness History of Present Illness Patient Consulted On(pedro luis/time) 02/24/21 08:00 Date Seen by Provider: Feb 24, 2021 Time Seen by Provider: 08:20 Reason for Visit: consulted for EGD History of Present Illness Amaury Mathur is a 50 yo M who presented to hospital with chest pain. He reports mid-sternal constant sharp nonradiating chest pain beginning several hours prior to coming to the hospital with The patient has had workups Allergies and Home Medications Allergies Coded Allergies: No Known Drug Allergies (Verified , 02/17/19) Home Medications Famotidine 40 Mg Tablet, 40 MG PO DAILY, (Reported) Fenofibrate,Micronized 134 Mg Capsule, 134 MG PO DAILY, (Reported) Hydrochlorothiazide 12.5 Mg Tablet, 12.5 MG PO DAILY, (Reported) Loratadine 10 Mg Tablet, 10 MG PO HS, (Reported) Losartan Potassium 50 Mg Tablet, 50 MG PO DAILY, (Reported) Metoprolol Succinate 100 Mg Tab.er.24h, 100 MG PO DAILY, (Reported) Past Ywneusj-[id number]-Jfxusy Hx Patient Social History Smoking Status: Never a Smoker 2nd Hand Smoke Exposure: No Alcohol Use?: Yes Have you traveled recently?: No Immunizations Up To Date Date of Influenza Vaccine: Sep 13, 2020 Seasonal Allergies Seasonal Allergies: No Surgeries History of Surgeries: Yes Surgeries: Orthopedic (R Knee) Respiratory History of Respiratory Disorde: No Cardiovascular History of Cardiac Disorders: Yes Cardiac Disorders: High Cholesterol, Hypertension Neurological History of Neurological Disord: No Reproductive System Hx Reproductive Disorders: No Genitourinary History of Genitourinary Disor: No Gastrointestinal History of Gastrointestinal Di: Yes Gastrointestinal Disorders: Gastroesophageal Reflux Musculoskeletal History of Musculoskeletal Dis: No Endocrine History of Endocrine Disorders: No HEENT History of HEENT Disorders: No Loss of Vision: Denies Hearing Impairment: Denies Cancer History of Cancer: No Psychosocial History of Psychiatric Problem: No Integumentary History of Skin or Integumenta: No Blood Transfusions History of Blood Disorders: No Family Medical History Significant Family History: Heart Disease (Father), Cancer (Has aunt with liver cancer, denies any other relatives), Diabetes (Mother) Physical Exam-General Problems Physical Exam Vital Signs Vital Signs - First Documented 02/18/21 02/18/21 02/18/21 01:00 02:06 03:03 Temp 36.6 Pulse 93 Resp 18 B/P (MAP) 143/89 (107) Pulse Ox 92 O2 Delivery Nasal Cannula O2 Flow Rate 4.00 Capillary Refill : Less Than 3 SecondsLess Than 3 Seconds Data Review Labs Microbiology 02/15/21 Blood Culture - Final, Complete No growth Assessment/Plan Assessment/Plan Assessment/Plan S/P cholecystecomy with Choleduodenal fistula repair 02/12 S/P ex lap with enterotomy to remove Gallstone ileus, Dobhoff NG feeding tube placement, and drainage of abscess 02/23 had 1x bm last night but hypoactive bowel sounds this morning. mildly distended abdomen. patient is walking. Encouraged walking more frequently. Acute respiratory failure: -pt with decreased anatomic lung volumes, basilar atelectasis -had progressed to room air prior to surgery, is now on 4.5L NC again -will continue to work with RT and do IS regularly -is eager to get home, has already started walking 4 laps post-operative abdomen: -skin surrounding midline incision without signs of infection. -reports 1/10 baseline pain, 3/10 pain with movement -receiving toradol and tylenol -further analgesia not required at this time JORGE EDWARD MED STUDENT Feb 24, 2021 08:37
[2021-02-24] MEDS: PANTOPRAZOLE 40 MG (PROTONIX) VIAL IVP SCH (10:21)
[2021-02-24] MEDS: meTOprolol SUCCINATE 100 MG (TOPROL XL) TAB PO SCH (10:21)
[2021-02-24 12:00] VITALS: BP 136/88
--- NOTE | 2021-02-24 12:11 | Progress Note ---
Subjective Date Seen by a Provider: Feb 24, 2021 Time Seen by a Provider: 08:45 Subjective/Events-last exam Fwup Acute Emphysematous Cholecystitis with Adia-duodenal fistula--S/P Lap Adia with open repair of Adia-duodenal fistula, HTN, atelectesis with respiratory distress. Went back to surgery yesterday for exploratory lap with removal of gallstone due to gallstone ileus as well as repair of biliary leak and abscess drainage. Had feeding tube placed and still has NG tube in place and now has wound vac. Did have 2 BMs. Objective Exam Vital Signs Date Time Temp Pulse Resp B/P (MAP) Pulse Ox O2 Delivery O2 Flow Rate FiO2 02/24/21 10:48 91 Nasal Cannula 4.50 02/24/21 08:00 36.7 94 18 112/73 (86) 94 Nasal Cannula 4.50 02/24/21 07:00 86 02/24/21 06:28 91 Nasal Cannula 4.50 02/24/21 04:45 36.0 103 20 126/65 (85) 93 Nasal Cannula 4.50 02/24/21 02:22 92 High Flow N/C 4.00 02/24/21 01:00 113 02/23/21 23:04 36.6 110 20 131/63 (85) 92 Nasal Cannula 4.00 02/23/21 21:50 93 High Flow N/C 4.00 02/23/21 20:11 High Flow N/C 4.00 02/23/21 19:27 37.0 108 18 130/80 (97) 92 Nasal Cannula 4.00 02/23/21 19:00 107 02/23/21 18:09 92 High Flow N/C 4.00 02/23/21 16:00 36.9 97 16 125/79 (94) 95 Nasal Cannula 6.00 02/23/21 14:30 92 OxyMask 6.00 02/23/21 14:11 35.5 92 16 134/79 (97) 90 Room Air 02/23/21 13:45 OxyMask 6 02/23/21 13:45 36.4 20 128/78 (95) 93 OxyMask 6 02/23/21 13:40 20 123/74 (90) 92 OxyMask 6 02/23/21 13:36 OxyMask 6 02/23/21 13:30 18 118/77 (91) 93 OxyMask 6 02/23/21 13:29 OxyMask 6 02/23/21 13:23 OxyMask 8 02/23/21 13:20 18 128/82 (97) 93 OxyMask 6 02/23/21 13:15 OxyMask 8 02/23/21 13:00 18 117/74 (88) 93 OxyMask 8 02/23/21 13:00 OxyMask 8 02/23/21 12:50 18 119/76 (90) 92 OxyMask 8 02/23/21 12:45 OxyMask 8 02/23/21 12:45 36.2 18 120/75 (90) 92 OxyMask 8 I & O 02/24/21 07:00 Intake Total 3560 ml Output Total 3690 ml Balance -130 ml Capillary Refill : Less Than 3 SecondsLess Than 3 Seconds General Appearance: No Apparent Distress Respiratory: Lungs Clear Cardiovascular: Regular Rate, Rhythm Gastrointestinal: non tender, soft, abnormal bowel sounds, other Neurologic/Psychiatric: Alert, Oriented x3, Other (dressings dry with wound vac in place and minimal serosanguinous drainage in drains) Results Lab Microbiology 02/15/21 Blood Culture - Final, Complete No growth Assessment/Plan Assessment/Plan Assess & Plan/Chief Complaint 1. Acute Emphysematous Cholecystitis with Adia-duodenal fistula--S/P Lap Adia with open repair of Adia-duodenal fistula followed by gallstone Ileus and abscess formation--S/P repeat surgery for lap adia with gallstone removal and repair of biliary leak as well as abscess drainage, now with wound vac/NG tube and feeding tube, continue IV antibiotics, pain control as needed, lovenox for DVT prophylaxis 2. Hypertension--on oral metoprolol 3. Hypoxemia with Atelectesis and Acute Respiratory Failure--down to [place], continue IS Clinical Quality Measures Admission Status Admission Dx 1. Acute Emphysematous Cholecystitis with Adia-duodenal fistula--S/P Lap Adia with open repair of Adia-duodenal fistula--NG tube in place, NPO, IV antibiotics, pain control, lovenox for DVT prophylaxis 2. Hypertension--metoprolol IV began JOANNE ALVAREZ DO Feb 24, 2021 12:11
[2021-02-24 16:06] VITALS: BP 112/74
[2021-02-24 19:23] VITALS: BP 135/73
[2021-02-24] MEDS: ENOXAPARIN 40 MG/0.4 ML (LOVENOX) SYR SC SCH (20:01)
[2021-02-24] MEDS ORDERED: MELATONIN 3 MG TABLET PO SCH (21:00)
[2021-02-25] VITALS: BP 124/69
[2021-02-25] MEDS: LACTATED RINGERS 1,000 ML IV SCH ×4 (01:35→21:59)
[2021-02-25] MEDS: KETOROLAC 30 MG/ML VIAL IVP SCH ×2 (02:00→08:10)
[2021-02-25] MEDS: RT-ALBUTEROL/IPRATROPIUM 3 ML (DUONEB) VIAL INH SCH ×6 (02:20→22:15)
[2021-02-25 04:00] VITALS: BP 147/69
[2021-02-25] MEDS: ACETAMINOPHEN 500 MG TAB (TYLENOL) PO SCH (05:38)
[2021-02-25] MEDS: metroNIDAZOLE 500MG/100ML IVPB 100 ML IV SCH ×3 (05:38→21:59)
[2021-02-25 05:49] LABS: HEMOGLOBIN 11.6 g/dL (13.3-17.7); MEAN PLATELET VOLUME 10.8 fL (9.0-12.2); WHITE BLOOD COUNT 19.1 10^3/uL (4.3-11.0)
[2021-02-25] MEDS ORDERED: diphenhydrAMINE 50 MG/ML INJ (BENADRYL) IVP ONE (06:00)
[2021-02-25 06:12] LABS: ALANINE AMINOTRANSFERASE 23 U/L (0-55); ALBUMIN 2.4 GM/DL (3.2-4.5); ALKALINE PHOSPHATASE 58 U/L (40-136); BILIRUBIN,TOTAL 0.7 MG/DL (0.1-1.0); BUN/CREATININE RATIO 18; CALCIUM 7.8 MG/DL (8.5-10.1); CARBON DIOXIDE 20 MMOL/L (21-32); CHLORIDE 108 MMOL/L (98-107); CREATININE SERUM 0.82 MG/DL (0.60-1.30); GFR ESTIMATED > 60; GLUCOSE 103 MG/DL (70-105); POTASSIUM 3.7 MMOL/L (3.6-5.0); SODIUM 139 MMOL/L (135-145); TOTAL PROTEIN 5.7 GM/DL (6.4-8.2)
[2021-02-25] MEDS: PIPERACILLIN/TAZOBACTAM (BULK) 4.5 GM in NS (IVPB) 100 ML IV SCH ×3 (06:25→22:53)
[2021-02-25] MEDS ORDERED: diphenhydrAMINE 50 MG/ML INJ (BENADRYL) IVP PRN (07:45)
[2021-02-25] MEDS ORDERED: methylPREDNISolone 125 MG (Solu-MEDROL) VIAL IV ONE (07:45)
[2021-02-25 07:52] VITALS: BP 136/68
[2021-02-25] MEDS: meTOprolol SUCCINATE 100 MG (TOPROL XL) TAB PO SCH (08:08)
[2021-02-25] MEDS: PANTOPRAZOLE 40 MG (PROTONIX) VIAL IVP SCH (08:10)
[2021-02-25] MEDS ORDERED: FAMOTIDINE 20MG/2ML IV (PEPCID) IVP ONE (11:00)
--- NOTE | 2021-02-25 11:11 | Progress Note - Surgery ---
Subjective Time Seen by a Provider: 10:54 Subjective/Events-last exam Pt seen and examined, states he feels tired and mouth is still very dry. He states his breathing is ok. +BM Review of Systems General: Fatigue, Malaise Pulmonary: Dyspnea; No Cough Cardiovascular: No: Chest Pain, Palpitations Gastrointestinal: Abdominal Pain (very minimal); No: Nausea, Vomiting Objective Exam Vital Signs Date Time Temp Pulse Resp B/P (MAP) Pulse Ox O2 Delivery O2 Flow Rate FiO2 02/25/21 10:04 89 Nasal Cannula 3.00 02/25/21 07:52 36.9 95 17 136/68 (90) 92 High Flow N/C 4.00 02/25/21 07:00 89 02/25/21 06:51 93 Nasal Cannula 4.00 02/25/21 04:00 37.5 99 18 147/69 (95) 93 High Flow N/C 4.00 02/25/21 02:20 90 Nasal Cannula 4.50 02/25/21 01:00 96 02/25/21 00:00 37.0 98 18 124/69 (87) 91 High Flow N/C 4.00 02/24/21 22:26 92 Nasal Cannula 4.50 02/24/21 20:00 Room Air 02/24/21 19:23 37.9 104 18 135/73 (93) 94 High Flow N/C 4.00 02/24/21 19:00 103 02/24/21 18:35 92 Nasal Cannula 4.50 02/24/21 16:06 36.9 98 18 112/74 (87) 94 High Flow N/C 4.00 02/24/21 15:18 93 Nasal Cannula 4.50 02/24/21 12:43 99 02/24/21 12:00 36.4 97 17 136/88 (104) 94 Nasal Cannula 4.50 I & O 02/25/21 07:00 Intake Total 1000 ml Output Total 2415 ml Balance -1415 ml Capillary Refill : Less Than 3 SecondsLess Than 3 Seconds General Appearance: No Apparent Distress, Obese HEENT: PERRL/EOMI, Other (Dobhoff NG feeding tube and NG suction tube both in right nare. Dry oropharynx. Eyelids are swollen as well as lips) Respiratory: Lungs Clear, No Accessory Muscle Use, No Respiratory Distress, Decreased Breath Sounds (decreased in bases. ) Cardiovascular: Regular Rate, Rhythm, No Murmur Gastrointestinal: soft; No guarding, No rebound; tenderness (mild right abdominal tenderness, worst RUQ. No left sided abdominal tenderness. Vacuum drain overlying midline incision with some sanguinous fluid visible in drain container. No abdominal erythema.), other (FELISHA drains with minimal serosanguinous drainage. ) Extremity: Non Tender, No Calf Tenderness, No Pedal Edema, Other (hands are slightly swollen) Neurologic/Psychiatric: Alert, Oriented x3, Other Results Lab Laboratory Tests 02/25/21 05:30: White Blood Count 19.1H, Red Blood Count 3.92L, Hemoglobin 11.6L, Hematocrit 36L , Mean Corpuscular Volume 92, Mean Corpuscular Hemoglobin 30, Mean Corpuscular Hemoglobin Concent 32, Red Cell Distribution Width 13.5, Platelet Count 370, Mean Platelet Volume 10.8, Sodium Level 139, Potassium Level 3.7, Chloride Level 108H, Carbon Dioxide Level 20L, Anion Gap 11, Blood Urea Nitrogen 15, Creatinine 0.82, Estimat Glomerular Filtration Rate > 60, BUN/Creatinine Ratio 18, Glucose Level 103, Calcium Level 7.8L, Corrected Calcium 9.1, Total Bilirubin 0.7, Aspartate Amino Transf (AST/SGOT) 19, Alanine Aminotransferase (ALT/SGPT) 23, Alkaline Phosphatase 58, Total Protein 5.7L, Albumin 2.4L Microbiology 02/15/21 Blood Culture - Final, Complete No growth Assessment/Plan Assessment/Plan Assessment/Plan S/P cholecystecomy with Choleduodenal fistula repair 02/12 S/P ex lap with enterotomy to remove Gallstone ileus, Dobhoff NG feeding tube placement, and drainage of abscess 02/23 -will slowly increase Ensure down dobhoff tube for nutrition, pt encouraged to ambulate and use IS, will allow him to swish fluids around mouth; but again warned him of danger of swallowing anything -he was still getting meds in NGT, I told nurse to please pass on he is strict NPO. I will make sure he has no PO meds Acute respiratory failure: -pt with decreased anatomic lung volumes, basilar atelectasis -had progressed to room air prior to surgery, is now on 4L NC, will talk to RT about weaning -will continue to work with RT and do IS regularly -is eager to get home, has already started walking 4 laps Allergic reaction - pt has angioedema, most likely the melantonin....it has been stopped AMY SERNA DO Feb 25, 2021 11:11
[2021-02-25] MEDS: diphenhydrAMINE 50 MG/ML INJ (BENADRYL) IVP SCH ×2 (11:17→18:29)
[2021-02-25] MEDS: methylPREDNISolone 40 MG/ML (Solu-MEDROL) VIAL IV SCH ×2 (11:17→18:29)
[2021-02-25 11:25] VITALS: BP 134/70
[2021-02-25 16:13] VITALS: BP 123/74
[2021-02-25] MEDS: ENOXAPARIN 40 MG/0.4 ML (LOVENOX) SYR SC SCH (19:57)
[2021-02-25] MEDS: FAMOTIDINE 20MG/2ML IV (PEPCID) IVP SCH (19:58)
[2021-02-25 20:00] VITALS: BP 126/74
[2021-02-26] VITALS: BP 121/71
[2021-02-26] MEDS: diphenhydrAMINE 50 MG/ML INJ (BENADRYL) IVP SCH ×4 (00:19→18:17)
[2021-02-26] MEDS: methylPREDNISolone 40 MG/ML (Solu-MEDROL) VIAL IV SCH ×4 (00:19→18:17)
[2021-02-26] MEDS: RT-ALBUTEROL/IPRATROPIUM 3 ML (DUONEB) VIAL INH SCH ×6 (01:50→22:10)
[2021-02-26 04:00] VITALS: BP 119/63
[2021-02-26] MEDS: metroNIDAZOLE 500MG/100ML IVPB 100 ML IV SCH ×3 (05:05→21:24)
[2021-02-26 06:03] LABS: HEMOGLOBIN 11.1 g/dL (13.3-17.7); MEAN PLATELET VOLUME 11.6 fL (9.0-12.2); WHITE BLOOD COUNT 19.7 10^3/uL (4.3-11.0)
[2021-02-26 06:25] LABS: BUN/CREATININE RATIO 25; CALCIUM 7.9 MG/DL (8.5-10.1); CARBON DIOXIDE 20 MMOL/L (21-32); CHLORIDE 109 MMOL/L (98-107); CREATININE SERUM 0.81 MG/DL (0.60-1.30); GFR ESTIMATED > 60; GLUCOSE 151 MG/DL (70-105); POTASSIUM 3.9 MMOL/L (3.6-5.0); SODIUM 140 MMOL/L (135-145)
[2021-02-26] MEDS: PIPERACILLIN/TAZOBACTAM (BULK) 4.5 GM in NS (IVPB) 100 ML IV SCH ×3 (06:29→22:30)
[2021-02-26] MEDS: LACTATED RINGERS 1,000 ML IV SCH ×4 (07:09→21:24)
[2021-02-26 07:45] VITALS: BP 119/62
[2021-02-26] MEDS: PANTOPRAZOLE 40 MG (PROTONIX) VIAL IVP SCH (08:57)
--- NOTE | 2021-02-26 09:00 | Progress Note ---
Subjective Date Seen by a Provider: Feb 25, 2021 Time Seen by a Provider: 10:30 Subjective/Events-last exam Fwup Acute Emphysematous Cholecystitis with Adia-duodenal fistula--S/P Lap Adia with open repair of Adia-duodenal fistula, HTN, atelectesis with respiratory distress, return to surgery for exp lap for gallstone ileus/biliary leak repair and abscess drainage. Patient had facial swelling this morning. Did have a BM this morning. Objective Exam Vital Signs Date Time Temp Pulse Resp B/P (MAP) Pulse Ox O2 Delivery O2 Flow Rate FiO2 02/26/21 07:45 36.5 72 18 119/62 (81) 91 High Flow N/C 4.00 02/26/21 07:00 69 02/26/21 06:47 92 Nasal Cannula 4.00 02/26/21 04:00 36.8 72 18 119/63 (81) 90 High Flow N/C 4.50 02/26/21 01:00 70 02/26/21 00:00 37.2 83 18 121/71 (88) 91 High Flow N/C 4.50 02/25/21 22:15 92 Nasal Cannula 3.50 02/25/21 20:00 37.0 87 19 126/74 (91) 93 High Flow N/C 4.00 02/25/21 20:00 High Flow N/C 4.00 02/25/21 19:00 84 02/25/21 16:13 36.5 88 19 123/74 (90) 91 High Flow N/C 4.00 02/25/21 12:35 91 02/25/21 11:25 37.0 81 18 134/70 (91) 91 High Flow N/C 4.00 02/25/21 10:04 89 Nasal Cannula 3.00 I & O 02/26/21 07:00 Intake Total 0 ml Output Total 1687 ml Balance -1687 ml Capillary Refill : Less Than 3 SecondsLess Than 3 Seconds General Appearance: No Apparent Distress HEENT: Other (swelling of eyelids and lips) Neck: Supple Respiratory: Lungs Clear, Decreased Breath Sounds Cardiovascular: Systolic Murmur, Tachycardia Gastrointestinal: normal bowel sounds, non tender, soft, other (FELISHA drains with minimal output) Extremity: Non Tender, No Calf Tenderness, No Pedal Edema Neurologic/Psychiatric: Alert, Oriented x3 Results Lab Laboratory Tests 02/25/21 16:16: Glucometer 172H 02/26/21 05:07: White Blood Count 19.7H, Red Blood Count 3.80L, Hemoglobin 11.1L, Hematocrit 35L , Mean Corpuscular Volume 93, Mean Corpuscular Hemoglobin 29, Mean Corpuscular Hemoglobin Concent 31L, Red Cell Distribution Width 13.6, Platelet Count 414H, Mean Platelet Volume 11.6, Sodium Level 140, Potassium Level 3.9, Chloride Level 109H, Carbon Dioxide Level 20L, Anion Gap 11, Blood Urea Nitrogen 20H, Creatinine 0.81, Estimat Glomerular Filtration Rate > 60, BUN/Creatinine Ratio 25, Glucose Level 151H, Calcium Level 7.9L Microbiology 02/15/21 Blood Culture - Final, Complete No growth Assessment/Plan Assessment/Plan Assess & Plan/Chief Complaint 1. Acute Emphysematous Cholecystitis with Adia-duodenal fistula--S/P Lap Adia with open repair of Adia-duodenal fistula followed by gallstone Ileus and abscess formation--S/P repeat surgery for lap adia with gallstone removal and repair of biliary leak as well as abscess drainage, now with wound vac/NG tube and feeding tube, continue IV antibiotics, pain control as needed, lovenox for DVT prophylaxis 2. Hypertension--on oral metoprolol 3. Hypoxemia with Atelectesis and Acute Respiratory Failure--down to [place], continue IS 4. Agioedema--DC melatonin and DC ketorolac, Routine benadryl/solumedrol and IV famotodine Clinical Quality Measures Admission Status Admission Dx 1. Acute Emphysematous Cholecystitis with Adia-duodenal fistula--S/P Lap Adia with open repair of Adia-duodenal fistula--NG tube in place, NPO, IV antibiotics, pain control, lovenox for DVT prophylaxis 2. Hypertension--metoprolol IV began JOANNE ALVAREZ DO Feb 26, 2021 09:00
--- NOTE | 2021-02-26 09:06 | Progress Note ---
Subjective Date Seen by a Provider: Feb 26, 2021 Time Seen by a Provider: 09:01 Subjective/Events-last exam Fwup Acute Emphysematous Cholecystitis with Adia-duodenal fistula--S/P Lap Adia with open repair of Adia-duodenal fistula, HTN, atelectesis with respiratory distress, return to surgery for exp lap for gallstone ileus/biliary leak repair and abscess drainage, angioedema. Facial swelling much better. Had 2 BMs. Pulled out feeding tube overnight. Objective Exam Vital Signs Date Time Temp Pulse Resp B/P (MAP) Pulse Ox O2 Delivery O2 Flow Rate FiO2 02/26/21 07:45 36.5 72 18 119/62 (81) 91 High Flow N/C 4.00 02/26/21 07:00 69 02/26/21 06:47 92 Nasal Cannula 4.00 02/26/21 04:00 36.8 72 18 119/63 (81) 90 High Flow N/C 4.50 02/26/21 01:00 70 02/26/21 00:00 37.2 83 18 121/71 (88) 91 High Flow N/C 4.50 02/25/21 22:15 92 Nasal Cannula 3.50 02/25/21 20:00 37.0 87 19 126/74 (91) 93 High Flow N/C 4.00 02/25/21 20:00 High Flow N/C 4.00 02/25/21 19:00 84 02/25/21 16:13 36.5 88 19 123/74 (90) 91 High Flow N/C 4.00 02/25/21 12:35 91 02/25/21 11:25 37.0 81 18 134/70 (91) 91 High Flow N/C 4.00 02/25/21 10:04 89 Nasal Cannula 3.00 I & O 02/26/21 07:00 Intake Total 0 ml Output Total 1687 ml Balance -1687 ml Capillary Refill : Less Than 3 SecondsLess Than 3 Seconds General Appearance: No Apparent Distress Neck: Supple Respiratory: Lungs Clear, Decreased Breath Sounds (bases) Cardiovascular: Regular Rate, Rhythm Gastrointestinal: normal bowel sounds, non tender, soft, other (dressings dry, minimal drainage in drains) Extremity: Non Tender, No Calf Tenderness, No Pedal Edema Neurologic/Psychiatric: Alert, Oriented x3 Skin: Warm/Dry Results Lab Laboratory Tests 4/10/21 16:16: Glucometer 172H 02/26/21 05:07: White Blood Count 19.7H, Red Blood Count 3.80L, Hemoglobin 11.1L, Hematocrit 35L , Mean Corpuscular Volume 93, Mean Corpuscular Hemoglobin 29, Mean Corpuscular Hemoglobin Concent 31L, Red Cell Distribution Width 13.6, Platelet Count 414H, Mean Platelet Volume 11.6, Sodium Level 140, Potassium Level 3.9, Chloride Level 109H, Carbon Dioxide Level 20L, Anion Gap 11, Blood Urea Nitrogen 20H, Creatinine 0.81, Estimat Glomerular Filtration Rate > 60, BUN/Creatinine Ratio 25, Glucose Level 151H, Calcium Level 7.9L Microbiology 02/15/21 Blood Culture - Final, Complete No growth Assessment/Plan Assessment/Plan Assess & Plan/Chief Complaint 1. Acute Emphysematous Cholecystitis with Adia-duodenal fistula--S/P Lap Adia with open repair of Adia-duodenal fistula followed by gallstone Ileus and abscess formation--S/P repeat surgery for lap adia with gallstone removal and repair of biliary leak as well as abscess drainage, now with wound vac/NG tube, patient pulled out feeding tube overnight so will await surgery recommendations, continue IV antibiotics, pain control as needed, lovenox for DVT prophylaxis 2. Hypertension--oral metoprolol DCed but BP stable so will monitor and start IV metoprolol if needed 3. Hypoxemia with Atelectesis and Acute Respiratory Failure--down to NC, continue IS 4. Agioedema--improved so will decrease IV solumedrol 5. Leukocytosis--likely from steroids as is afebrile Clinical Quality Measures Admission Status Admission Dx 1. Acute Emphysematous Cholecystitis with Adia-duodenal fistula--S/P Lap Adai with open repair of Adia-duodenal fistula--NG tube in place, NPO, IV antibiotics, pain control, lovenox for DVT prophylaxis 2. Hypertension--metoprolol IV began JOANNE ALVAREZ DO Feb 26, 2021 09:06
--- NOTE | 2021-02-26 10:55 | Progress Note - Surgery ---
Subjective Time Seen by a Provider: 10:36 Subjective/Events-last exam Pt seen and examined, lying in bed. Denies abdominal pain and states breathing is ok; he is still requiring 3-4 liters of O2. Pt had 2 BM's yesterday and is passing gas, doesn't think his abdomen is distended. He states his lips, eyelids and hands are better.....swelling has gone down if not gone. Review of Systems General: Fatigue, Malaise Pulmonary: No Dyspnea, No Cough Cardiovascular: No: Chest Pain, Palpitations Gastrointestinal: No: Nausea, Vomiting, Abdominal Pain Objective Exam Vital Signs Date Time Temp Pulse Resp B/P (MAP) Pulse Ox O2 Delivery O2 Flow Rate FiO2 02/26/21 10:34 90 High Flow N/C 3.00 02/26/21 08:00 High Flow N/C 4.00 02/26/21 07:45 36.5 72 18 119/62 (81) 91 High Flow N/C 4.00 02/26/21 07:00 69 02/26/21 06:47 92 Nasal Cannula 4.00 02/26/21 04:00 36.8 72 18 119/63 (81) 90 High Flow N/C 4.50 02/26/21 01:00 70 02/26/21 00:00 37.2 83 18 121/71 (88) 91 High Flow N/C 4.50 02/25/21 22:15 92 Nasal Cannula 3.50 02/25/21 20:00 37.0 87 19 126/74 (91) 93 High Flow N/C 4.00 02/25/21 20:00 High Flow N/C 4.00 02/25/21 19:00 84 02/25/21 16:13 36.5 88 19 123/74 (90) 91 High Flow N/C 4.00 02/25/21 12:35 91 02/25/21 11:25 37.0 81 18 134/70 (91) 91 High Flow N/C 4.00 I & O 02/26/21 07:00 Intake Total 0 ml Output Total 1687 ml Balance -1687 ml Capillary Refill : Less Than 3 SecondsLess Than 3 Seconds General Appearance: No Apparent Distress, Obese HEENT: Other (swelling of eyelids and lips) Respiratory: Lungs Clear, No Accessory Muscle Use, No Respiratory Distress, Decreased Breath Sounds (bases) Cardiovascular: Regular Rate, Rhythm, No Murmur Gastrointestinal: normal bowel sounds, non tender, soft, other (Wound VAC in pl ruth, minimal serous drainage in drains) Extremity: No Calf Tenderness, No Pedal Edema Neurologic/Psychiatric: Alert, Oriented x3 Skin: Warm/Dry Results Lab Laboratory Tests 02/25/21 16:16: Glucometer 172H 02/26/21 05:07: White Blood Count 19.7H, Red Blood Count 3.80L, Hemoglobin 11.1L, Hematocrit 35L , Mean Corpuscular Volume 93, Mean Corpuscular Hemoglobin 29, Mean Corpuscular Hemoglobin Concent 31L, Red Cell Distribution Width 13.6, Platelet Count 414H, Mean Platelet Volume 11.6, Sodium Level 140, Potassium Level 3.9, Chloride Level 109H, Carbon Dioxide Level 20L, Anion Gap 11, Blood Urea Nitrogen 20H, Creatinine 0.81, Estimat Glomerular Filtration Rate > 60, BUN/Creatinine Ratio 25, Glucose Level 151H, Calcium Level 7.9L Microbiology 02/15/21 Blood Culture - Final, Complete No growth Assessment/Plan Assessment/Plan Assessment/Plan 1. Acute Emphysematous Cholecystitis with Adia-duodenal fistula--S/P Lap Adia with open repair of Adia-duodenal fistula followed by gallstone Ileus and abscess formation--S/P repeat surgery for lap adia with gallstone removal and repair of biliary leak as well as abscess drainage, now with wound vac/NG tube, Dobhoff feeding tube "fell out" overnight so will try and have Radiology place tomorrow with Flouroscopy, continue IV antibiotics, pain control as needed, lovenox for DVT prophylaxis 2. Hypertension--oral metoprolol DCed but BP stable so will monitor and start IV metoprolol if needed 3. Hypoxemia with Atelectesis and Acute Respiratory Failure--down to NC, continue IS. Will check CXR and start breathing treatments. Pt would benefit from CPAP, but would not work well with NGT. 4. Agioedema--improved; would taper IV solumedrol off 5. Leukocytosis--likely from steroids as is afebrile AMY SERNA DO Feb 26, 2021 10:55
[2021-02-26 11:38] VITALS: BP 119/64
--- NOTE | 2021-02-26 11:53 | Diagnostic Imaging Report ---
INDICATION: Hypoxia and increasing white count Comparison made with prior examination from 02/17/21. FINDINGS: Heart size is normal. There is left perihilar and basilar atelectasis and/or pneumonitis. There is also patchy right base infiltrate. There is a small right pleural effusion. There is no pneumothorax. The mediastinum is unremarkable. A nasogastric tube is in place IMPRESSION: Left perihilar and basilar atelectasis and/or pneumonitis. Patchy right basal infiltrate and small right pleural effusion. Dictated by: Dictated on workstation # [id number]
[2021-02-26 15:50] VITALS: BP 121/61
[2021-02-26] MEDS: ENOXAPARIN 40 MG/0.4 ML (LOVENOX) SYR SC SCH (18:37)
[2021-02-26 19:22] VITALS: BP 116/64
[2021-02-26] MEDS: FAMOTIDINE 20MG/2ML IV (PEPCID) IVP SCH (21:24)
[2021-02-27] MEDS: methylPREDNISolone 40 MG/ML (Solu-MEDROL) VIAL IV SCH ×4 (00:07→20:08)
[2021-02-27] MEDS: diphenhydrAMINE 50 MG/ML INJ (BENADRYL) IVP SCH ×3 (00:07→12:24)
[2021-02-27 00:49] VITALS: BP 134/74
[2021-02-27] MEDS: RT-ALBUTEROL/IPRATROPIUM 3 ML (DUONEB) VIAL INH SCH ×6 (01:30→21:53)
[2021-02-27 04:29] VITALS: BP 124/73
[2021-02-27] MEDS: LACTATED RINGERS 1,000 ML IV SCH ×3 (04:47→20:35)
[2021-02-27] MEDS: metroNIDAZOLE 500MG/100ML IVPB 100 ML IV SCH ×3 (04:47→22:30)
[2021-02-27] MEDS: PIPERACILLIN/TAZOBACTAM (BULK) 4.5 GM in NS (IVPB) 100 ML IV SCH ×2 (05:52→17:59)
[2021-02-27 05:53] LABS: HEMOGLOBIN 10.3 g/dL (13.3-17.7); MEAN PLATELET VOLUME 11.2 fL (9.0-12.2); WHITE BLOOD COUNT 12.5 10^3/uL (4.3-11.0)
[2021-02-27 06:21] LABS: ALANINE AMINOTRANSFERASE 19 U/L (0-55); ALBUMIN 2.5 GM/DL (3.2-4.5); ALKALINE PHOSPHATASE 61 U/L (40-136); BILIRUBIN,TOTAL 0.3 MG/DL (0.1-1.0); BUN/CREATININE RATIO 26; CALCIUM 7.7 MG/DL (8.5-10.1); CARBON DIOXIDE 19 MMOL/L (21-32); CHLORIDE 112 MMOL/L (98-107); CREATININE SERUM 0.84 MG/DL (0.60-1.30); GFR ESTIMATED > 60; GLUCOSE 172 MG/DL (70-105); POTASSIUM 3.8 MMOL/L (3.6-5.0); SODIUM 141 MMOL/L (135-145); TOTAL PROTEIN 5.6 GM/DL (6.4-8.2)
--- NOTE | 2021-02-27 07:14 | Progress Note - Surgery ---
JORGE EDWARD MED STUDENT 02/27/21 0714: Subjective Date Seen by a Provider: Feb 27, 2021 Time Seen by a Provider: 06:45 Subjective/Events-last exam Amaury denies throat swelling, says his throat is a little sore at night but not bothering him otherwise. He reports he is passing gas and had 2x bm yesterday. Denies abdominal pain and cough. He states his breathing is 'fine', currently on Vapotherm. States he would like to go home soon. Objective Exam Vital Signs Date Time Temp Pulse Resp B/P (MAP) Pulse Ox O2 Delivery O2 Flow Rate FiO2 02/27/21 06:24 91 Vapotherm 40.00 30 02/27/21 04:29 36.2 90 21 124/73 (90) 91 Vapotherm 40.00 30.00 02/27/21 02:52 90 Vapotherm 40.00 30 02/27/21 01:00 71 02/27/21 00:49 36.0 93 21 134/74 (94) 92 Vapotherm 40.00 30.00 02/26/21 22:10 90 Vapotherm 40.00 30 02/26/21 20:00 High Flow N/C 4.00 02/26/21 19:22 36.8 74 20 116/64 (81) 90 Vapotherm 40.00 30.00 02/26/21 19:00 72 02/26/21 18:54 95 Vapotherm 40.00 30 02/26/21 15:50 36.4 70 19 121/61 (81) 91 Vapotherm 02/26/21 14:41 95 Vapotherm 40.00 35 02/26/21 12:59 87 02/26/21 11:52 93 Vapotherm 40.00 35 02/26/21 11:38 36.6 85 20 119/64 (82) 91 High Flow N/C 3.00 02/26/21 11:14 88 Nasal Cannula 3.00 02/26/21 10:34 90 High Flow N/C 3.00 02/26/21 08:00 High Flow N/C 4.00 02/26/21 07:45 36.5 72 18 119/62 (81) 91 High Flow N/C 4.00 I & O 02/27/21 07:00 Intake Total 0 ml Output Total 1758 ml Balance -1758 ml Capillary Refill : Less Than 3 SecondsLess Than 3 Seconds General Appearance: No Apparent Distress, Obese HEENT: Other (swelling of eyelids and lips) Neck: Normal Inspection (no lymphedema observed at this time) Respiratory: Lungs Clear, No Accessory Muscle Use, No Respiratory Distress, Decreased Breath Sounds (bases) Cardiovascular: No Murmur, Tachycardia (regular rhythm) Gastrointestinal: soft, tenderness (mild bilateral upper abdominal tenderness. No lower abdominal tenderness. ), other (Wound VAC in place, minimal dried sanguinous drainage in FELISHA drains) Extremity: No Calf Tenderness, No Pedal Edema Neurologic/Psychiatric: Alert, Oriented x3 Skin: Warm/Dry Results Lab Laboratory Tests 02/27/21 05:31: White Blood Count 12.5H, Red Blood Count 3.56L, Hemoglobin 10.3L, Hematocrit 33L , Mean Corpuscular Volume 93, Mean Corpuscular Hemoglobin 29, Mean Corpuscular Hemoglobin Concent 31L, Red Cell Distribution Width 13.8, Platelet Count 421H, Mean Platelet Volume 11.2, Sodium Level 141, Potassium Level 3.8, Chloride Level 112H, Carbon Dioxide Level 19L, Anion Gap 10, Blood Urea Nitrogen 22H, Creatinine 0.84, Estimat Glomerular Filtration Rate > 60, BUN/Creatinine Ratio 26, Glucose Level 172H, Calcium Level 7.7L, Corrected Calcium 8.9, Total Bilirubin 0.3, Aspartate Amino Transf (AST/SGOT) 19, Alanine Aminotransferase (ALT/SGPT) 19, Alkaline Phosphatase 61, Total Protein 5.6L, Albumin 2.5L Microbiology 02/15/21 Blood Culture - Final, Complete No growth Assessment/Plan Assessment/Plan Assessment/Plan 1. Acute Emphysematous Cholecystitis with Tila-duodenal fistula--S/P Lap Tila with open repair of Tila-duodenal fistula followed by gallstone Ileus and abscess formation--S/P repeat surgery for lap itla with gallstone removal and repair of biliary leak as well as abscess drainage, now with wound vac/NG tube, -Dobhoff feeding tube "fell out", plan to have radiology replace today -patient is NPO, allowed to swish and spit liquids -continue IV antibiotics, pain control as needed, lovenox for DVT prophylaxis 2. Hypertension--oral metoprolol DCed but BP stable so will monitor and start IV metoprolol if needed 3. Hypoxemia with Atelectesis and Acute Respiratory Failure--down to NC, continue IS and work with RT. -Patient should be switched to NC O2 during walks and returned to vapotherm when back in his room, RN not sure he has walked since Saturday -CXR yesterday shows small right pleural effusion, small right basilar infiltr ate, also read as left perihilar atelectasis and/or pneumonitis -was tachycardic on exam but this could be dehydrational as he is NPO and not tachypneic -Amaury is already on zosyn, additional abx for infiltrate not warranted at this time. Will continue to evaluate respiratory status 4. Agioedema--resolved; would taper IV solumedrol off 5. Leukocytosis--significantly improved on today's labs. Was likely from steroids as he remains afebrile AMY KING DO 02/27/21 1643: Subjective Time Seen by a Provider: 15:36 Subjective/Events-last exam Pt seen and examined, states he is passing gas and doing ok. Wants to drink and eat. Review of Systems General: Fatigue Pulmonary: Dyspnea; No Cough Cardiovascular: No: Chest Pain, Palpitations Gastrointestinal: No: Nausea, Vomiting, Abdominal Pain Objective Exam General Appearance: No Apparent Distress, Obese HEENT: Other (NC in place for Vapotherm) Respiratory: Lungs Clear, No Accessory Muscle Use, No Respiratory Distress, Decreased Breath Sounds (bases) Cardiovascular: No Murmur, Tachycardia (regular rhythm) Gastrointestinal: soft, tenderness (mild bilateral upper abdominal tenderness. No lower abdominal tenderness. ), other (Wound VAC in place, minimal dried sanguinous drainage in FELISHA drains) Assessment/Plan Assessment/Plan Assessment/Plan 1. Acute Emphysematous Cholecystitis with Tila-duodenal fistula--S/P Lap Tila with open repair of Tila-duodenal fistula followed by gallstone Ileus and abscess formation--S/P repeat surgery for lap tila with gallstone removal and repair of biliary leak as well as abscess drainage, now with wound vac/NG tube, -Dobhoff feeding tube "fell out", will leave out and keep strict NPO, allowed to swish and spit liquids, continue IV antibiotics, pain control as needed, lovenox for DVT prophylaxis 2. Hypertension--oral metoprolol DCed but BP stable so will monitor and start IV metoprolol if needed 3. Hypoxemia with Atelectesis and Acute Respiratory Failure--down to NC, continue IS and work with RT. -Patient should be switched to NC O2 during walks and returned to vapotherm when back in his room, RN not sure he has walked since Saturday -CXR yesterday shows small right pleural effusion, small right basilar infiltrate, also read as left perihilar atelectasis and/or pneumonitis -was tachycardic on exam but this could be dehydrational as he is NPO and not tachypneic -Amaury is already on zosyn, additional abx for infiltrate not warranted at this time. Will continue to evaluate respiratory status 4. Agioedema--resolved; would taper IV solumedrol off 5. Leukocytosis--significantly improved on today's labs. Was likely from steroids as he remains afebrile Supervisory-Addendum Brief Verification & Attestation Participated in pt care: history, MDM, physical Personally performed: exam, history, MDM Care discussed with: Medical Student Procedures: n/a Verification and Attestation of Medical Student E/M Service A medical student performed and documented this service. I then reviewed and verified all information documented by the medical student and made modifications to such information, when appropriate. I personally performed a physical exam, medical decision making and then discussed any differences bet ween the notes and made revisions as necessary to create one note. Amy King , 02/27/21 , 16:43 JORGE EDWARD MED STUDENT Feb 27, 2021 07:14 AMY KING DO Feb 27, 2021 16:43
[2021-02-27 08:00] VITALS: BP 139/63
[2021-02-27] MEDS: PANTOPRAZOLE 40 MG (PROTONIX) VIAL IVP SCH (08:33)
[2021-02-27 12:00] VITALS: BP 135/79
[2021-02-27] MEDS ORDERED: FUROSEMIDE 40 MG/4 ML INJ (LASIX) IVP NR (12:30)
--- NOTE | 2021-02-27 12:43 | Progress Note ---
Subjective Date Seen by a Provider: Feb 27, 2021 Time Seen by a Provider: 12:40 Subjective/Events-last exam Fwup Acute Emphysematous Cholecystitis with Adia-duodenal fistula--S/P Lap Adia with open repair of Adia-duodenal fistula, HTN, atelectesis with respiratory distress, return to surgery for exp lap for gallstone ileus/biliary leak repair and abscess drainage, angioedema. Patient sitting up in chair. Back on Vapotherm. Objective Exam Vital Signs Date Time Temp Pulse Resp B/P (MAP) Pulse Ox O2 Delivery O2 Flow Rate FiO2 02/27/21 10:40 91 Vapotherm 40.00 02/27/21 10:12 91 Vapotherm 40.00 30 02/27/21 08:00 91 Vapotherm 40.00 02/27/21 08:00 36.5 89 18 139/63 (88) 90 Vapotherm 40.00 30.00 02/27/21 06:47 91 02/27/21 06:24 91 Vapotherm 40.00 30 02/27/21 04:29 36.2 90 21 124/73 (90) 91 Vapotherm 40.00 30.00 02/27/21 02:52 90 Vapotherm 40.00 30 02/27/21 01:00 71 02/27/21 00:49 36.0 93 21 134/74 (94) 92 Vapotherm 40.00 30.00 02/26/21 22:10 90 Vapotherm 40.00 30 02/26/21 20:00 High Flow N/C 4.00 02/26/21 19:22 36.8 74 20 116/64 (81) 90 Vapotherm 40.00 30.00 02/26/21 19:00 72 02/26/21 18:54 95 Vapotherm 40.00 30 02/26/21 15:50 36.4 70 19 121/61 (81) 91 Vapotherm 02/26/21 14:41 95 Vapotherm 40.00 35 02/26/21 12:59 87 I & O 02/27/21 07:00 Intake Total 0 ml Output Total 1758 ml Balance -1758 ml Capillary Refill : Less Than 3 SecondsLess Than 3 Seconds General Appearance: No Apparent Distress Respiratory: Lungs Clear, Decreased Breath Sounds Cardiovascular: Regular Rate, Rhythm Gastrointestinal: normal bowel sounds, non tender, soft, other (dressing dry with drains in place) Extremity: Non Tender, No Calf Tenderness, Pedal Edema (1) Neurologic/Psychiatric: Alert, Oriented x3 Results Lab Laboratory Tests 02/27/21 05:31: White Blood Count 12.5H, Red Blood Count 3.56L, Hemoglobin 10.3L, Hematocrit 33L , Mean Corpuscular Volume 93, Mean Corpuscular Hemoglobin 29, Mean Corpuscular Hemoglobin Concent 31L, Red Cell Distribution Width 13.8, Platelet Count 421H, Mean Platelet Volume 11.2, Sodium Level 141, Potassium Level 3.8, Chloride Level 112H, Carbon Dioxide Level 19L, Anion Gap 10, Blood Urea Nitrogen 22H, Creatinine 0.84, Estimat Glomerular Filtration Rate > 60, BUN/Creatinine Ratio 26, Glucose Level 172H, Calcium Level 7.7L, Corrected Calcium 8.9, Total Bilirubin 0.3, Aspartate Amino Transf (AST/SGOT) 19, Alanine Aminotransferase (ALT/SGPT) 19, Alkaline Phosphatase 61, Total Protein 5.6L, Albumin 2.5L Microbiology 02/15/21 Blood Culture - Final, Complete No growth Assessment/Plan Assessment/Plan Assess & Plan/Chief Complaint 1. Acute Emphysematous Cholecystitis with Adia-duodenal fistula--S/P Lap Adia with open repair of Adia-duodenal fistula followed by gallstone Ileus and abscess formation--S/P repeat surgery for lap adia with gallstone removal and repair of biliary leak as well as abscess drainage, now with wound vac/NG tube, patient pulled out feeding tube--surgery note says radiology to replace, continue IV antibiotics, pain control as needed, lovenox for DVT prophylaxis 2. Hypertension--oral metoprolol DCed but BP stable so will monitor and start IV metoprolol if needed 3. Hypoxemia with Atelectesis and Acute Respiratory Failure--some edema in legs so will give IV lasix with potassium to diurese and see if helps O2 sats, continue IS 4. Agioedema--improved so will decrease IV solumedrol and DC benadryl 5. Leukocytosis--likely from steroids as is afebrile and decreased today after decrease in solumedrol yesterday Clinical Quality Measures Admission Status Admission Dx 1. Acute Emphysematous Cholecystitis with Adia-duodenal fistula--S/P Lap Adia with open repair of Adia-duodenal fistula--NG tube in place, NPO, IV antibiotics, pain control, lovenox for DVT prophylaxis 2. Hypertension--metoprolol IV began JOANNE ALVAREZ DO Feb 27, 2021 12:43
[2021-02-27] MEDS: POTASSIUM CL 10MEQ/50ML IVPB 50 ML IV SCH ×2 (13:26→14:32)
--- NOTE | 2021-02-27 14:22 | Anesthesia-General Post-Op ---
General Patient Condition Mental Status/LOC: Same as Preop Cardiovascular: Satisfactory Nausea/Vomiting: Absent Respiratory: Satisfactory Pain: Controlled Complications: Absent Post Op Complications Complications None Follow Up Care/Instructions Patient Instructions None needed. Anesthesia/Patient Condition Patient Condition Post-dated progress note: Patient was seen on at the end of his PACU stay and he was doing well, some abd discomfort which is to be expected, stable vital signs, no apparent adverse anesthesia problems. His SaO2 was running in the low 90's so he was taken back to his room on the 4th floor with oxygen. RENATE GILBERT DO Feb 27, 2021 14:22
[2021-02-27 15:39] VITALS: BP 138/76
[2021-02-27 19:24] VITALS: BP 124/71
[2021-02-27] MEDS: ENOXAPARIN 40 MG/0.4 ML (LOVENOX) SYR SC SCH (20:08)
[2021-02-27] MEDS: FAMOTIDINE 20MG/2ML IV (PEPCID) IVP SCH (20:08)
[2021-02-28 00:03] VITALS: BP 129/72
[2021-02-28] MEDS: PIPERACILLIN/TAZOBACTAM (BULK) 4.5 GM in NS (IVPB) 100 ML IV SCH ×4 (00:15→23:13)
[2021-02-28] MEDS: RT-ALBUTEROL/IPRATROPIUM 3 ML (DUONEB) VIAL INH SCH ×5 (02:00→21:41)
[2021-02-28] MEDS: LACTATED RINGERS 1,000 ML IV SCH ×4 (02:10→23:13)
[2021-02-28 03:59] VITALS: BP 130/78
[2021-02-28] MEDS: metroNIDAZOLE 500MG/100ML IVPB 100 ML IV SCH ×3 (05:29→22:16)
[2021-02-28 06:11] LABS: MEAN PLATELET VOLUME 11.3 fL (9.0-12.2); WHITE BLOOD COUNT 8.7 10^3/uL (4.3-11.0)
[2021-02-28 06:26] LABS: CHLORIDE 111 MMOL/L (98-107); SODIUM 140 MMOL/L (135-145)
[2021-02-28 06:27] LABS: CALCIUM 7.6 MG/DL (8.5-10.1)
[2021-02-28 06:28] LABS: GLUCOSE 133 MG/DL (70-105)
[2021-02-28 06:29] LABS: CARBON DIOXIDE 20 MMOL/L (21-32)
[2021-02-28 06:31] LABS: CREATININE SERUM 0.85 MG/DL (0.60-1.30); GFR ESTIMATED > 60
[2021-02-28 06:32] LABS: BUN/CREATININE RATIO 26
[2021-02-28 07:17] VITALS: BP 123/70
[2021-02-28] MEDS: PANTOPRAZOLE 40 MG (PROTONIX) VIAL IVP SCH (08:30)
[2021-02-28] MEDS: methylPREDNISolone 40 MG/ML (Solu-MEDROL) VIAL IV SCH ×2 (08:30→20:15)
--- NOTE | 2021-02-28 09:29 | Progress Note - Surgery ---
JORGE EDWARD MED STUDENT 02/28/21 0928: Subjective Date Seen by a Provider: Feb 28, 2021 Time Seen by a Provider: 07:50 Subjective/Events-last exam Amaury has been walking 7x yesterday, walked today as well. Denies abdominal pain, states breathing feels a little better. He complains of a sore throat and right nare due to his NG tube, as well as a dry mouth. Denies cough, fever, chills, chest pain Objective Exam Vital Signs Date Time Temp Pulse Resp B/P (MAP) Pulse Ox O2 Delivery O2 Flow Rate FiO2 02/28/21 07:23 92 Vapotherm 30.00 25 02/28/21 07:17 36.4 77 20 123/70 (87) 93 Vapotherm 30.00 25.00 02/28/21 03:59 36.5 76 18 130/78 (95) 92 Vapotherm 30.00 25.00 02/28/21 02:35 91 Vapotherm 30.00 25 02/28/21 01:00 82 02/28/21 00:03 36.0 67 18 129/72 (91) 91 Vapotherm 35.00 25.00 02/27/21 21:53 94 Vapotherm 40.00 25 02/27/21 20:10 93 Vapotherm 40.00 25 02/27/21 19:24 36.3 80 20 124/71 (88) 92 Vapotherm 40.00 20.00 02/27/21 19:00 83 02/27/21 18:25 93 Vapotherm 40.00 30 02/27/21 15:39 36.3 79 18 138/76 (96) 92 Vapotherm 40.00 30.00 02/27/21 14:11 91 Vapotherm 40.00 30 02/27/21 12:45 62 02/27/21 12:00 35.8 72 18 135/79 (97) 95 Vapotherm 40.00 30.00 02/27/21 10:40 91 Vapotherm 40.00 02/27/21 10:12 91 Vapotherm 40.00 30 I & O 02/28/21 07:00 Intake Total 1000 ml Output Total 3540 ml Balance -2540 ml Capillary Refill : Less Than 3 SecondsLess Than 3 Seconds General Appearance: No Apparent Distress, Obese HEENT: Other (NC in place for Vapotherm) Neck: Normal Inspection Respiratory: Lungs Clear, No Accessory Muscle Use, No Respiratory Distress, Decreased Breath Sounds (bases. Increased lung volume compared to yesterday (02/27)) Cardiovascular: Regular Rate, Rhythm, No Murmur Gastrointestinal: soft, tenderness (mild bilateral upper abdominal tenderness, less tender today than yesterday (02/27). No lower abdominal tenderness. ), other (Wound VAC in place, minimal serosanguinous drainage in FELISHA drains) Extremity: Non Tender, No Calf Tenderness, Pedal Edema (1) Neurologic/Psychiatric: Alert, Oriented x3 Skin: Warm/Dry Results Lab Laboratory Tests 02/28/21 05:43: White Blood Count 8.7, Red Blood Count 3.68L, Hemoglobin 11.0L, Hematocrit 35L, Mean Corpuscular Volume 94, Mean Corpuscular Hemoglobin 30, Mean Corpuscular Hemoglobin Concent 32, Red Cell Distribution Width 13.8, Platelet Count 429H, Mean Platelet Volume 11.3, Sodium Level 140, Potassium Level 4.0, Chloride Level 111H, Carbon Dioxide Level 20L, Anion Gap 9, Blood Urea Nitrogen 22H, Creatinine 0.85, Estimat Glomerular Filtration Rate > 60, BUN/Creatinine Ratio 26, Glucose Level 133H, Calcium Level 7.6L Microbiology 02/15/21 Blood Culture - Final, Complete No growth Assessment/Plan Assessment/Plan Assessment/Plan 1. Acute Emphysematous Cholecystitis with Tila-duodenal fistula--S/P Lap Tila with open repair of Tila-duodenal fistula followed by gallstone Ileus and abscess formation--S/P repeat surgery for lap tila with gallstone removal and repair of biliary leak as well as abscess drainage, now with wound vac/NG tube, -Dobhoff feeding tube "fell out", will leave out and keep strict NPO, allowed to swish and spit liquids, continue IV antibiotics, pain control as needed, lovenox for DVT prophylaxis 2. Hypertension--oral metoprolol DCed but BP stable so will monitor and start IV metoprolol if needed 3. Hypoxemia with Atelectesis and Acute Respiratory Failure-continue IS and work with RT. -Vapotherm down to 30LPM from 40LPM yesterday -Patient has been switched to NC O2 during walks and returned to vapotherm when back in his room. Walking more yesterday & already today. -CXR 02/26 shows small right pleural effusion, small right basilar infiltrate, also read as left perihilar atelectasis and/or pneumonitis -Amaury is already on zosyn, additional abx for infiltrate not warranted at this time. Will continue to evaluate respiratory status 4. Agioedema--resolved; IV solumedrol discontinued. 5. Leukocytosis--significantly improved on today's labs. Was likely from steroids as he remains afebrile AMY KING DO 02/28/21 1610: Subjective Time Seen by a Provider: 12:16 Subjective/Events-last exam Pt seen and examined, states he is having a little bit of abd pain and mostly his throat hurts because of NGT. He is still passing gas and having BM's. Review of Systems General: No Chills Pulmonary: No Dyspnea, No Cough Cardiovascular: No: Chest Pain, Palpitations Gastrointestinal: Abdominal Pain; No: Nausea, Vomiting Genitourinary: No Dysuria, No Frequency Objective Exam General Appearance: No Apparent Distress, Obese Respiratory: Lungs Clear, No Accessory Muscle Use, No Respiratory Distress, Decreased Breath Sounds (bases. Increased lung volume compared to yesterday (02/27)) Cardiovascular: Regular Rate, Rhythm, No Murmur Gastrointestinal: soft, tenderness (mild bilateral upper abdominal tenderness, less tender today than yesterday (02/27). No lower abdominal tenderness. ), other (Wound VAC in place, drainage in FELISHA drains now looks thick and grainy....a dark green/lazcano color) Neurologic/Psychiatric: Alert, Oriented x3 Assessment/Plan Assessment/Plan Assessment/Plan 1. Acute Emphysematous Cholecystitis with Tila-duodenal fistula--S/P Lap Tila with open repair of Tila-duodenal fistula followed by gallstone Ileus and abscess formation--S/P repeat surgery for lap tila with gallstone removal and repair of biliary leak as well as abscess drainage, now with wound vac/NG tube, Plan to do CT and UGI to r/o leak, hopefully will get look at drains and check for abscess. I did tell pt that if he has a leak he most likely will need TPN and strict NPO for 6-8 weeks to let the area heal. 2. Hypertension--continue to monitor and start IV metoprolol if needed 3. Hypoxemia with Atelectesis and Acute Respiratory Failure-continue IS and work with RT. -Vapotherm down to 30LPM from 40LPM yesterday -Patient has been switched to NC O2 during walks and returned to vapotherm when back in his room. Walking more yesterday & already today. -CXR 02/26 shows small right pleural effusion, small right basilar infiltrate, also read as left perihilar atelectasis and/or pneumonitis 4. Agioedema--resolved; IV solumedrol discontinued. 5. Leukocytosis--significantly improved on today's labs. Was likely from [facility] as he remains afebrile Supervisory-Addendum Brief Verification & Attestation Participated in pt care: history, MDM, physical Personally performed: exam, history, MDM Care discussed with: Medical Student Procedures: n/a Verification and Attestation of Medical Student E/M Service A medical student performed and documented this service. I then reviewed and verified all information documented by the medical student and made modifications to such information, when appropriate. I personally performed a physical exam, medical decision making and then discussed any differences between the notes and made revisions as necessary to create one note. Amy King , 02/28/21 , 16:10 JORGE EDWARD MED STUDENT Feb 28, 2021 09:28 AMY KING DO Feb 28, 2021 16:10
[2021-02-28] MEDS: fentaNYL INJ 100 MCG/2 ML AMP IVP PRN (11:22)
[2021-02-28 11:37] VITALS: BP 133/67
--- NOTE | 2021-02-28 14:32 | Diagnostic Imaging Report ---
INDICATION: NG tube placement. TECHNIQUE/COMPARISON: A frontal chest was obtained at 2:08 PM and compared with 02/26/2021. FINDINGS: The heart and mediastinal silhouette are normal in appearance. There is some bibasilar atelectasis and/or infiltrate. An NG tube is seen with the tip below the film. There is no pneumothorax or pleural fluid. IMPRESSION: There is some bibasilar atelectatic change and/or infiltrate which is similar to the prior study. There is an NG tube seen with its tip below the film. Consider an abdominal film for further evaluation. Dictated by: Dictated on workstation # [id number]
[2021-02-28 15:20] VITALS: BP 147/88
--- NOTE | 2021-02-28 16:47 | Progress Note ---
Subjective Date Seen by a Provider: Feb 28, 2021 Time Seen by a Provider: 12:30 Subjective/Events-last exam Fwup Acute Emphysematous Cholecystitis with Adia-duodenal fistula--S/P Lap Adia with open repair of Adia-duodenal fistula, HTN, atelectesis with respiratory distress, return to surgery for exp lap for gallstone ileus/biliary leak repair and abscess drainage, angioedema. Still on vapotherm. Objective Exam Vital Signs Date Time Temp Pulse Resp B/P (MAP) Pulse Ox O2 Delivery O2 Flow Rate FiO2 02/28/21 15:20 37.0 76 18 147/88 (107) 95 Vapotherm 16.00 35.00 02/28/21 14:27 92 Vapotherm 16.00 35 02/28/21 12:29 64 02/28/21 11:37 36.3 61 18 133/67 (89) 94 Vapotherm 20.00 30.00 02/28/21 10:41 94 Vapotherm 25.00 30 02/28/21 08:00 94 Vapotherm 20.00 02/28/21 07:23 92 Vapotherm 30.00 25 02/28/21 07:17 36.4 77 20 123/70 (87) 93 Vapotherm 30.00 25.00 02/28/21 06:30 88 02/28/21 03:59 36.5 76 18 130/78 (95) 92 Vapotherm 30.00 25.00 02/28/21 02:35 91 Vapotherm 30.00 25 02/28/21 01:00 82 02/28/21 00:03 36.0 67 18 129/72 (91) 91 Vapotherm 35.00 25.00 02/27/21 21:53 94 Vapotherm 40.00 25 02/27/21 20:10 93 Vapotherm 40.00 25 02/27/21 19:24 36.3 80 20 124/71 (88) 92 Vapotherm 40.00 20.00 02/27/21 19:00 83 02/27/21 18:25 93 Vapotherm 40.00 30 I & O 02/28/21 07:00 Intake Total 1000 ml Output Total 3540 ml Balance -2540 ml Capillary Refill : Less Than 3 SecondsLess Than 3 Seconds General Appearance: Mild Distress Neck: Supple Respiratory: Lungs Clear Gastrointestinal: normal bowel sounds, non tender, soft, other (dressing dry but drains now with brown/green drainage ) Extremity: Non Tender, No Calf Tenderness, No Pedal Edema Neurologic/Psychiatric: Alert, Oriented x3 Results Lab Laboratory Tests 02/28/21 05:43: White Blood Count 8.7, Red Blood Count 3.68L, Hemoglobin 11.0L, Hematocrit 35L, Mean Corpuscular Volume 94, Mean Corpuscular Hemoglobin 30, Mean Corpuscular Hemoglobin Concent 32, Red Cell Distribution Width 13.8, Platelet Count 429H, Mean Platelet Volume 11.3, Sodium Level 140, Potassium Level 4.0, Chloride Level 111H, Carbon Dioxide Level 20L, Anion Gap 9, Blood Urea Nitrogen 22H, Creatinine 0.85, Estimat Glomerular Filtration Rate > 60, BUN/Creatinine Ratio 26, Glucose Level 133H, Calcium Level 7.6L Microbiology 02/15/21 Blood Culture - Final, Complete No growth Assessment/Plan Assessment/Plan Assess & Plan/Chief Complaint 1. Acute Emphysematous Cholecystitis with Adia-duodenal fistula--S/P Lap Adia with open repair of Adia-duodenal fistula followed by gallstone Ileus and abscess formation--S/P repeat surgery for lap adia with gallstone removal and repair of biliary leak as well as abscess drainage, now with wound vac, patient pulled out feeding tube--surgery note says radiology to replace, drains now with brown/green output, continue IV antibiotics, pain control as needed, lovenox for DVT prophylaxis 2. Hypertension--oral metoprolol DCed but BP stable so will monitor and start IV metoprolol if needed 3. Hypoxemia with Atelectesis and Acute Respiratory Failure--some edema in legs so will give IV lasix with potassium to diurese and see if helps O2 sats, continue IS 4. Agioedema--improved so will DC solumedrol 5. Leukocytosis--likely from steroids, improved Clinical Quality Measures Admission Status Admission Dx 1. Acute Emphysematous Cholecystitis with Adia-duodenal fistula--S/P Lap Adia with open repair of Adia-duodenal fistula--NG tube in place, NPO, IV antibiotics, pain control, lovenox for DVT prophylaxis 2. Hypertension--metoprolol IV began JOANNE ALVAREZ DO Feb 28, 2021 16:47
[2021-02-28 20:00] VITALS: BP 124/69
[2021-02-28] MEDS: FAMOTIDINE 20MG/2ML IV (PEPCID) IVP SCH (20:15)
[2021-02-28] MEDS: ENOXAPARIN 40 MG/0.4 ML (LOVENOX) SYR SC SCH (20:15)
[2021-03-01] VITALS: BP 126/75
[2021-03-01] MEDS: RT-ALBUTEROL/IPRATROPIUM 3 ML (DUONEB) VIAL INH SCH ×6 (02:13→21:35)
[2021-03-01 04:00] VITALS: BP 132/85
[2021-03-01] MEDS: metroNIDAZOLE 500MG/100ML IVPB 100 ML IV SCH (05:19)
[2021-03-01] MEDS: LACTATED RINGERS 1,000 ML IV SCH ×4 (05:19→20:33)
[2021-03-01] MEDS: PIPERACILLIN/TAZOBACTAM (BULK) 4.5 GM in NS (IVPB) 100 ML IV SCH ×3 (06:38→20:34)
--- NOTE | 2021-03-01 07:57 | Progress Note - Surgery ---
JORGE EDWARD MED STUDENT 03/01/21 0757: Subjective Date Seen by a Provider: Mar 01, 2021 Time Seen by a Provider: 06:40 Subjective/Events-last exam Amaury reports sore throat and nose due to NG tube but denies abdominal pain. States SOB feels better or about the same. Denies fever or chills. States he walked a little less yesterday. Does not feel bloated Objective Exam Vital Signs Date Time Temp Pulse Resp B/P (MAP) Pulse Ox O2 Delivery O2 Flow Rate FiO2 03/01/21 06:55 94 Vapotherm 15.00 25 03/01/21 04:00 36.3 81 18 132/85 (101) 92 Vapotherm 15.00 25.00 03/01/21 02:13 94 Vapotherm 15.00 25 03/01/21 01:00 53 03/01/21 00:00 36.3 70 18 126/75 (92) 92 Vapotherm 15.00 25.00 02/28/21 21:41 94 Vapotherm 16.00 30 02/28/21 20:00 93 Vapotherm 16.00 30 02/28/21 20:00 37.0 74 18 124/69 (87) 93 Vapotherm 16.00 30.00 02/28/21 19:00 70 02/28/21 18:33 94 Vapotherm 16.00 35 02/28/21 15:20 37.0 76 18 147/88 (107) 95 Vapotherm 16.00 35.00 02/28/21 14:27 92 Vapotherm 16.00 35 02/28/21 12:29 64 02/28/21 11:37 36.3 61 18 133/67 (89) 94 Vapotherm 20.00 30.00 02/28/21 10:41 94 Vapotherm 25.00 30 02/28/21 08:00 94 Vapotherm 20.00 I & O 03/01/21 07:00 Intake Total 1000 ml Output Total 2750 ml Balance -1750 ml Capillary Refill : Less Than 3 SecondsLess Than 3 Seconds General Appearance: No Apparent Distress, WD/WN HEENT: Other (NC in place for Vapotherm) Neck: Supple Respiratory: Lungs Clear Cardiovascular: Regular Rate, Rhythm, No Murmur Gastrointestinal: soft, distended (mildly), tenderness (mild RUQ), other (dressing dry. 1 drain with minimal brownish drainage, other minimal serous drainage) Extremity: Non Tender, No Calf Tenderness, No Pedal Edema Neurologic/Psychiatric: Alert, Oriented x3 Skin: Warm/Dry Results Lab Microbiology 02/15/21 Blood Culture - Final, Complete No growth Assessment/Plan Assessment/Plan Assessment/Plan 1. Acute Emphysematous Cholecystitis with Tila-duodenal fistula--S/P Lap Tila with open repair of Tila-duodenal fistula followed by gallstone Ileus and abscess formation--S/P repeat surgery for lap tila with gallstone removal and repair of biliary leak as well as abscess drainage, now with wound vac, patient pulled out feeding tube- will not replace. 1 FELISHA drain now with brown/green output, 30 mL out yesterday and 10 overnight. plan to do UGI study today, if it looks good will pull NG tube. If not, will pursue TPN continue IV antibiotics, pain control as needed, lovenox for DVT prophylaxis 2. Hypertension--oral metoprolol DCed but BP stable so will monitor and start IV metoprolol if needed 3. Hypoxemia with Atelectesis and Acute Respiratory Failure-- continue IS, walking 4. Agioedema--improved so will DC solumedrol 5. Leukocytosis--likely from steroids, improved as of yesterday AMY KING DO 03/01/21 1641: Subjective Time Seen by a Provider: 15:53 Subjective/Events-last exam Pt seen this am, just before going down for CT and then this afternoon. Pt states he is doing ok; main complaint is he wants the NGT out. RT states he is down to 2L on Vapotherm. Review of Systems General: Fatigue Pulmonary: Dyspnea; No Cough Cardiovascular: No: Chest Pain, Palpitations Gastrointestinal: Abdominal Pain (minimal); No: Nausea, Vomiting Objective Exam General Appearance: No Apparent Distress, Obese Respiratory: Lungs Clear, Decreased Breath Sounds (bases) Cardiovascular: Regular Rate, Rhythm, No Murmur Gastrointestinal: soft, distended (mildly), tenderness (mild RUQ), other (dressing dry. 1 drain with minimal brownish drainage, other minimal greenish drainage) Extremity: No Calf Tenderness Neurologic/Psychiatric: Alert, Oriented x3 Assessment/Plan Assessment/Plan Assessment/Plan 1. Acute Emphysematous Cholecystitis with Tila-duodenal fistula--S/P Lap Tila with open repair of Tila-duodenal fistula followed by gallstone Ileus and abscess formation--S/P repeat surgery for lap tila with gallstone removal and repair of biliary leak as well as abscess drainage, now with wound vac, patient pulled out feeding tube- will not replace. 1 FELISHA drain now with brown/green output, 30 mL out yesterday and 10 overnight; UGI study done today using the CT - read by Radiology as less fluid around duodenum, no leak, but still some small air bubbles. Continue IV antibiotics, pain control as needed, lovenox for DVT prophylaxis 2. Hypertension--oral metoprolol DCed but BP stable so will monitor and start IV metoprolol if needed 3. Hypoxemia with Atelectesis and Acute Respiratory Failure-- continue IS, walking I had a discussion with pt and gave him some options; 1) Start oral feedings 2) TPN for 2 weeks (at least) and then reassess. I told him I would recommend the TPN because it is the safest thing to do. I am concerned about what is in FELISHA drains and the integrity of the repair, even though there is no leak....I would wait longer and allow better healing. I told him to think about it overnight and discuss with his ; I will come in and talk to both of them tomorrow. I will also culture the FELISHA bulbs and place pt on correct ABX. Supervisory-Addendum Brief Verification & Attestation Participated in pt care: history, MDM, physical Personally performed: exam, history, MDM Care discussed with: Medical Student Procedures: n/a Verification and Attestation of Medical Student E/M Service A medical student performed and documented this service. I then reviewed and verified all information documented by the medical student and made modifications to such information, when appropriate. I personally performed a physical exam, medical decision making and then discussed any differences between the notes and made revisions as necessary to create one note. Amy King , 03/01/21 , 16:41 JORGE EDWARD MED STUDENT Mar 01, 2021 07:57 AMY KING DO Mar 01, 2021 16:41
[2021-03-01 08:06] VITALS: BP 138/75
[2021-03-01] MEDS: PANTOPRAZOLE 40 MG (PROTONIX) VIAL IVP SCH (08:41)
[2021-03-01 12:05] VITALS: BP 131/74
--- NOTE | 2021-03-01 12:38 | Diagnostic Imaging Report ---
PROCEDURE: CT abdomen without contrast. TECHNIQUE: Multiple contiguous axial images were obtained through the abdomen without the use of intravenous contrast. Precontrast imaging through the abdomen was performed. Next, patient was given approximately 180 mL of Gastografin contrast mixed with water through the indwelling nasogastric tube. Patient was placed on the right side for 5 minutes. Then additional axial imaging through abdomen was performed. Patient was placed back on the right side for additional 5 to 10 minutes and an additional axial imaging was performed through the abdomen. Sagittal and coronal reformations were also performed. Auto Exposure Controls were utilized during the CT exam to meet ALARA standards for radiation dose reduction. INDICATION: Duodenal leak status post Alejo patch placement. Study is performed for follow-up. Correlation is made with prior CT from 02/23/2021. There has been some increase in the right-sided pleural effusion which continues to be small. Small left effusion persists. There are some areas of bibasilar infiltrate or atelectasis. Contrast is seen within the stomach with emptying into the small bowel loops. The continues to be small gas bubbles adjacent to the second portion of the duodenum and gallbladder fossa but no extravasation of oral contrast is identified on today's exam. No fluid collection is identified. Fluid collection at the gallbladder fossa location has reduced in size significantly. Drain in the right upper quadrant is noted. The small and large bowel loops are unremarkable. The liver, pancreas and spleen are unremarkable. There is no adrenal mass. Kidneys are unremarkable. Aorta is nonaneurysmal. IMPRESSION: 1. Bilateral pleural effusions with bibasilar atelectasis or pneumonia. 2. Improved appearance to the abdomen when compared with the CT study from 02/23/2021. While there continues to be small gas bubbles in the gallbladder fossa, the fluid collection at this location previously has significantly reduced in size. In addition, no extravasated oral contrast from the duodenum is identified on today's exam. No new abnormality is detected. Dictated by: Dictated on workstation # [id number]
--- NOTE | 2021-03-01 13:10 | Progress Note ---
Subjective Date Seen by a Provider: Mar 01, 2021 Time Seen by a Provider: 08:35 Subjective/Events-last exam Fwup Acute Emphysematous Cholecystitis with Adia-duodenal fistula--S/P Lap Adia with open repair of Adia-duodenal fistula, HTN, atelectesis with respiratory distress, return to surgery for exp lap for gallstone ileus/biliary leak repair and abscess drainage, angioedema. Down to NC on oxygen. Drains still with green/brown drainage but less output. Objective Exam Vital Signs Date Time Temp Pulse Resp B/P (MAP) Pulse Ox O2 Delivery O2 Flow Rate FiO2 03/01/21 12:05 36.7 71 15 131/74 (93) 95 Nasal Cannula 4.00 03/01/21 10:49 93 Nasal Cannula 4.00 03/01/21 09:00 High Flow N/C 4.00 03/01/21 08:06 36.4 69 15 138/75 (96) 96 Nasal Cannula 4.00 03/01/21 06:55 94 Vapotherm 15.00 25 03/01/21 06:50 84 03/01/21 04:00 36.3 81 18 132/85 (101) 92 Vapotherm 15.00 25.00 03/01/21 02:13 94 Vapotherm 15.00 25 03/01/21 01:00 53 03/01/21 00:00 36.3 70 18 126/75 (92) 92 Vapotherm 15.00 25.00 02/28/21 21:41 94 Vapotherm 16.00 30 02/28/21 20:00 93 Vapotherm 16.00 30 02/28/21 20:00 37.0 74 18 124/69 (87) 93 Vapotherm 16.00 30.00 02/28/21 19:00 70 02/28/21 18:33 94 Vapotherm 16.00 35 02/28/21 15:20 37.0 76 18 147/88 (107) 95 Vapotherm 16.00 35.00 02/28/21 14:27 92 Vapotherm 16.00 35 I & O 03/01/21 07:00 Intake Total 1000 ml Output Total 2750 ml Balance -1750 ml Capillary Refill : Less Than 3 SecondsLess Than 3 Seconds General Appearance: No Apparent Distress Neck: Supple Respiratory: Lungs Clear, Decreased Breath Sounds Cardiovascular: Regular Rate, Rhythm Gastrointestinal: normal bowel sounds, non tender, soft, other (wound vac in place with dry dressing and both drains with minimal brow/green drainage) Extremity: Non Tender, No Calf Tenderness, No Pedal Edema Neurologic/Psychiatric: Alert, Oriented x3 Results Lab Microbiology 02/15/21 Blood Culture - Final, Complete No growth Assessment/Plan Assessment/Plan Assess & Plan/Chief Complaint 1. Acute Emphysematous Cholecystitis with Adia-duodenal fistula--S/P Lap Adia with open repair of Adia-duodenal fistula followed by gallstone Ileus and abscess formation--S/P repeat surgery for lap adia with gallstone removal and repair of biliary leak as well as abscess drainage, now with wound vac, patient pulled out feeding tube, drains now with brown/green output but less today, continue IV antibiotics, pain control as needed, lovenox for DVT prophylaxis, repeat Upper GI with CT scan today 2. Hypertension--oral metoprolol DCed but BP stable so will monitor and start IV metoprolol if needed 3. Hypoxemia with Atelectesis and Acute Respiratory Failure--continue IS, down to NC on oxygen 4. Agioedema--improved so will DC solumedrol 5. Leukocytosis--likely from steroids, improved Clinical Quality Measures Admission Status Admission Dx 1. Acute Emphysematous Cholecystitis with Adia-duodenal fistula--S/P Lap Adia with open repair of Adia-duodenal fistula--NG tube in place, NPO, IV antibiotic s, pain control, lovenox for DVT prophylaxis 2. Hypertension--metoprolol IV began JOANNE ALVAREZ DO Mar 01, 2021 13:10
[2021-03-01 16:31] VITALS: BP 124/77
[2021-03-01] MEDS: ENOXAPARIN 40 MG/0.4 ML (LOVENOX) SYR SC SCH (18:17)
[2021-03-01] MEDS: FAMOTIDINE 20MG/2ML IV (PEPCID) IVP SCH (19:57)
[2021-03-01 20:31] VITALS: BP 127/73
[2021-03-02 00:20] VITALS: BP 137/90
[2021-03-02] MEDS: RT-ALBUTEROL/IPRATROPIUM 3 ML (DUONEB) VIAL INH SCH ×6 (02:24→21:55)
[2021-03-02 04:00] VITALS: BP 129/73
[2021-03-02] MEDS: LACTATED RINGERS 1,000 ML IV SCH ×3 (04:12→16:00)
[2021-03-02 05:58] LABS: HEMOGLOBIN 13.1 g/dL (13.3-17.7); WHITE BLOOD COUNT 15.2 10^3/uL (4.3-11.0)
[2021-03-02 06:15] LABS: ALANINE AMINOTRANSFERASE 33 U/L (0-55); ALBUMIN 2.6 GM/DL (3.2-4.5); ALKALINE PHOSPHATASE 60 U/L (40-136); BILIRUBIN,TOTAL 0.6 MG/DL (0.1-1.0); BUN/CREATININE RATIO 18; CALCIUM 7.4 MG/DL (8.5-10.1); CARBON DIOXIDE 18 MMOL/L (21-32); CHLORIDE 105 MMOL/L (98-107); CREATININE SERUM 0.71 MG/DL (0.60-1.30); GFR ESTIMATED > 60; GLUCOSE 117 MG/DL (70-105); POTASSIUM 3.5 MMOL/L (3.6-5.0); SODIUM 133 MMOL/L (135-145); TOTAL PROTEIN 5.5 GM/DL (6.4-8.2)
[2021-03-02] MEDS: PIPERACILLIN/TAZOBACTAM (BULK) 4.5 GM in NS (IVPB) 100 ML IV SCH ×3 (06:30→21:43)
--- NOTE | 2021-03-02 07:48 | Progress Note - Surgery ---
JORGE EDWARD MED STUDENT 03/02/21 0748: Subjective Date Seen by a Provider: Mar 02, 2021 Time Seen by a Provider: 07:00 Subjective/Events-last exam Amaury complains of a sore throat due to NG suction tubing but denies other complaints. States breathing feels better. Denies fever, chills, rash, chest pain, abdominal pain, cough, leg pain. Objective Exam Vital Signs Date Time Temp Pulse Resp B/P (MAP) Pulse Ox O2 Delivery O2 Flow Rate FiO2 03/02/21 04:00 36.4 87 20 129/73 (91) 94 Nasal Cannula 4.00 03/02/21 02:25 94 Nasal Cannula 1.00 03/02/21 01:00 80 03/02/21 00:20 36.5 73 20 137/90 (106) 94 Nasal Cannula 4.00 03/01/21 21:35 94 Nasal Cannula 1.00 03/01/21 20:31 36.6 77 16 127/73 (91) 94 Nasal Cannula 4.00 03/01/21 20:00 High Flow N/C 4.00 03/01/21 19:00 73 03/01/21 18:58 94 Nasal Cannula 1.00 03/01/21 16:31 35.7 73 18 124/77 (93) 95 Nasal Cannula 4.00 03/01/21 14:45 96 Nasal Cannula 3.00 03/01/21 12:27 72 03/01/21 12:05 36.7 71 15 131/74 (93) 95 Nasal Cannula 4.00 03/01/21 10:49 93 Nasal Cannula 4.00 03/01/21 09:00 High Flow N/C 4.00 03/01/21 08:06 36.4 69 15 138/75 (96) 96 Nasal Cannula 4.00 I & O 03/02/21 07:00 Intake Total 0 ml Output Total 3050 ml Balance -3050 ml Capillary Refill : Less Than 3 SecondsLess Than 3 Seconds General Appearance: No Apparent Distress, Obese HEENT: Other (NC in place for Vapotherm) Neck: Supple Respiratory: Lungs Clear, Decreased Breath Sounds (especially bases. More p ronounced than yesterday, likely because patient is on 1L NC rather than vapotherm) Cardiovascular: Regular Rate, Rhythm, No Murmur Gastrointestinal: soft; No distended; tenderness (mild RUQ), other (dressing dry. both drains with minimal brownish-red drainage) Extremity: No Calf Tenderness Neurologic/Psychiatric: Alert, Oriented x3 Skin: Warm/Dry Results Lab Laboratory Tests 03/02/21 05:43: White Blood Count 15.2H, Red Blood Count 4.42, Hemoglobin 13.1L, Hematocrit 40, Mean Corpuscular Volume 90, Mean Corpuscular Hemoglobin 30, Mean Corpuscular Hemoglobin Concent 33, Red Cell Distribution Width 13.1, Platelet Count 427H, Mean Platelet Volume 11.0, Sodium Level 133L, Potassium Level 3.5L, Chloride Level 105, Carbon Dioxide Level 18L, Anion Gap 10, Blood Urea Nitrogen 13, Creatinine 0.71, Estimat Glomerular Filtration Rate > 60, BUN/Creatinine Ratio 18, Glucose Level 117H, Calcium Level 7.4L, Corrected Calcium 8.5, Total Bilirubin 0.6, Aspartate Amino Transf (AST/SGOT) 24, Alanine Aminotransferase (ALT/SGPT) 33, Alkaline Phosphatase 60, Total Protein 5.5L, Albumin 2.6L Microbiology 02/15/21 Blood Culture - Final, Complete No growth Assessment/Plan Assessment/Plan Assessment/Plan 1. Acute Emphysematous Cholecystitis with Tila-duodenal fistula--S/P Lap Tila with open repair of Tila-duodenal fistula followed by gallstone Ileus and abscess formation--S/P repeat surgery for lap tila with gallstone removal and repair of biliary leak as well as abscess drainage, now with wound vac, patient pulled out feeding tube- will not replace. 1 FELISHA drain now with brown/red output UGI study done yesterday using the CT - read by Radiology as less fluid around duodenum, no leak, but still some small air bubbles. Continue IV antibiotics, pain control as needed, lovenox for DVT prophylaxis the patient agrees with plan to do 2 weeks of TPN, is eager to have NG suction tube pulled. Order placed yesterday to culture FELISHA drains Metronidazole was stopped d/t longevity of abx treatment, will adjust abx with return of FELISHA drain culture. Still on Zosyn. 2. Hypertension--oral metoprolol DCed but BP stable so will monitor and start IV metoprolol if needed 3. Hypoxemia with Atelectesis and Acute Respiratory Failure-- stressed importance of IS and walking. Is 94% on 1L NC in the room but CT read noted "bilateral pleural effusions with bibasilar atelectasis or pneumonia" and patient does not sound like he moves much air on auscultation. AMY KING DO 03/02/21 1106: Subjective Time Seen by a Provider: 10:44 Subjective/Events-last exam Pt seen and examined, he decided he will go with 2 weeks of TPN. Review of Systems General: No Chills, No Night Sweats; Fatigue Pulmonary: No Dyspnea, No Cough Cardiovascular: No: Chest Pain, Palpitations Objective Exam General Appearance: No Apparent Distress, Obese HEENT: Other (NC in place for Vapotherm) Respiratory: Lungs Clear, Decreased Breath Sounds (especially bases. More pronounced than yesterday, likely because patient is on 1L NC rather than vapotherm) Cardiovascular: Regular Rate, Rhythm, No Murmur Gastrointestinal: soft; No distended; tenderness (mild RUQ), other (dressing dry. both drains with minimal brownish-red drainage) Assessment/Plan Assessment/Plan Assessment/Plan 1. Acute Emphysematous Cholecystitis with Tila-duodenal fistula--S/P Lap Tila with open repair of Tila-duodenal fistula followed by gallstone Ileus and abscess formation--S/P repeat surgery for lap tila with gallstone removal and repair of biliary leak as well as abscess drainage, now with wound vac, patient pulled out feeding tube- will not replace. 1 FELISHA drain now with brown/red output, UGI study done yesterday using the CT - read by Radiology as less fluid around duodenum, no leak, but still some small air bubbles. Continue IV antibiotics, pain control as needed, lovenox for DVT prophylaxis. Await cultures from FELISHA. Plan to do 2 weeks of TPN, is eager to have NG suction tube pulled. 2. Hypertension--oral metoprolol DCed but BP stable so will monitor and start IV metoprolol if needed 3. Hypoxemia with Atelectesis and Acute Respiratory Failure-- stressed importa nce of IS and walking. Pt now on room air only Supervisory-Addendum Brief Verification & Attestation Participated in pt care: history, MDM, physical Personally performed: exam, history, MDM Care discussed with: Medical Student Procedures: n/a Verification and Attestation of Medical Student E/M Service A medical student performed and documented this service. I then reviewed and verified all information documented by the medical student and made modifications to such information, when appropriate. I personally performed a physical exam, medical decision making and then discussed any differences between the notes and made revisions as necessary to create one note. Amy King , 03/02/21 , 11:06 JORGE EDWARD MED STUDENT Mar 02, 2021 07:48 AMY KING DO Mar 02, 2021 11:06
[2021-03-02 07:53] VITALS: BP 130/77
[2021-03-02] MEDS: PANTOPRAZOLE 40 MG (PROTONIX) VIAL IVP SCH (08:26)
[2021-03-02] MEDS ORDERED: TPN IV SCH (11:15)
[2021-03-02 11:40] LABS: HEMOGLOBIN 13.7 g/dL (13.3-17.7); MEAN PLATELET VOLUME 10.8 fL (9.0-12.2); WHITE BLOOD COUNT 16.7 10^3/uL (4.3-11.0)
[2021-03-02 11:58] VITALS: BP 114/76
[2021-03-02 11:59] LABS: MAGNESIUM 2.2 MG/DL (1.6-2.4); PHOSPHORUS 2.4 MG/DL (2.3-4.7)
[2021-03-02] MEDS: fentaNYL INJ 100 MCG/2 ML AMP IVP PRN (12:10)
[2021-03-02] MEDS: POTASSIUM CL 10MEQ/50ML IVPB 50 ML IV SCH ×4 (14:06→18:23)
[2021-03-02 16:00] VITALS: BP 119/70
[2021-03-02] MEDS ORDERED: SODIUM ACETATE IV SCH ×11 (17:00)
[2021-03-02] MEDS ORDERED: SODIUM CHLORIDE IV SCH ×11 (17:00)
[2021-03-02] MEDS ORDERED: [UNRECOGNIZED DRUG - OTHER] IV SCH ×11 (17:00)
--- NOTE | 2021-03-02 17:58 | Progress Note ---
Subjective Date Seen by a Provider: Mar 02, 2021 Time Seen by a Provider: 12:30 Subjective/Events-last exam Fwup Acute Emphysematous Cholecystitis with Adia-duodenal fistula--S/P Lap Adia with open repair of Adia-duodenal fistula, HTN, atelectesis with respiratory distress, return to surgery for exp lap for gallstone ileus/biliary leak repair and abscess drainage, angioedema. NG tube out. Off oxygen. Drains still with green/brown drainage but less output. Wound vac being changed. Objective Exam Vital Signs Date Time Temp Pulse Resp B/P (MAP) Pulse Ox O2 Delivery O2 Flow Rate FiO2 03/02/21 16:00 37.0 86 18 119/70 (86) 96 Room Air 03/02/21 15:03 90 Room Air 03/02/21 13:00 96 Room Air 03/02/21 11:58 36.0 94 16 114/76 (89) 95 Room Air 03/02/21 11:50 94 Room Air 03/02/21 09:00 High Flow N/C 1.00 03/02/21 07:53 36.1 73 18 130/77 (94) 93 Nasal Cannula 1.00 03/02/21 07:00 82 03/02/21 04:00 36.4 87 20 129/73 (91) 94 Nasal Cannula 4.00 03/02/21 02:25 94 Nasal Cannula 1.00 03/02/21 01:00 80 03/02/21 00:20 36.5 73 20 137/90 (106) 94 Nasal Cannula 4.00 03/01/21 21:35 94 Nasal Cannula 1.00 03/01/21 20:31 36.6 77 16 127/73 (91) 94 Nasal Cannula 4.00 03/01/21 20:00 High Flow N/C 4.00 03/01/21 19:00 73 03/01/21 18:58 94 Nasal Cannula 1.00 I & O 03/02/21 07:00 Intake Total 0 ml Output Total 3050 ml Balance -3050 ml Capillary Refill : Less Than 3 SecondsLess Than 3 Seconds General Appearance: No Apparent Distress Respiratory: Lungs Clear Cardiovascular: Regular Rate, Rhythm Gastrointestinal: normal bowel sounds, soft, other (good granulation tissue to wound bed, drains still with brownish red output) Extremity: Non Tender, No Calf Tenderness, No Pedal Edema Neurologic/Psychiatric: Alert, Oriented x3 Skin: Warm/Dry Results Lab Laboratory Tests 03/02/21 05:43: White Blood Count 15.2H, Red Blood Count 4.42, Hemoglobin 13.1L, Hematocrit 40, Mean Corpuscular Volume 90, Mean Corpuscular Hemoglobin 30, Mean Corpuscular Hemoglobin Concent 33, Red Cell Distribution Width 13.1, Platelet Count 427H, Mean Platelet Volume 11.0, Sodium Level 133L, Potassium Level 3.5L, Chloride Level 105, Carbon Dioxide Level 18L, Anion Gap 10, Blood Urea Nitrogen 13, Creatinine 0.71, Estimat Glomerular Filtration Rate > 60, BUN/Creatinine Ratio 18, Glucose Level 117H, Calcium Level 7.4L, Corrected Calcium 8.5, Total Bilirubin 0.6, Aspartate Amino Transf (AST/SGOT) 24, Alanine Aminotransferase (ALT/SGPT) 33, Alkaline Phosphatase 60, Total Protein 5.5L, Albumin 2.6L 03/02/21 11:30: White Blood Count 16.7H, Red Blood Count 4.58, Hemoglobin 13.7, Hematocrit 42, Mean Corpuscular Volume 92, Mean Corpuscular Hemoglobin 30, Mean Corpuscular Hemoglobin Concent 33, Red Cell Distribution Width 13.2, Platelet Count 451H, Mean Platelet Volume 10.8, Phosphorus Level 2.4, Magnesium Level 2.2, Triglycerides Level 241H Microbiology 03/01/21 Gram Stain, Resulted Pending 03/01/21 Wound Culture - Preliminary, Resulted Gram Negative Bacillus 1 02/15/21 Blood Culture - Final, Complete No growth Assessment/Plan Assessment/Plan Assess & Plan/Chief Complaint 1. Acute Emphysematous Cholecystitis with Adia-duodenal fistula--S/P Lap Adia with open repair of Adia-duodenal fistula followed by gallstone Ileus and abscess formation--S/P repeat surgery for lap adia with gallstone removal and repair of biliary leak as well as abscess drainage, now with wound vac, patient pulled out feeding tube, drains now with brown/green output but less today, continue IV antibiotics, pain control as needed, lovenox for DVT prophylaxis, repeat Upper GI with CT showed no obvious biliary leak, NG tube is out and plan is for PICC line today and start TPN 2. Hypertension--stable off med 3. Hypoxemia with Atelectesis and Acute Respiratory Failure--continue IS 4. Agioedema--improved 5. Leukocytosis--will recheck tomorrow, flagyl did fall off due to completion Clinical Quality Measures Admission Status Admission Dx 1. Acute Emphysematous Cholecystitis with Adia-duodenal fistula--S/P Lap Adia with open repair of Adia-duodenal fistula--NG tube in place, NPO, IV antibiotics, pain control, lovenox for DVT prophylaxis 2. Hypertension--metoprolol IV began JOANNE ALVAREZ DO Mar 02, 2021 17:58
[2021-03-02] MEDS: ENOXAPARIN 40 MG/0.4 ML (LOVENOX) SYR SC SCH (18:26)
[2021-03-02] MEDS: FAMOTIDINE 20MG/2ML IV (PEPCID) IVP SCH (20:53)
[2021-03-03] VITALS: BP 136/78
[2021-03-03] MEDS: RT-ALBUTEROL/IPRATROPIUM 3 ML (DUONEB) VIAL INH SCH ×6 (02:22→22:22)
[2021-03-03] MEDS: LACTATED RINGERS 1,000 ML IV SCH ×2 (02:59→17:35)
[2021-03-03] MEDS: PIPERACILLIN/TAZOBACTAM (BULK) 4.5 GM in NS (IVPB) 100 ML IV SCH (06:08)
[2021-03-03 06:18] LABS: HEMOGLOBIN 12.5 g/dL (13.3-17.7); MEAN PLATELET VOLUME 11.3 fL (9.0-12.2); WHITE BLOOD COUNT 12.6 10^3/uL (4.3-11.0)
[2021-03-03 06:39] LABS: ALBUMIN 2.7 GM/DL (3.2-4.5); CHLORIDE 104 MMOL/L (98-107); SODIUM 135 MMOL/L (135-145)
[2021-03-03 06:41] LABS: CALCIUM 7.6 MG/DL (8.5-10.1)
[2021-03-03 06:42] LABS: GLUCOSE 126 MG/DL (70-105); TOTAL PROTEIN 5.6 GM/DL (6.4-8.2)
[2021-03-03 06:43] LABS: CARBON DIOXIDE 20 MMOL/L (21-32)
[2021-03-03 06:44] LABS: BILIRUBIN,TOTAL 0.5 MG/DL (0.1-1.0)
[2021-03-03 06:45] LABS: ALKALINE PHOSPHATASE 57 U/L (40-136); CREATININE SERUM 0.71 MG/DL (0.60-1.30); GFR ESTIMATED > 60; PHOSPHORUS 2.7 MG/DL (2.3-4.7)
[2021-03-03 06:46] LABS: BUN/CREATININE RATIO 15
[2021-03-03 06:48] LABS: ALANINE AMINOTRANSFERASE 28 U/L (0-55); MAGNESIUM 2.1 MG/DL (1.6-2.4)
[2021-03-03 08:00] VITALS: BP 137/84
[2021-03-03] MEDS: PANTOPRAZOLE 40 MG (PROTONIX) VIAL IVP SCH (08:06)
--- NOTE | 2021-03-03 12:09 | Progress Note ---
Subjective Date Seen by a Provider: Mar 03, 2021 Time Seen by a Provider: 09:45 Subjective/Events-last exam Fwup Acute Emphysematous Cholecystitis with Adia-duodenal fistula--S/P Lap Adia with open repair of Adia-duodenal fistula, HTN, atelectesis with respiratory distress, return to surgery for exp lap for gallstone ileus/biliary leak repair and abscess drainage, angioedema. Sitting up in chair. Feeling good. Plan is for DC Saturday or Saturday with home health. Objective Exam Vital Signs Date Time Temp Pulse Resp B/P (MAP) Pulse Ox O2 Delivery O2 Flow Rate FiO2 03/03/21 11:10 94 Room Air 03/03/21 08:00 36.2 89 16 137/84 (101) 96 Room Air 03/03/21 08:00 Room Air 03/03/21 06:35 94 Room Air 03/03/21 02:22 93 Room Air 03/03/21 00:00 36.4 84 18 136/78 (97) 93 Room Air 03/02/21 21:55 92 Room Air 03/02/21 20:00 Room Air 03/02/21 18:31 95 Room Air 03/02/21 16:00 37.0 86 18 119/70 (86) 96 Room Air 03/02/21 15:03 90 Room Air 03/02/21 13:00 96 Room Air I & O 03/03/21 07:00 Intake Total 1050 ml Output Total 3760 ml Balance -2710 ml Capillary Refill : Less Than 3 SecondsLess Than 3 Seconds General Appearance: No Apparent Distress Neck: Supple Respiratory: Lungs Clear Cardiovascular: Regular Rate, Rhythm Gastrointestinal: normal bowel sounds, non tender, soft, other (Wound Vac in place, drains still with brown/green drainage) Extremity: Non Tender, No Calf Tenderness, No Pedal Edema Neurologic/Psychiatric: Alert, Oriented x3 Skin: Warm/Dry Results Lab Laboratory Tests 03/03/21 06:09: White Blood Count 12.6H, Red Blood Count 4.20L, Hemoglobin 12.5L, Hematocrit 38L , Mean Corpuscular Volume 90, Mean Corpuscular Hemoglobin 30, Mean Corpuscular Hemoglobin Concent 33, Red Cell Distribution Width 13.1, Platelet Count 339, Mean Platelet Volume 11.3, Sodium Level 135, Potassium Level 4.0, Chloride Level 104, Carbon Dioxide Level 20L, Anion Gap 11, Blood Urea Nitrogen 11, Creatinine 0.71, Estimat Glomerular Filtration Rate > 60, BUN/Creatinine Ratio 15, Glucose Level 126H, Calcium Level 7.6L, Corrected Calcium 8.6, Phosphorus Level 2.7, Magnesium Level 2.1, Total Bilirubin 0.5, Aspartate Amino Transf (AST/SGOT) 23, Alanine Aminotransferase (ALT/SGPT) 28, Alkaline Phosphatase 57, Total Protein 5.6L, Albumin 2.7L Microbiology 03/01/21 Gram Stain - Final, Resulted 03/01/21 Wound Culture - Preliminary, Resulted Gram Negative Bacillus 1 02/15/21 Blood Culture - Final, Complete No growth Assessment/Plan Assessment/Plan Assess & Plan/Chief Complaint 1. Acute Emphysematous Cholecystitis with Adia-duodenal fistula--S/P Lap Adia with open repair of Adia-duodenal fistula followed by gallstone Ileus and abscess formation--S/P repeat surgery for lap adia with gallstone removal and repair of biliary leak as well as abscess drainage, now with wound vac, drains now with brown/green output but updated upper GI with CT showed resolution of abscess and no obvious leak, continue IV antibiotics, pain control as needed, lovenox for DVT prophylaxis, NG tube is out and PICC has been placed so now on TPN, plan is DC home on Saturday or Saturday with home health on prolonged TPN 2. Hypertension--stable off meds 3. Hypoxemia with Atelectesis and Acute Respiratory Failure--continue IS 4. Agioedema--resolved 5. Leukocytosis--improved from yesterday Clinical Quality Measures Admission Status Admission Dx 1. Acute Emphysematous Cholecystitis with Adia-duodenal fistula--S/P Lap Adia with open repair of Adia-duodenal fistula--NG tube in place, NPO, IV antibiotics, pain control, lovenox for DVT prophylaxis 2. Hypertension--metoprolol IV began JOANNE ALVAREZ DO Mar 03, 2021 12:09
--- NOTE | 2021-03-03 12:57 | Progress Note - Surgery ---
Subjective Time Seen by a Provider: 09:28 Subjective/Events-last exam Pt seen and examined, he actually looks much better today (better color and more awake and alert). He states he feels pretty good, no trouble breathing and not on supplementary O2. Review of Systems General: No Chills Pulmonary: No Dyspnea, No Cough Cardiovascular: No: Chest Pain, Palpitations Gastrointestinal: No: Nausea, Vomiting, Abdominal Pain Objective Exam Vital Signs Date Time Temp Pulse Resp B/P (MAP) Pulse Ox O2 Delivery O2 Flow Rate FiO2 03/03/21 11:10 94 Room Air 03/03/21 08:00 36.2 89 16 137/84 (101) 96 Room Air 03/03/21 08:00 Room Air 03/03/21 06:35 94 Room Air 03/03/21 02:22 93 Room Air 03/03/21 00:00 36.4 84 18 136/78 (97) 93 Room Air 03/02/21 21:55 92 Room Air 03/02/21 20:00 Room Air 03/02/21 18:31 95 Room Air 03/02/21 16:00 37.0 86 18 119/70 (86) 96 Room Air 03/02/21 15:03 90 Room Air 03/02/21 13:00 96 Room Air I & O 03/03/21 07:00 Intake Total 1050 ml Output Total 3760 ml Balance -2710 ml Capillary Refill : Less Than 3 SecondsLess Than 3 Seconds General Appearance: No Apparent Distress HEENT: PERRL/EOMI Respiratory: Lungs Clear, Decreased Breath Sounds (at bases) Cardiovascular: Regular Rate, Rhythm, No Murmur Gastrointestinal: normal bowel sounds, non tender, soft, other (Wound Vac in place, drains still with brown/green drainage) Extremity: Non Tender, No Calf Tenderness, No Pedal Edema Neurologic/Psychiatric: Alert, Oriented x3 Skin: Warm/Dry Results Lab Laboratory Tests 03/03/21 06:09: White Blood Count 12.6H, Red Blood Count 4.20L, Hemoglobin 12.5L, Hematocrit 38L , Mean Corpuscular Volume 90, Mean Corpuscular Hemoglobin 30, Mean Corpuscular Hemoglobin Concent 33, Red Cell Distribution Width 13.1, Platelet Count 339, Mean Platelet Volume 11.3, Sodium Level 135, Potassium Level 4.0, Chloride Level 104, Carbon Dioxide Level 20L, Anion Gap 11, Blood Urea Nitrogen 11, Creatinine 0.71, Estimat Glomerular Filtration Rate > 60, BUN/Creatinine Ratio 15, Glucose Level 126H, Calcium Level 7.6L, Corrected Calcium 8.6, Phosphorus Level 2.7, Magnesium Level 2.1, Total Bilirubin 0.5, Aspartate Amino Transf (AST/SGOT) 23, Alanine Aminotransferase (ALT/SGPT) 28, Alkaline Phosphatase 57, Total Protein 5.6L, Albumin 2.7L Microbiology 03/01/21 Gram Stain - Final, Resulted 03/01/21 Wound Culture - Preliminary, Resulted Klebsiella oxytoca 02/15/21 Blood Culture - Final, Complete No growth Assessment/Plan Assessment/Plan Assessment/Plan 1. Acute Emphysematous Cholecystitis with Adia-duodenal fistula--S/P Lap Adia with open repair of Adia-duodenal fistula followed by gallstone Ileus and abscess formation --S/P repeat surgery for lap adia with gallstone removal and repair of biliary leak as well as abscess drainage, now with wound vac, drains now with brown/green output but updated upper GI with CT showed decreased fluids and no obvious leak, continue IV antibiotics, pain control as needed, lovenox for DVT prophylaxis, NG tube is out and PICC has been placed so now on TPN, plan is DC home; hopefully Saturday with home health on prolonged TPN and IV ABX 2. Hypertension--stable off meds 3. Hypoxemia with Atelectesis and Acute Respiratory Failure--continue IS AMY SERNA DO Mar 03, 2021 12:57
[2021-03-03] MEDS: cefTRIAXone FOR IV USE 1,000 MG in WATER (STERILE) FOR INJECTION 10 ML IV SCH (13:43)
[2021-03-03 16:45] VITALS: BP 109/73
[2021-03-03] MEDS ORDERED: [UNRECOGNIZED DRUG - OTHER] IV SCH ×11 (17:00)
[2021-03-03] MEDS ORDERED: SODIUM CHLORIDE IV SCH ×11 (17:00)
[2021-03-03] MEDS ORDERED: SODIUM ACETATE IV SCH ×11 (17:00)
[2021-03-03] MEDS: FAMOTIDINE 20MG/2ML IV (PEPCID) IVP SCH (19:34)
[2021-03-03 23:50] VITALS: BP 124/78
[2021-03-04] MEDS: RT-ALBUTEROL/IPRATROPIUM 3 ML (DUONEB) VIAL INH SCH ×6 (02:33→22:34)
[2021-03-04 02:58] LABS: MEAN PLATELET VOLUME 11.7 fL (9.0-12.2); WHITE BLOOD COUNT 10.1 10^3/uL (4.3-11.0)
[2021-03-04 03:16] LABS: ALBUMIN 2.9 GM/DL (3.2-4.5); CHLORIDE 107 MMOL/L (98-107); POTASSIUM 4.1 MMOL/L (3.6-5.0); SODIUM 136 MMOL/L (135-145)
[2021-03-04 03:17] LABS: CALCIUM 7.8 MG/DL (8.5-10.1)
[2021-03-04 03:19] LABS: GLUCOSE 142 MG/DL (70-105); TOTAL PROTEIN 5.9 GM/DL (6.4-8.2)
[2021-03-04 03:20] LABS: CARBON DIOXIDE 18 MMOL/L (21-32)
[2021-03-04 03:21] LABS: BILIRUBIN,TOTAL 0.4 MG/DL (0.1-1.0)
[2021-03-04 03:22] LABS: ALKALINE PHOSPHATASE 58 U/L (40-136); CREATININE SERUM 0.67 MG/DL (0.60-1.30); GFR ESTIMATED > 60; PHOSPHORUS 2.9 MG/DL (2.3-4.7)
[2021-03-04 03:24] LABS: BUN/CREATININE RATIO 16
[2021-03-04 03:25] LABS: ALANINE AMINOTRANSFERASE 29 U/L (0-55); MAGNESIUM 2.2 MG/DL (1.6-2.4)
[2021-03-04] MEDS: LACTATED RINGERS 1,000 ML IV SCH ×2 (06:01→19:10)
[2021-03-04 07:15] VITALS: BP 124/75
--- NOTE | 2021-03-04 07:46 | Progress Note ---
Subjective Subjective Date Seen by Provider: Mar 04, 2021 Time Seen by Provider: 08:30 PT STATES THAT HE IS FEELING BETTER, HAD A BOWEL MOVEMENT YESTERDAY EVENING, HE DENIES PAIN WITH THE BOWEL MOVEMENT. HE DENIES CHEST PAIN, SHORTNESS OF BREATH. HE NOTES A SIGNIFICANT WEIGHT LOSS. Review of Systems General: No Chills; Fatigue HEENT: No Head Aches, No Visual Changes Pulmonary: No Dyspnea, No Cough Cardiovascular: No: Chest Pain, Palpitations Gastrointestinal: Other (+ BOWEL MOVEMENT YESTERDAY, SOFT); No: Nausea, Vomiting, Abdominal Pain Genitourinary: No Dysuria, No Frequency Musculoskeletal: No: arm pain, leg pain Neurological: No: Weakness, Numbness, Confusion All Other Systems Reviewed All Other Systems Reviewed: Yes Objective Exam Vital Signs Vital Signs - First Documented 02/26/21 02/26/21 00:00 11:52 Temp 37.2 Pulse 83 Resp 18 B/P (MAP) 121/71 (88) Pulse Ox 91 O2 Delivery High Flow N/C O2 Flow Rate 4.50 FiO2 35 Capillary Refill : Less Than 3 SecondsLess Than 3 Seconds General Appearance: No Apparent Distress Eyes: Bilateral Eye PERRL, Bilateral Eye EOMI HEENT: PERRL/EOMI Respiratory: Chest Non Tender, Lungs Clear, Normal Breath Sounds Cardiovascular: Regular Rate, Rhythm, No Murmur Gastrointestinal: Non Tender, Soft, Abnormal Bowel Sounds (DECREASED), Other (WOUND VAC IN PLACE IN VENTRAL ASPECT OF ABD, HE HAS NO ERYTHEMA NOTED ON SKIN AROUND VAC, FELISHA DRAINS WITH MINIMAL OUTPUT) Rectal: Deferred Extremity: Non Tender, No Calf Tenderness, No Pedal Edema Neurologic/Psychiatric: Alert, Oriented x3, Normal Mood/Affect Skin: Normal Color, Warm/Dry Results Lab Laboratory Tests 03/04/21 02:21: White Blood Count 10.1, Red Blood Count 4.10L, Hemoglobin 12.0L, Hematocrit 37L, Mean Corpuscular Volume 91, Mean Corpuscular Hemoglobin 29, Mean Corpuscular Hemoglobin Concent 32, Red Cell Distribution Width 13.4, Platelet Count 332, Mean Platelet Volume 11.7, Sodium Level 136, Potassium Level 4.1, Chloride Level 107, Carbon Dioxide Level 18L, Anion Gap 11, Blood Urea Nitrogen 11, Creatinine 0.67, Estimat Glomerular Filtration Rate > 60, BUN/Creatinine Ratio 16, Glucose Level 142H, Calcium Level 7.8L, Corrected Calcium 8.7, Phosphorus Level 2.9, Magnesium Level 2.2, Total Bilirubin 0.4, Aspartate Amino Transf (AST/SGOT) 20, Alanine Aminotransferase (ALT/SGPT) 29, Alkaline Phosphatase 58, Total Protein 5.9L, Albumin 2.9L Microbiology 03/01/21 Gram Stain - Final, Resulted 03/01/21 Wound Culture - Preliminary, Resulted Klebsiella oxytoca 02/15/21 Blood Culture - Final, Complete No growth Assessment/Plan Assessment/Plan Assessment and Plan GALLSTONE ILEUS AND ABSCESS FORMATION ACUTE EMPHYSEMATOUS CHOLECYSTITIS WITH CHOLEDUODENAL FISTULA HYPERTENSION ATELECTASIS LEUKOCYTOSIS MALNUTRITION GALLSTONE ILEUS AND ABSCESS FORMATION DUE TO ACUTE EMPHYSEMATOUS CHOLECYSTITIS WITH CHOLEDUODENAL FISTULA - PT IS NOW STATUS POST SURGICAL INTERVENTION FOR THE GALLBLADDER AND REPAIR OF THE FISTULA AND INTERVENTION FOR THE ABSCESS - PLAN FOR PATIENT IS HOME ON TPN FOR A FEW MORE WEEKS, WILL ALSO NEED IV ANTIBIOTICS FOR A FEW MORE WEEKS HE HAS BOWEL REST POST-OPERATIVELY - FELISHA DRAINS SHOW IMPROVED OUTPUT - PT IS ON ROCEPHIN IV - CULTURE REPORT FROM DRAINS FOLLOWS: GRAM STAIN Final Verified 03/02/21- 1800Final L Source: TUBE SITE / FELISHA DRAIN Order Location: Fourth Floor-Med/Surg RML reported gram stain 03/02/21 17:05 No epithelial cells Rare white blood cells Many Gram negative bacilli WOUND CULTURE RESULT Final Verified 03/04/21- 0843Final RM Source: TUBE SITE / FELISHA DRAIN Order Location: Fourth Floor-Med/Surg Organism 1 Klebsiella oxytoca Many SUSCEPTIBILITY REPORTED 03-03-21, 1249 PRELIM REPORT BY [facility] 03-02-21, 1358 source: right side abdominal FELISHA drain #1 Kleb oxy INTERP AMPICILLIN R GENTAMICIN S CEFAZOLIN R CEFTRIAXONE S PIP/TAZO R AMOX/CLAV I TRIMETH/SULFA S LEVOFLOXACIN S CIPROFLOXACIN S IMIPENEM S MEROPENEM S HYPERTENSION - PT HAS LOST WEIGHT, AND WAS TAKEN OFF OF HIS PREVIOUS BP MEDS, WILL MONITOR BP'S AND IF NEEDED RESUME HOME MEDS. ATELECTASIS - IMPROVED WITH PT'S IMPROVING HEALTH, CONTINUE WITH INCENTIVE SPIROMETRY. LEUKOCYTOSIS - RESOLVED, MONITOR LABS. MALNUTRITION - PT TO CONTINUE WITH TPN FOR NUTRITION, ALBUMIN LEVEL STILL A LITTLE LOW. DVT PROPHYLAXIS WITH LOVENOX AND SCD'S GI PROPHYLAXIS WITH PROTONIX Problems: (1) Hyponatremia (2) Acute emphysematous cholecystitis Assessment & Plan: with fistula. s/p surgery 02/12/21 (3) HTN (hypertension) Qualifiers: Qualified Codes: I10 - Essential (primary) hypertension (4) Acute respiratory failure with hypoxia ORALIA HENSON MD Mar 04, 2021 07:46
[2021-03-04] MEDS: PANTOPRAZOLE 40 MG (PROTONIX) VIAL IVP SCH (08:38)
--- NOTE | 2021-03-04 12:05 | Progress Note ---
Subjective Date Seen by a Provider: Mar 04, 2021 Time Seen by a Provider: 11:00 Subjective/Events-last exam doing well. no complaints. had bm yesterday. pain controlled. Objective Exam Vital Signs Date Time Temp Pulse Resp B/P (MAP) Pulse Ox O2 Delivery O2 Flow Rate FiO2 03/04/21 11:15 97 Room Air 03/04/21 08:00 Room Air 03/04/21 07:15 36.5 83 18 124/75 (91) 94 Room Air 03/04/21 06:44 95 Room Air 03/03/21 23:50 36.8 84 18 124/78 (93) 92 Room Air 03/03/21 22:23 93 Room Air 03/03/21 19:30 Room Air 03/03/21 18:53 96 Room Air 03/03/21 16:45 36.2 84 18 109/73 (85) 94 Room Air 03/03/21 14:35 94 Room Air I & O 03/04/21 07:00 Intake Total 1000 ml Output Total 4755 ml Balance -3755 ml Capillary Refill : Less Than 3 SecondsLess Than 3 Seconds General Appearance: No Apparent Distress HEENT: PERRL/EOMI Neck: Full Range of Motion Respiratory: Chest Non Tender, Lungs Clear, Normal Breath Sounds Cardiovascular: Regular Rate, Rhythm Gastrointestinal: normal bowel sounds, soft, other (wound vac in place) Neurologic/Psychiatric: Alert, Oriented x3 Skin: Normal Color Lymphatic: No Adenopathy Results Lab Laboratory Tests 03/04/21 02:21: White Blood Count 10.1, Red Blood Count 4.10L, Hemoglobin 12.0L, Hematocrit 37L, Mean Corpuscular Volume 91, Mean Corpuscular Hemoglobin 29, Mean Corpuscular Hemoglobin Concent 32, Red Cell Distribution Width 13.4, Platelet Count 332, Mean Platelet Volume 11.7, Sodium Level 136, Potassium Level 4.1, Chloride Level 107, Carbon Dioxide Level 18L, Anion Gap 11, Blood Urea Nitrogen 11, Creatinine 0.67, Estimat Glomerular Filtration Rate > 60, BUN/Creatinine Ratio 16, Glucose Level 142H, Calcium Level 7.8L, Corrected Calcium 8.7, Phosphorus Level 2.9, Magnesium Level 2.2, Total Bilirubin 0.4, Aspartate Amino Transf (AST/SGOT) 20, Alanine Aminotransferase (ALT/SGPT) 29, Alkaline Phosphatase 58, Total Protein 5.9L, Albumin 2.9L Microbiology 03/01/21 Gram Stain - Final, Complete 03/01/21 Wound Culture - Final, Complete Klebsiella oxytoca 02/15/21 Blood Culture - Final, Complete No growth Assessment/Plan Assessment/Plan Assess & Plan/Chief Complaint s/p resect cholecysto-enteric fistula, duodenotomy and removal impacted CBD stone. cont IV abx and TPN. upper GI contrast study around 2 weeks. NATALIYA DUARTE MD Mar 04, 2021 12:05
[2021-03-04] MEDS: cefTRIAXone FOR IV USE 1,000 MG in WATER (STERILE) FOR INJECTION 10 ML IV SCH (13:29)
[2021-03-04 16:04] VITALS: BP 113/79
[2021-03-04] MEDS: SODIUM ACETATE IV SCH ×10 (17:40)
[2021-03-04] MEDS: [UNRECOGNIZED DRUG - OTHER] IV SCH ×10 (17:40)
[2021-03-04] MEDS: POTASSIUM CHLORIDE IV SCH ×10 (17:40)
[2021-03-04] MEDS: FAMOTIDINE 20MG/2ML IV (PEPCID) IVP SCH (19:29)
[2021-03-04 23:25] VITALS: BP 135/90
[2021-03-05] MEDS: RT-ALBUTEROL/IPRATROPIUM 3 ML (DUONEB) VIAL INH SCH ×6 (02:43→22:11)
[2021-03-05 06:28] LABS: ALBUMIN 3.2 GM/DL (3.2-4.5); CHLORIDE 105 MMOL/L (98-107); POTASSIUM 4.3 MMOL/L (3.6-5.0); SODIUM 138 MMOL/L (135-145)
[2021-03-05 06:29] LABS: CALCIUM 8.3 MG/DL (8.5-10.1)
[2021-03-05 06:31] LABS: GLUCOSE 120 MG/DL (70-105); TOTAL PROTEIN 6.5 GM/DL (6.4-8.2)
[2021-03-05 06:32] LABS: BILIRUBIN,TOTAL 0.5 MG/DL (0.1-1.0); CARBON DIOXIDE 21 MMOL/L (21-32)
[2021-03-05 06:34] LABS: ALKALINE PHOSPHATASE 70 U/L (40-136); CREATININE SERUM 0.71 MG/DL (0.60-1.30); GFR ESTIMATED > 60
[2021-03-05 06:35] LABS: BUN/CREATININE RATIO 18
[2021-03-05 06:37] LABS: ALANINE AMINOTRANSFERASE 40 U/L (0-55)
[2021-03-05] MEDS: PANTOPRAZOLE 40 MG (PROTONIX) VIAL IVP SCH (07:55)
[2021-03-05] MEDS: LACTATED RINGERS 1,000 ML IV SCH ×2 (07:57→22:05)
[2021-03-05 08:55] VITALS: BP 120/80
--- NOTE | 2021-03-05 09:23 | Progress Note ---
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 HE WAS ADMITTED WITH ABDOMINAL PAIN, HAD STONE IN CBD, WHICH HAD ERODED THROUGH THE BOWEL WALL - HE ENDED UP WITH GB REMOVAL SMALL FISTULA REPAIR AND PT HAD SUBSEQUENT ABSCESS FORMATION WITH GALLSTONE ILEUS. HE REPORTS THAT HE IS FEELING BETTER, HAD A BOWEL MOVEMENT AGAIN LAST NIGHT. HE DENIES PAIN WITH THE BOWEL MOVEMENT. Review of Systems General: No Chills; Fatigue HEENT: No Head Aches, No Visual Changes Pulmonary: No Dyspnea, No Cough Cardiovascular: No: Chest Pain, Palpitations Gastrointestinal: Other (+ BOWEL MOVEMENT YESTERDAY, SOFT); No: Nausea, Vomiting, Abdominal Pain Genitourinary: No Dysuria, No Frequency Musculoskeletal: No: arm pain, leg pain Neurological: No: Weakness, Numbness, Confusion All Other Systems Reviewed All Other Systems Reviewed: Yes Objective Exam Vital Signs Vital Signs - First Documented 02/27/21 02/27/21 00:49 02:52 Temp 36.0 Pulse 93 Resp 21 B/P (MAP) 134/74 (94) Pulse Ox 92 O2 Delivery Vapotherm O2 Flow Rate 40.00 30.00 FiO2 30 Capillary Refill : Less Than 3 SecondsLess Than 3 Seconds General Appearance: No Apparent Distress Eyes: Bilateral Eye PERRL, Bilateral Eye EOMI HEENT: PERRL/EOMI Neck: Full Range of Motion Respiratory: Chest Non Tender, Lungs Clear, Normal Breath Sounds Cardiovascular: Regular Rate, Rhythm Gastrointestinal: Non Tender, Soft, Abnormal Bowel Sounds (DECREASED), Other (WOUND VAC IN PLACE IN VENTRAL ASPECT OF ABD, HE HAS NO ERYTHEMA NOTED ON SKIN AROUND VAC, FELISHA DRAINS WITH MINIMAL OUTPUT) Rectal: Deferred Extremity: Non Tender, No Calf Tenderness, No Pedal Edema Neurologic/Psychiatric: Alert, Oriented x3 Skin: Normal Color Comments FELISHA DRAINS WERE NOT DRAINED PRIOR TO MY EVAL OF THE PATIENT FROM THE NIGHT-SHIFT - HE HAD 11ML OF LAUREANO/BROWN DRAINAGE IN ONE OF THE DRAINS AND SCANT SEROUS FLUID IN OTHER DRAIN. WOUND VAC IN PLACE Results Lab Laboratory Tests 03/05/21 06:00: Sodium Level 138, Potassium Level 4.3, Chloride Level 105, Carbon Dioxide Level 21, Anion Gap 12, Blood Urea Nitrogen 13, Creatinine 0.71, Estimat Glomerular Filtration Rate > 60, BUN/Creatinine Ratio 18, Glucose Level 120H, Calcium Level 8.3L, Corrected Calcium 8.9, Total Bilirubin 0.5, Aspartate Amino Transf (AST/SGOT) 25, Alanine Aminotransferase (ALT/SGPT) 40, Alkaline Phosphatase 70, Total Protein 6.5, Albumin 3.2 Microbiology 03/01/21 Gram Stain - Final, Complete 03/01/21 Wound Culture - Final, Complete Klebsiella oxytoca 02/15/21 Blood Culture - Final, Complete No growth Assessment/Plan Assessment/Plan Assessment and Plan GALLSTONE ILEUS AND ABSCESS FORMATION ACUTE EMPHYSEMATOUS CHOLECYSTITIS WITH CHOLEDUODENAL FISTULA HYPERTENSION ATELECTASIS LEUKOCYTOSIS MALNUTRITION GALLSTONE ILEUS AND ABSCESS FORMATION DUE TO ACUTE EMPHYSEMATOUS CHOLECYSTITIS WITH CHOLEDUODENAL FISTULA - PT IS NOW STATUS POST SURGICAL INTERVENTION FOR THE GALLBLADDER AND REPAIR OF THE FISTULA AND INTERVENTION FOR THE ABSCESS - PLAN FOR PATIENT IS HOME ON TPN FOR A FEW MORE WEEKS, WILL ALSO NEED IV ANTIBIOTICS FOR A FEW MORE WEEKS HE HAS BOWEL REST POST-OPERATIVELY - FELISHA DRAINS SHOW IMPROVED OUTPUT - PT IS ON ROCEPHIN IV - CULTURE REPORT FROM DRAINS FOLLOWS: GRAM STAIN Final Verified 03/02/21- 1800Final RML Source: TUBE SITE / FELISHA DRAIN Order Location: Fourth Floor-Med/Surg RML reported gram stain 03/02/21 17:05 No epithelial cells Rare white blood cells Many Gram negative bacilli WOUND CULTURE RESULT Final Verified 03/04/21- [id number] RML Source: TUBE SITE / FELISHA DRAIN Order Location: Fourth Floor-Med/Surg Organism 1 Klebsiella oxytoca Many SUSCEPTIBILITY REPORTED 03-03-21, 1249 PRELIM REPORT BY [facility] 03-02-21, 1358 source: right side abdominal FELISHA drain #1 Kleb oxy INTERP AMPICILLIN R GENTAMICIN S CEFAZOLIN R CEFTRIAXONE S PIP/TAZO R AMOX/CLAV I TRIMETH/SULFA S LEVOFLOXACIN S CIPROFLOXACIN S IMIPENEM S MEROPENEM S HYPERTENSION - PT HAS LOST WEIGHT, AND WAS TAKEN OFF OF HIS PREVIOUS BP MEDS, WILL MONITOR BP'S AND IF NEEDED RESUME HOME MEDS. ATELECTASIS - IMPROVED WITH PT'S IMPROVING HEALTH, CONTINUE WITH INCENTIVE SPIROMETRY. LEUKOCYTOSIS - RESOLVED, MONITOR LABS. MALNUTRITION - PT TO CONTINUE WITH TPN FOR NUTRITION, ALBUMIN LEVEL NOW NORMAL. DVT PROPHYLAXIS WITH LOVENOX AND SCD'S GI PROPHYLAXIS WITH PROTONIX Problems: (1) Hyponatremia (2) Acute emphysematous cholecystitis Assessment & Plan: with fistula. s/p surgery 02/12/21 (3) HTN (hypertension) Qualifiers: Qualified Codes: I10 - Essential (primary) hypertension (4) Acute respiratory failure with hypoxia ORALIA HENSON MD Mar 05, 2021 09:23
--- NOTE | 2021-03-05 10:41 | Progress Note ---
Subjective Date Seen by a Provider: Mar 05, 2021 Time Seen by a Provider: 10:00 Subjective/Events-last exam Patient see with Dr. Arroyo. Patient reports doing well. Denies any issues. Reports having BMs. Objective Exam Vital Signs Date Time Temp Pulse Resp B/P (MAP) Pulse Ox O2 Delivery O2 Flow Rate FiO2 03/05/21 08:55 36.4 84 26 120/80 (93) 94 Room Air 03/05/21 07:15 95 Room Air 03/05/21 02:43 94 Room Air 03/04/21 23:25 36.4 89 20 135/90 (105) 94 Room Air 03/04/21 22:34 93 Room Air 03/04/21 19:30 Room Air 03/04/21 18:30 96 Room Air 03/04/21 16:04 36.8 92 20 113/79 (90) 97 Room Air 03/04/21 15:03 97 Room Air 03/04/21 11:15 97 Room Air I & O 03/05/21 07:00 Intake Total 1000 ml Output Total 4570 ml Balance -3570 ml Capillary Refill : Less Than 3 SecondsLess Than 3 Seconds General Appearance: No Apparent Distress, WD/WN Neck: Normal Inspection, Supple Respiratory: No Accessory Muscle Use, No Respiratory Distress Cardiovascular: Regular Rate, Rhythm, No Edema Gastrointestinal: normal bowel sounds, non tender, soft, other (Wound vac in place to abdominal incision with no signs of infection. Left FELISHA drains with clear to cloudy brownish color drainage.) Extremity: Normal Inspection, Normal Range of Motion Neurologic/Psychiatric: Alert, Oriented x3 Skin: Normal Color, Warm/Dry Results Lab Laboratory Tests 03/05/21 06:00: Sodium Level 138, Potassium Level 4.3, Chloride Level 105, Carbon Dioxide Level 21, Anion Gap 12, Blood Urea Nitrogen 13, Creatinine 0.71, Estimat Glomerular Filtration Rate > 60, BUN/Creatinine Ratio 18, Glucose Level 120H, Calcium Level 8.3L, Corrected Calcium 8.9, Total Bilirubin 0.5, Aspartate Amino Transf (AST/SGOT) 25, Alanine Aminotransferase (ALT/SGPT) 40, Alkaline Phosphatase 70, Total Protein 6.5, Albumin 3.2 Microbiology 03/01/21 Gram Stain - Final, Complete 03/01/21 Wound Culture - Final, Complete Klebsiella oxytoca 02/15/21 Blood Culture - Final, Complete No growth Assessment/Plan Assessment/Plan Assess & Plan/Chief Complaint s/p resect cholecysto-enteric fistula, duodenotomy and removal impacted CBD stone. cont IV abx and TPN. upper GI contrast study around 2 weeks. MOISES [employer] ELECT[employer]IC METER TESTER Mar 05, 2021 10:41
[2021-03-05] MEDS: cefTRIAXone FOR IV USE 1,000 MG in WATER (STERILE) FOR INJECTION 10 ML IV SCH (12:45)
[2021-03-05 16:36] VITALS: BP 112/80
[2021-03-05] MEDS: POTASSIUM CHLORIDE IV SCH ×10 (16:57)
[2021-03-05] MEDS: SODIUM ACETATE IV SCH ×10 (16:57)
[2021-03-05] MEDS: [UNRECOGNIZED DRUG - OTHER] IV SCH ×10 (16:57)
[2021-03-05] MEDS: FAMOTIDINE 20MG/2ML IV (PEPCID) IVP SCH (19:23)
[2021-03-05 23:26] VITALS: BP 142/91
[2021-03-06] MEDS: RT-ALBUTEROL/IPRATROPIUM 3 ML (DUONEB) VIAL INH SCH ×4 (02:20→22:30)
[2021-03-06 03:33] VITALS: BP 122/83
[2021-03-06 06:18] LABS: HEMOGLOBIN 13.5 g/dL (13.3-17.7); MEAN PLATELET VOLUME 11.4 fL (9.0-12.2); WHITE BLOOD COUNT 17.7 10^3/uL (4.3-11.0)
[2021-03-06 06:30] LABS: CHLORIDE 103 MMOL/L (98-107); POTASSIUM 4.1 MMOL/L (3.6-5.0); SODIUM 135 MMOL/L (135-145)
[2021-03-06 06:31] LABS: CALCIUM 8.4 MG/DL (8.5-10.1); GLUCOSE 121 MG/DL (70-105)
[2021-03-06 06:33] LABS: CARBON DIOXIDE 20 MMOL/L (21-32)
[2021-03-06 06:35] LABS: GFR ESTIMATED > 60
[2021-03-06 06:36] LABS: BUN/CREATININE RATIO 23
[2021-03-06 08:00] VITALS: BP 142/92
[2021-03-06] MEDS: PANTOPRAZOLE 40 MG (PROTONIX) VIAL IVP SCH (09:28)
[2021-03-06] MEDS: LACTATED RINGERS 1,000 ML IV SCH (12:03)
[2021-03-06] MEDS: cefTRIAXone FOR IV USE 1,000 MG in WATER (STERILE) FOR INJECTION 10 ML IV SCH (12:06)
[2021-03-06] MEDS ORDERED: CEFT1FRO2 IV (13:38)
--- NOTE | 2021-03-06 13:42 | Progress Note - Surgery ---
JORGE EDWARD MED STUDENT 03/06/21 1342: Subjective Date Seen by a Provider: Mar 06, 2021 Time Seen by a Provider: 06:50 Subjective/Events-last exam Amaury Mathur states he has not had pain. Reports he has been walking frequently, SOB feels improved. Has been passing gas. Denies fever, chills, rash, cough. documentation of this morning's encounter was delayed due to care for other patients. Objective Exam Vital Signs Date Time Temp Pulse Resp B/P (MAP) Pulse Ox O2 Delivery O2 Flow Rate FiO2 03/06/21 11:09 93 Room Air 03/06/21 08:30 Room Air 03/06/21 08:00 36.3 112 18 142/92 (109) 93 Room Air 03/06/21 07:25 93 Room Air 03/06/21 03:33 37.4 102 20 122/83 (96) 94 Room Air 03/05/21 23:26 36.6 88 20 142/91 (108) 95 Room Air 03/05/21 22:11 95 Room Air 03/05/21 19:25 Room Air 03/05/21 18:45 97 Room Air 03/05/21 16:36 36.5 81 18 112/80 (91) 96 Room Air 03/05/21 14:59 96 Room Air I & O 03/06/21 07:00 Intake Total 2760 ml Output Total 2944 ml Balance -184 ml Capillary Refill : Less Than 3 SecondsLess Than 3 Seconds General Appearance: No Apparent Distress, WD/WN HEENT: PERRL/EOMI Neck: Full Range of Motion Respiratory: Chest Non Tender, Lungs Clear, Decreased Breath Sounds (bases bilaterally) Cardiovascular: Regular Rate, Rhythm, No Murmur Gastrointestinal: normal bowel sounds, non tender, soft, other (Wound vac in place to abdominal incision with no signs of infection. FELISHA drains have minimal deep red sanguinous drainage, <5mL each.) Extremity: Non Tender, No Calf Tenderness, No Pedal Edema Neurologic/Psychiatric: Alert, Oriented x3 Skin: Normal Color, Warm/Dry Results Lab Laboratory Tests 03/06/21 06:00: White Blood Count 17.7H, Red Blood Count 4.56, Hemoglobin 13.5, Hematocrit 41, Mean Corpuscular Volume 90, Mean Corpuscular Hemoglobin 30, Mean Corpuscular Hemoglobin Concent 33, Red Cell Distribution Width 13.7, Platelet Count 331, Mean Platelet Volume 11.4, Sodium Level 135, Potassium Level 4.1, Chloride Level 103, Carbon Dioxide Level 20L, Anion Gap 12, Blood Urea Nitrogen 16, Creatinine 0.70, Estimat Glomerular Filtration Rate > 60, BUN/Creatinine Ratio 23, Glucose Level 121H, Calcium Level 8.4L Microbiology 03/01/21 Gram Stain - Final, Complete 03/01/21 Wound Culture - Final, Complete Klebsiella oxytoca 02/15/21 Blood Culture - Final, Complete No growth Assessment/Plan Assessment/Plan Assessment/Plan s/p laparoscopic cholecystectomy with choleduodenal fistula repair s/p gallstone ileus removal NPO with TPN. bibasilar atelectasis, improved. Now on room air. drains grew out gram negative bacteria sensitive to ceftriaxone -patient is on ceftriaxone IV plan to send home with drains in place tomorrow, continue TPN 2 weeks leukocytosis, WBC jumped from 10.1 to 17.7 -patient appears to be doing well clinically - FELISHA drainage was formerly a thicker brown color, is now deep red -do not feel another CT scan would be beneficial to the patient. -Will continue to monitor tonight and tomorrow -will plan on changing wound dressing and discharge tomorrow with return precautions Sanguinous FELISHA drainage -was scant, <5mL per drain upon initial interview this morning -when revisiting patient at 1:20 pm one of the drains had significantly more deep red sanguinous drainage. -suspect this is congealed blood AMY SERNA DO 03/06/21 1355: Subjective Time Seen by a Provider: 13:25 Subjective/Events-last exam Pt seen and examined, states he feels fine, no questions today. SOB is improved. Review of Systems General: Fatigue Pulmonary: Dyspnea (very minimal); No Cough Cardiovascular: No: Chest Pain, Palpitations Gastrointestinal: Abdominal Pain (minimal); No: Nausea, Vomiting Objective Exam General Appearance: No Apparent Distress, WD/WN Respiratory: Lungs Clear, Decreased Breath Sounds (bases bilaterally) Cardiovascular: Regular Rate, Rhythm, No Murmur Gastrointestinal: non tender, soft, other (Wound vac in place to abdominal incision with no signs of infection. FELISHA drains have maroon colored drainage, apparently increased from this am) Extremity: Non Tender, No Calf Tenderness, No Pedal Edema Neurologic/Psychiatric: Alert, Oriented x3 Assessment/Plan Assessment/Plan Assessment/Plan s/p laparoscopic cholecystectomy with choleduodenal fistula repair-plan to send home with drains in place tomorrow, continue TPN 2 weeks and IV ABX s/p gallstone ileus removal NPO with TPN. bibasilar atelectasis, improved. Now on room air. drains grew out gram negative bacteria sensitive to ceftriaxone -patient is on ceftriaxone IV leukocytosis, WBC jumped from 10.1 to 17.7 -patient appears to be doing well clinically -Will continue to monitor tonight and tomorrow -will plan on changing VAC wound dressing; possibly leave off and switch to wet-to-dry Supervisory-Addendum Brief Verification & Attestation Participated in pt care: history, MDM, physical Personally performed: exam, history, MDM Care discussed with: Medical Student Procedures: n/a Verification and Attestation of Medical Student E/M Service A medical student performed and documented this service. I then reviewed and verified all information documented by the medical student and made modifications to such information, when appropriate. I personally performed a physical exam, medical decision making and then discussed any differences between the notes and made revisions as necessary to create one note. Amy Serna , 03/06/21 , 13:54 JORGE [employer] MED STUDENT Mar 06, 2021 13:42 AMY SERNA DO Mar 06, 2021 13:55
[2021-03-06 16:00] VITALS: BP 126/79
--- NOTE | 2021-03-06 17:55 | Progress Note ---
Subjective Date Seen by a Provider: Mar 06, 2021 Time Seen by a Provider: 12:45 Subjective/Events-last exam Fwup Acute Emphysematous Cholecystitis with Adia-duodenal fistula--S/P Lap Adia with open repair of Adia-duodenal fistula, HTN, atelectesis with respiratory distress, return to surgery for exp lap for gallstone ileus/biliary leak repair and abscess drainage, angioedema. Sitting up in chair. No complaints. Objective Exam Vital Signs Date Time Temp Pulse Resp B/P (MAP) Pulse Ox O2 Delivery O2 Flow Rate FiO2 03/06/21 16:00 36.6 122 18 126/79 (95) 94 Room Air 03/06/21 11:09 93 Room Air 03/06/21 08:30 Room Air 03/06/21 08:00 36.3 112 18 142/92 (109) 93 Room Air 03/06/21 07:25 93 Room Air 03/06/21 03:33 37.4 102 20 122/83 (96) 94 Room Air 03/05/21 23:26 36.6 88 20 142/91 (108) 95 Room Air 03/05/21 22:11 95 Room Air 03/05/21 19:25 Room Air 03/05/21 18:45 97 Room Air I & O 03/06/21 07:00 Intake Total 2760 ml Output Total 2944 ml Balance -184 ml Capillary Refill : Less Than 3 SecondsLess Than 3 Seconds General Appearance: No Apparent Distress Neck: Supple Respiratory: Lungs Clear Cardiovascular: Tachycardia Gastrointestinal: normal bowel sounds, non tender, soft, other (wound vac in place, drains now 1/2 full of sanguinous fluid) Extremity: Non Tender, No Calf Tenderness, No Pedal Edema Neurologic/Psychiatric: Alert, Oriented x3 Results Lab Laboratory Tests 03/06/21 06:00: White Blood Count 17.7H, Red Blood Count 4.56, Hemoglobin 13.5, Hematocrit 41, Mean Corpuscular Volume 90, Mean Corpuscular Hemoglobin 30, Mean Corpuscular Hemoglobin Concent 33, Red Cell Distribution Width 13.7, Platelet Count 331, Mean Platelet Volume 11.4, Sodium Level 135, Potassium Level 4.1, Chloride Level 103, Carbon Dioxide Level 20L, Anion Gap 12, Blood Urea Nitrogen 16, Creatinine 0.70, Estimat Glomerular Filtration Rate > 60, BUN/Creatinine Ratio 23, Glucose Level 121H, Calcium Level 8.4L Microbiology 03/01/21 Gram Stain - Final, Complete 03/01/21 Wound Culture - Final, Complete Klebsiella oxytoca 02/15/21 Blood Culture - Final, Complete No growth Assessment/Plan Assessment/Plan Assess & Plan/Chief Complaint 1. Acute Emphysematous Cholecystitis with Adia-duodenal fistula--S/P Lap Adia with open repair of Adia-duodenal fistula followed by gallstone Ileus and abscess formation--S/P repeat surgery for lap adia with gallstone removal and repair of biliary leak as well as abscess drainage, now with wound vac, drains now with sanguinous output, continue IV antibiotics, pain control as needed, lovenox for DVT prophylaxis, NG tube is out and PICC has been placed so now on TPN, plan is DC home tomorrow with home health on prolonged TPN 2. Hypertension--stable off meds 3. Hypoxemia with Atelectesis and Acute Respiratory Failure--continue IS 4. Agioedema--resolved 5. Leukocytosis--had improved but back up today, since is afebrile will check tomorrow Clinical Quality Measures Admission Status Admission Dx 1. Acute Emphysematous Cholecystitis with Adia-duodenal fistula--S/P Lap Adia with open repair of Adia-duodenal fistula--NG tube in place, NPO, IV antibiotics, pain control, lovenox for DVT prophylaxis 2. Hypertension--metoprolol IV began JOANNE ALVAREZ DO Mar 06, 2021 17:55
[2021-03-06] MEDS: POTASSIUM CHLORIDE IV SCH ×10 (18:23)
[2021-03-06] MEDS: SODIUM ACETATE IV SCH ×10 (18:23)
[2021-03-06] MEDS: [UNRECOGNIZED DRUG - OTHER] IV SCH ×10 (18:23)
[2021-03-06] MEDS: FAMOTIDINE 20MG/2ML IV (PEPCID) IVP SCH (20:07)
[2021-03-06 23:27] VITALS: BP 124/74
[2021-03-07] MEDS: RT-ALBUTEROL/IPRATROPIUM 3 ML (DUONEB) VIAL INH SCH ×7 (02:40→21:07)
[2021-03-07] MEDS: LACTATED RINGERS 1,000 ML IV SCH ×2 (02:57→16:27)
[2021-03-07 05:48] LABS: HEMOGLOBIN 11.7 g/dL (13.3-17.7); MEAN PLATELET VOLUME 11.4 fL (9.0-12.2)
[2021-03-07 08:00] VITALS: BP 125/83
--- NOTE | 2021-03-07 08:21 | Progress Note - Surgery ---
JORGE EDWARD MED STUDENT 03/07/21 0821: Subjective Date Seen by a Provider: Mar 07, 2021 Time Seen by a Provider: 07:00 Subjective/Events-last exam Amaury states he is doing well. Reports his SOB is decreased, says he does not feel short of breath compared to how he was outside the hospital. Denies abdominal pain. Says FELISHA drainage has been less. Reports he has been walking. Objective Exam Vital Signs Date Time Temp Pulse Resp B/P (MAP) Pulse Ox O2 Delivery O2 Flow Rate FiO2 03/07/21 08:00 36.5 96 16 125/83 (97) 94 Room Air 03/07/21 06:16 96 Room Air 03/07/21 02:40 96 Room Air 03/06/21 23:27 36.4 95 18 124/74 (91) 94 Room Air 03/06/21 22:39 94 Room Air 03/06/21 20:10 Room Air 03/06/21 16:00 36.6 122 18 126/79 (95) 94 Room Air 03/06/21 11:09 93 Room Air 03/06/21 08:30 Room Air I & O 03/07/21 07:00 Intake Total 0 ml Output Total 1905 ml Balance -1905 ml Capillary Refill : Less Than 3 SecondsLess Than 3 Seconds General Appearance: No Apparent Distress, Obese HEENT: PERRL/EOMI, Other (mucous membranes dry) Neck: Supple Respiratory: Lungs Clear, Decreased Breath Sounds (bilateral bases) Cardiovascular: Regular Rate, Rhythm, No Murmur Gastrointestinal: normal bowel sounds, non tender, soft, other (wound vac in place, 1 FELISHA drain with approximately 5mL dried dark blood, the other with scant dried dark blood. Abdomen with mild RUQ tenderness, nontender otherwise. Wound site without erythema) Extremity: Non Tender, No Calf Tenderness, No Pedal Edema Neurologic/Psychiatric: Alert, Oriented x3 Skin: Normal Color, Warm/Dry Results Lab Laboratory Tests 03/07/21 05:43: White Blood Count 13.0H, Red Blood Count 3.93L, Hemoglobin 11.7L, Hematocrit 36L , Mean Corpuscular Volume 91, Mean Corpuscular Hemoglobin 30, Mean Corpuscular Hemoglobin Concent 33, Red Cell Distribution Width 13.6, Platelet Count 259, Mean Platelet Volume 11.4 Microbiology 03/01/21 Gram Stain - Final, Complete 03/01/21 Wound Culture - Final, Complete Klebsiella oxytoca 02/15/21 Blood Culture - Final, Complete No growth Assessment/Plan Assessment/Plan Assessment/Plan 1. Acute Emphysematous Cholecystitis with Tila-duodenal fistula--S/P Lap Tila with open repair of Tila-duodenal fistula followed by gallstone Ileus and abscess formation--S/P repeat surgery for lap tila with gallstone removal and repair of biliary leak as well as abscess drainage, now with wound vac, drains now with sanguinous output, continue IV antibiotics, pain control as needed, lovenox for DVT prophylaxis, NG tube is out and PICC has been placed so now on TPN -decreased sanguinous FELISHA drainage since yesterday afternoon, RN reported nothing overnight from FELISHA drain. 2. Hemoglobin did drop on today's labs. Would like to keep the patient 1 additional day to ensure hemoglobin is stable, leukocytosis continues to improve. 3. Hypertension--stable off meds 4. Hypoxemia with Atelectesis and Acute Respiratory Failure--continue IS. Now on room air, able to walk laps. Encouraged ambulation 5. Leukocytosis--improved today compared to yesterday 6. Agioedema--resolved AMY KING DO 03/07/21 1141: Subjective Time Seen by a Provider: 09:31 Subjective/Events-last exam Pt seen and examined, states he is doing well. Wound VAC was off and looked at incision. Review of Systems General: Fatigue Pulmonary: No Dyspnea, No Cough Cardiovascular: No: Chest Pain, Palpitations Gastrointestinal: No: Nausea, Vomiting, Abdominal Pain Objective Exam General Appearance: No Apparent Distress, Obese Respiratory: Lungs Clear, Decreased Breath Sounds (bilateral bases) Cardiovascular: Regular Rate, Rhythm, No Murmur Gastrointestinal: normal bowel sounds, non tender, soft, other (wound vac in place, 1 FELISHA drain with approximately 5mL dried dark blood, the other with scant dried dark blood. Abdomen with mild RUQ tenderness, nontender otherwise. Wound site without erythema, good granulation ) Assessment/Plan Assessment/Plan Assessment/Plan 1. Acute Emphysematous Cholecystitis with Tila-duodenal fistula--S/P Lap Tila with open repair of Tila-duodenal fistula followed by gallstone Ileus and abscess formation--S/P repeat surgery for lap tila with gallstone removal and repair of biliary leak as well as abscess drainage, now with wound vac, drains now with sanguinous output, continue IV antibiotics, pain control as needed, lovenox for DVT prophylaxis, NG tube is out and PICC has been placed so now on TPN, decreased sanguinous FELISHA drainage since yesterday afternoon, RN reported nothing overnight from FELISHA drain. Will start orders for Home Health TPN, Wound VAC and ABX 2. Hemoglobin did drop on today's labs. Would like to keep the patient 1 additional day to ensure hemoglobin is stable, leukocytosis continues to improve. 3. Hypertension--stable off meds Supervisory-Addendum Brief Verification & Attestation Participated in pt care: history, MDM, physical Personally performed: exam, history, MDM Care discussed with: Medical Student Procedures: n/a Verification and Attestation of Medical Student E/M Service A medical student performed and documented this service. I then reviewed and verified all information documented by the medical student and made modifications to such information, when appropriate. I personally performed a physical exam, medical decision making and then discussed any differences between the notes and made revisions as necessary to create one note. Amy King , 03/07/21 , 11:40 JORGE [employer] MED STUDENT Mar 07, 2021 08:21 AMY KING DO Mar 07, 2021 11:41
[2021-03-07] MEDS: PANTOPRAZOLE 40 MG (PROTONIX) VIAL IVP SCH (09:31)
--- NOTE | 2021-03-07 12:53 | Progress Note ---
Subjective Date Seen by a Provider: Mar 07, 2021 Time Seen by a Provider: 12:51 Subjective/Events-last exam Fwup Acute Emphysematous Cholecystitis with Adia-duodenal fistula--S/P Lap Adia with open repair of Adia-duodenal fistula, HTN, atelectesis with respiratory distress, return to surgery for exp lap for gallstone ileus/biliary leak repair and abscess drainage, angioedema. Feels good. Anxious to go home. Objective Exam Vital Signs Date Time Temp Pulse Resp B/P (MAP) Pulse Ox O2 Delivery O2 Flow Rate FiO2 03/07/21 10:25 94 Room Air 03/07/21 08:00 Room Air 03/07/21 08:00 36.5 96 16 125/83 (97) 94 Room Air 03/07/21 06:16 96 Room Air 03/07/21 02:40 96 Room Air 03/06/21 23:27 36.4 95 18 124/74 (91) 94 Room Air 03/06/21 22:39 94 Room Air 03/06/21 20:10 Room Air 03/06/21 16:00 36.6 122 18 126/79 (95) 94 Room Air I & O 03/07/21 07:00 Intake Total 0 ml Output Total 1905 ml Balance -1905 ml Capillary Refill : Less Than 3 SecondsLess Than 3 Seconds General Appearance: No Apparent Distress Neck: Supple Respiratory: Lungs Clear Cardiovascular: Regular Rate, Rhythm Gastrointestinal: normal bowel sounds, non tender, soft, other (bandages dry, wound vac in place, drains with less sanguinous drainage and congealed) Extremity: Non Tender, No Calf Tenderness, No Pedal Edema Neurologic/Psychiatric: Alert, Oriented x3 Results Lab Laboratory Tests 03/07/21 05:43: White Blood Count 13.0H, Red Blood Count 3.93L, Hemoglobin 11.7L, Hematocrit 36L , Mean Corpuscular Volume 91, Mean Corpuscular Hemoglobin 30, Mean Corpuscular Hemoglobin Concent 33, Red Cell Distribution Width 13.6, Platelet Count 259, Mean Platelet Volume 11.4 Microbiology 03/01/21 Gram Stain - Final, Complete 03/01/21 Wound Culture - Final, Complete Klebsiella oxytoca 02/15/21 Blood Culture - Final, Complete No growth Assessment/Plan Assessment/Plan Assess & Plan/Chief Complaint 1. Acute Emphysematous Cholecystitis with Adia-duodenal fistula--S/P Lap Adia with open repair of Adia-duodenal fistula followed by gallstone Ileus and abscess formation--S/P repeat surgery for lap adia with gallstone removal and repair of biliary leak as well as abscess drainage, now with wound vac, drains now with sanguinous output, continue IV antibiotics, pain control as needed, lovenox for DVT prophylaxis, NG tube is out and PICC has been placed so now on TPN, plan is OK home health on TPN and wound vac 2. Hypertension--stable off meds 3. Hypoxemia with Atelectesis and Acute Respiratory Failure--continue IS 4. Agioedema--resolved 5. Leukocytosis--improved, home on rocephin Clinical Quality Measures Admission Status Admission Dx 1. Acute Emphysematous Cholecystitis with Adia-duodenal fistula--S/P Lap Adia with open repair of Adia-duodenal fistula--NG tube in place, NPO, IV antibiotics, pain control, lovenox for DVT prophylaxis 2. Hypertension--metoprolol IV began JOANNE ALVAREZ DO Mar 07, 2021 12:53
[2021-03-07] MEDS: cefTRIAXone FOR IV USE 1,000 MG in WATER (STERILE) FOR INJECTION 10 ML IV SCH (14:38)
--- NOTE | 2021-03-07 15:01 | Discharge Inst-Surgical ---
Discharge Inst-Surgical Depart Medication/Instructions New, Converted or Re-Newed RX: RX Given to Pt/Family Patient Instructions Follow up Appt: Make appointment for 1 week. [phone] Instructions: No lifting greater than 20 pounds. No strenuous activity. Sponge bath Use incentive spirometer at home as directed. No Smoking Skin/Wound Care: May remove bandages in am. You need to leave the Dermabond on incision it will fall off on it's own. Symptoms to Report: Appetite Changes, Extremity Discoloration, Numbness/Tingling, Swelling Increased, Bleeding Excessive, Eyesight Changes, Pain Increased, Urine Color Rosalind nge, Constipation(Persistent), Fever over 101 degree F, Pain/Pressure in chest, Urinating Difficulty, Cough Up/Vomit Blood, Heart Beat Irreg/Pounding, Pain/Pressure in jaw, Cramps in feet or legs, Lightheadedness, Pain/Pressure in shoulder, Diarrhea(Persistent), Memory Changes Suddenly, Questions/Concerns, Weight gain consecutive days, Dizziness/Fainting, Nausea/Vomiting, Shortness of Breath, Weight gain over 2 pounds If questions or concerns contact your physician Or seek help at emergency department. Activity Activity as Tolerated: Yes Activity Instructions: Avoid Stress to Incision Driving Instructions: No Driving/Refer to Dr. Liu Discharge Diet: Other Diet (Nothing by mouth, Nothing) If Any Problems/Questions/Issu: Contact Your Physician, Go to Emergency Room Skin/Wound Care Infection Signs and Symptoms: Increased Redness, Foul Odor of Wound, Increased Drainage, Skin Itchy or Has a Rash, Increased Swelling, Temperature Above 101 F Bathing Instructions: AMY Cotton DO Mar 07, 2021 15:01
[2021-03-07 16:32] VITALS: BP 124/72
[2021-03-07] MEDS: [UNRECOGNIZED DRUG - OTHER] IV SCH ×10 (17:01)
[2021-03-07] MEDS: POTASSIUM CHLORIDE IV SCH ×10 (17:01)
[2021-03-07] MEDS: SODIUM ACETATE IV SCH ×10 (17:01)
[2021-03-07] MEDS: FAMOTIDINE 20MG/2ML IV (PEPCID) IVP SCH (20:26)
[2021-03-08] VITALS: BP 128/77
[2021-03-08] MEDS: RT-ALBUTEROL/IPRATROPIUM 3 ML (DUONEB) VIAL INH SCH ×4 (02:39→14:34)
[2021-03-08] MEDS: LACTATED RINGERS 1,000 ML IV SCH (05:16)
[2021-03-08 05:20] LABS: HEMOGLOBIN 11.2 g/dL (13.3-17.7)
--- NOTE | 2021-03-08 07:17 | Progress Note - Surgery ---
JORGE EDWARD MED STUDENT 03/08/21 0717: Subjective Date Seen by a Provider: Mar 08, 2021 Time Seen by a Provider: 06:30 Subjective/Events-last exam Amaury is doing well. States does not feel short of breath, denies fever, chills, rash, abdominal pain. Says walked 3x yesterday. Objective Exam Vital Signs Date Time Temp Pulse Resp B/P (MAP) Pulse Ox O2 Delivery O2 Flow Rate FiO2 03/08/21 00:00 36.0 87 28 128/77 (94) 95 Room Air 03/07/21 21:08 94 Room Air 03/07/21 20:00 Room Air 03/07/21 18:16 94 Room Air 03/07/21 16:32 36.3 92 28 124/72 (89) 94 Room Air 03/07/21 14:49 94 Room Air 03/07/21 10:25 94 Room Air 03/07/21 08:00 Room Air 03/07/21 08:00 36.5 96 16 125/83 (97) 94 Room Air I & O 03/08/21 07:00 Intake Total 0 ml Output Total 2385 ml Balance -2385 ml Capillary Refill : Less Than 3 SecondsLess Than 3 Seconds General Appearance: No Apparent Distress, Obese HEENT: PERRL/EOMI, Other (mucous membranes dry) Neck: Supple Respiratory: Chest Non Tender, Normal Breath Sounds, No Accessory Muscle Use, No Respiratory Distress, Decreased Breath Sounds (bases bilaterally. ) Cardiovascular: Regular Rate, Rhythm, No Murmur Gastrointestinal: normal bowel sounds, non tender, soft, other (bandages dry, wound vac in place, both FELISHA drains with less than 5mL, drainage appears to be congealed blood Wound vac incision without surrounding cellulitis.) Extremity: Non Tender, No Calf Tenderness, No Pedal Edema Neurologic/Psychiatric: Alert, Oriented x3 Skin: Normal Color, Warm/Dry Results Lab Laboratory Tests 03/08/21 05:15: Hemoglobin 11.2L, Hematocrit 35L Microbiology 03/01/21 Gram Stain - Final, Complete 03/01/21 Wound Culture - Final, Complete Klebsiella oxytoca 02/15/21 Blood Culture - Final, Complete No growth Assessment/Plan Assessment/Plan Assessment/Plan 1. Acute Emphysematous Cholecystitis with Tila-duodenal fistula--S/P Lap Tila with open repair of Tila-duodenal fistula followed by gallstone Ileus and abscess formation--S/P repeat surgery for lap tila with gallstone removal and repair of biliary leak as well as abscess drainage, now with wound vac, drains now with sanguinous output, continue IV antibiotics, pain control as needed, lovenox for DVT prophylaxis, NG tube is out and PICC has been placed so now on TPN. Wound vac was changed yesterday. plan is DC home health on TPN and wound vac 2. Anemia - stable with H&H today. Safe for discharge home. 3. Hypertension--stable off meds 4. Hypoxemia with Atelectesis and Acute Respiratory Failure--continue IS 5. Agioedema--resolved 6. Leukocytosis--improved, home on AMY Seymour DO 03/08/21 1305: Subjective Time Seen by a Provider: 10:48 Subjective/Events-last exam Pt seen and examined, states he is doing well today. Review of Systems Pulmonary: No Dyspnea, No Cough Cardiovascular: No: Chest Pain, Palpitations Gastrointestinal: No: Nausea, Vomiting, Abdominal Pain Objective Exam General Appearance: No Apparent Distress HEENT: PERRL/EOMI Respiratory: Chest Non Tender, No Accessory Muscle Use, No Respiratory Distress, Decreased Breath Sounds (bases bilaterally. ) Cardiovascular: Regular Rate, Rhythm, No Murmur Gastrointestinal: normal bowel sounds, non tender, soft, other (bandages dry, wound vac in place, both FELISHA drains with less than 5mL, drainage appears to be congealed blood Wound vac incision without surrounding cellulitis.) Assessment/Plan Assessment/Plan Assessment/Plan 1. Acute Emphysematous Cholecystitis with Tila-duodenal fistula--S/P Lap Tila with open repair of Tila-duodenal fistula followed by gallstone Ileus and abscess formation--S/P repeat surgery for lap tila with gallstone removal and repair of biliary leak as well as abscess drainage ---plan to DC home today with HH to do TPN, pt still strict NPO, IV ABX and wound VAC. Will follow up in my office in a week 2. Anemia - stable with H&H today. Safe for discharge home. 3. Hypertension--stable off meds 4. Hypoxemia - resolved Supervisory-Addendum Brief Verification & Attestation Participated in pt care: history, MDM, physical Personally performed: exam, history, MDM Care discussed with: Medical Student Procedures: n/a Verification and Attestation of Medical Student E/M Service A medical student performed and documented this service. I then reviewed and verified all information documented by the medical student and made modifications to such information, when appropriate. I personally performed a physical exam, medical decision making and then discussed any differences between the notes and made revisions as necessary to create one note. Amy Serna , 03/08/21 , 13:05 JORGE EDWARD MED STUDENT Mar 08, 2021 07:17 AMY SERNA DO Mar 08, 2021 13:05
[2021-03-08 08:06] VITALS: BP 127/77
[2021-03-08] MEDS: PANTOPRAZOLE 40 MG (PROTONIX) VIAL IVP SCH (08:15)
[2021-03-08] MEDS: cefTRIAXone FOR IV USE 1,000 MG in WATER (STERILE) FOR INJECTION 10 ML IV SCH (13:29)
--- NOTE | 2021-03-08 15:57 | Discharge Summary ---
Discharge Summary Reconcile Patient Problems Problems Reviewed?: Yes Instructions for Patient Via [facility], Assessment/Instructions F/U next in my office, I will change wound VAC myself that day. Physician to follow Patient: Dr. King Discharge Diet for Home: other diet (NPO, pt to get TPN) Hospital Course Date of Admission: Feb 12, 2021 at 19:00 Admission Diagnosis : Family Physician/Provider: Malu Hernandez DO Date of Discharge: 03/08/21 Discharge Diagnosis: [ ] Hospital Course: [ ] Labs and Pending Lab Test: Laboratory Tests 03/08/21 05:15: Hemoglobin 11.2L, Hematocrit 35L Microbiology 03/01/21 Gram Stain - Final, Complete 03/01/21 Wound Culture - Final, Complete Klebsiella oxytoca 02/15/21 Blood Culture - Final, Complete No growth Home Meds Active Ceftriaxone 1 gm Piggyback (Ceftriaxone Na/Dextrose,Iso) 1 Gm/50 Ml Froz.piggy 1 Gm IV DAILY 10 Days Patient Allergies: Coded Allergies: No Known Drug Allergies (Verified , 02/17/19) Height (Feet): 5 Height (Inches): 11.00 Weight (Pounds): 255 Weight (Ounces): 0.0 Home Health Need/Face to Face Date of Face to Face: Mar 08, 2021 Clinical Findings: Generalized weakness and fatigue, Non-healing wound, Other- list in note (Need for strict NPO, IV ABX and TPN at home) I have seen Pt [id number]: Yes Discharged To: Home Diagnosis/Conditions: Malnutrition Non-healing wound Inability to have anything PO S/P Lap adia, repair of adia-duodenal fistula, removal of gallstone from small bowel Patient is Homebound due to: Muscle weakness Homebound Status Due to the above stated illness, injury or surgical procedure (medical co ndition or diagnosis) and associated clinical findings, the patient is homebound because of his/her inability to leave home except with aid of a supportive device and/or person AND leaving the home requires a considerable and taxing effort or is medically contraindicated. Pt req the following assistanc: Aid of another person, [facility] Home Health Nursing Orders Home Health Services Order: Nursing Services (TPN and IV ABX), Wound Care- Eval/Treat Home Health Infusion Therapy Line Start Date: Mar 02, 2021 Therapy Orders Wound VAC to continuous suction at -125mmHg, change on and . Take pictures of wound. Certify Stmt I certify that this patient is under my care and that I, a nurse practitioner or a physician; a assistant superintendent for curriculum working with me, had a face to face encounter that - meets the physician face to face encounter requirements with this patient as dated. Discharge Physical Exam General: Alert, Oriented X3 HEENT: PERRLA, EOMI Lungs: Other (decreased breath sounds at bases) Heart: Regular Rate, No Murmurs Abdomen: Normal Bowel Sounds, Soft, Other (Wound VAC in place, [place] drains x 2, with maroon liquid) AMY KING DO Mar 08, 2021 15:57
[2021-03-08 16:01] VITALS: BP 128/77
--- NOTE | 2021-03-08 17:32 | Progress Note ---
Subjective Date Seen by a Provider: Mar 08, 2021 Time Seen by a Provider: 12:30 Subjective/Events-last exam Fwup Acute Emphysematous Cholecystitis with Adia-duodenal fistula--S/P Lap Adia with open repair of Adia-duodenal fistula, HTN, atelectesis with respiratory distress, return to surgery for exp lap for gallstone ileus/biliary leak repair and abscess drainage, angioedema. Getting training for TPN to go home. Objective Exam Vital Signs Date Time Temp Pulse Resp B/P (MAP) Pulse Ox O2 Delivery O2 Flow Rate FiO2 03/08/21 17:17 Room Air 03/08/21 16:01 36.1 89 20 128/77 (94) 95 Room Air 03/08/21 08:06 36.6 85 17 127/77 (94) 94 Room Air 03/08/21 08:00 Room Air 03/08/21 07:08 93 Room Air 03/08/21 00:00 36.0 87 28 128/77 (94) 95 Room Air 03/07/21 21:08 94 Room Air 03/07/21 20:00 Room Air 03/07/21 18:16 94 Room Air I & O 03/08/21 07:00 Intake Total 0 ml Output Total 2385 ml Balance -2385 ml Capillary Refill : Less Than 3 SecondsLess Than 3 Seconds General Appearance: No Apparent Distress Neck: Supple Respiratory: Lungs Clear Cardiovascular: Regular Rate, Rhythm Gastrointestinal: normal bowel sounds, non tender, soft, other (bandages dry with drains with minimal sanguinous drainage) Extremity: Non Tender, No Calf Tenderness, No Pedal Edema Neurologic/Psychiatric: Alert, Oriented x3 Skin: Warm/Dry Results Lab Laboratory Tests 03/08/21 05:15: Hemoglobin 11.2L, Hematocrit 35L Microbiology 03/01/21 Gram Stain - Final, Complete 03/01/21 Wound Culture - Final, Complete Klebsiella oxytoca 02/15/21 Blood Culture - Final, Complete No growth Assessment/Plan Assessment/Plan Assess & Plan/Chief Complaint 1. Acute Emphysematous Cholecystitis with Adia-duodenal fistula--S/P Lap Adia with open repair of Adia-duodenal fistula followed by gallstone Ileus and abscess formation--S/P repeat surgery for lap adia with gallstone removal and repair of biliary leak as well as abscess drainage, now with wound vac, drains now with sanguinous output, continue IV antibiotics, pain control as needed, lovenox for DVT prophylaxis, NG tube is out and PICC has been placed so now on TPN, plan is DC with home health on TPN and wound vac 2. Hypertension--stable off meds 3. Hypoxemia with Atelectesis and Acute Respiratory Failure--continue IS 4. Agioedema--resolved 5. Leukocytosis--improved, home on rocephin Clinical Quality Measures Admission Status Admission Dx 1. Acute Emphysematous Cholecystitis with Adia-duodenal fistula--S/P Lap Adia with open repair of Adia-duodenal fistula--NG tube in place, NPO, IV antibiotics, pain control, lovenox for DVT prophylaxis 2. Hypertension--metoprolol IV began JOANNE ALVAREZ DO Mar 08, 2021 17:32
== END 2021-03-08 17:19 | disposition home health service (06) | DRG 417 ==
LOC: EDUNIT# 05:57 → ER 05:59 → 4TH 08:54 → OBSVTOIN 19:00 → CSD 02-15 08:18 → 4TH 02-16 09:50
PROVIDERS: ADMIT Surgery; ATTEND Surgery
PROC: BF12YZZ Fluoroscopy of Gallbladder using Other Contrast (ICD-10-PCS; 2021-02-12)
PROC: 0FT44ZZ Resection of Gallbladder, Percutaneous Endoscopic Approach (ICD-10-PCS; principal; 2021-02-12 15:51)
PROC: 0DU907Z Supplement Duodenum with Autologous Tissue Substitute, Open Approach (ICD-10-PCS; 2021-02-12 15:51)
PROC: 0DC80ZZ Extirpation of Matter from Small Intestine, Open Approach (ICD-10-PCS; 2021-02-23)
PROC: 0DH60UZ Insertion of Feeding Device into Stomach, Open Approach (ICD-10-PCS; 2021-02-23)
PROC: 0W9G0ZZ Drainage of Peritoneal Cavity, Open Approach (ICD-10-PCS; 2021-02-23)
DX: K81.0 Acute cholecystitis (principal); J96.01 Acute respiratory failure with hypoxia; J18.9 Pneumonia, unspecified organism; K91.89 Other postprocedural complications and disorders of digestive system; K56.3 Gallstone ileus; J98.11 Atelectasis; K31.6 Fistula of stomach and duodenum; E46 Unspecified protein-calorie malnutrition; K82.3 Fistula of gallbladder; E78.00 Pure hypercholesterolemia, unspecified; I10 Essential (primary) hypertension; K21.9 Gastro-esophageal reflux disease without esophagitis; T78.3XXA Angioneurotic edema, initial encounter; D72.829 Elevated white blood cell count, unspecified; Z68.35 Body mass index [BMI] 35.0-35.9, adult
CPT/HCPCS: 36415; 36569; 71045; 71046; 71275; 74018; 74150; 74176; 74177; 74246; 74248; 76000; 76937; 80048; 80053; 80076; 81000; 82962; 83605; 83690; 83735; 83880; 84100; 84134; 84145; 84478; 85007; 85014; 85018; 85025; 85027; 87040; 87070; 87077; 87186; 87205; 87449; 87899; 88304; 94640; 94664; 94760; 96361; 96365; 96372; 96375

== ENCOUNTER → 2021-03-17 | Outpatient (CLI) | payer BC ==
[~2021-03-17] MED LIST changes: +CEFT1FRO2 IV; +DIATRIZOATE MEGLUM/SODIUM 37% 120 ML (GASTROGRAFIN) PO ONE; +DICY20TA10 PO; +FAMO40TA6 PO; +HYDR12.56 PO; +LORA10TA76 PO; +LOSA50TA63 PO; +ONDA4TAB11 PO
--- NOTE | 2021-03-17 14:03 | Diagnostic Imaging Report ---
EXAMINATION: CT abdomen and pelvis without contrast. TECHNIQUE: Multiple contiguous axial images were obtained through the abdomen and pelvis without the use of intravenous contrast. All CT scans use one or more of the following dose optimizing techniques: automated exposure control, MA and/or KvP adjustment based on patient size and exam type or iterative reconstruction. HISTORY: DUODENAL LEAK COMPARISON: CT abdomen 03/01/2021. FINDINGS: Lung bases: The lung bases are clear. Solid organs: The liver is normal. The gallbladder is surgically absent. There is no biliary ductal dilation. Pancreas is normal. Spleen is normal. Adrenal glands are normal. The kidneys are normal without visualized calculus or hydronephrosis. Bowel: There is wall thickening of the first portion of the duodenum with adjacent minimal fluid and foci of free air. A percutaneous drainage catheter is present within this area. There is no loculated fluid collection. There is no extravasation of oral contrast. There is no bowel obstruction. The colon and appendix are normal. Peritoneum: Mild amount of fluid/stranding and foci of free air within the right upper quadrant. No loculated fluid collection. No pathologically enlarged lymph nodes. Vasculature: Normal without aneurysm. Musculoskeletal: Degenerative changes of the spine without suspicious osseous lesion or compression fracture. Surgical changes in the anterior abdominal wall. There appears to be incisional dehiscence. Pelvis: The prostate gland is normal. The urinary bladder is normal. IMPRESSION: 1. Wall thickening of the first and second portion of duodenum with adjacent fluid/stranding and foci of free air. Although no oral contrast is seen extravasated into this area, these findings still remain concerning for duodenal perforation given the persistent air and fluid compared to 03/01/2021. 2. No other acute abnormality in the abdomen or pelvis. Dictated by: Dictated on workstation # [id number]
== END ==
LOC: RAD 12:15
PROVIDERS: ATTEND Surgery
DX: K31.89 Other diseases of stomach and duodenum (principal)
CPT/HCPCS: 74176

== ENCOUNTER 2021-03-26 19:37 | Emergency (ER) | payer BC ==
[~2021-03-26] VITALS: Ht 182 cm; Wt 95.2 kg
[~2021-03-26 19:37] MED LIST changes: -DIATRIZOATE MEGLUM/SODIUM 37% 120 ML (GASTROGRAFIN) PO ONE
[2021-03-26] MEDS ORDERED: IOHEXOL 350 MG/ML 100 ML (OMNIPAQUE 350) VIAL IV ONE (20:00)
[2021-03-26] MEDS ORDERED: NS 100 ML (IVPB) BAG IV ONE (20:00)
[2021-03-26] MEDS ORDERED: HOLD METFORMIN - RECEIVED CONTRAST 20 ML VIAL IV SCH (20:00)
[2021-03-26 20:08] LABS: BASOPHILS # (AUTO) 0.1 10^3/uL (0.0-0.1); BASOPHILS % (AUTO) 1 % (0-10); EOSINOPHILS # (AUTO) 0.4 10^3/uL (0.0-0.3); EOSINOPHILS % (AUTO) 5 % (0-10); HEMATOCRIT 41 % (40-54); HEMOGLOBIN 13.3 g/dL (13.3-17.7); LYMPHOCYTES # (AUTO) 1.7 10^3/uL (1.0-4.0); LYMPHOCYTES % (AUTO) 19 % (12-44); MEAN CORPUSCULAR HEMOGLOBIN 29 pg (25-34); MEAN CORPUSCULAR HGB CONC 32 g/dL (32-36); MEAN CORPUSCULAR VOLUME 89 fL (80-99); MONOCYTES # (AUTO) 0.7 10^3/uL (0.0-1.0); MONOCYTES % (AUTO) 8 % (0-12); NEUTROPHILS % (AUTO) 67 % (42-75); PLATELET COUNT 198 10^3/uL (130-400); WHITE BLOOD COUNT 8.9 10^3/uL (4.3-11.0)
[2021-03-26 20:13] LABS: ALBUMIN 3.6 GM/DL (3.2-4.5); CHLORIDE 107 MMOL/L (98-107); POTASSIUM 3.8 MMOL/L (3.6-5.0); SODIUM 141 MMOL/L (135-145)
[2021-03-26 20:14] LABS: CALCIUM 8.9 MG/DL (8.5-10.1)
[2021-03-26 20:15] LABS: GLUCOSE 116 MG/DL (70-105); TOTAL PROTEIN 7.1 GM/DL (6.4-8.2)
[2021-03-26 20:16] LABS: CARBON DIOXIDE 20 MMOL/L (21-32)
[2021-03-26 20:17] LABS: BILIRUBIN,TOTAL 0.6 MG/DL (0.1-1.0)
[2021-03-26 20:19] LABS: ALKALINE PHOSPHATASE 115 U/L (40-136); CREATININE SERUM 0.82 MG/DL (0.60-1.30); GFR ESTIMATED > 60
[2021-03-26 20:20] LABS: BUN/CREATININE RATIO 27
[2021-03-26 20:22] LABS: ALANINE AMINOTRANSFERASE 34 U/L (0-55)
--- NOTE | 2021-03-26 20:24 | ED GI ---
General Chief Complaint: Abdominal/GI Problems Stated Complaint: BLOOD IN DRAINAGE TUBES/POST OP Source of Information: Patient Exam Limitations: No Limitations History of Present Illness Date Seen by Provider: March 26, 2021 Time Seen by Provider: 19:43 Initial Comments This is a 50-year-old male presents to the ER with complaints of bleeding from his abdominal FELISHA drain sites. States that he rolled over onto his right side while watching TV and immediately had sudden onset of bleeding around the dressings and into his FELISHA drain. Presented to the ER for evaluation. Bleeding controlled upon arrival.States he typically has approximate 20ml of brownish output. Was seen by Dr. Pradhan earlier this weeks and had sutures replaced to both FELISHA drains. Has follow-up scheduled on SaturdayMarch 28. Has no fever, fatigue, abdominal pain, nausea, vomiting. No complaints other than the bleeding. Allergies and Home Medications Allergies Coded Allergies: No Known Drug Allergies (Verified , 02/17/19) Home Medications Ceftriaxone Na/Dextrose,Iso 1 Gm/50 Ml Froz.piggy, 1 GM IV DAILY Prescribed by: AMY SERNA on 03/06/21 1338 Patient Home Medication List Home Medication List Reviewed: Yes Review of Systems Review of Systems Constitutional: no symptoms reported EENTM: No Symptoms Reported Respiratory: No Symptoms Reported Cardiovascular: No Symptoms Reported Gastrointestinal: No Symptoms Reported Genitourinary: No Symptoms Reported Musculoskeletal: no symptoms reported Skin: see HPI Psychiatric/Neurological: No Symptoms Reported Endocrine: No Symptoms Reported Hematologic/Lymphatic: Anemia Past Fljkjfi-Keascj-Adfxew Hx Patient Social History 2nd Hand Smoke Exposure: No Immunizations Up To Date Date of Influenza Vaccine: Sep 13, 2020 Seasonal Allergies Seasonal Allergies: No Past Medical History Surgeries: Yes Orthopedic Respiratory: No Cardiac: Yes High Cholesterol, Hypertension Neurological: No Reproductive Disorders: No Genitourinary: No Gastrointestinal: Yes Gastroesophageal Reflux Musculoskeletal: No Endocrine: No HEENT: No Loss of Vision: Denies Hearing Impairment: Denies Cancer: No Psychosocial: No Integumentary: No Blood Disorders: No Family Medical History Heart Disease, Cancer, Diabetes Physical Exam Vital Signs Vital Signs - First Documented 03/26/21 19:40 Temp 36.8 Pulse 95 Resp 20 B/P (MAP) 139/95 (110) Pulse Ox 99 O2 Delivery Room Air Capillary Refill : Height/Weight/BMI Height: 5'11.00" Weight: 255lbs. 0.0oz. 115.588658hw; 34.37 BMI Method:Stated General Appearance: WD/WN, no apparent distress HEENT: PERRL/EOMI, normal ENT inspection Neck: full range of motion, normal inspection Respiratory: lungs clear, normal breath sounds, no respiratory distress Cardiovascular: regular rate, rhythm, no murmur Gastrointestinal: normal bowel sounds, non tender, soft, other ((2) FELISHA drains to right lower quadrant, Sanguinous output. ) Extremities: normal range of motion, normal inspection Neurologic/Psychiatric: no motor/sensory deficits, alert, normal mood/affect, oriented x 3 Skin: normal color, warm/dry Progress/Results/Core Measures Results/Orders Lab Results Laboratory Tests Test 03/26/21 19:58 Range/Units White Blood Count 8.9 4.3-11.0 10^3/uL Red Blood Count 4.61 4.30-5.52 10^6/uL Hemoglobin 13.3 13.3-17.7 g/dL Hematocrit 41 40-54 % Mean Corpuscular Volume 89 80-99 fL Mean Corpuscular Hemoglobin 29 25-34 pg Mean Corpuscular Hemoglobin Concent 32 32-36 g/dL Red Cell Distribution Width 14.0 10.0-14.5 % Platelet Count 198 130-400 10^3/uL Mean Platelet Volume 13.0 H 9.0-12.2 fL Immature Granulocyte % (Auto) 1 % Neutrophils (%) (Auto) 67 42-75 % Lymphocytes (%) (Auto) 19 12-44 % Monocytes (%) (Auto) 8 0-12 % Eosinophils (%) (Auto) 5 0-10 % Basophils (%) (Auto) 1 0-10 % Neutrophils # (Auto) 6.0 1.8-7.8 10^3/uL Lymphocytes # (Auto) 1.7 1.0-4.0 10^3/uL Monocytes # (Auto) 0.7 0.0-1.0 10^3/uL Eosinophils # (Auto) 0.4 H 0.0-0.3 10^3/uL Basophils # (Auto) 0.1 0.0-0.1 10^3/uL Immature Granulocyte # (Auto) 0.1 0.0-0.1 10^3/uL Sodium Level 141 135-145 MMOL/L Potassium Level 3.8 3.6-5.0 MMOL/L Chloride Level 107 98-107 MMOL/L Carbon Dioxide Level 20 L 21-32 MMOL/L Anion Gap 14 5-14 MMOL/L Blood Urea Nitrogen 22 H 7-18 MG/DL Creatinine 0.82 0.60-1.30 MG/DL Estimat Glomerular Filtration Rate > 60 BUN/Creatinine Ratio 27 Glucose Level 116 H 70-105 MG/DL Calcium Level 8.9 8.5-10.1 MG/DL Corrected Calcium 9.2 8.5-10.1 MG/DL Total Bilirubin 0.6 0.1-1.0 MG/DL Aspartate Amino Transf (AST/SGOT) 21 5-34 U/L Alanine Aminotransferase (ALT/SGPT) 34 0-55 U/L Alkaline Phosphatase 115 40-136 U/L Total Protein 7.1 6.4-8.2 GM/DL Albumin 3.6 3.2-4.5 GM/DL My Orders Orders - SANDRA LESLIE APPLICATION SUPPORT INTERN Cbc With Automated Diff (03/26/21 19:43) Comprehensive Metabolic Panel (03/26/21 19:43) Ua Culture If Indicated (03/26/21 19:43) Ed Iv/Invasive Line Start (03/26/21 19:43) Ct Abdomen/Pelvis W (03/26/21 19:58) Iohexol Injection (Omnipaque 350 Mg/Ml 1 (03/26/21 20:00) Received Contrast (Hold Metformin- Contr (03/26/21 20:00) Ns (Ivpb) (Sodium Chloride 0.9% Ivpb Bag (03/26/21 20:00) Medications Given in ED Current Medications Medications Dose Ordered Sig/Pastora Route Start Time Stop Time Status Last Admin Dose Admin Iohexol 100 ml ONCE ONCE IV 03/26/21 20:00 03/26/21 20:22 DC 03/26/21 20:29 100 ML Sodium Chloride 100 ml ONCE ONCE IV 03/26/21 20:00 03/26/21 20:22 DC 03/26/21 20:30 80 ML Vital Signs/I&O 03/26/21 03/26/21 19:40 21:25 Temp 36.8 Pulse 95 90 Resp 20 16 B/P (MAP) 139/95 (110) 119/85 Pulse Ox 99 96 O2 Delivery Room Air Room Air Progress Progress Note : Progress Note Patient examined and in no acute distress. Oozing blood from suture sites where new sutures had been placed and patient apparently pulled out likely causing acute bleeding. We will go ahead and order basic labs and obtain CT abdomen pelvis. Labs reviewed, hemoglobin stable at 13.3. No active bleeding noted throughout ED course. Emptied FELISHA drains and no additional bleeding appreciated through ED course.CT abdomen pelvis shows no acute findings. Change dressing to abdomen. Discussed keeping his follow-up with Dr. Walker on Saturday however he can call the office tomorrow to see if they would like to see him sooner. Reviewed discharge plan of care and he is agreeable with plan. No questions or concerns at time of discharge. Diagnostic Imaging Diagonstic Imaging: CT Plain Films/CT/US/NM/MRI: abdomen, pelvis Comments NAME: LEI JUSTICE [facility] REC#: [id number] PT STATUS: REG ER : 1970 PHYSICIAN: SANDRA LESLIE APPLICATION SUPPORT INTERN ADMIT DATE: 03/26/21/ER Draft Date of Exam:03/26/21 CT ABDOMEN/PELVIS W PROCEDURE: CT abdomen and pelvis with contrast. TECHNIQUE: Multiple contiguous axial images were obtained through the abdomen and pelvis after administration of intravenous contrast. Auto Exposure Controls were utilized during the CT exam to meet ALARA standards for radiation dose reduction. All CT scans use one or more of the following dose optimizing techniques: automated exposure control, MA and/or KvP adjustment based on patient size and exam type or iterative reconstruction. INDICATION: Bleeding from surgical drain. Status post recent laparoscopic cholecystectomy. COMPARISON: 03/17/2021. FINDINGS: Included portions of the lung bases are clear. CT abdomen: Patient is status post cholecystectomy. Surgical drain is noted within the right upper abdominal quadrant. There is a small amount of fluid and gas within the gallbladder fossa. Small amount of pneumoperitoneum is also present within the anterior right upper abdominal quadrant. There is, however, no loculated air-fluid collection to suggest abscess. Normal appendix is identified. Small bowel loops are nondistended. The kidneys, adrenal glands, spleen, pancreas and liver have a normal CT appearance. No abnormal mesenteric or retroperitoneal adenopathy is seen. Osseous structures show no acute abnormality. CT pelvis: Urinary bladder is grossly unremarkable. There is no loculated fluid collection, free fluid or free air within the pelvis. No abnormal lymph node is seen. Osseous structures show no acute abnormality. IMPRESSION: Patient is status post previous cholecystectomy. There is a small amount of fluid and gas within the gallbladder fossa, but there is no loculated air-fluid collection to suggest abscess. Dictated on workstation # [id number] Dict: 03/26/212047 Trans: 03/26/212052 [facility] [phone] Interpreted by: ERICH MCKEON MD Electronically signed by: Departure Impression Primary Impression: Bleeding from Bo-Dyer drain Disposition: HOME, SELF-CARE Condition: Improved Departure-Patient Inst. Decision time for Depature: 21:00 Referrals: JOANNE ALVAREZ DO (PCP/Family) Primary Care Physician Patient Instructions: Bo-Dyer Drain Add. Discharge Instructions: Plan: 1. Monitor your dressing site. Return if your dressing becomes saturated with blood. 2. Monitor your drain output. Return if your drain continues to fill up with blood. 3. Keep follow up with Dr. Serna on Saturday as scheduled. 4. Avoid rolling or lying on your drains. 5. Return to ER for any new, concerning, or worsening symptoms. All discharge instructions reviewed with patient and/or family. Voiced understanding. Copy Copies To 1: AMY SERNA STORMY D APPLICATION SUPPORT INTERN March 26, 2021 20:24
--- NOTE | 2021-03-26 20:53 | Diagnostic Imaging Report ---
PROCEDURE: CT abdomen and pelvis with contrast. TECHNIQUE: Multiple contiguous axial images were obtained through the abdomen and pelvis after administration of intravenous contrast. Auto Exposure Controls were utilized during the CT exam to meet ALARA standards for radiation dose reduction. All CT scans use one or more of the following dose optimizing techniques: automated exposure control, MA and/or KvP adjustment based on patient size and exam type or iterative reconstruction. INDICATION: Bleeding from surgical drain. Status post recent laparoscopic cholecystectomy. COMPARISON: 03/17/2021. FINDINGS: Included portions of the lung bases are clear. CT abdomen: Patient is status post cholecystectomy. Surgical drain is noted within the right upper abdominal quadrant. There is a small amount of fluid and gas within the gallbladder fossa. Small amount of pneumoperitoneum is also present within the anterior right upper abdominal quadrant. There is, however, no loculated air-fluid collection to suggest abscess. Normal appendix is identified. Small bowel loops are nondistended. The kidneys, adrenal glands, spleen, pancreas and liver have a normal CT appearance. No abnormal mesenteric or retroperitoneal adenopathy is seen. Osseous structures show no acute abnormality. CT pelvis: Urinary bladder is grossly unremarkable. There is no loculated fluid collection, free fluid or free air within the pelvis. No abnormal lymph node is seen. Osseous structures show no acute abnormality. IMPRESSION: Patient is status post previous cholecystectomy. There is a small amount of fluid and gas within the gallbladder fossa, but there is no loculated air-fluid collection to suggest abscess. Dictated by: Dictated on workstation # [id number]
[2021-03-26 21:25] VITALS: BP 119/85
== END 2021-03-26 21:26 | disposition home or self-care (01) ==
LOC: EDUNIT# 19:37 → ER 19:38
DX: T85.838A Hemorrhage due to other internal prosthetic devices, implants and grafts, initial encounter (principal); I10 Essential (primary) hypertension
CPT/HCPCS: 36415; 74177; 80053; 85025

== ENCOUNTER → 2021-03-29 | Outpatient (CLI) | LOC: LABNPT 09:21 → MERGE 09:21 | PROVIDERS: ATTEND Surgery | DX: Z20.822 Contact with and (suspected) exposure to COVID-19 (principal) | CPT/HCPCS: 87635 ==

== ENCOUNTER 2021-04-18 11:41 | Outpatient (CLI) | payer BC ==
[~2021-04-18] VITALS: Ht 182 cm; Wt 95.2 kg
[2021-04-18 12:15] VITALS: BP 113/80
== END 2021-04-18 12:15 | disposition home or self-care (01) ==
LOC: SDC 11:41
PROVIDERS: ATTEND Surgery
DX: Z45.2 Encounter for adjustment and management of vascular access device (principal)

== ENCOUNTER 2022-01-29 08:30 | Outpatient (CLI) | payer BC ==
[~2022-01-29 08:30] MED LIST changes: +DICY20TA PO; -DICY20TA10 PO; -OMEP40CA27 PO; +OMEP40CA6 PO
== END 2022-01-29 08:45 ==
LOC: SLEEP 08:30
PROVIDERS: ATTEND Family Medicine
DX: G47.33 Obstructive sleep apnea (adult) (pediatric) (principal); I10 Essential (primary) hypertension
CPT/HCPCS: G0399

== ENCOUNTER 2023-04-20 17:35 | Emergency (ER) | payer BC ==
[~2023-04-20 17:35] MED LIST changes: -FENO134C PO; +FENO134C21 PO
[2023-04-20] MEDS ORDERED: DOXYCYCLINE 100 MG (VIBRAMYCIN) TABLET PO STA (18:28)
[2023-04-20] MEDS ORDERED: DOXY100T2 PO (18:34)
--- NOTE | 2023-04-20 18:34 | ED General ---
General Chief Complaint: Skin/Wound Problems Stated Complaint: TICK BITE/LETHARGIC Source of Information: Caregiver, Family () Exam Limitations: No Limitations History of Present Illness Date Seen by Provider: Apr 20, 2023 Time Seen by Provider: 18:21 Initial Comments 89 yo M here for tick bite, rash. Noticed tick on , doesnt think it was attached more than a few hours on his L anterior chest. a day later had hives. Does endorse a couple days of fever, but didnt take temp. Did have some fatigue today while walking around and had to go sit in the car. No CP. No joint pains. No other new exposures. Other ROS negative except per HPI. Allergies and Home Medications Allergies Coded Allergies: No Known Drug Allergies (Verified , 02/17/19) Patient Home Medication List Home Medication List Reviewed: Yes Ceftriaxone Na/Dextrose,Iso (Ceftriaxone 1 gm Piggyback) 1 Gm/50 Ml Froz.piggy, 1 GM IV DAILY Prescribed by: AMY SERNA on 03/06/21 1338 Doxycycline Hyclate (Doxycycline Hyclate) 100 Mg Tablet, 100 MG PO BID Prescribed by: KRIS LONGORIA MD on 04/20/23 1834 Review of Systems Review of Systems Constitutional: see HPI Past Zxmygps-Rubtke-Chkpsq Hx Patient Social History Tobacco Use?: No Use of E-Cig and/or Vaping dev: No Substance use?: No Alcohol Use?: No Immunizations Up To Date Tetanus Booster (TDap): Unknown Seasonal Allergies Seasonal Allergies: No Past Medical History Surgeries: Yes Abdominal, Gallbladder, Orthopedic Respiratory: No Cardiac: Yes High Cholesterol, Hypertension Neurological: No Reproductive Disorders: No Genitourinary: No Gastrointestinal: Yes Gastroesophageal Reflux Musculoskeletal: No Endocrine: No HEENT: No Loss of Vision: Denies Hearing Impairment: Denies Cancer: No Psychosocial: No Integumentary: No Blood Disorders: No Family Medical History Reviewed Nursing Family Hx Heart Disease, Cancer, Diabetes Physical Exam Vital Signs Vital Signs - First Documented 04/20/23 18:18 Temp 36.7 Pulse 68 Resp 17 B/P (MAP) 116/60 (78) Pulse Ox 100 O2 Delivery Room Air Capillary Refill : Height, Weight, BMI Height: 5'11.00" Weight: 255lbs. 0.0oz. 115.598481qf; 28.00 BMI Method:Stated General Appearance: No Apparent Distress, WD/WN Eyes: Bilateral Eye Normal Inspection, Bilateral Eye PERRL, Bilateral Eye EOMI HEENT: Normal ENT Inspection, Pharynx Normal Neck: Full Range of Motion, Normal Inspection, Non Tender, Supple Respiratory: Chest Non Tender, Lungs Clear, Normal Breath Sounds, No Accessory Muscle Use, No Respiratory Distress Cardiovascular: Regular Rate, Rhythm, Normal Peripheral Pulses Gastrointestinal: Normal Bowel Sounds, Non Tender, Soft Extremity: Normal Capillary Refill, Non Tender, No Calf Tenderness, No Pedal Edema Neurologic/Psychiatric: Alert, Oriented x3, No Motor/Sensory Deficits Skin: Rash (diffuse hives sparing the face. There is a macular area to the L scapular region that is inflammed, not infected. Looks like a wheal. ) Lymphatic: No Adenopathy Progress/Results/Core Measures Suspected Sepsis SIRS Temperature: Pulse: Respiratory Rate: Laboratory Tests 04/20/23 18:41: White Blood Count 5.3 Blood Pressure / Mean: Laboratory Tests 04/20/23 18:41: Creatinine 1.17, Platelet Count 131, Total Bilirubin 1.1H Results/Orders Lab Results Laboratory Tests Test 04/20/23 18:41 Range/Units White Blood Count 5.3 4.3-11.0 10^3/uL Red Blood Count 4.73 4.30-5.52 10^6/uL Hemoglobin 14.3 13.3-17.7 g/dL Hematocrit 42 40-54 % Mean Corpuscular Volume 88 80-99 fL Mean Corpuscular Hemoglobin 30 25-34 pg Mean Corpuscular Hemoglobin Concent 34 32-36 g/dL Red Cell Distribution Width 13.2 10.0-14.5 % Platelet Count 131 130-400 10^3/uL Mean Platelet Volume 11.6 9.0-12.2 fL Immature Granulocyte % (Auto) 0 % Neutrophils (%) (Auto) 55 42-75 % Lymphocytes (%) (Auto) 22 12-44 % Monocytes (%) (Auto) 18 H 0-12 % Eosinophils (%) (Auto) 4 0-10 % Basophils (%) (Auto) 1 0-10 % Neutrophils # (Auto) 2.9 1.8-7.8 10^3/uL Lymphocytes # (Auto) 1.2 1.0-4.0 10^3/uL Monocytes # (Auto) 1.0 0.0-1.0 10^3/uL Eosinophils # (Auto) 0.2 0.0-0.3 10^3/uL Basophils # (Auto) 0.0 0.0-0.1 10^3/uL Immature Granulocyte # (Auto) 0.0 0.0-0.1 10^3/uL Neutrophils % (Manual) 58 % Lymphocytes % (Manual) 24 % Monocytes % (Manual) 14 % Eosinophils % (Manual) 4 % Clumped Platelets NO CLUMPS OBSERVED Percent Immature Platelet Fraction 7.2 0.0-7.6 % Blood Morphology Comment NORMAL Sodium Level 139 135-145 MMOL/L Potassium Level 4.0 3.6-5.0 MMOL/L Chloride Level 106 98-107 MMOL/L Carbon Dioxide Level 25 21-32 MMOL/L Anion Gap 8 5-14 MMOL/L Blood Urea Nitrogen 24 H 7-18 MG/DL Creatinine 1.17 0.60-1.30 MG/DL Estimat Glomerular Filtration Rate 74 BUN/Creatinine Ratio 21 Glucose Level 88 70-105 MG/DL Calcium Level 9.4 8.5-10.1 MG/DL Corrected Calcium 9.4 8.5-10.1 MG/DL Total Bilirubin 1.1 H 0.1-1.0 MG/DL Aspartate Amino Transf (AST/SGOT) 16 5-34 U/L Alanine Aminotransferase (ALT/SGPT) 23 0-55 U/L Alkaline Phosphatase 80 40-136 U/L Total Protein 7.2 6.4-8.2 GM/DL Albumin 4.0 3.2-4.5 GM/DL My Orders Orders - KRIS LONGORIA DO Comprehensive Metabolic Panel (04/20/23 18:27) Tick Panel With Lyme Eia (04/20/23 18:27) Cbc With Automated Diff (04/20/23 18:27) Doxycycline Hyclate Tablet (Vibramycin T (04/20/23 18:28) Manual Differential (04/20/23 18:41) Vital Signs/I&O 04/20/23 04/20/23 18:18 19:28 Temp 36.7 36.7 Pulse 68 64 Resp 17 17 B/P (MAP) 116/60 (78) 112/61 Pulse Ox 100 100 O2 Delivery Room Air Room Air Capillary Refill : Departure Communication (Admissions) Patient is hemodynamically stable. He has what appears to be hives, not a ty pical tickborne type rash however given his symptoms of fatigue and fevers we will go ahead and treated with doxycycline. Did advise he use Benadryl as well for the hives and itching. He has no known new exposures. We did send a tick panel. Also checked his LFTs and platelets and there is no stigmata of tickborne illnesses on that screening. Unknown if this is related to exposure to something causing allergy or actual tick bite at this time. Did discuss with the patient the need to return for shortness of breath, swelling or for symptoms change in any way concerning. Impression Primary Impression: Hives Additional Impression: Tick bite of chest wall Qualified Codes: S20.362A - Insect bite (nonvenomous) of left front wall of thorax, initial encounter; W57.XXXA - Bitten or stung by nonvenomous insect and other nonvenomous arthropods, initial encounter Disposition: 01 HOME, SELF-CARE Condition: Stable Departure-Patient Inst. Referrals: JOANNE ALVAREZ DO (PCP/Family) Primary Care Physician Patient Instructions: Any (DC) Add. Discharge Instructions: Take the doxycycline as prescribed until it is gone. Use benadryl 50mg every 6 hours as needed for itching. Your tick panel will be resulted in 3-4 days. You will be notified if it is positive. Return if you develop shortness of breath, facial swelling, or if your symptoms change in any way otherwise concerning to you. All discharge instructions reviewed with patient and/or family. Voiced understanding. Scripts Doxycycline Hyclate (Doxycycline Hyclate) 100 Mg Tablet 100 MG PO BID for 10 Days, #20 TAB Prov: KRIS LONGORIA DO 04/20/23 KRIS LONGORIA DO Apr 20, 2023 18:34
[2023-04-20 18:49] LABS: MEAN CORPUSCULAR VOLUME 88 fL (80-99)
[2023-04-20 18:50] LABS: BASOPHILS % (AUTO) 1 % (0-10); EOSINOPHILS # (AUTO) 0.2 10^3/uL (0.0-0.3); EOSINOPHILS % (AUTO) 4 % (0-10); HEMATOCRIT 42 % (40-54); HEMOGLOBIN 14.3 g/dL (13.3-17.7); LYMPHOCYTES # (AUTO) 1.2 10^3/uL (1.0-4.0); LYMPHOCYTES % (AUTO) 22 % (12-44); MEAN CORPUSCULAR HEMOGLOBIN 30 pg (25-34); MEAN CORPUSCULAR HGB CONC 34 g/dL (32-36); MEAN PLATELET VOLUME 11.6 fL (9.0-12.2); MONOCYTES % (AUTO) 18 % (0-12); NEUTROPHILS # (AUTO) 2.9 10^3/uL (1.8-7.8); NEUTROPHILS % (AUTO) 55 % (42-75); PLATELET COUNT 131 10^3/uL (130-400); WHITE BLOOD COUNT 5.3 10^3/uL (4.3-11.0)
[2023-04-20 19:01] LABS: CALCIUM 9.4 MG/DL (8.5-10.1)
[2023-04-20 19:02] LABS: TOTAL PROTEIN 7.2 GM/DL (6.4-8.2)
[2023-04-20 19:04] LABS: BILIRUBIN,TOTAL 1.1 MG/DL (0.1-1.0)
[2023-04-20 19:06] LABS: CREATININE SERUM 1.17 MG/DL (0.60-1.30)
[2023-04-20 19:08] LABS: LYMPHOCYTES % (MANUAL) 24 %; NEUTROPHILS % (MANUAL) 58 %
[2023-04-20 19:09] LABS: EOSINOPHILS % (MANUAL) 4 %; MONOCYTES % (MANUAL) 14 %; PLATELET CLUMPS NO CLUMPS OBSERVED; RBC MORPH NORMAL
[2023-04-20 19:28] VITALS: BP 112/61
== END 2023-04-20 19:37 | disposition home or self-care (01) ==
LOC: EDUNIT# 17:35 → ER 17:37
DX: S20.362A Insect bite (nonvenomous) of left front wall of thorax, initial encounter (principal); L50.9 Urticaria, unspecified; W57.XXXA Bitten or stung by nonvenomous insect and other nonvenomous arthropods, initial encounter
CPT/HCPCS: 36415; 80053; 85007; 85027; 86618; 86666; 86668; 86757; 99283